=== PATIENT | female | born 2000 | race Caucasian/White ===

== ENCOUNTER → 2018-05-05 | Outpatient (CLI) | payer OTHER ==
[2018-05-05 13:28] LABS: BASO % 0.4 % (0.0-1.0); EOS # 0.1 10^3/uL (0.0-0.50); EOS % 1.1 % (0.0-3.0); HEMATOCRIT 45.1 % (36.0-47.0); IMMATURE GRANULOCYTE % 0.4 % (0-3.0); LYMPH # 2.4 10^3/uL (1.5-6.5); MEAN CORPUSCULAR VOLUME 83.8 fl (80.0-96.0); MONO # 0.6 10^3/uL (0.0-0.8); MONO % 7.5 % (0.0-5.0); NEUTROPHILS # 4.2 10^3/uL (1.8-7.7); NEUTROPHILS % 57.6 % (36.0-66.0); PLATELET COUNT, AUTOMATED 314 10^3/uL (150-450); RED BLOOD COUNT 5.38 10^6/uL (4.00-5.40); RED CELL DISTRIBUTION WIDTH 15.8 % (11.5-14.5); WHITE BLOOD COUNT 7.3 10^3/uL (4.0-10.0)
[2018-05-05 13:43] LABS: INR 1.11; PROTHROMBIN TIME 14.5 SECONDS (12.1-14.4)
[2018-05-05 13:57] LABS: ALBUMIN/GLOBULIN RATIO 0.93 (1.00-1.93); ALKALINE PHOSPHATASE 82 U/L (45-117); ALT/SGPT 136 U/L (12-78); ANION GAP 6 MEQ/L (8-16); AST/SGOT 101 U/L (7-37); BILIRUBIN,TOTAL 0.5 MG/DL (0.2-1.0); BLOOD UREA NITROGEN 6 MG/DL (7-18); CALCIUM LEVEL 9.2 MG/DL (8.5-10.1); CARBON DIOXIDE LEVEL 29 MEQ/L (21-32); CHLORIDE LEVEL 105 MEQ/L (98-107); CHOLESTEROL LEVEL 154 MG/DL (<200); CHOLESTEROL RISK RATIO 3.142 (<5); CREATININE FOR GFR 0.55 MG/DL (0.55-1.30); GLUCOSE, FASTING 88 MG/DL (70-100); HDL CHOLESTEROL 49 MG/DL (>40); LDL CHOLESTEROL 87.6 MG/DL (<100); NON-HDL-C 105 MG/DL; POTASSIUM SERUM 4.4 MEQ/L (3.5-5.1); SODIUM LEVEL 140 MEQ/L (136-145); TOTAL PROTEIN 8.3 GM/DL (6.4-8.2); TRIGLYCERIDES LEVEL 87 MG/DL (<150)
[2018-05-05 14:11] LABS: ESTIMATED AVERAGE GLUCOSE 157 MG/DL (60-110); HEMOGLOBIN A1c 7.1 %
[2018-05-05 16:48] LABS: TOTAL 25(OH) VITAMIN D 20.4 NG/ML (30.0-100.0)
[2018-05-06 10:17] LABS: TESTOSTERONE FREE (DIRECT) 7.6 pg/mL (0.0-4.2)
== END ==
LOC: M LAB 12:41
DX: E28.2 Polycystic ovarian syndrome (principal); Z13.9 Encounter for screening, unspecified
CPT/HCPCS: 84403

== ENCOUNTER → 2018-05-29 | Outpatient (CLI) | payer OTHER ==
[2018-05-29 13:07] LABS: BASO % 0.6 % (0.0-1.0); EOS # 0.1 10^3/uL (0.0-0.50); HEMATOCRIT 42.5 % (36.0-47.0); HEMOGLOBIN 13.5 g/dl (12.0-15.5); IMMATURE GRANULOCYTE % 0.4 % (0-3.0); LYMPH # 2.7 10^3/uL (1.5-6.5); LYMPH % 37.2 % (24.0-44.0); MEAN CORPUSCULAR HEMOGLOBIN 26.4 pg (27.0-33.0); MEAN CORPUSCULAR HGB CONC 31.8 g/dl (32.0-36.5); MEAN CORPUSCULAR VOLUME 83.2 fl (80.0-96.0); MONO # 0.5 10^3/uL (0.0-0.8); MONO % 6.7 % (0.0-5.0); NEUTROPHILS # 3.9 10^3/uL (1.8-7.7); NEUTROPHILS % 54.1 % (36.0-66.0); PLATELET COUNT, AUTOMATED 296 10^3/uL (150-450); RED BLOOD COUNT 5.11 10^6/uL (4.00-5.40); RED CELL DISTRIBUTION WIDTH 15.7 % (11.5-14.5); WHITE BLOOD COUNT 7.2 10^3/uL (4.0-10.0)
[2018-05-29 13:08] LABS: HEMATOCRIT 42.5 % (36.0-47.0)
[2018-05-29 14:01] LABS: TOTAL 25(OH) VITAMIN D 36.7 NG/ML (30.0-100.0)
[2018-05-29 14:03] LABS: THYROID PEROXIDASE ANTIBODY 31.6 U/ML (<60.0)
[2018-05-29 14:05] LABS: VITAMIN B12 LEVEL 603 PG/ML (247-911)
[2018-05-29 14:44] LABS: FREE T4 0.91 NG/DL (0.78-1.33)
[2018-05-29 15:54] LABS: FREE T3 3.2 PG/ML (2.9-4.5); IMMUNOGLOBULIN G 1410 MG/DL (681-1648)
[2018-06-02 16:29] LABS: PRETREATED FOLATE FOR RBCFOL 10.1 NG/ML; RBC FOLATE 499.1 NG/ML (280-791)
[2018-06-04 14:17] LABS: ALUMINUM LEVEL 4 ug/L (0-9)
[2018-06-04 14:17] LABS: ANTI DOUBLE STRAND-DNA AB 14 IU/mL (0-9); ANTINUCLEAR ANTIBODIES DIRECT Positive (Negative); GLUTATHIONE QT 244 ug/mL (176-323); Methylmalonic Acid 122 nmol/L (0-378); RNP ANTIBODIES 0.3 AI (0.0-0.9); SJOGREN'S ANTI SS-A <0.2 AI (0.0-0.9); SJOGREN'S ANTI SS-B <0.2 AI (0.0-0.9); SMITH ANTIBODIES <0.2 AI (0.0-0.9); T3 REVERSE 17.2 ng/dL (9.2-24.1); TISSUE TRANSGLUTAMINASE IgA <2 U/mL (0-3); UNITSIGA FOR GLIADIN IGA 8 units (0-19); UNITSIGG FOR GLIADIN IGG 3 units (0-19)
== END ==
LOC: M LAB 12:02
DX: F60.3 Borderline personality disorder (principal); E11.9 Type 2 diabetes mellitus without complications
CPT/HCPCS: 84443

== ENCOUNTER 2018-06-27 10:35 | Emergency (ER) | payer OTHER ==
[2018-06-27 11:53] LABS: INFLUENZA A AMPLIFICATION NEGATIVE (NEGATIVE); INFLUENZA B AMPLIFICATION NEGATIVE (NEGATIVE); RSV AMPLIFICATION NEGATIVE (NEGATIVE)
== END 2018-06-27 12:27 | disposition home or self-care (01) ==
LOC: M ED 10:35
DX: J06.9 Acute upper respiratory infection, unspecified (principal); E11.9 Type 2 diabetes mellitus without complications; F33.9 Major depressive disorder, recurrent, unspecified; F41.9 Anxiety disorder, unspecified; E28.2 Polycystic ovarian syndrome; Z87.891 Personal history of nicotine dependence; Z88.8 Allergy status to other drugs, medicaments and biological substances; Z88.1 Allergy status to other antibiotic agents; Z88.2 Allergy status to sulfonamides; Z79.899 Other long term (current) drug therapy
CPT/HCPCS: 87631

== ENCOUNTER 2018-07-14 18:42 | Emergency (ER) | payer OTHER ==
[2018-07-14 21:32] LABS: BASO % 0.5 % (0.0-1.0); EOS # 0.1 10^3/uL (0.0-0.50); EOS % 1.2 % (0.0-3.0); HEMATOCRIT 44.3 % (36.0-47.0); IMMATURE GRANULOCYTE % 0.4 % (0-3.0); LYMPH # 3.2 10^3/uL (1.5-6.5); LYMPH % 38.5 % (24.0-44.0); MEAN CORPUSCULAR HEMOGLOBIN 26.6 pg (27.0-33.0); MEAN CORPUSCULAR HGB CONC 31.6 g/dl (32.0-36.5); MEAN CORPUSCULAR VOLUME 84.2 fl (80.0-96.0); MONO # 0.6 10^3/uL (0.0-0.8); MONO % 7.5 % (0.0-5.0); NEUTROPHILS # 4.3 10^3/uL (1.8-7.7); NEUTROPHILS % 51.9 % (36.0-66.0); PLATELET COUNT, AUTOMATED 320 10^3/uL (150-450); RED BLOOD COUNT 5.26 10^6/uL (4.00-5.40); RED CELL DISTRIBUTION WIDTH 14.7 % (11.5-14.5); WHITE BLOOD COUNT 8.3 10^3/uL (4.0-10.0)
== END 2018-07-14 22:15 | disposition home or self-care (01) ==
LOC: M ED 18:42
DX: N93.8 Other specified abnormal uterine and vaginal bleeding (principal); T83.39XA Other mechanical complication of intrauterine contraceptive device, initial encounter; E11.9 Type 2 diabetes mellitus without complications; F33.9 Major depressive disorder, recurrent, unspecified; F41.9 Anxiety disorder, unspecified; F60.9 Personality disorder, unspecified; E28.2 Polycystic ovarian syndrome; Z79.899 Other long term (current) drug therapy; Z88.1 Allergy status to other antibiotic agents; Z88.2 Allergy status to sulfonamides; Z88.8 Allergy status to other drugs, medicaments and biological substances
CPT/HCPCS: 76856

== ENCOUNTER 2018-07-15 14:26 | Emergency (ER) | payer OTHER | END 2018-07-15 18:24 | disposition left against medical advice (07) | LOC: M ED 14:26 | DX: R10.2 Pelvic and perineal pain (principal); N94.6 Dysmenorrhea, unspecified; T83.39XA Other mechanical complication of intrauterine contraceptive device, initial encounter; Y92.9 Unspecified place or not applicable; Y93.9 Activity, unspecified; Z53.21 Procedure and treatment not carried out due to patient leaving prior to being seen by health care provider; Z79.899 Other long term (current) drug therapy; Z88.2 Allergy status to sulfonamides; Z88.8 Allergy status to other drugs, medicaments and biological substances | CPT/HCPCS: 99282 ==

== ENCOUNTER → 2018-08-03 | Outpatient (CLI) | payer OTHER ==
[2018-08-03 14:46] LABS: PROGESTERONE 0.99 NG/ML
[2018-08-03 14:46] LABS: FOLLICLE STIMULATING HORMONE 6.2 mIU/mL; LUTEINIZING HORMONE 5.9 mIU/mL; THYROGLOBULIN ANTIBODY 92.3 U/ML (<60.0); THYROID PEROXIDASE ANTIBODY 34.7 U/ML (<60.0); TOTAL 25(OH) VITAMIN D 26.2 NG/ML (30.0-100.0)
== END ==
LOC: M LAB 10:39
DX: F60.3 Borderline personality disorder (principal)
CPT/HCPCS: 83001

== ENCOUNTER → 2018-09-02 | Outpatient (REF) | payer OTHER ==
[2018-09-02 19:16] LABS: ALBUMIN 4.5 GM/DL (3.2-5.2); ALBUMIN/GLOBULIN RATIO 1.13 (1.00-1.93); ALKALINE PHOSPHATASE 72 U/L (45-117); ALT/SGPT 189 U/L (12-78); ANION GAP 9 MEQ/L (8-16); AST/SGOT 80 U/L (7-37); BILIRUBIN,TOTAL 0.3 MG/DL (0.2-1.0); BLOOD UREA NITROGEN 14 MG/DL (7-18); CALCIUM LEVEL 9.3 MG/DL (8.5-10.1); CARBON DIOXIDE LEVEL 24 MEQ/L (21-32); CHLORIDE LEVEL 107 MEQ/L (98-107); CREATININE FOR GFR 0.56 MG/DL (0.55-1.30); GLUCOSE, FASTING 88 MG/DL (70-100); POTASSIUM SERUM 4.4 MEQ/L (3.5-5.1); SODIUM LEVEL 140 MEQ/L (136-145); TOTAL PROTEIN 8.5 GM/DL (6.4-8.2)
[2018-09-02 19:58] LABS: ESTIMATED AVERAGE GLUCOSE 160 MG/DL (60-110); HEMOGLOBIN A1c 7.2 %
== END ==
LOC: M LAB REF 18:32
DX: K76.0 Fatty (change of) liver, not elsewhere classified (principal); E11.9 Type 2 diabetes mellitus without complications
CPT/HCPCS: 80053

== ENCOUNTER → 2018-12-26 | Outpatient (CLI) | payer MEDICARE ==
[~2018-12-26] MED LIST: ALL10TAB28 PO; PRED20TA PO; STEG5TAB
--- NOTE | 2019-01-01 23:05 | SLEEPCENT ---
DATE OF PROCEDURE: 12/26/2018 REFERRING PROVIDER: CHRIST Alfred INTERPRETATION: Nocturnal polysomnography was performed for the evaluation of sleep apnea syndrome symptoms consisting of excessive daytime sleepiness, snoring, gasping respirations, and morning headaches. She also has diabetes mellitus, type 2. A total of 7 hours and 37 minutes of data was reviewed with 335.5 minutes of sleep identified. Sleep latency was 16.5 minutes. Rapid eye movement (REM) latency was 110.5 minutes. All stages of sleep were identified. Sleep efficiency was decreased at 74.5%. EKG showed normal sinus rhythm with an average heart rate of 80 beats per minute. Speeding and slowing was noted surrounding some respiratory events. There were 109 respiratory events identified of 10 seconds in duration or longer for an apnea-hypopnea index (AHI) of 19.5. The events were predominantly obstructive apneas/hypopneas. Respiratory effort-related arousal (RERA) index was 1.8 giving a total respiratory disturbance index (RDI) of 21.3. Mean oxygen saturation for the study was 92% with a minimum recorded value of 84%. Arousal index was 7.7. Periodic limb movement index was 0. IMPRESSION: 1. Obstructive sleep apnea, moderate. RECOMMENDATIONS: Recommend the patient return to the sleep disorder center for the determination of pressure therapy. Pending that intervention, alcohol and sedative usage should be avoided and care should be taken when operating motor vehicles.
== END ==
LOC: M SLEEP 20:00
PROVIDERS: ATTEND Internal Medicine Pulmonary Disease
DX: G47.30 Sleep apnea, unspecified (principal)

== ENCOUNTER 2019-07-05 16:04 | Inpatient (IN) | payer MEDICARE, MEDICAID ==
[~2019-07-05] VITALS: Ht 170.2 cm; Wt 127.6 kg
[~2019-07-05 16:04] MED LIST changes: -ALL10TAB28 PO; +ALL10TAB29 PO
[2019-07-05] MEDS ORDERED: LANTINJ4 SC ×2 (16:15→23:43)
[2019-07-05] MEDS ORDERED: CLON0.5T8 PO ×2 (16:17→23:43)
[2019-07-05] MEDS ORDERED: NAPR500T6 PO (16:17)
[2019-07-05 17:30] LABS: HEMATOCRIT 43.4 % (36.0-47.0); HEMOGLOBIN 14.1 g/dl (12.0-15.5); MEAN CORPUSCULAR HEMOGLOBIN 27.9 pg (27.0-33.0); MEAN CORPUSCULAR HGB CONC 32.5 g/dl (32.0-36.5); MEAN CORPUSCULAR VOLUME 85.9 fl (80.0-96.0); PLATELET COUNT, AUTOMATED 250 10^3/uL (150-450); RED BLOOD COUNT 5.05 10^6/uL (4.00-5.40); WHITE BLOOD COUNT 6.8 10^3/uL (4.0-10.0)
[2019-07-05 17:41] LABS: HCG, SERUM QUALITATIVE NEGATIVE (NEGATIVE)
[2019-07-05 17:52] LABS: ALBUMIN 3.7 GM/DL (3.2-5.2); ALT/SGPT 172 U/L (12-78); BILIRUBIN,DIRECT 0.1 MG/DL (0.0-0.2); BILIRUBIN,TOTAL 0.2 MG/DL (0.2-1.0); BLOOD UREA NITROGEN 9 MG/DL (7-18); CARBON DIOXIDE LEVEL 26 MEQ/L (21-32); CHLORIDE LEVEL 108 MEQ/L (98-107); CREATININE FOR GFR 0.56 MG/DL (0.55-1.30); ETHYL ALCOHOL (ETHANOL) < 0.003 % (0.000-0.010); GLOMERULAR FILTRATION RATE > 60.0 (>60); GLUCOSE, FASTING 108 MG/DL (70-100); POTASSIUM SERUM 4.3 MEQ/L (3.5-5.1); SALICYLATE LEVEL < 1.7 MG/DL (5.0-30.0); SODIUM LEVEL 142 MEQ/L (136-145); TOTAL PROTEIN 7.9 GM/DL (6.4-8.2)
[2019-07-05 17:53] LABS: ACETAMINOPHEN LEVEL < 2.0 UG/ML (10.0-30.0)
[2019-07-05 21:24] LABS: AMPHETAMINES LEVEL URINE NEGATIVE (NEGATIVE); BARBITURATES URINE NEGATIVE (NEGATIVE); BENZODIAZEPINES URINE NEGATIVE (NEGATIVE); CANNABINOIDS URINE NEGATIVE (NEGATIVE); COCAINE METABOLITE URINE NEGATIVE (NEGATIVE); METHADONE URINE NEGATIVE (NEGATIVE); OPIATES URINE NEGATIVE (NEGATIVE); PHENCYCLIDINE URINE NEGATIVE (NEGATIVE)
[2019-07-05] MEDS ORDERED: NAPR-885 PO (23:43)
[2019-07-06] MEDS ORDERED: LEVEMIR (INSULIN DETEMIR) 1 UNITS/0.01ML SC ONE (00:45)
--- NOTE | 2019-07-06 07:50 | ECGEPIP ---
[facility] - ED Test Date: 2019-07-05 Pat Name: MUKESH RUBIO Department: Room: - Gender: Female Rn Operating Room: BRYCE : 2000 Requested By: ANTWAN Correia Order Number: [id number] Reading MD: Vel Michaud Measurements Intervals [place] Rate: 84 P: 46 LA: 164 QRS: -5 QRSD: 89 T: 5 QT: 361 QTc: 427 Interpretive Statements SINUS RHYTHM BENIGN EARLY REPOLARIZATION NONSPECIFIC T WAVE ABNORMALITIES NO PRIORS FOR COMPARISON Electronically Signed on 07-06-2019 7:49:33 EDT by Vel Michaud
[2019-07-06] MEDS ORDERED: MAALOX 30 ML SUSP *UDC PO PRN (17:00)
[2019-07-06] MEDS ORDERED: ACETAMINOPHEN TAB 650MG DOSE (2X325MG) PO PRN (17:00)
[2019-07-06] MEDS ORDERED: traZODone 50 MG TAB PO PRN (17:00)
[2019-07-06] MEDS ORDERED: MOM 30ML SUSPENSION UDC PO PRN (17:00)
[2019-07-07 06:12] VITALS: BP 135/82
[2019-07-07] MEDS ORDERED: LANTINJ4 SC (09:47)
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
[2019-07-07] MEDS ORDERED: CETIRIZINE (ZyrTEC) 10 MG TAB PO ONE (13:15)
[2019-07-07] MEDS ORDERED: DEXTROSE 50% 50 ML SYRINGE IV PRN (13:15)
[2019-07-07] MEDS ORDERED: CEPACOL LOZENGE PO PRN (13:15)
[2019-07-07] MEDS ORDERED: GLUCAGON FOR INJ 1 MG VIAL (J1610) SC PRN (13:15)
[2019-07-07] MEDS ORDERED: GLUCOSE 4 GM CHEW TABLET PO PRN (13:15)
--- NOTE | 2019-07-07 15:43 | HPE ---
DATE OF ADMISSION: 07/06/2019 DATE OF SERVICE: 07/07/2019 CHIEF COMPLAINT: Depression, runny nose. HISTORY OF PRESENT ILLNESS: This is a 19-year-old female admitted to the inpatient mental health unit due to depression. She complains of sinus congestion, rhinorrhea, sore throat without fevers or chills. No sputum production. The patient has had some sick contacts with her 's family, who have had upper respiratory infection and viral illness. She otherwise denies any muscle aches, joint pain aside from her chronic proximal interphalangeal joint pain that she occasionally has and currently being worked up by energy efficiency finance manager in [place]. The patient says that about 4 months ago she was referred out to energy efficiency finance manager due to abnormal findings of positive JAMAAL times two, increased liver function tests. More blood tests were performed at that time and she is to followup with them on 07/15/2019. The patient states that she also has pain in her back, her knees, her elbows, wrists, and small joints of the hands bilaterally. No swelling, redness or tenderness. Pain occurs for several hours, does not haydee until she takes Naprosyn twice a day with some relief. She otherwise denies any cough, rash, diarrhea. No prior history of psoriatic arthritis. She is being worked up for rheumatoid arthritis. No family history of lupus or thyroid issues. PAST MEDICAL HISTORY: 1. Polycystic ovarian syndrome. 2. Type 2 diabetes. 3. Obstructive sleep apnea. 4. Enlarged tonsils. 5. Being worked up for possible rheumatoid arthritis. PAST SURGICAL HISTORY 1. [place] teeth extraction times four teeth. HOME MEDICATIONS: - Naprosyn - Lantus insulin - insulin sliding scale ALLERGIES: TEGRETOL, SULFA, METFORMIN. SOCIAL HISTORY: Smoked cigarettes 2 years ago, half of a pack when she was home, but has quit since. Occasional alcohol, one drink with a Smirnoff on ice but not every day. She lost her disability. 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 FAMILY HISTORY: Mother and father with unknown medical illnesses. REVIEW OF SYSTEMS: As per history of present illness. 12-point system otherwise negative. PHYSICAL EXAMINATION: VITAL SIGNS: Temperature 97.7, pulse 79, sinus, respiratory rate 16, blood pressure 135/82, 100% on room air. GENERAL: The patient is awake, alert, oriented times three. Anicteric sclerae. No jaundice. No use of respiratory accessory muscles. The patient has significant nasal congestion and sinus tenderness in the maxillary area bilaterally. She has some rhinorrhea. Tympanic membranes are clear. She has enlarged tonsils but not exudates. She does have some cervical lymphadenopathy on the right, none on the right. No thyromegaly. No jugular venous distention (JVD). LUNGS: Clear to auscultation. No wheezing, rales or rhonchi. HEART: S1, S2. Sinus rhythm. ABDOMEN: Soft, nontender, nondistended. Positive bowel sounds. EXTREMITIES: No cyanosis, clubbing or any pitting edema. Distal interphalangeal joint, proximal interphalangeal joint and metacarpophalangeal joints all within normal. There is no bogginess or swelling. No tenderness. Knees and elbows are normal. No swelling or redness noted. Flexion, extension of bilateral upper and lower extremities at the elbow joints and knees are normal. Gait is normal. LABORATORY DATA: 07/05/2019 CBC, metabolic panel, toxicology screen have all been reviewed. Rapid strep is negative. ASSESSMENT AND PLAN: This is a 19-year-old admitted for depression, currently with upper respiratory infection, history of polycystic ovarian syndrome, diabetes, enlarged tonsils, obstructive sleep apnea. IMPRESSION: 1. Upper respiratory infection, most likely viral. Check respiratory panel. Strict handwashing. 2. Possible allergic rhinitis. Trial of Flonase, Zyrtec. 3. Sore throat. Negative rapid strep. No empiric antibiotics for now. Supportive care for possible viral illness. Encourage oral fluid intake. 4. Joint pain, being worked up by energy efficiency finance manager in [place] with abnormal JAMAAL pattern. Currently with no bogginess of any of the small joints of the hands. Consent for x-ray of the hand. Check for anisotropine antibodies. 5. PCOS. The patient does not tolerate metformin. Outpatient followup with her scallop binder. 6. Type 2 diabetes. Check A1/c and resume on home dose of Lantus insulin. While inpatient, change to Levemir insulin as Lantus is unavailable. Continue on consistent carbohydrate diet. 7. Metabolic syndrome with type 2 diabetes and obesity. Check lipid panel. Encourage weight loss. MTDD
[2019-07-07 16:06] VITALS: BP 133/89
--- NOTE | 2019-07-07 16:10 | REP ---
REASON FOR EXAM: Hand pain. No trauma. No priors. FINDINGS: The joint spaces are symmetric and relatively well maintained. There is no evidence of acute fracture or destructive osseous lesion. IMPRESSION: Negative hand. Electronically Signed by Vincent Thayer DO 07/08/2019 10:43 A
[2019-07-07] MEDS: FLUTICASONE PROP 0.05% NASAL SPRAY 16 GM (FLONASE) NARES SCH (17:21)
[2019-07-07] MEDS: HumaLOG INSULIN (NovoLOG) PER UNIT SC SCH (17:21)
[2019-07-07 18:13] LABS: C REACTIVE PROTEIN QUANTITATIV 1.12 MG/DL (0.00-0.30); COMPLEMENT C3 165 MG/DL (90-180); COMPLEMENT C4 16 MG/DL (10-40); RHEUMATOID FACTOR QUANT < 10.0 IU/ML (<15.0)
[2019-07-07] MEDS ORDERED: LEVEMIR (INSULIN DETEMIR) 1 UNITS/0.01ML SC SCH (21:00)
[2019-07-07] MEDS ORDERED: HumaLOG INSULIN (NovoLOG) PER UNIT SC SCH (21:00)
[2019-07-08 06:13] VITALS: BP 136/82
[2019-07-08] MEDS: HumaLOG INSULIN (NovoLOG) PER UNIT SC SCH (07:30)
[2019-07-08] MEDS: FLUTICASONE PROP 0.05% NASAL SPRAY 16 GM (FLONASE) NARES SCH (08:17)
[2019-07-08] MEDS ORDERED: CETIRIZINE (ZyrTEC) 10 MG TAB PO SCH (09:00)
--- NOTE | 2019-07-08 11:44 | MHDSPDOC ---
[facility] Discharge Summary Discharge Summary DATE OF ADMISSION: Jul 06, 2019 at 16:53 DATE OF DISCHARGE: Jul 08, 2019 at 10:45 Date of Service: 07/08/2019 Diagnoses Adjustment disorder with disruption of mood and conduct. History of Present Illness The patient is a 19-year-old woman presents to [facility] reportedly for current suicidal thoughts. She reported that she had had a second session with the new therapist and had revealed her current suicidal thoughts, reporting that she wished to talk about that; however, she reports that her therapist had sent her in to the ER for out of an abundance of caution. The patient reports that she has been unhappy with [facility] and has an appointment with the [facility] with the provider, Mary Parsons, as she reports having a positive experience. She is not interested in trying any medications as she reports talk therapy is her ideal treatment. She requests to leave today and does not appear to demonstrate substantial risk from her baseline chronic risk factors. She is observed and generally amenable, friendly and attends to all parts of her treatment well. She has been in observation and brought in since the 05 of July, more than 48 hours ago where she was observed with no suicidal ideation. Consultants Involved Hospitalist/PCP screening Treatment and Progress On The Unit The patient was admitted to the unit and subsequently observed after 48 hours with no medication changes. She was euthymic. She had been denying suicidal ideation during the majority of her stay. She reported that she felt she had been brought in out of an abundance of caution, she reports that she regularly has passive intermittent suicidal ideation but has no plans, means, or intent to act on them. After observation for 48 hours, the patient was noted to be amenable, attended groups, and was not demonstrating that she was heavily impaired by any mental condition so much so that she would be unable to care for herself. She had been denying any suicidal or homicidal ideation and, at the day of discharge, she requested to go. She did not meet involuntary criteria in my clinical judgment, as she was not demonstrating factors that would indicate that she is an imminent risk to herself, as elaborated above. She additionally was able to engage in her discharge planning and was noted to be future orientated and well-engaged in discharge planning. She declined further voluntary admission and thus was discharged in good jacques. Discharge Assessment 19-year-old woman with a history of adjustment versus MDD that presents after having chronic passive ideation that's revealed to a new therapist, necessitating her being brought in for observation. After observation has lapsed, she no longer meets involuntary criteria and, thus, when she requests to leave, she must be discharged in good jacques. Mental Status Examination General: Well dressed with good hygiene Speech: Spontaneous and fluid Thought processes: Linear and logical MSK: Smooth and coordinated gait, no signs of tremors or involuntary orofacial movements Thought content: Future orientated Abstract reasoning, and computation: Intact Description of associations: Intact Description of abnormal or psychotic thoughts: Denies any suicidal or homicidal ideation. Denies any auditory or visual hallucinations. Does not appear to be responding to internal stimuli. Does not appear to be endorsing any bizarre or paranoid ideation. Judgment: fair Insight: fair Orientation: Alert and orientated 3 Cognition: Grossly normal Recent and remote memory: Intact Attention span and concentration: Intact Fund of knowledge: Adequate Mood: "okay" Affect: Euthymic with a full range Follow Up The social work team worked during the pre-discharge meeting in order to evaluate for further issues of lethality, address them fully before discharge. They worked on safety planning with the patient's family members in order to ensure that the patient will have a safe and effective discharge. Time Spent The amount of time spent in the coordination of care for this patient was approximately 30 minutes. Vital Signs/I&Os Vital Signs Date Time Temp Pulse Resp B/P (MAP) Pulse Ox O2 Delivery O2 Flow Rate FiO2 07/08/19 06:13 97.7 78 18 136/82 (100) 07/07/19 08:07 Room Air 07/06/19 17:21 100 Laboratory Data Labs 24H Laboratory Tests 2 07/07/19 16:54: Bedside Glucose (Misc Panel) 111H 07/07/19 17:24: Erythrocyte Sedimentation Rate 14, C-Reactive Protein, Quantitative 1.12H, Rheumatoid Factor < 10.0, Complement C3 165, Complement C4 16 07/07/19 21:44: Bedside Glucose (Misc Panel) 112H 07/08/19 06:28: Bedside Glucose (Misc Panel) 124H 07/08/19 08:14: Bedside Glucose (Misc Panel) 189H Microbiology Microbiology 07/07/19 Respiratory Virus Panel (PCR) (SUDHA) - Final, Complete Human Rhinovirus/Enterovirus 07/07/19 Group A Streptococcus Screen (SUDHA) - Final, Resulted 07/07/19 Group A Streptococcus Screen (SUDHA), Resulted Pending Medications Scheduled Insulin Glargine,Hum.rec.anlog (Lantus Solostar) 100 Unit/1 Ml Insuln.pen, 10 UNITS SC QHS, (Reported) Scheduled PRN Naproxen (Naproxen) 500 Mg Tablet, 500 MG PO BID PRN for PAIN, (Reported) Allergies Coded Allergies: Sulfa (Sulfonamide Antibiotics) (Verified Allergy, Intermediate, HIVES, 07/05/19) carbamazepine (Verified Allergy, Intermediate, HIVES, 07/05/19) metformin (Verified Adverse Reaction, Mild, GI ISSUES, 07/05/19) SASKIA GARDNER DO Jul 08, 2019 11:44
== END 2019-07-08 10:45 | disposition home or self-care (01) | DRG 882 ==
LOC: M ED 16:04 → M ED INP 07-06 16:53 → M PSY 07-06 17:28
PROVIDERS: ADMIT Psychiatry & Neurology Addiction Medicine; ATTEND Psychiatry & Neurology Addiction Medicine
DX: F43.25 Adjustment disorder with mixed disturbance of emotions and conduct (principal); Z68.41 Body mass index [BMI] 40.0-44.9, adult; Z88.2 Allergy status to sulfonamides; Z88.8 Allergy status to other drugs, medicaments and biological substances; E11.65 Type 2 diabetes mellitus with hyperglycemia; Z79.4 Long term (current) use of insulin; J30.9 Allergic rhinitis, unspecified; J02.9 Acute pharyngitis, unspecified; E28.2 Polycystic ovarian syndrome; G47.33 Obstructive sleep apnea (adult) (pediatric); J35.1 Hypertrophy of tonsils; M06.9 Rheumatoid arthritis, unspecified; Z87.891 Personal history of nicotine dependence; Z59.9 Problem related to housing and economic circumstances, unspecified; E88.81 Metabolic syndrome and other insulin resistance; E66.9 Obesity, unspecified

== ENCOUNTER → 2019-07-13 | Outpatient (CLI) | payer MEDICARE, MEDICAID ==
[~2019-07-13] MED LIST changes: +CLON0.5T8 PO; +LANTINJ4 SC; +NAPR-885 PO; +NAPR500T6 PO
[2019-07-13 10:59] LABS: C REACTIVE PROTEIN QUANTITATIV 0.59 MG/DL (0.00-0.30); FREE T3 3.4 PG/ML (2.2-4.0); FREE T4 1.03 NG/DL (0.76-1.46); PROGESTERONE 0.75 NG/ML; TOTAL 25(OH) VITAMIN D 23.6 NG/ML (30.0-100.0)
[2019-07-14 09:12] LABS: THYROID PEROXIDASE ANTIBODY < 28.0 U/ML (<60.0)
[2019-07-17 00:08] LABS: ESTROGENS TOTAL 222 pg/mL (.); INSULIN LEVEL 19.6 uIU/mL (2.6-24.9); TESTOSTERONE FREE (DIRECT) 4.8 pg/mL (0.0-4.2); THRYOGLOBULIN ANTIBODIES (ATA) < 1.0 IU/mL (0.0-0.9); THYROGLOBULIN QUANTITATIVE 19.4 ng/mL (1.5-38.5)
== END ==
LOC: M LAB 08:55
PROVIDERS: ATTEND Nurse Practitioner Pediatrics
DX: F60.3 Borderline personality disorder (principal); E28.2 Polycystic ovarian syndrome; E11.9 Type 2 diabetes mellitus without complications; E03.9 Hypothyroidism, unspecified

== ENCOUNTER → 2019-07-29 | Outpatient (REF) | payer MEDICARE, MEDICAID ==
[2019-08-05 14:51] LABS: HPV HYBRID CAPTURE II Positive (Negative)
== END ==
LOC: M SFHCWAGY 15:22
PROVIDERS: ATTEND Nurse Practitioner Women's Health
DX: Z12.4 Encounter for screening for malignant neoplasm of cervix (principal); R87.620 Atypical squamous cells of undetermined significance on cytologic smear of vagina (ASC-US); R87.810 Cervical high risk human papillomavirus (HPV) DNA test positive
CPT/HCPCS: 87624; 87661; G0101; G0123

== ENCOUNTER → 2019-07-29 | Outpatient (REF) | payer MEDICARE, MEDICAID ==
[2019-07-29 20:14] LABS: CHLAMYDIA DNA AMPLIFICATION NEGATIVE (NEGATIVE); GC DNA AMPLIFICATION NEGATIVE (NEGATIVE)
== END ==
LOC: M SFHCWAGY 16:52
PROVIDERS: ATTEND Nurse Practitioner Women's Health
DX: Z11.3 Encounter for screening for infections with a predominantly sexual mode of transmission (principal)

== ENCOUNTER → 2019-08-09 | Outpatient (CLI) | payer MEDICARE, SELFPAY ==
[~2019-08-09] MED LIST changes: +CLON0.5T2 PO; -CLON0.5T8 PO
--- NOTE | 2019-08-10 09:12 | REP ---
PELVIC ULTRASOUND: Real-time sonographic evaluation of the pelvis performed utilizing transabdominal and endovaginal technique. Bladder measures 10.0 x 8.2 x 6.7 cm. Uterus measures 7.6 x 2.8 x 3.6 cm. Endometrial thickness is 5 mm with no endometrial fluid collection. Right ovary measures 4.7 x 2.5 x 2.5 cm and left ovary 3.3 x 2.5 x 2.6 cm. Multiple subcentimeter follicles are seen in each ovary. There is no adnexal mass or free fluid. There is no torsion, blood flow is seen in each ovary with duplex Doppler evaluation. IMPRESSION: Negative pelvic ultrasound. Multiple subcentimeter follicles seen in each ovary. Electronically Signed by Chris Muir MD 08/11/2019 10:26 A
== END ==
LOC: M RAD 16:30
PROVIDERS: ATTEND Nurse Practitioner Women's Health
DX: Z01.419 Encounter for gynecological examination (general) (routine) without abnormal findings (principal); E28.2 Polycystic ovarian syndrome; N97.0 Female infertility associated with anovulation

== ENCOUNTER → 2019-10-13 | Outpatient (REF) | payer MEDICARE ==
[2019-10-13 13:54] LABS: BASO % 0.3 % (0.0-1.0); EOS # 0.1 10^3/uL (0.0-0.5); EOS % 1.3 % (0.0-3.0); HEMOGLOBIN 13.6 g/dl (12.0-15.5); LYMPH # 2.4 10^3/uL (1.5-5.0); LYMPH % 38.8 % (24.0-44.0); MEAN CORPUSCULAR HEMOGLOBIN 27.8 pg (27.0-33.0); MEAN CORPUSCULAR HGB CONC 31.6 g/dl (32.0-36.5); MEAN CORPUSCULAR VOLUME 87.9 fl (80.0-96.0); MONO # 0.5 10^3/uL (0.0-0.8); MONO % 7.3 % (0.0-5.0); NEUTROPHILS # 3.3 10^3/uL (1.5-8.5); NEUTROPHILS % 51.8 % (36.0-66.0); PLATELET COUNT, AUTOMATED 267 10^3/uL (150-450); RED BLOOD COUNT 4.89 10^6/uL (4.00-5.40); WHITE BLOOD COUNT 6.3 10^3/uL (4.0-10.0)
[2019-10-13 14:07] LABS: ALBUMIN 3.8 GM/DL (3.2-5.2); ALT/SGPT 112 U/L (12-78); BILIRUBIN,TOTAL 0.5 MG/DL (0.2-1.0); BLOOD UREA NITROGEN 6 MG/DL (7-18); CARBON DIOXIDE LEVEL 27 MEQ/L (21-32); CHLORIDE LEVEL 107 MEQ/L (98-107); CHOLESTEROL LEVEL 161 MG/DL (<200); CHOLESTEROL RISK RATIO 2.981 (<5); CREATININE FOR GFR 0.46 MG/DL (0.55-1.30); FREE T4 0.97 NG/DL (0.76-1.46); GLOMERULAR FILTRATION RATE > 60.0 (>60); GLUCOSE, FASTING 118 MG/DL (70-100); HDL CHOLESTEROL 54 MG/DL (>40); LDL CHOLESTEROL 88 MG/DL (<100); NON-HDL-C 107 MG/DL; POTASSIUM SERUM 4.3 MEQ/L (3.5-5.1); SODIUM LEVEL 139 MEQ/L (136-145); TOTAL PROTEIN 7.6 GM/DL (6.4-8.2); TRIGLYCERIDES LEVEL 95 MG/DL (<150)
[2019-10-13 14:09] LABS: TOTAL 25(OH) VITAMIN D 23.7 NG/ML (30.0-100.0)
[2019-10-13 15:17] LABS: HEMOGLOBIN A1c 7.1 %
== END ==
LOC: M LAB REF 13:38
PROVIDERS: ATTEND Nurse Practitioner Family
DX: R32 Unspecified urinary incontinence (principal); Z13.9 Encounter for screening, unspecified; E11.9 Type 2 diabetes mellitus without complications; E66.01 Morbid (severe) obesity due to excess calories

== ENCOUNTER → 2019-11-24 | Outpatient (CLI) | payer OTHER ==
[2019-11-24 15:35] LABS: BASO % 0.6 % (0.0-1.0); EOS % 0.6 % (0.0-3.0); HEMATOCRIT 42.5 % (36.0-47.0); HEMOGLOBIN 13.7 g/dl (12.0-15.5); LYMPH # 2.5 10^3/uL (1.5-5.0); LYMPH % 39.5 % (24.0-44.0); MEAN CORPUSCULAR HEMOGLOBIN 27.8 pg (27.0-33.0); MEAN CORPUSCULAR HGB CONC 32.2 g/dl (32.0-36.5); MEAN CORPUSCULAR VOLUME 86.4 fl (80.0-96.0); MONO # 0.5 10^3/uL (0.0-0.8); MONO % 8.3 % (0.0-5.0); NEUTROPHILS # 3.3 10^3/uL (1.5-8.5); NEUTROPHILS % 50.8 % (36.0-66.0); PLATELET COUNT, AUTOMATED 267 10^3/uL (150-450); RED BLOOD COUNT 4.92 10^6/uL (4.00-5.40); WHITE BLOOD COUNT 6.4 10^3/uL (4.0-10.0)
[2019-11-24 15:46] LABS: INR 1.13; PROTHROMBIN TIME 14.2 SECONDS (11.8-14.0)
[2019-11-24 16:03] LABS: ALBUMIN 4.1 GM/DL (3.2-5.2); ALT/SGPT 112 U/L (12-78); BILIRUBIN,TOTAL 0.5 MG/DL (0.2-1.0); BLOOD UREA NITROGEN 7 MG/DL (7-18); CALCIUM LEVEL 9.1 MG/DL (8.5-10.1); CARBON DIOXIDE LEVEL 26 MEQ/L (21-32); CHLORIDE LEVEL 107 MEQ/L (98-107); CREATININE FOR GFR 0.46 MG/DL (0.55-1.30); FERRITIN 42 NG/ML (8-252); GLOMERULAR FILTRATION RATE > 60.0 (>60); GLUCOSE, FASTING 90 MG/DL (70-100); POTASSIUM SERUM 4.2 MEQ/L (3.5-5.1); SODIUM LEVEL 139 MEQ/L (136-145); TOTAL PROTEIN 7.7 GM/DL (6.4-8.2)
[2019-11-24 16:22] LABS: HEPATITIS B SURFACE ANTIGEN NEGATIVE (NEGATIVE)
[2019-11-24 16:49] LABS: HEPATITIS B CORE ANTIBODY IGM NEGATIVE (NEGATIVE)
[2019-11-24 16:52] LABS: HEPATITIS A ANTIBODY IGM NEGATIVE (NEGATIVE)
[2019-11-27 08:06] LABS: ANTI DOUBLE STRAND-DNA AB 20 IU/mL (0-9); ANTI-MITOCHONDRIAL ANTIBODY <20.0 Units (0.0-20.0); ANTI-SMOOTH MUSCLE ANTIBODY 6 Units (0-19); ANTINUCLEAR ANTIBODIES DIRECT Positive (Negative); RNP ANTIBODIES 0.2 AI (0.0-0.9); SJOGREN'S ANTI SS-A <0.2 AI (0.0-0.9); SJOGREN'S ANTI SS-B <0.2 AI (0.0-0.9); SMITH ANTIBODIES <0.2 AI (0.0-0.9)
== END ==
LOC: M LAB 14:39
PROVIDERS: ATTEND Physician Assistant Medical
DX: K74.0 Hepatic fibrosis (principal)

== ENCOUNTER → 2019-11-24 | Outpatient (CLI) | payer OTHER ==
[2019-11-24 16:11] LABS: ALBUMIN 4.1 GM/DL (3.2-5.2); BILIRUBIN,DIRECT 0.1 MG/DL (0.0-0.2); BILIRUBIN,TOTAL 0.3 MG/DL (0.2-1.0); FREE T4 0.84 NG/DL (0.76-1.46); PROLACTIN 4.1 NG/ML; THYROID STIMULATING HORMONE 2.48 uIU/ML (0.358-3.740); TOTAL PROTEIN 7.8 GM/DL (6.4-8.2)
[2019-12-01 08:06] LABS: 17 HYDROXY PROGESTERONE 37 ng/dL (.); DEHYDROEPIANDROSTERONE UNCONJ 370 ng/dL (31-701); ESTROGENS TOTAL 200 pg/mL (.); TESTOSTERONE FREE (DIRECT) 6.9 pg/mL (0.0-4.2)
[2019-12-05 07:00] LABS: CHROMKB1 SEE SEPARATE REPORT
== END ==
LOC: M LAB 14:35
PROVIDERS: ATTEND Obstetrics & Gynecology
DX: N91.4 Secondary oligomenorrhea (principal)

== ENCOUNTER → 2019-12-14 | Outpatient (CLI) | payer OTHER | LOC: M SLEEP 20:00 | PROVIDERS: ATTEND Nurse Practitioner Family | DX: G47.33 Obstructive sleep apnea (adult) (pediatric) (principal) ==

== ENCOUNTER → 2020-01-14 | Outpatient (CLI) | payer OTHER ==
[2020-01-14 11:15] LABS: CHOLESTEROL RISK RATIO 2.527 (<5)
[2020-01-14 11:32] LABS: HEMOGLOBIN A1c 6.6 %
== END ==
LOC: M LAB 10:22
PROVIDERS: ATTEND Nurse Practitioner Family
DX: Z13.9 Encounter for screening, unspecified (principal); E11.9 Type 2 diabetes mellitus without complications; E66.01 Morbid (severe) obesity due to excess calories

== ENCOUNTER 2020-02-26 14:49 | Emergency (ER) | payer OTHER ==
[~2020-02-26] VITALS: Ht 172.7 cm; Wt 125.0 kg
[~2020-02-26 14:49] MED LIST changes: -ALL10TAB29 PO; +CETI-24 PO
[2020-02-26] MEDS ORDERED: CETI-24 (15:04)
[2020-02-26] MEDS ORDERED: [UNRECOGNIZED DRUG - CODE] (15:04)
[2020-02-26] MEDS ORDERED: DULO1CAP6 (15:04)
[2020-02-26] MEDS ORDERED: ONDA-83 (15:04)
[2020-02-26 15:58] VITALS: BP 132/88
[2020-02-26 15:59] LABS: HEMATOCRIT 44.8 % (36.0-47.0); HEMOGLOBIN 14.2 g/dl (12.0-15.5); MEAN CORPUSCULAR HEMOGLOBIN 26.9 pg (27.0-33.0); MEAN CORPUSCULAR HGB CONC 31.7 g/dl (32.0-36.5); MEAN CORPUSCULAR VOLUME 84.8 fl (80.0-96.0); PLATELET COUNT, AUTOMATED 220 10^3/uL (150-450); RED BLOOD COUNT 5.28 10^6/uL (4.00-5.40); WHITE BLOOD COUNT 6.4 10^3/uL (4.0-10.0)
[2020-02-26 16:14] LABS: HCG, SERUM QUALITATIVE NEGATIVE (NEGATIVE)
[2020-02-26 16:30] LABS: ACETAMINOPHEN LEVEL < 2.0 UG/ML (10.0-30.0); ALBUMIN 4.1 GM/DL (3.2-5.2); ALT/SGPT 97 U/L (12-78); BILIRUBIN,DIRECT 0.1 MG/DL (0.0-0.2); BILIRUBIN,TOTAL 0.2 MG/DL (0.2-1.0); BLOOD UREA NITROGEN 7 MG/DL (7-18); CALCIUM LEVEL 8.8 MG/DL (8.5-10.1); CARBON DIOXIDE LEVEL 22 MEQ/L (21-32); CHLORIDE LEVEL 109 MEQ/L (98-107); CREATININE FOR GFR 0.53 MG/DL (0.55-1.30); ETHYL ALCOHOL (ETHANOL) 0.005 % (0.000-0.010); GLOMERULAR FILTRATION RATE > 60.0 (>60); GLUCOSE, FASTING 104 MG/DL (70-100); POTASSIUM SERUM 4.2 MEQ/L (3.5-5.1); SALICYLATE LEVEL < 1.7 MG/DL (5.0-30.0); SODIUM LEVEL 141 MEQ/L (136-145); TOTAL PROTEIN 8.1 GM/DL (6.4-8.2)
[2020-02-26 18:30] LABS: AMPHETAMINES LEVEL URINE NEGATIVE (NEGATIVE); BARBITURATES URINE NEGATIVE (NEGATIVE); BENZODIAZEPINES URINE NEGATIVE (NEGATIVE); CANNABINOIDS URINE NEGATIVE (NEGATIVE); COCAINE METABOLITE URINE NEGATIVE (NEGATIVE); METHADONE URINE NEGATIVE (NEGATIVE); OPIATES URINE NEGATIVE (NEGATIVE); PHENCYCLIDINE URINE NEGATIVE (NEGATIVE)
[2020-10-02] MEDS ORDERED: XULA1DIS TOP (10:36)
[2020-10-02] MEDS ORDERED: DULO1CAP6 PO (10:36)
[2020-10-02] MEDS ORDERED: INSUHUMDS SC (10:36)
[2020-10-02] MEDS ORDERED: VENTAER INH (10:36)
[2020-10-02] MEDS ORDERED: BENL200I SC (10:48)
== END 2020-02-26 20:43 | disposition home or self-care (01) ==
LOC: M ED 14:49
DX: F32.9 Major depressive disorder, single episode, unspecified (principal); Z63.0 Problems in relationship with spouse or partner; Z91.5 Personal history of self-harm; E11.9 Type 2 diabetes mellitus without complications; E28.2 Polycystic ovarian syndrome; G47.33 Obstructive sleep apnea (adult) (pediatric); F17.200 Nicotine dependence, unspecified, uncomplicated; Z79.4 Long term (current) use of insulin; Z79.899 Other long term (current) drug therapy; Z88.2 Allergy status to sulfonamides; Z88.8 Allergy status to other drugs, medicaments and biological substances
CPT/HCPCS: 80048; 80076; 80307; 84443; 84703; 85027; 99284; G0480

== ENCOUNTER 2020-08-18 00:50 | Emergency (ER) | payer OTHER ==
[~2020-08-18] VITALS: Ht 172.7 cm; Wt 130.4 kg
[~2020-08-18 00:50] MED LIST changes: +CETI-24; +DULO1CAP6; +ONDA-83; +[UNRECOGNIZED DRUG - CODE]
[2020-08-18] MEDS ORDERED: ABIL1INJ2 IM (01:04)
[2020-08-18] MEDS ORDERED: [UNRECOGNIZED DRUG - OTHER] IV (01:04)
[2020-08-18] MEDS ORDERED: LANTINJ4 SC (01:04)
[2020-08-18] MEDS ORDERED: PLAQ200T4 PO (01:07)
[2020-08-18] MEDS ORDERED: TEST200I14 IM (01:07)
[2020-08-18 02:37] LABS: BLOOD UREA NITROGEN 9 MG/DL (7-18); CALCIUM LEVEL 9.2 MG/DL (8.5-10.1); CARBON DIOXIDE LEVEL 26 MEQ/L (21-32); CHLORIDE LEVEL 105 MEQ/L (98-107); CREATININE FOR GFR 0.85 MG/DL (0.55-1.30); GLOMERULAR FILTRATION RATE > 60.0 (>60); GLUCOSE, FASTING 210 MG/DL (70-100); SODIUM LEVEL 139 MEQ/L (136-145)
[2020-08-18 03:22] VITALS: BP 137/71
== END 2020-08-18 03:23 | disposition home or self-care (01) ==
LOC: M ED 00:50
DX: E11.65 Type 2 diabetes mellitus with hyperglycemia (principal); E66.9 Obesity, unspecified; F31.9 Bipolar disorder, unspecified; E28.2 Polycystic ovarian syndrome; Z79.4 Long term (current) use of insulin; Z79.899 Other long term (current) drug therapy; Z88.2 Allergy status to sulfonamides; Z88.8 Allergy status to other drugs, medicaments and biological substances

== ENCOUNTER → 2020-08-23 | Outpatient (CLI) | payer OTHER ==
[~2020-08-23] MED LIST changes: +ABIL1INJ2 IM; +LIDOCAINE 1% MDV 20ML VIAL As Ordered ONE; +MIDAZOLAM INJ 2MG/2ML VIAL (J2250 PER 1MG) As Ordered ONE; +PLAQ200T4 PO; +TEST200I14 IM; +[UNRECOGNIZED DRUG - OTHER] IV; +ceFAZolin 1GM VIAL (J0690 PER 500MG) As Ordered ONE; +diphenhydrAMINE 50MG/ML VIAL (J1200) As Ordered ONE; +fentaNYL 100 MCG/2 ML INJECTION (J3010) As Ordered ONE
--- NOTE | 2020-08-23 14:57 | IRHP ---
[facility] IR Pre-Procedure H & P General Date of Service: Aug 23, 2020 Procedure: Same Day Surgery Interval History and Physical I have seen the patient and reviewed last H & P performed within 30 days. There is no significant interval change. History of Present Illness Chief Complaint The patient is a 20-year-old female admitted with a reason for visit of Problem W/ Vascular Access For Infusions. PRE-PROCEDURE DIAGNOSIS: lupus HEART: normal rate. LUNGS: normal breathing at rest. ASA Classification ASA Classification: III-Severe systemic dis. Mallampati Score: II NPO: Yes Problems with prior sedation: No Obstructive Sleep Apnea: Yes Allergies Coded Allergies: Sulfa (Sulfonamide Antibiotics) (Verified Allergy, Intermediate, HIVES, 07/05/19) carbamazepine (Verified Allergy, Intermediate, HIVES, 07/05/19) metformin (Verified Adverse Reaction, Mild, GI ISSUES, 07/05/19) Home Medications Scheduled Aripiprazole (Abilify Maintena), 400 MG IM Q4WKS, (Reported) Hydroxychloroquine Sulfate (Plaquenil), 200 MG PO DAILY, (Reported) Insulin Glargine,Hum.rec.anlog (Lantus Solostar), 36 UNIT SC QPM, (Reported) Testosterone Cypionate (Testosterone Cypionate), 50 MG IM 1XWK, (Reported) [benlysta infusion], 400 MG IV Q4WKS, (Reported) Scheduled PRN Naproxen (Naproxen), 500 MG PO BID PRN for PAIN, (Reported) Discontinued Medications Belimumab (Benlysta), (Reported) Discontinued Reason: Pt states not taking Cetirizine HCl (Cetirizine HCl), (Reported) Discontinued Reason: Pt states not taking Duloxetine Hcl (Duloxetine HCl), (Reported) Discontinued Reason: Pt states not taking Insulin Glargine,Hum.rec.anlog (Lantus Solostar), 10 UNITS SC QHS, (Reported) Discontinued Reason: Pt states not taking Ondansetron HCl (Ondansetron HCl), (Reported) Discontinued Reason: Pt states not taking VS, I&O, 24H, Fishbone Vital Signs/I&O Vital Signs Date Time Temp Pulse Resp B/P (MAP) Pulse Ox O2 Delivery O2 Flow Rate FiO2 08/23/20 14:03 97.1 94 18 98 Room Air DANAE DODD MD Aug 23, 2020 14:57
[2020-08-23 18:10] VITALS: BP 140/80
--- NOTE | 2020-08-25 10:43 | POST-OPPD ---
Postoperative Procedure Note Date Of Procedure: Aug 23, 2020 Time Of Procedure: 16:00 IR ultrasound and fluoroscopy guided port placement IR Ultrasound of the neck. IR Moderate sedation. Clinical indication: Lupus. Poor peripheral IV access. Needs long-term access. Physician: Dr. Bacon. Procedure: The patient was advised of the benefits, risks, and alternatives of the procedure and informed consent was obtained. A time-out was performed with verification of the patient's name, MRN, site of procedure and type of procedure to be performed. The patient was positioned in the supine position on the angiographic table. The site was prepped and draped in the usual sterile fashion. Moderate sedation was performed by the physician including the presence of an independent trained RN who assisted and monitored the patient's level of consciousness and physiologic status. Following the administration of fentanyl and Versed , the physician spent 45 minutes of continuous face to face time with the patient. Ultrasound of the neck reveals a patent and compressible right internal jugular vein. A advanced registered nurse radiograph reveals no gross abnormality. The neck and anterior chest wall were anesthetized with lidocaine. The right internal jugular vein was accessed using a microintroducer needle under ultrasound guidance, via a lateral approach. An 018 wire was advanced into the superior vena cava, the needle was removed and a microsheath was placed. An Amplatz wire was then passed into the inferior vena cava. An incision at the internal jugular vein access site and anterior chest wall were made using a scalpel. An incision was made at the anterior chest wall. A small pocket was created using a combination of blunt and sharp dissection. A tunneling device was then used to pass the catheter from the pocket to the neck puncture site. An 8- [place] Angio Azoi Smart power port was then positioned in the pocket. The catheter was then measured and cut. The introducer sheath was exchanged for a peel-away sheath. The catheter was passed through the peel-away sheath into the internal jugular vein and the peel- away sheath was removed. The port tip was positioned at the cavoatrial junction. The port was then accessed with a Braden needle. The port flushes and aspirates well. The puncture site in the neck was closed. The chest wall incision was then closed with 2-0 Vicryl and 4-0 Monocryl. Glue and Steri- Strips were applied. A sterile dressing was then applied. The patient tolerated the procedure well and was returned to the PRU in stable condition. Estimated blood loss: <5 ml. Complications: None. Conclusion: 1. Successful placement of an 8-[place] Angio dynamics Smart power port via the right internal jugular vein. The port is ready for immediate use. 2. Patient to follow up in IR clinic in 2 weeks. Thank you for this referral. DANAE BACON MD Aug 25, 2020 10:42
== END ==
LOC: M IRPRO 13:07
PROVIDERS: ATTEND Radiology Diagnostic Radiology
DX: M32.9 Systemic lupus erythematosus, unspecified (principal); Z88.2 Allergy status to sulfonamides; Z88.8 Allergy status to other drugs, medicaments and biological substances; Z79.4 Long term (current) use of insulin; Z79.899 Other long term (current) drug therapy
CPT/HCPCS: 36561; 99152; 99153; C1769; C1788; C1894; J0690; J1200; J1642; J1644; J2250; J3010

== ENCOUNTER 2020-09-19 20:52 | Emergency (ER) | payer OTHER ==
[~2020-09-19 20:52] MED LIST changes: -LIDOCAINE 1% MDV 20ML VIAL As Ordered ONE; -MIDAZOLAM INJ 2MG/2ML VIAL (J2250 PER 1MG) As Ordered ONE; -ceFAZolin 1GM VIAL (J0690 PER 500MG) As Ordered ONE; -diphenhydrAMINE 50MG/ML VIAL (J1200) As Ordered ONE; -fentaNYL 100 MCG/2 ML INJECTION (J3010) As Ordered ONE
[2020-09-19] MEDS ORDERED: NS 1,000 ML IV ONE (21:15)
[2020-09-19 21:39] LABS: BASO % 0.5 % (0.0-1.0); EOS # 0.1 10^3/uL (0.0-0.5); HEMATOCRIT 38.9 % (36.0-47.0); HEMOGLOBIN 11.4 g/dl (12.0-15.5); LYMPH # 2.8 10^3/uL (1.5-5.0); LYMPH % 34.5 % (24.0-44.0); MEAN CORPUSCULAR HEMOGLOBIN 22.8 pg (27.0-33.0); MEAN CORPUSCULAR HGB CONC 29.3 g/dl (32.0-36.5); MONO # 0.7 10^3/uL (0.0-0.8); MONO % 8.5 % (0.0-5.0); NEUTROPHILS # 4.4 10^3/uL (1.5-8.5); PLATELET COUNT, AUTOMATED 305 10^3/uL (150-450); RED BLOOD COUNT 4.99 10^6/uL (4.00-5.40); VENOUS BASE EXCESS -1.8 (-2.0-2.0); VENOUS HCO3 23.2 MEQ/L (23.0-27.0); VENOUS O2 SATURATION 90.5 % (60.0-80.0); VENOUS PARTIAL PRESSURE CO2 40.6 mmHg (38.0-50.0); VENOUS PARTIAL PRESSURE O2 59.4 mmHg (30.0-50.0); VENOUS PH 7.375 UNITS (7.330-7.430); VENOUS STANDARD HCO3 22.8 MEQ/L; VENOUS TOTAL CO2 24.5 MEQ/L (24.0-28.0)
[2020-09-19] MEDS: SODIUM CHLORIDE 0.9% INJ 10 ML SYR IV SCH ×2 (21:40→22:29)
[2020-09-19 22:01] LABS: HEMOGLOBIN A1c 9.6 %
[2020-09-19 22:12] LABS: ALBUMIN 3.8 GM/DL (3.2-5.2); ALT/SGPT 67 U/L (12-78); BILIRUBIN,DIRECT 0.1 MG/DL (0.0-0.2); BILIRUBIN,TOTAL 0.3 MG/DL (0.2-1.0); BLOOD UREA NITROGEN 8 MG/DL (7-18); CALCIUM LEVEL 9.2 MG/DL (8.5-10.1); CARBON DIOXIDE LEVEL 27 MEQ/L (21-32); CHLORIDE LEVEL 102 MEQ/L (98-107); CREATININE FOR GFR 0.89 MG/DL (0.55-1.30); GLOMERULAR FILTRATION RATE > 60.0 (>60); GLUCOSE, FASTING 315 MG/DL (70-100); LIPASE 109 U/L (73-393); POTASSIUM SERUM 4.2 MEQ/L (3.5-5.1); SODIUM LEVEL 136 MEQ/L (136-145); TOTAL PROTEIN 7.7 GM/DL (6.4-8.2)
[2020-09-19 22:31] VITALS: BP 132/75
--- NOTE | 2020-09-20 07:43 | ECGEPIP ---
[facility] - ED Test Date: 2020-09-19 Pat Name: MUKESH RUBIO Department: Room: - Gender: Female Hvac Manager: demarcus : 2000 Requested By: SHIRAZ BARRIOS Order Number: [id number] Reading MD: Shiraz Handley Measurements Intervals [place] Rate: 92 P: 27 WI: 152 QRS: 2 QRSD: 90 T: 11 QT: 320 QTc: 396 Interpretive Statements SINUS RHYTHM WITH SINUS ARRHYTHMIA Electronically Signed on 09-20-2020 7:42:59 EST by Shiraz Handley
== END 2020-09-19 22:39 | disposition home or self-care (01) ==
LOC: M ED 20:52
DX: E11.65 Type 2 diabetes mellitus with hyperglycemia (principal); M32.9 Systemic lupus erythematosus, unspecified; F60.3 Borderline personality disorder
CPT/HCPCS: 80048; 80076; 81001; 82803; 83036; 83690; 85025; 93005; 96360; 99284; J1642

== ENCOUNTER → 2020-10-04 | Outpatient (CLI) | payer OTHER ==
[~2020-10-04] MED LIST changes: +BENL200I SC; +DULO1CAP6 PO; +INSUHUMDS SC; +VENTAER INH; +XULA1DIS TOP
== END ==
LOC: M LABSMTC 10:18
PROVIDERS: ATTEND Anesthesiology
DX: Z01.812 Encounter for preprocedural laboratory examination (principal); Z20.828 Contact with and (suspected) exposure to other viral communicable diseases

== ENCOUNTER → 2020-12-27 | Outpatient (CLI) | payer OTHER ==
[~2020-12-27] MED LIST changes: +HYDR200T3 PO; +OMEP-221 PO
--- NOTE | 2020-12-27 14:33 | PFTRPT ---
Height: 68.00 Inches Weight: 292.00 Lbs BSA: 2.40 Diagnosis: J45.40 DATE: 12/27/2020 ORDERING PHYSICIAN: LIZA Rao Pre and post bronchodilator studies have excellent technical quality. Forced vital capacity is normal. FEV1 is in proportion. Obstructive index is therefore normal. Expiratory limit of the flow-volume loop is normal. No significant bronchodilator response is identified. Total lung capacity is normal. Residual volume is in proportion. Diffusing capacity is normal. No hemoglobin available for correction. Airway resistance and conductance are normal. IMPRESSION: Normal study. MTDD
== END ==
LOC: M CARPUL 14:00
PROVIDERS: ATTEND Physician Assistant
DX: J45.20 Mild intermittent asthma, uncomplicated (principal)

== ENCOUNTER → 2021-02-27 | Outpatient (REF) ==
[~2021-02-27] MED LIST changes: +ASPI-117; +BENL200I IV; -BENL200I SC; +BUPR1TAB52; +FLUT11IN; +VENL37TA
--- NOTE | 2021-02-27 13:27 | REP ---
INDICATION: DDD COMPARISON: None. TECHNIQUE: AP and lateral views of the lumbosacral spine. FINDINGS: Three views of the lumbosacral spine demonstrate satisfactory alignment and lordosis without acute fracture / compression injury or subluxation. IMPRESSION: 1. No acute fracture / compression injury or subluxation. 2. No degenerative or congenital abnormalities are appreciated. <Electronically signed by Brian Clemons > 02/27/21 [id number]
--- NOTE | 2021-02-27 13:31 | REP ---
INDICATION: DDD COMPARISON: None. TECHNIQUE: AP, lateral, bilateral oblique and sunrise views. FINDINGS: Osseous structures are intact and there is no evidence for acute or healed injury. No evidence for effusion. Very subtle medial joint space narrowing suggested and sunrise view demonstrates increased sclerosis along the posterior patellar margin suggesting the possibility of mild degenerative change. IMPRESSION: Questionable mild degenerative changes should be correlated with physical examination <Electronically signed by Brian Clemons > 02/27/21 [id number]
== END ==
LOC: M RAD 12:10
PROVIDERS: ATTEND Internal Medicine
DX: Z02.71 Encounter for disability determination (principal)

== ENCOUNTER → 2021-04-19 | Outpatient (REF) | payer OTHER ==
[2021-04-19 17:12] LABS: BASO % 0.4 % (0.0-1.0); EOS # 0.1 10^3/uL (0.0-0.5); EOS % 1.1 % (0.0-3.0); HEMATOCRIT 42.7 % (36.0-47.0); HEMOGLOBIN 12.1 g/dl (12.0-15.5); LYMPH # 2.3 10^3/uL (1.5-5.0); MEAN CORPUSCULAR HEMOGLOBIN 19.8 pg (27.0-33.0); MEAN CORPUSCULAR HGB CONC 28.3 g/dl (32.0-36.5); MEAN CORPUSCULAR VOLUME 69.9 fl (80.0-96.0); MONO # 0.5 10^3/uL (0.0-0.8); MONO % 7.1 % (2.0-8.0); NEUTROPHILS # 4.2 10^3/uL (1.5-8.5); NEUTROPHILS % 58.7 % (36.0-66.0); PLATELET COUNT, AUTOMATED 326 10^3/uL (150-450); RED BLOOD COUNT 6.11 10^6/uL (4.00-5.40); WHITE BLOOD COUNT 7.2 10^3/uL (4.0-10.0)
[2021-04-19 17:33] LABS: ALBUMIN 3.8 GM/DL (3.2-5.2); ALT/SGPT 129 U/L (12-78); BILIRUBIN,TOTAL 0.4 MG/DL (0.2-1.0); BLOOD UREA NITROGEN 8 MG/DL (7-18); C REACTIVE PROTEIN QUANTITATIV 0.78 MG/DL (0.00-0.30); CARBON DIOXIDE LEVEL 25 MEQ/L (21-32); CHLORIDE LEVEL 107 MEQ/L (98-107); COMPLEMENT C3 158 MG/DL (90-180); COMPLEMENT C4 20 MG/DL (10-40); CREATININE FOR GFR 0.62 MG/DL (0.55-1.30); GLOMERULAR FILTRATION RATE > 60.0 (>60); GLUCOSE, FASTING 247 MG/DL (70-100); POTASSIUM SERUM 4.1 MEQ/L (3.5-5.1); SODIUM LEVEL 137 MEQ/L (136-145); TOTAL PROTEIN 7.4 GM/DL (6.4-8.2)
[2021-04-19 17:53] LABS: HEPATITIS B SURFACE ANTIGEN NEGATIVE (NEGATIVE)
[2021-04-19 19:21] LABS: ERYTHROCYTE SEDIMENTATION RATE 12 mm/hr (0-20)
[2021-04-19 19:26] LABS: HEPATITIS C VIRUS ABY INDEX 0.8 INDEX (<0.8)
== END ==
LOC: M SFHCRHEU 15:40
PROVIDERS: ATTEND Internal Medicine Rheumatology
DX: M32.19 Other organ or system involvement in systemic lupus erythematosus (principal)

== ENCOUNTER → 2021-05-31 | Outpatient (REF) | payer OTHER ==
[2021-05-31 11:37] LABS: BASO % 0.5 % (0.0-1.0); EOS # 0.1 10^3/uL (0.0-0.5); EOS % 1.1 % (0.0-3.0); HEMATOCRIT 40.4 % (36.0-47.0); HEMOGLOBIN 11.7 g/dl (12.0-15.5); LYMPH # 2.1 10^3/uL (1.5-5.0); LYMPH % 33.8 % (24.0-44.0); MEAN CORPUSCULAR HEMOGLOBIN 19.7 pg (27.0-33.0); MONO # 0.5 10^3/uL (0.0-0.8); MONO % 7.3 % (2.0-8.0); NEUTROPHILS # 3.5 10^3/uL (1.5-8.5); NEUTROPHILS % 56.8 % (36.0-66.0); PLATELET COUNT, AUTOMATED 323 10^3/uL (150-450); RED BLOOD COUNT 5.94 10^6/uL (4.00-5.40); WHITE BLOOD COUNT 6.2 10^3/uL (4.0-10.0)
[2021-05-31 11:43] LABS: ALBUMIN 4.1 GM/DL (3.2-5.2); ALT/SGPT 106 U/L (12-78); BILIRUBIN,TOTAL 0.4 MG/DL (0.2-1.0); BLOOD UREA NITROGEN 8 MG/DL (7-18); C REACTIVE PROTEIN QUANTITATIV 0.65 MG/DL (0.00-0.30); CALCIUM LEVEL 9.4 MG/DL (8.5-10.1); CARBON DIOXIDE LEVEL 24 MEQ/L (21-32); CHLORIDE LEVEL 107 MEQ/L (98-107); COMPLEMENT C3 164 MG/DL (90-180); COMPLEMENT C4 14 MG/DL (10-40); CREATININE FOR GFR 0.66 MG/DL (0.55-1.30); GLOMERULAR FILTRATION RATE > 60.0 (>60); GLUCOSE, FASTING 243 MG/DL (70-100); POTASSIUM SERUM 4.4 MEQ/L (3.5-5.1); SODIUM LEVEL 137 MEQ/L (136-145)
[2021-05-31 12:06] LABS: ERYTHROCYTE SEDIMENTATION RATE 7 mm/hr (0-20)
== END ==
LOC: M SFHCRHEU 09:07
PROVIDERS: ATTEND Internal Medicine Rheumatology
DX: M32.19 Other organ or system involvement in systemic lupus erythematosus (principal)

== ENCOUNTER 2021-06-10 01:50 | Emergency (ER) | payer OTHER ==
[~2021-06-10] VITALS: Ht 175.3 cm; Wt 131.1 kg
[~2021-06-10 01:50] MED LIST changes: +ALBU8.5H; +AZAT50TA2 PO; +BUDE10.22; +INSU100I9; -OMEP-221 PO; +OMEP40CA5 PO; +TEST1.253; +VRAY1.5C PO
[2021-06-10 01:51] VITALS: BP 137/80
[2021-08-01] MEDS ORDERED: SYMB80INH INH (14:35)
[2021-08-02] MEDS ORDERED: TRAZ-252 PO (08:24)
[2021-08-02] MEDS ORDERED: SYMB80INH INH (08:24)
[2021-08-02] MEDS ORDERED: SEMA3TAB PO (08:24)
== END 2021-06-10 02:39 | disposition left against medical advice (07) ==
LOC: M ED 01:50 → MERGE 01:50 → M ED 02:39
DX: Z53.21 Procedure and treatment not carried out due to patient leaving prior to being seen by health care provider (principal)

== ENCOUNTER → 2021-07-25 | Outpatient (REF) | payer OTHER ==
[~2021-07-25] MED LIST changes: +AZAT50TA2; -AZAT50TA2 PO; +OMEP-221 PO; -OMEP40CA5 PO; +VRAY1.5C; -VRAY1.5C PO
[2021-07-25 17:11] LABS: BASO % 0.7 % (0.0-1.0); EOS % 0.7 % (0.0-3.0); HEMATOCRIT 40.6 % (36.0-47.0); HEMOGLOBIN 11.8 g/dl (12.0-15.5); LYMPH # 1.9 10^3/uL (1.5-5.0); LYMPH % 33.7 % (24.0-44.0); MEAN CORPUSCULAR HEMOGLOBIN 20.6 pg (27.0-33.0); MEAN CORPUSCULAR HGB CONC 29.1 g/dl (32.0-36.5); MEAN CORPUSCULAR VOLUME 70.9 fl (80.0-96.0); MONO # 0.4 10^3/uL (0.0-0.8); MONO % 7.6 % (2.0-8.0); NEUTROPHILS # 3.2 10^3/uL (1.5-8.5); NEUTROPHILS % 56.9 % (36.0-66.0); PLATELET COUNT, AUTOMATED 325 10^3/uL (150-450); RED BLOOD COUNT 5.73 10^6/uL (4.00-5.40); WHITE BLOOD COUNT 5.6 10^3/uL (4.0-10.0)
[2021-07-25 17:32] LABS: ALT/SGPT 80 U/L (12-78); BILIRUBIN,TOTAL 0.3 MG/DL (0.2-1.0); BLOOD UREA NITROGEN 9 MG/DL (7-18); C REACTIVE PROTEIN QUANTITATIV 0.69 MG/DL (0.00-0.30); CALCIUM LEVEL 9.5 MG/DL (8.5-10.1); CARBON DIOXIDE LEVEL 28 MEQ/L (21-32); CHLORIDE LEVEL 105 MEQ/L (98-107); COMPLEMENT C3 144 MG/DL (90-180); COMPLEMENT C4 15 MG/DL (10-40); CREATININE FOR GFR 0.65 MG/DL (0.55-1.30); GLOMERULAR FILTRATION RATE > 60.0 (>60); GLUCOSE, FASTING 243 MG/DL (70-100); POTASSIUM SERUM 4.3 MEQ/L (3.5-5.1); SODIUM LEVEL 137 MEQ/L (136-145); TOTAL PROTEIN 7.7 GM/DL (6.4-8.2)
[2021-07-25 17:51] LABS: ERYTHROCYTE SEDIMENTATION RATE 9 mm/hr (0-20)
[2021-07-25 18:20] LABS: APPEARANCE, URINE CLEAR (CLEAR); BACTERIA, URINE AUTO NEGATIVE (NEGATIVE); BILIRUBIN, URINE AUTO NEGATIVE (NEGATIVE); BLOOD, URINE BLOOD NEGATIVE (NEGATIVE); COLOR, URINE YELLOW (YELLOW); GLUCOSE, URINE (UA) AUTO 3+ mg/dL (NEGATIVE); KETONE, URINE AUTO NEGATIVE (NEGATIVE); LEUKOCYTE ESTERASE, URINE AUTO NEGATIVE (NEGATIVE); NITRITE, URINE AUTO NEGATIVE (NEGATIVE); PROTEIN, URINE AUTO NEGATIVE (NEGATIVE); RBC, URINE AUTO 0 /HPF (0-3); SPECIFIC GRAVITY URINE AUTO 1.016 (1.002-1.035); SQUAMOUS EPITHELIAL CELL UR AU 2 /HPF (0-6); UROBILINOGEN, URINE AUTO 0.2 mg/dL (0.0-2.0); WBC, URINE AUTO 0 /HPF (0-3)
[2021-07-25 18:30] LABS: CREATININE,RANDOM URINE 77.3 MG/DL; TOTAL PROTEIN,RANDOM URINE 9.9 MG/DL (0.0-12.0)
== END ==
LOC: M SFHCRHEU 15:00
PROVIDERS: ATTEND Internal Medicine Rheumatology
DX: M32.19 Other organ or system involvement in systemic lupus erythematosus (principal)

== ENCOUNTER → 2021-07-31 | Outpatient (POV) | payer OTHER ==
[~2021-07-31] VITALS: Ht 175.3 cm; Wt 131.4 kg
[~2021-07-31] MED LIST changes: -AZAT50TA2; +AZAT50TA2 PO; +SEMA3TAB PO; +SYMB80INH INH; +TRAZ-252 PO; -VRAY1.5C; +VRAY1.5C PO
[2021-07-31 09:15] VITALS: BP 160/90
--- NOTE | 2021-08-02 12:31 | IRPN ---
[facility] IR Progress Note IR Progress Note DATE: Jul 31, 2021 FOLLOW-UP: Patient with lupus, had right chest port placed by me in August 2020. Patient has completed all therapy. She would like her port removed. ON EXAMINATION: Port site on right chest wall. No cellulitis. IMPRESSION: Patient has completed therapy and would like her port removed. We discussed the risks and benefits of the procedure and patient is willing to proceed. We have scheduled the patient for port removal. Thank you for this referral Allergies Coded Allergies: Sulfa (Sulfonamide Antibiotics) (Verified Allergy, Intermediate, HIVES, 01/08/21) carbamazepine (Verified Allergy, Intermediate, HIVES, 01/08/21) [place] (Verified Allergy, Mild, ITCHING, 01/08/21) citalopram (Verified Allergy, Mild, rash, swelling, 01/08/21) escitalopram (Verified Allergy, Mild, rash, swelling, 01/08/21) latex (Verified Allergy, Mild, ITCHING, 01/08/21) metformin (Verified Adverse Reaction, Mild, GI ISSUES, 01/08/21) VS,Fishbone, I+O VS, Fishbone, I+O Vital Signs Date Time Temp Pulse Resp B/P (MAP) Pulse Ox O2 Delivery O2 Flow Rate FiO2 07/31/21 09:15 96.7 103 18 160/90 (113) 97 Room Air DANAE DODD MD Aug 02, 2021 12:31
== END ==
LOC: M IRPOV 09:12
PROVIDERS: ATTEND Radiology Diagnostic Radiology
DX: M32.9 Systemic lupus erythematosus, unspecified (principal); Z45.2 Encounter for adjustment and management of vascular access device; Z88.2 Allergy status to sulfonamides; Z88.8 Allergy status to other drugs, medicaments and biological substances; Z91.018 Allergy to other foods; Z91.040 Latex allergy status

== ENCOUNTER → 2021-08-02 | Outpatient (CLI) | payer OTHER ==
[~2021-08-02] MED LIST changes: +ISOVUE-300 61% 50ML VIAL As Ordered ONE; +LIDOCAINE 1% MDV 20ML VIAL As Ordered ONE; +MIDAZOLAM INJ 2MG/2ML VIAL (J2250 PER 1MG) As Ordered ONE; +NS 1,000 ML IV SCH; +PROMETHAZINE INJ 25 MG/ML VIAL (J2550) As Ordered ONE; +ceFAZolin 2 GM/D5W 50 ML IV BAG (J0690 PER 500MG) As Ordered ONE; +ceFAZolin SOD 2 GM in IV 1 EA IV ONE; +diphenhydrAMINE 50MG/ML VIAL (J1200) As Ordered ONE; +fentaNYL 100 MCG/2 ML INJECTION (J3010) As Ordered ONE
[2021-08-02 11:45] VITALS: BP 147/86
--- NOTE | 2021-08-02 13:49 | IRPON ---
IR Postoperative Note Date Of Procedure: Aug 02, 2021 Time Of Procedure: 13:48 IR Postoperative Note IR Port Removal / Explant IR Moderate sedation. Clinical Information:Lupus. Infusions complete. Patient would like port removed. Physician: Dr. Bacon Procedure: The patient was advised of the benefits, risks, and alternatives of the procedure and informed consent was obtained. A time out was performed with verification of the patient's name, MRN, site of procedure, and type of procedure to be performed. The patient was positioned in the supine position on the angiographic table. The site was prepped and draped in the usual sterile fashion. Moderate sedation was performed by the physician including the presence of an independent trained RN who assisted in monitoring the patient's level of consciousness and physiological status. Following the administration of fentanyl and Versed the physician spent 30 minutes of continuous [id number] time with the patient. A golf sales associate radiograph reveals a right sided port. The soft tissues overlying the port were anesthetized with lidocaine. An incision was made over the port using a 15 blade scalpel in the location of the prior incision. The catheter was then freed with blunt dissection and extracted. Pressure was applied to obtain hemostasis. The port was then freed with blunt dissection and subsequently removed. There were no signs of infection. After hemostasis was achieved, the incision was closed with interrupted deep 3-0 Vicryl sutures and subcuticular Monocryl suture followed by glue and steri-strips. The site was covered with a sterile dressing. The patient tolerated the procedure well and was returned to the PRU in stable condition. EBL:Less than 5 mL Complications:None. Conclusions: 1. Successful explant of a right-sided port. 2. No signs of infection. Thank you for this referral DANAE BACON MD Aug 02, 2021 13:48
== END ==
LOC: M IRPRO 07:06
PROVIDERS: ATTEND Radiology Diagnostic Radiology
DX: Z45.2 Encounter for adjustment and management of vascular access device (principal); M32.9 Systemic lupus erythematosus, unspecified
CPT/HCPCS: 36590; 99152; 99153; J0690; J1200; J1644; J2250; J3010

== ENCOUNTER 2021-08-12 17:40 | Emergency (ER) | payer OTHER ==
[~2021-08-12] VITALS: Ht 172.7 cm; Wt 128.9 kg
[2021-08-12 17:40] VITALS: BP 173/92
[~2021-08-12 17:40] MED LIST changes: -ISOVUE-300 61% 50ML VIAL As Ordered ONE; -LIDOCAINE 1% MDV 20ML VIAL As Ordered ONE; -MIDAZOLAM INJ 2MG/2ML VIAL (J2250 PER 1MG) As Ordered ONE; -NS 1,000 ML IV SCH; -PROMETHAZINE INJ 25 MG/ML VIAL (J2550) As Ordered ONE; -ceFAZolin 2 GM/D5W 50 ML IV BAG (J0690 PER 500MG) As Ordered ONE; -ceFAZolin SOD 2 GM in IV 1 EA IV ONE; -diphenhydrAMINE 50MG/ML VIAL (J1200) As Ordered ONE; -fentaNYL 100 MCG/2 ML INJECTION (J3010) As Ordered ONE
--- OUTSIDE RECORDS SUMMARY | 2021-08-12 17:45 | CCD | Summary of Care ---
Author Author [facility] Address Unknown Phone Unavailable Care Team Providers Care Auto Tester Name Role Phone Shannan Moreland PCP Reason for Visit * Reason Comments Follow-up Encounter Details Care Team Description Date Type Department Faye Barahona PA [address] [place] [address] Gender dysphoria (Primary Dx) 05/15/2021 Telemedicine [facility] [address] [place] [address] Allergies Comments Active Allergy Reactions Severity Noted Date Bee Sting Anaphylaxis High 12/07/2018 Carbamazepine Hives 12/07/2018 Citalopram Rash Low 12/21/2020 Escitalopram Oxalate Rash Low 1 diarrhea Metformin Diarrhea 12/07/2018 Diarrhea Sitagliptin Diarrhea 12/07/2018 Sulfa Antibiotics Hives High 12/07/2018 documented as of this encounter (statuses as of 05/20/2021) Medications End Date Status Medication Sig Dispensed Refills Start Date Active Alcohol Prep 70 % Use as 100 each 5 01/25/20 2 PadIndications: Type 2 directed. Dx 0 diabetes mellitus without code E11.9. complication, with long-term current use of insulin Active Incontinence Use as 120 each 5 SuppliesIndications: directed. 2XL 0 Incontinence of feces, Briefs. Use unspecified fecal as needed for incontinence type incontinence. Active Albuterol Sulfate HFA 108 INHALE 2 0 05/23 (90 Base) MCG/ACT PUFFS BY 0 Inhalation Aerosol MOUTH EVERY 6 Solution (PROVENTIL HFA) HOURS UNTIL DIRECTED TO STOP TAKE NEEDED Active Insulin Glargine 100 Inject 32 10 pen 2 08/07 UNIT/ML Subcutaneous Units into 0 Solution Pen-injector the skin (LANTUS SOLOSTAR) daily Inject 32 units subcutaneousl y once daily. Dx code: E11.65 Additional Information Patient taking differently: 20 Units Subcutaneous Daily Standard, Inject 20 units subcutaneousl y once daily. Dx code: E11.65, Reported on 01/25/2021 Active FQ Protective Underwear Use as 0 directed. Use 0 as Directed Active Belimumab (BENLYSTA IV) Inject into 0 the vein every 30 (thirty) days Active Pen [place]co 31G X 6 MM Use as 50 each 1 directed. For 0 Lantus injection. Active OneTouch Verio Flex Test 3 times 1 kit 0 09/28 System w/Device daily and as 1 KitIndications: Type 2 needed. Dx diabetes mellitus without code E11.9. complication, with long-term current use of insulin Active OneTouch Delica Lancets Use 3 times 100 each 5 33GIndications: Type 2 daily and as 1 diabetes mellitus without needed. Dx complication, with code E11.9. long-term current use of insulin 09/25/2021 Active OneTouch Verio In Vitro Test 3 times 100 each 5 0 Strip (glucose daily and as 1 blood)Indications: Type 2 needed. Dx diabetes mellitus without code E11.9. complication, with long-term current use of insulin 12/20/2021 Active Aspirin 81 MG Oral Tablet Take 1 tablet 30 tablet 11 Delayed by mouth 1 ReleaseIndications: daily Positive cardiolipin antibodies 01/17/2022 Active Lidocaine-Prilocaine Apply to port 30 g 2 2.5-2.5 % External Cream site 30-60 1 (EMLA) minutes prior to port access. Cover until port access. 01/22/2022 Active Sharps Container Use as 1 each 2 directed. For 1 needle disposal Active Insulin Lispro (1 Unit insulin 0 Dial) 100 UNIT/ML lispro Subcutaneous Solution (U-100) 100 Pen-injector (HUMALOG) unit/mL subcutaneous pen INJECT SUBCUTANEOUSL Y PER SLIDING SCALE INSTRUCTIONS MAX DAILY DOSE 40 UNITS Active Budesonide-Formoterol Inhale 2 0 Fumarate 80-4.5 MCG/ACT puffs into Inhalation Aerosol the lungs Two (SYMBICORT) Times Daily Active Asenapine Maleate 2.5 MG DISSOLVE ONE 0 02/21 Sublingual Tablet TABLET UNDER 1 Sublingual THE TONGUE TWICE DAILY Active Testosterone 20.25 apply ONE 37.5 g 0 02 MG/1.25GM (1.62%) PACKET 1 Transdermal Gel topically (ANDROGEL)Indications: EVERY Gender dysphoria MORNING, MAX DAILY DOSE ONE PACKET Active Glucose Blood In Vitro OneTouch 0 Strip Ultra Blue Test Strip USE DIRECTED TO TEST BLOOD GLUCOSE THREE TIMES DAILY and NEEDED Active Meloxicam 7.5 MG Oral TAKE 1 OR 2 0 03/28/20 2 Tablet (MOBIC) TABLETS BY 1 MOUTH ONCE DAILY Active Cariprazine HCl 3 MG Oral Take 3 mg by 0 Capsule (VRAYLAR) mouth daily documented as of this encounter (statuses as of 05/20/2021) Active Problems Problem Noted Date Chronic post-traumatic stress disorder (PTSD) 2019 Panic disorder 05/08/2020 Generalized anxiety disorder 05/08/2020 Diabetes mellitus 04/21/2020 Fecal incontinence 04/21/2020 Persistent depressive disorder 04/21/2020 Lupus 04/21/2020 FERRARI (nonalcoholic steatohepatitis) 04/21/2020 Gender dysphoria 04/21/2020 documented as of this encounter (statuses as of 05/20/2021) Resolved Problems Problem Noted Date Resolved Date Anxiety 04/21/2020 05/08/2020 documented as of this encounter (statuses as of 05/20/2021) Immunizations Name Administration Dates Next Due Tdap 01/09/2018 documented as of this encounter Social History Date Tobacco Use Types Packs/Day Years Used Quit: 02/25/2017 Former Smoker Cigarettes Smokeless Tobacco: Never Used Comments Alcohol Use Standard Drinks/Week Socially Not Currently 0 (1 standard drink = 0.6 o z pure alcohol) Social Isolation Answer Date Recorded In a typical week, how many times do you talk on More than three times a week 06/16/2020 the phone with family, friends, or neig hbors? How often do you get together with friends or Twice a week 06/16/2020 relatives? How often do you attend gnosticism or temple Never 06/16/2020 services? Do you belong to any clubs or organizations such Yes 06/16/2020 as gnosticism groups, unions, fraternal or athletic groups, or school groups? How often do you attend meetings of the clubs or More than 4 times per year 06/16/2020 organizations you belong to? Are you now , , , , Divorce d 06/16/2020 never or living with a partner? Physical Activity Answer Date Recorded On average, how many days per week do you engage 4 days 06/16/2020 in moderate to strenuous exercise (like walking fast, running, jogging, dancing, swimmi ng, biking, or other activities that cause a light or heavy sweat)? On average, how many minutes do you engage in 40 min 06/16/2020 exercise at this level? Stress Answer Date Recorded Do you feel stress - tense, restless, nervous, or Only a l ittle 06/16/2020 anxious, or unable to sleep at night be cause your mind is troubled all the time - these d ays? Education Answer Date Recorded What is the highest level of school you have 11th grade 06/16/2020 completed or the highest degree you hav e received? Financial Resource Strain Answer Date Recorde d How hard is it for you to pay for the very basics Very qi d 06/16/2020 like food, housing, medical care, and h eating? Intimate Partner Violence Answer Date Recorde d Within the last year, have you been afraid of your Yes 06/16/2020 partner or ex-partner? Within the last year, have you been humiliated or Yes 06/16/2020 emotionally abused in other ways by you r partner or ex-partner? Within the last year, have you been kicked, hit, Yes 06/16/2020 slapped, or otherwise physically hurt b y your partner or ex-partner? Within the last year, have you been raped or Yes 06/16/2020 forced to have any kind of sexual activ ity by your partner or ex-partner? Food Insecurity Answer Date Recorded Within the past 12 months, you worried that your Often tyson e 06/16/2020 food would run out before you got money to buy more. Within the past 12 months, the food you bought Sometimes t rue 06/16/2020 just didn't last and you didn't have mo garry to get more. Transportation Needs Answer Date Recorded In the past 12 months, has lack of transportation Yes 06/16/2020 kept you from medical appointments or f rom getting medications? In the past 12 months, has lack of transportation No 06/16/2020 kept you from meetings, work, or gettin g things needed for daily living? Sex Assigned at Date Recorded Female 12/01/2019 2:39 PM EDT documented as of this encounter Last Filed Vital Signs Not on filedocumented in this encounter Progress Notes * Faye Barahona PA - 05/15/2021 2:00 PM EDT Oj Don (MR# [id number]) ROUTINE FOLLOW-UP EXAM (LGBTQ): TELEMEDICINE This is a tele-medical visit. The patient was informed of the risks including se curity breach, technological failure, inability to perform a comprehensive physi sly exam which could delay or prevent an accurate diagnosis, and potential compl ications from treatment decisions rendered over a telemedical platform. The harper ent understands and consented to the use of tele-health services. The service was provided by means of an audio/video telecommunication via [employer].aditya anaya Chief Complaint Patient presents with Follow-up HPI: Oj is a 21 y.o. adult who is here today for a scheduled follow-up visit . Last seen by me 03/23/21. He was switched from injectable testosterone to gel. Adalgisa bennett likes it better. He has missed only a couple of doses since last visit. He has noticed some whispy hairs on chin and possible some deepening of voice. He has missed only a couple of doses since switching to the gel. Overall he feels that he is doing better. He recently started working at [employer]. He is now on an insulin pump which has been helping him manage his diabetes [facility]. He is thinking about bariatric surgery. He saw AGRONOMY ADVISOR and will be having a cons ult to have evaluation for a possible hysterectomy. Following with GI for elevat ed LFTs thought due to fatty liver disease. SEXUAL HEALTH SCREENING: Current partner(s): one boyfriend New partner(s): no STI symptoms: none Last STI screening: recently screened at PCP PHYSICAL EXAM: There were no vitals filed for this visit. GENERAL: This is a pleasant 21 y.o. year old adult seen sitting comfortably at [facility] via telemedicine. He is alert, oriented, and in no apparent distress. His m ood/affect, behavior, thought content, and judgement are all normal. IMPRESSION/PLAN: 1. General: Oj is a 21 y.o. adult here for follow-up after changing to testos terone gel from the injections. Reports that he likes the gel better, has missed only a couple of days since starting. Feels well at current dose of 20.25 mg per packet. He will be getting labs done for another provider soon at [facility] and will check testosterone level at that time. 2. Follow-Up: Planning routine follow-up in 2 months with me in the office. Smoking Cessation: reports that he quit smoking about 4 years ago. His smoking use included cigare ttes. He has never used smokeless tobacco. documented in this encounter Plan of Treatment Care Team Description Date Type Specialty Faye Barahona PA [address] [id number] 07/16/2021 Office Visit Infectious Diseases Merly Swann MD [address] [place] [address] [phone] 08/09/2021 Office Visit Endocrinology Order Schedule Name Type Priority Associated Diag noses 1 Occurrences starting 05/20/2021 until 11/19/2021 Testosterone total male Lab Routine Gender dysphoria Health Maintenance Due Date Last Done Comments MMR Vaccines (1 of - 1999 Standard series) Varicella Vaccines (1 of 1999 2 - 2-dose childhood series) Pneumococcal Vaccine: 65+ 2004 Years (1 of 2 - PPSV23) Pneumococcal Vaccine: 2004 Pediatrics (0 to 5 Years) and At-Risk Patients (6 to 64 Years) (1 of 2 - PPSV23) HPV Vaccines (1 - 2-dose 2009 series) Chlamydia Screening 2014 Hepatitis B Vaccines (1 2017 of 3 - Risk 3-dose series) DTaP,Tdap,and Td Vaccines 02/06/2018 01/09/2018 (2 - Td or Tdap) Cervical Cancer Screening 2019 3 years Influenza Vaccine 06/22/2021 HIV Screening Completed 12/21/2020 HIB Vaccines Aged Out No longer eligible based on patient's age to complete this topic Hepatitis A Vaccines Aged Out No longer eligibl e based on patient's age to complete this topic IPV Vaccines Aged Out No longer eligible based on patient's age to complete this topic documented as of this encounter Results Not on filedocumented in this encounter Visit Diagnoses Diagnosis Gender dysphoria - Primary Gender identity disorder in children documented in this encounter
--- OUTSIDE RECORDS SUMMARY | 2021-08-12 17:45 | CCD | Continuity of Care Document ---
Author Author Oj AMADOR DO Organization Unknown Address [address] [place] [address] Phone [phone] Care Team Providers Care Lab Director Name Role Phone Tori Smith M.D. AUTM [phone] AUTM Unavailable Angelique Calle M.D. AUTM [phone] Windy Nieves N.P. AUTM [phone] Problems Description No Information Available Social History Type Date Description Comments Sex Female Smokeless Tobacco Never Used Smokeless Tobacco ETOH Use Denies alcohol use Recreational Drug Use Denies Drug Use Tobacco Use Start: 09/22/17 End: 09/22/17 Patient is a forme r smoker hx: 1 cig per day Smoking Status Reviewed: 05/25/21 Patient is a former smoker hx : 1 cig per day Allergies, Adverse Reactions, Alerts Active Allergies Criticality Reaction | Severity Comments Date Sulfa Unable to assess criticality 07/07/2018 Tegretol Unable to assess criticality 07/07/2018 Metformin Unable to assess criticality 07/07/2018 Medications Active Medications SIG Qnty Indications Ordering Provide r Date Omeprazole 40mg Capsules DR once daily - take early childhood teacher assistant on empty stomach - atleast 1/2 hour before breakfast. (taper off after 6 weeks) 30caps R10.11 Bakari Mims M.D. 05/2020 CPAP Device 7cm Lea Briones, N.P. 12/28/2019 Lantus 100Unit/ML Solution 40 u qd Unknown Benlysta 400mg Solution Rec once per month Unknown Testosterone Cypionate 50mg/ml Brigida ution inj wkly Unknown Abilify Injection once a month Unknown Vraylar Unknown Imuran Unknown Basaglar Kwikpen Unknown 00 Aspirin 81mg Chewtabs Unknown Symbicort Unknown Immunizations Description No Information Available Vital Signs Date Vital Result Comment 05/25/2021 9:00am BP Systolic 128 mmHg BP Diastolic 82 mmHg Heart Rate 78 /min Respiratory Rate 14 /min Body Temperature 97.2 F Height 69 inches 5'9" Weight 290.00 lb BMI (Body Mass Index) 42.8 kg/m2 [place] Body Weight 145 lb Weight 131.544 kg BSA (Body Surface Area) 2.42 m2 08/30/2020 12:03pm BP Systolic 118 mmHg BP Diastolic 64 mmHg Height 68 inches 5'8" Weight 288.00 lb BMI (Body Mass Index) 43.8 kg/m2 [place] Body Weight 140 lb Weight 130.637 kg BSA (Body Surface Area) 2.39 m2 Results Description No Information Available Procedures Date Code Description Status 05/25/2021 35287 Office/Outpatient New Moderate M DM 45-59 Minutes Completed Medical Devices Description No Information Available Encounters Type Date Location Provider Dx Diagnosis Office Visit 05/25/2021 9:15a [facility] Plastic Surgery Lauren Amador DO N62 Hypertrophy of breast F64.9 Gender identity disorder, un specified E66.9 Obesity, unspecified Z68.41 Body mass index [BMI] 40.0-4 4.9, adult Assessments Date Code Description Provider 05/25/2021 N62 Hypertrophy of breast Lauren De La Rosa y, DO 05/25/2021 F64.9 Gender identity disorder, unspec ified Lauren Lisa, DO 05/25/2021 E66.9 Obesity, unspecified Lauren Lisa , DO 05/25/2021 Z68.41 Body mass index [BMI] 40.0-44.9, adult Lauren Amador DO Plan of Treatment Future Appointment(s):* 08/27/2021 10:00 am - Lauren Amador DO at [facility] Plastic [facility] Functional Status Functional Condition Comment Date Status Independent with all ADL's Activ e Independent with all IADL's Acti ve Mental Status Mental Condition Comment Date Status Cognitive ability not impaired A ctive Referrals Description No Information Available
--- OUTSIDE RECORDS SUMMARY | 2021-08-12 17:45 | CCD | Continuity of Care Document ---
Author Author Oj AMADOR DO Organization Unknown Address [address] [place] [address] Phone [phone] Care Team Providers Care Process Control Tech Name Role Phone Tori Smith M.D. AUTM [phone] AUTM Unavailable Angelique Calle M.D. AUTM [phone] Windy Nieves N.P. AUTM [phone] Problems Description No Information Available Social History Type Date Description Comments Sex Female Smokeless Tobacco Never Used Smokeless Tobacco ETOH Use Denies alcohol use Recreational Drug Use Denies Drug Use Tobacco Use Start: 09/22/17 End: 09/22/17 Patient is a forme r smoker hx: 1 cig per day Smoking Status Reviewed: 12/10/19 Patient is a former smoker hx : 1 cig per day Allergies, Adverse Reactions, Alerts Active Allergies Criticality Reaction | Severity Comments Date Sulfa Unable to assess criticality 07/07/2018 Tegretol Unable to assess criticality 07/07/2018 Metformin Unable to assess criticality 07/07/2018 Medications Active Medications SIG Qnty Indications Ordering Provide r Date Clenpiq 10-3.5-12mg-GM -GM/160ML S olution follow pre-procedure instructions. start day before procedure. (if not covered by insurance please fill gavilyte script). 320ml Laura Mims M.D. 09/18/2020 Gavilyte-N With Flavor Pack 420gm Solution Rec drink the liquid as per the pre-procedur e instructions. ( fill this script only if clenpiq is not covered by insurance). 4000ml Bakari Mims M.D. 09/18/[address] take 4 tablets together as per bowel preparation instructions. 4tabs Bakari Mims M.D. 09/18/2020 Psyllium Fiber 0.52gm Capsules 1 capsule by mouth 2 to 3 times a day with meals and depending on symptoms adjust after 2 weeks 60caps R10.11 Bakari Mims M.D. [address] once daily - take deicer element winder machine on empty stomach - atleast 1/2 hour before breakfast. (taper off after 6 weeks) 30caps R10.11 Bakari Mims M.D. 05/2020 CPAP Device 7cm Lea Briones, N.Linda 12/28/2019 Lantus 100Unit/ML Solution 40 u qd Unknown Plaquenil 200mg Tablets 1tab po qd Unknown Benlysta 400mg Solution Rec once per month Unknown Testosterone Cypionate 50mg/ml Brigida ution inj wkly Unknown Abilify Injection once a month Unknown Immunizations Description No Information Available Vital Signs Date Vital Result Comment 05/25/2021 9:00am BP Systolic 128 mmHg BP Diastolic 82 mmHg Heart Rate 78 /min Respiratory Rate 14 /min Body Temperature 97.2 F Height 69 inches 5'9" Weight 290.00 lb BMI (Body Mass Index) 42.8 kg/m2 [place] Body Weight 145 lb Weight 131.544 kg BSA (Body Surface Area) 2.42 m2 08/30/2020 12:03pm BP Systolic 118 mmHg BP Diastolic 64 mmHg Height 68 inches 5'8" Weight 288.00 lb BMI (Body Mass Index) 43.8 kg/m2 [place] Body Weight 140 lb Weight 130.637 kg BSA (Body Surface Area) 2.39 m2 Results Description No Information Available Procedures Description No Information Available Medical Devices Description No Information Available Encounters Description No Information Available Assessments Description No Information Available Plan of Treatment 08/30/2020 - Bakari Mims M.D.* R10.11 Right upper quadrant pain * R11.0 Nausea * K58.1 Irritable bowel syndrome with constipation * R15.9 Full incontinence of feces * * New Medication:* Psyllium Fiber 0.52 gm * Omeprazole 40 mg * New Labs:* Liver Profile, Ordered: 08/30/20 * Tissue Transglutaminase Iga, Ordered: 08/30/20 * Iga Subclasses, Ordered: 08/30/20 * BUN & Creatinine ([facility]), Ordered: 08/30/20 * Total Iron Binding Capacit, Ordered: 08/30/20 * New Orders:* Endoscopy, Ordered: 08/30/20 * Comments:* Impression:-- Fecal incontinence -- progressively getting worse -- No back injury or pain, no other neurological deficits. Has diabetic neuropathy. DDx- R/o colon polyps vs ulcer vs mass vs could be related to diabetic autonomic neuropathy as well. In view of incontinence since childhood could also be related to defecatory disorders.-- Nausea, right upper quadrant pain, heartburn and poor appetite Needs further evaluation. * Recommendations:* -- Patient educated on the prior test results in detail and all questions answered. -- will obtain labs for liver panel, celiac disease. -- Start on psyllium fiber supplements for now. -- For dyspepsia symptoms, will give empiric PPI course. -- Patient to continue low gluten and low FODMAP diet. -- Anti reflux measures reinforced; Advised to avoid being overweight/obese; avoid acid reflux inducing food: excessive caffeine, chocolate, alcohol, peppermint and fatty foods; , Avoid large and late meal: eating three or more hours before bedtime. Printed material provided to patient. -- Will schedule for EGD + Colonoscopy for further evaluation. Patient is educated about the procedures, indications, risks, benefits, and all alternatives. Patient verbalized understanding and agreed for the proc edures. -- Return to GI clinic in 3 months. -- Follow up with PMD for routine medical care and other age appropriate health maintenance. Functional Status Functional Condition Comment Date Status Independent with all ADL's Activ e Independent with all IADL's Acti ve Mental Status Mental Condition Comment Date Status Cognitive ability not impaired A ctive Referrals Description No Information Available
--- OUTSIDE RECORDS SUMMARY | 2021-08-12 17:46 | CCD ---
Author Author [facility] Organization [facility] Address Unknown Phone Unavailable Care Team Providers Care Network Controller Name Role Phone Yayo Baca MD Unavailable Unavailable Yayo Baca MD Unavailable Unavailable Yayo Baca MD Unavailable Unavailable Yayo Baca MD Unavailable Unavailable Yayo Baca MD Unavailable Unavailable Yayo Baca MD Unavailable Unavailable Yayo Baca MD Unavailable Unavailable Yayo Baca MD Unavailable Unavailable Yayo Baca MD Unavailable Unavailable Yayo Baca MD Unavailable Unavailable Yayo Baca MD Unavailable Unavailable aYyo Baca MD Unavailable Unavailable Yayo Baca MD Unavailable Unavailable Yayo Baca MD Unavailable Unavailable Yayo Baca MD Unavailable Unavailable Yayo Baca MD Unavailable Unavailable Yayo Baca MD Unavailable Unavailable Yayo Baca MD Unavailable Unavailable Yayo Baca MD Unavailable Unavailable Yayo Baca MD Unavailable Unavailable Yayo Baca MD Unavailable Unavailable Yayo Baca MD Unavailable Unavailable Yayo Baca MD Unavailable Unavailable Yayo Baca MD Unavailable Unavailable Yayo Baca MD Unavailable Unavailable Yayo Baca MD Unavailable Unavailable Yayo Baca MD Unavailable Unavailable Yayo Baca MD Unavailable Unavailable Yayo Baca MD Unavailable Unavailable Yayo Baca MD Unavailable Unavailable Yayo Baca MD Unavailable Unavailable Yayo Baca MD Unavailable Unavailable Yayo Baca MD Unavailable Unavailable Yayo Baca MD Unavailable Unavailable Yayo Baca MD Unavailable Unavailable Yayo Baca MD Unavailable Unavailable Yayo Baca MD Unavailable Unavailable Yayo Baca MD Unavailable Unavailable Yayo Baca MD Unavailable Unavailable Yayo Baca MD Unavailable Unavailable Yayo Baca MD Unavailable Unavailable Yayo Baca MD Unavailable Unavailable Yayo Baca MD Unavailable Unavailable Yayo Baca MD Unavailable Unavailable Yayo Baca MD Unavailable Unavailable Yayo Baca MD Unavailable Unavailable Yayo Baca MD Unavailable Unavailable Yayo Baca MD Unavailable Unavailable Yayo Baca MD Unavailable Unavailable Yayo Baca MD Unavailable Unavailable Yayo Baca MD Unavailable Unavailable Yayo Baca MD Unavailable Unavailable Yayo Baca MD Unavailable Unavailable Yayo Baca MD Unavailable Unavailable Yayo Baca MD Unavailable Unavailable Yayo Baca MD Unavailable Unavailable Yayo Baca MD Unavailable Unavailable Yayo Baca MD Unavailable Unavailable Yayo Baca MD Unavailable Unavailable Catarina MORTON MD Unavailable Unavailable Catarina MORTON MD Unavailable Unavailable Catarina MORTON MD Unavailable Unavailable Catarina MORTON MD Unavailable Unavailable Catarina MORTON MD Unavailable Unavailable Catarina MORTON MD Unavailable Unavailable Catarina MORTON MD Unavailable Unavailable Catarina MORTON MD Unavailable Unavailable Catarina MORTON MD Unavailable Unavailable Catarina MORTON MD Unavailable Unavailable Catarina MORTON MD Unavailable Unavailable Catarina MORTON MD Unavailable Unavailable Catarina MORTON MD Unavailable Unavailable Catarina MORTON MD Unavailable Unavailable Catarina MORTON MD Unavailable Unavailable Catarina MORTON MD Unavailable Unavailable Catarina MORTON MD Unavailable Unavailable Catarina MORTON MD Unavailable Unavailable Catarina MORTON MD Unavailable Unavailable Catarina MORTON MD Unavailable Unavailable Catarina MORTON MD Unavailable Unavailable Catarina MORTON MD Unavailable Unavailable Catarina MORTON MD Unavailable Unavailable Catarina MORTON MD Unavailable Unavailable Catarina MORTON MD Unavailable Unavailable MORTON, Catarina ESTRADA MD Unavailable Unavailable MORTON, Catarina ESTRADA MD Unavailable Unavailable MORTON, Catarina ESTRADA MD Unavailable Unavailable MORTON, Catarina ESTRADA MD Unavailable Unavailable MORTON, L SEAN CROWDER Unavailable Unavailable MORTON, L SEAN CROWDER Unavailable Unavailable MORTON, Catarina ESTRADA MD Unavailable Unavailable MORTON, L SEAN CROWDER Unavailable Unavailable MORTON, L SEAN CROWDER Unavailable Unavailable MORTON, L SEAN CROWDER Unavailable Unavailable MORTON, L SEAN CROWDER Unavailable Unavailable MORTON, L SEAN CROWDER Unavailable Unavailable MORTON, L SEAN CROWDER Unavailable Unavailable MORTON, L SEAN CROWDER Unavailable Unavailable MORTON, L SEAN CROWDER Unavailable Unavailable MORTON, L SEAN CROWDER Unavailable Unavailable MORTON, L SEAN CROWDER Unavailable Unavailable MORTON, L SEAN CROWDER Unavailable Unavailable MORTON, L SEAN CROWDER Unavailable Unavailable MORTON, L SEAN CROWDER Unavailable Unavailable ALAINA, ODETTE SHERIFF MD Unavailable Unavailable ALAINA, ODETTE SHERIFF MD Unavailable Unavailable ALAINA, ODETTE SHERIFF MD Unavailable Unavailable ALAINA, ODETTE SHERIFF MD Unavailable Unavailable ALAINA, ODETTE SHERIFF MD Unavailable Unavailable ALAINA, ODETTE DONALDUTHSINA MD Unavailable Unavailable HART, F LIANA Unavailable Unavailable Pleskach, Windy CHILDREN'S MINISTRIES DIRECTOR Unavailable Unavailable Pleskach, Windy CHILDREN'S MINISTRIES DIRECTOR Unavailable Unavailable Pleskach, Windy CHILDREN'S MINISTRIES DIRECTOR Unavailable Unavailable Pleskach, Windy CHILDREN'S MINISTRIES DIRECTOR Unavailable Unavailable Pleskach, Windy CHILDREN'S MINISTRIES DIRECTOR Unavailable Unavailable Pleskach, Windy CHILDREN'S MINISTRIES DIRECTOR Unavailable Unavailable Pleskach, Windy CHILDREN'S MINISTRIES DIRECTOR Unavailable Unavailable Pleskach, Windy CHILDREN'S MINISTRIES DIRECTOR Unavailable Unavailable Pleskach, Windy CHILDREN'S MINISTRIES DIRECTOR Unavailable Unavailable Pleskach, Windy CHILDREN'S MINISTRIES DIRECTOR Unavailable Unavailable Pleskach, Windy CHILDREN'S MINISTRIES DIRECTOR Unavailable Unavailable Pleskach, Windy CHILDREN'S MINISTRIES DIRECTOR Unavailable Unavailable Pleskach, Windy CHILDREN'S MINISTRIES DIRECTOR Unavailable Unavailable Pleskach, Windy CHILDREN'S MINISTRIES DIRECTOR Unavailable Unavailable Pleskach, Windy CHILDREN'S MINISTRIES DIRECTOR Unavailable Unavailable Pleskach, Windy CHILDREN'S MINISTRIES DIRECTOR Unavailable Unavailable Pleskach, Windy CHILDREN'S MINISTRIES DIRECTOR Unavailable Unavailable Pleskach, Windy CHILDREN'S MINISTRIES DIRECTOR Unavailable Unavailable Pleskach, Windy CHILDREN'S MINISTRIES DIRECTOR Unavailable Unavailable Pleskach, Windy CHILDREN'S MINISTRIES DIRECTOR Unavailable Unavailable Pleskach, Windy CHILDREN'S MINISTRIES DIRECTOR Unavailable Unavailable Pleskach, Windy CHILDREN'S MINISTRIES DIRECTOR Unavailable Unavailable Pleskach, Windy CHILDREN'S MINISTRIES DIRECTOR Unavailable Unavailable Pleskach, Windy CHILDREN'S MINISTRIES DIRECTOR Unavailable Unavailable Pleskach, Windy CHILDREN'S MINISTRIES DIRECTOR Unavailable Unavailable Pleskach, Windy CHILDREN'S MINISTRIES DIRECTOR Unavailable Unavailable Pleskach, Windy CHILDREN'S MINISTRIES DIRECTOR Unavailable Unavailable Pleskach, Windy CHILDREN'S MINISTRIES DIRECTOR Unavailable Unavailable Pleskach, Windy CHILDREN'S MINISTRIES DIRECTOR Unavailable Unavailable Pleskach, Windy CHILDREN'S MINISTRIES DIRECTOR Unavailable Unavailable Pleskach, Windy CHILDREN'S MINISTRIES DIRECTOR Unavailable Unavailable Pleskach, Windy CHILDREN'S MINISTRIES DIRECTOR Unavailable Unavailable Pleskach, Windy CHILDREN'S MINISTRIES DIRECTOR Unavailable Unavailable Pleskach, Windy CHILDREN'S MINISTRIES DIRECTOR Unavailable Unavailable Pleskach, Windy CHILDREN'S MINISTRIES DIRECTOR Unavailable Unavailable Pleskach, Windy CHILDREN'S MINISTRIES DIRECTOR Unavailable Unavailable Pleskach, Windy CHILDREN'S MINISTRIES DIRECTOR Unavailable Unavailable Pleskach, Windy CHILDREN'S MINISTRIES DIRECTOR Unavailable Unavailable Pleskach, Windy CHILDREN'S MINISTRIES DIRECTOR Unavailable Unavailable Pleskach, Windy CHILDREN'S MINISTRIES DIRECTOR Unavailable Unavailable Pleskach, Windy CHILDREN'S MINISTRIES DIRECTOR Unavailable Unavailable Pleskach, Windy CHILDREN'S MINISTRIES DIRECTOR Unavailable Unavailable Pleskach, Windy CHILDREN'S MINISTRIES DIRECTOR Unavailable Unavailable Pleskach, Windy CHILDREN'S MINISTRIES DIRECTOR Unavailable Unavailable Lisandro Mayo Unavailable Unavailable Seymour Coburn Unavailable Seymour Coburn Unavailable Lambert GOODWIN MD Unavailable Unavailable ZYGMONT, Lambert CHARLES MD Unavailable Unavailable ZYGMONT, Lambert CHARLES MD Unavailable Unavailable ZYGMONT, Lambert CHARLES MD Unavailable Unavailable ZYGMONT, Lambert CHARLES MD Unavailable Unavailable ZYGMONT, Lambert CHARLES MD Unavailable Unavailable ZYGMONT, Lambert CHARLES MD Unavailable Unavailable ZYGJOHANNA, Lambert CHARLES MD Unavailable Unavailable ZYGJOHANNA, Lambert CHARLES MD Unavailable Unavailable ZYGJOSEPHINET, Lambert CHARLES MD Unavailable Unavailable ZYGJOSEPHINET, Lambert CHARLES MD Unavailable Unavailable ZYGMONT, Lambert CHARLES MD Unavailable Unavailable ZYGMONT, Lambert CHARLES MD Unavailable Unavailable ZYGMONTLambert MD Unavailable Unavailable ZYGMONTLambert MD Unavailable Unavailable ZYGLambert SPENCER MD Unavailable Unavailable ZYGJOSEPHINET, Lambert CHARLES MD Unavailable Unavailable ZYGMONT, Lambert CHARLES MD Unavailable Unavailable ZYGMONT, Lambert CHARLES MD Unavailable Unavailable ZYGMONT, Lambert CHARLES MD Unavailable Unavailable ZYGMONTLambert MD Unavailable Unavailable ZYGJOSEPHINET, Lambert CHARLES MD Unavailable Unavailable ZYGMONT, Lambert CHARLES MD Unavailable Unavailable ZYGMONT, Lambert CHARLES MD Unavailable Unavailable ZYGMONT, Lambert CHARLES MD Unavailable Unavailable ZYGMONT, Lambert CHARLES MD Unavailable Unavailable ZYGMONT, Lambert CHARLES MD Unavailable Unavailable ZYGMONT, V ARACELI CROWDER Unavailable Unavailable ZYGMONT, V ARACELI CROWDER Unavailable Unavailable ZYGMONT, V ARACELI CROWDER Unavailable Unavailable ZYGMONT, V ARACELI CROWDER Unavailable Unavailable ZYGMONT, Lambert CHARLES MD Unavailable Unavailable ZYGMONT, Lambert CHARLES MD Unavailable Unavailable ZYGMONT, V ARACELI CROWDER Unavailable Unavailable ZYGMONT, V ARACELI CROWDER Unavailable Unavailable ZYGMONT, V ARACELI CROWDER Unavailable Unavailable ZYGMONT, V ARACELI CROWDER Unavailable Unavailable ZYGMONT, V ARACELI CROWDER Unavailable Unavailable ZYGMONT, V ARACELI CROWDER Unavailable Unavailable ZYGMONT, V ARACELI CROWDER Unavailable Unavailable ZYGMONT, V ARACELI CROWDER Unavailable Unavailable ZYGMONT, V ARACELI CROWDER Unavailable Unavailable ZYGMONT, V ARACELI CROWDER Unavailable Unavailable ZYGMONT, V ARACELI CROWDER Unavailable Unavailable ZYGMONT, V ARACELI CROWDER Unavailable Unavailable ZYGMONT, V ARACELI CROWDER Unavailable Unavailable ZYGMONT, V ARACELI CROWDER Unavailable Unavailable ZYGMONT, V ARACELI CROWDER Unavailable Unavailable ZYGMONT, V ARACELI CROWDER Unavailable Unavailable ZYGMONT, V ARACELI CROWDER Unavailable Unavailable ZYGMONT, V ARACELI CROWDER Unavailable Unavailable ZYGMONT, V ARACELI CROWDER Unavailable Unavailable ZYGMONT, V ARACELI CROWDER Unavailable Unavailable ZYGMONT, V ARACELI CROWDER Unavailable Unavailable ZYGMONT, V ARACELI CROWDER Unavailable Unavailable ZYGMONT, V ARACELI CROWDER Unavailable Unavailable ZYGMONT, Lambert CHARLES MD Unavailable Unavailable ZYGMONT, Lambert CHARLES MD Unavailable Unavailable ZYGMONT, Lambert CHARLES MD Unavailable Unavailable ZYGMONT, V ARACELI CROWDER Unavailable Unavailable ZYGMONT, Lambert CHARLES MD Unavailable Unavailable ZYGMONT, Lambert CHARLES MD Unavailable Unavailable ZYGMONT, Lambert CHARLES MD Unavailable Unavailable ZYGMONT, Lambert CHARLES MD Unavailable Unavailable ZYGMONT, Lambert CHARLES MD Unavailable Unavailable ZYGMONT, Lambert CHARLES MD Unavailable Unavailable ZYGMONT, Lambert CHARLES MD Unavailable Unavailable ZYGMONT, Lambert CHARLES MD Unavailable Unavailable ZYGMONT, V ARACELI CROWDER Unavailable Unavailable ZYGMONT, Lambert CHARLES MD Unavailable Unavailable ZYGMONT, Lambert CHARLES MD Unavailable Unavailable ZYGMONT, Lambert CHARLES MD Unavailable Unavailable ZYGMONT, Lambert CHARLES MD Unavailable Unavailable ZYGMONT, Lambert CHARLES MD Unavailable Unavailable ZYGMONT, Lambert CHARLES MD Unavailable Unavailable ZYGMONT, Lambetr CHARLES MD Unavailable Unavailable ZYGMONT, Lambert CHARLES MD Unavailable Unavailable ZYGMONT, Lambert CHARLES MD Unavailable Unavailable ZYGMONT, V ARACELI CROWDER Unavailable Unavailable ZYGMONT, Lambert CHARLES MD Unavailable Unavailable ZYGMONT, Lambert CHARLES MD Unavailable Unavailable ZYGMONT, Lambert CHARLES MD Unavailable Unavailable ZYGMONT, Lambert CHARLES MD Unavailable Unavailable ZYGMONT, Lambert CHARLES MD Unavailable Unavailable ZYGMONT, V ARACELI CROWDER Unavailable Unavailable ZYGMONT, Lambert CHARLES MD Unavailable Unavailable ZYGMONT, V ARACELI CROWDER Unavailable Unavailable ZYGMONT, V ARACELI CROWDER Unavailable Unavailable ZYGMONT, V ARACELI CROWDER Unavailable Unavailable ZYGMONT, V ARACELI CROWDER Unavailable Unavailable ZYGMONT, V ARACELI CROWDER Unavailable Unavailable ZYGMONT, Lambert CHARLES MD Unavailable Unavailable EDWIN BABIN Unavailable Unavailable Ankit, Demi MD Unavailable Unavailable Ankit, Demi MD Unavailable Unavailable Ankit, Demi MD Unavailable Unavailable Ankit, Demi MD Unavailable Unavailable Ankit, Demi MD Unavailable Unavailable Ankit, Demi MD Unavailable Unavailable Ankit, Demi MD Unavailable Unavailable Ankit, Demi MD Unavailable Unavailable Ankit, Demi MD Unavailable Unavailable Ankit, Demi MD Unavailable Unavailable Anikt, Demi MD Unavailable Unavailable Ankit, Demi MD Unavailable Unavailable Ankit, Demi MD Unavailable Unavailable Ankit, Demi MD Unavailable Unavailable Ankit, Demi MD Unavailable Unavailable Ankit, Demi MD Unavailable Unavailable Ankit, Demi MD Unavailable Unavailable Ankit, Demi MD Unavailable Unavailable Ankit, Demi MD Unavailable Unavailable Ankit, Demi MD Unavailable Unavailable Ankit, Demi MD Unavailable Unavailable Ankit, Demi MD Unavailable Unavailable Ankit, Demi MD Unavailable Unavailable Ankit, Demi MD Unavailable Unavailable Ankit, Demi MD Unavailable Unavailable Ankit, Demi MD Unavailable Unavailable Ankit, Demi MD Unavailable Unavailable Ankit, Demi MD Unavailable Unavailable Ankit, Demi MD Unavailable Unavailable Ankit, Demi MD Unavailable Unavailable Ankit, Demi MD Unavailable Unavailable Ankit, Demi MD Unavailable Unavailable Ankit, Demi MD Unavailable Unavailable Ankit, Demi MD Unavailable Unavailable Ankit, Demi MD Unavailable Unavailable Ankit, Demi MD Unavailable Unavailable Ankit, Demi MD Unavailable Unavailable Ankit, Demi MD Unavailable Unavailable Ankit, Demi MD Unavailable Unavailable Ankit, Demi MD Unavailable Unavailable Ankit, Demi MD Unavailable Unavailable Ankit, Demi MD Unavailable Unavailable Demi Pham MD Unavailable Unavailable Demi Pham MD Unavailable Unavailable Demi Pham MD Unavailable Unavailable Scordo, M Shannan PA Unavailable Unavailable Scordo, M Shannan PA Unavailable Unavailable Scordo, M Shannan PA Unavailable Unavailable Scordo, M Shannan PA Unavailable Unavailable Scordo, M Shannan PA Unavailable Unavailable Scordo, M Shannan PA Unavailable Unavailable Scordo, M Shannan PA Unavailable Unavailable Scordo, M Shannan PA Unavailable Unavailable Scordo, M Shannan PA Unavailable Unavailable Scordo, M Shannan PA Unavailable Unavailable Scordo, M Shannan PA Unavailable Unavailable Scordo, M Shannan PA Unavailable Unavailable Scordo, M Shannan PA Unavailable Unavailable Scordo, M Shannan PA Unavailable Unavailable Scordo, M Shannan PA Unavailable Unavailable Scordo, M Shannan PA Unavailable Unavailable Scordo, M Shannan PA Unavailable Unavailable Scordo, M Shannan PA Unavailable Unavailable Scordo, M Shannan PA Unavailable Unavailable Scordo, M Shannan PA Unavailable Unavailable Scordo, M Shannan PA Unavailable Unavailable Scordo, M Shannan PA Unavailable Unavailable Scordo, M Shannan PA Unavailable Unavailable Scordo, M Shannan PA Unavailable Unavailable Scordo, M Shannan PA Unavailable Unavailable Scordo, M Shannan PA Unavailable Unavailable Scordo, M Shannan PA Unavailable Unavailable Scordo, M Shannan PA Unavailable Unavailable Scordo, M Shannan PA Unavailable Unavailable Scordo, M Shannan PA Unavailable Unavailable Scordo, M Shannan PA Unavailable Unavailable Scordo, M Shannan PA Unavailable Unavailable Scordo, M Shannan PA Unavailable Unavailable Scordo, M Shannan PA Unavailable Unavailable Scordo, M Shannan PA Unavailable Unavailable Scordo, M Shannan PA Unavailable Unavailable Scordo, M Shannan PA Unavailable Unavailable Scordo, M Shannan PA Unavailable Unavailable Scordo, M Shannan PA Unavailable Unavailable Scordo, M Shannan PA Unavailable Unavailable Scordo, M Shannan PA Unavailable Unavailable Scordo, M Shannan PA Unavailable Unavailable Scordo, M Shannan PA Unavailable Unavailable Scordo, M Shannan PA Unavailable Unavailable Scordo, M Shannan PA Unavailable Unavailable Scordo, M Shannan PA Unavailable Unavailable Scordo, M Shannan PA Unavailable Unavailable CHANDRALA, K ANGELO MD Unavailable Unavailable Parker BRAUN MD Unavailable Unavailable Parker BRAUN MD Unavailable Unavailable Parker BRAUN MD Unavailable Unavailable Parker BRAUN MD Unavailable Unavailable Parker BRAUN MD Unavailable Unavailable Parker BRAUN MD Unavailable Unavailable Parker BRAUN MD Unavailable Unavailable Parker BRAUN MD Unavailable Unavailable Parker BRAUN MD Unavailable Unavailable Parker BRAUN MD Unavailable Unavailable Parker BRAUN MD Unavailable Unavailable Parker BRAUN MD Unavailable Unavailable Parker BRAUN MD Unavailable Unavailable Parker BRAUN MD Unavailable Unavailable Parker BRAUN MD Unavailable Unavailable Parker BRAUN MD Unavailable Unavailable Parker BRAUN MD Unavailable Unavailable Parker BRAUN MD Unavailable Unavailable Parker BRAUN MD Unavailable Unavailable Parker BRAUN MD Unavailable Unavailable Parker BRAUN MD Unavailable Unavailable Parker BRAUN MD Unavailable Unavailable Parker BRAUN MD Unavailable Unavailable Parker BRAUN MD Unavailable Unavailable Parker BRAUN MD Unavailable Unavailable Parker BRAUN MD Unavailable Unavailable Parker BRAUN MD Unavailable Unavailable Parker BRAUN MD Unavailable Unavailable Parker BRAUN MD Unavailable Unavailable Parker BRAUN MD Unavailable Unavailable Parker BRAUN MD Unavailable Unavailable Parker BRAUN MD Unavailable Unavailable Maring, Vijay PA Unavailable Unavailable Maring, Vijay PA Unavailable Unavailable Maring, Vijay PA Unavailable Unavailable Maring, Vijay PA Unavailable Unavailable Maring, Vijay PA Unavailable Unavailable Maring, Vijay PA Unavailable Unavailable Maring, Vijay PA Unavailable Unavailable Maring, Vijay PA Unavailable Unavailable Maring, Vijay PA Unavailable Unavailable Maring, Vijay PA Unavailable Unavailable Maring, Vijay PA Unavailable Unavailable Maring, Vijay PA Unavailable Unavailable Maring, Vijay PA Unavailable Unavailable Maring, Vijay PA Unavailable Unavailable Maring, Vijay PA Unavailable Unavailable Maring, Vijay PA Unavailable Unavailable FunkJaney PROJECT CONSTRUCTION ASSISTANT MANAGER Unavailable Unavailable Funk, Selina PROJECT CONSTRUCTION ASSISTANT MANAGER Unavailable Unavailable Funk, Janey PROJECT CONSTRUCTION ASSISTANT MANAGER Unavailable Unavailable Funk, Janey PROJECT CONSTRUCTION ASSISTANT MANAGER Unavailable Unavailable Funk, Janey PROJECT CONSTRUCTION ASSISTANT MANAGER Unavailable Unavailable Funk, Janey PROJECT CONSTRUCTION ASSISTANT MANAGER Unavailable Unavailable Funk, Janey PROJECT CONSTRUCTION ASSISTANT MANAGER Unavailable Unavailable Funk, Janey PROJECT CONSTRUCTION ASSISTANT MANAGER Unavailable Unavailable Funk, Janey PROJECT CONSTRUCTION ASSISTANT MANAGER Unavailable Unavailable Funk, Janey PROJECT CONSTRUCTION ASSISTANT MANAGER Unavailable Unavailable Funk, Janey PROJECT CONSTRUCTION ASSISTANT MANAGER Unavailable Unavailable Funk, Janey PROJECT CONSTRUCTION ASSISTANT MANAGER Unavailable Unavailable Funk, Janey PROJECT CONSTRUCTION ASSISTANT MANAGER Unavailable Unavailable KIEL, A YISEL PA Unavailable Unavailable KIEL, A YISEL PA Unavailable Unavailable KIEL, A YISEL PA Unavailable Unavailable KIEL, A YISEL PA Unavailable Unavailable KIEL, A YISEL PA Unavailable Unavailable KIEL, A YISEL PA Unavailable Unavailable IKEL, A YISEL PA Unavailable Unavailable KIEL, A YISEL PA Unavailable Unavailable KIEL, A YISEL PA Unavailable Unavailable KIEL, A YISEL PA Unavailable Unavailable KIEL, A YISEL PA Unavailable Unavailable KIEL, A YISEL PA Unavailable Unavailable KIEL, A YISEL PA Unavailable Unavailable KIEL, A YISEL PA Unavailable Unavailable KIEL, A YISEL PA Unavailable Unavailable KIEL, A YISEL PA Unavailable Unavailable KIEL, A YISEL PA Unavailable Unavailable KIEL, A YISEL PA Unavailable Unavailable KIEL, A YISEL PA Unavailable Unavailable KIEL, A YISEL PA Unavailable Unavailable KIEL, A YISEL PA Unavailable Unavailable KIEL, A YISEL PA Unavailable Unavailable KIEL, A YISEL PA Unavailable Unavailable KIEL, A YISEL PA Unavailable Unavailable KIEL, A YISEL PA Unavailable Unavailable KIEL, A YISEL PA Unavailable Unavailable KIEL, A YISEL PA Unavailable Unavailable KIEL, A YISEL PA Unavailable Unavailable KIEL, A YISEL PA Unavailable Unavailable KIEL, A YISEL PA Unavailable Unavailable KIEL, A YISEL PA Unavailable Unavailable KIEL, A YISEL PA Unavailable Unavailable KIEL, A YISEL PA Unavailable Unavailable KIEL, A YISEL PA Unavailable Unavailable KIEL, A YISEL PA Unavailable Unavailable KIEL, A YISEL PA Unavailable Unavailable KIEL, A YISEL PA Unavailable Unavailable KIEL, A YISEL PA Unavailable Unavailable KIEL, A YISEL PA Unavailable Unavailable KIEL, A YISEL PA Unavailable Unavailable KIEL, A YISEL PA Unavailable Unavailable KIEL, A YISEL PA Unavailable Unavailable KIEL, A YISEL PA Unavailable Unavailable KIEL, A YISEL PA Unavailable Unavailable KIEL, A YISEL PA Unavailable Unavailable KIEL, A YISEL PA Unavailable Unavailable KIEL, A YISEL PA Unavailable Unavailable KIEL, A YISEL PA Unavailable Unavailable KIEL, A YISEL PA Unavailable Unavailable KIEL, A YISEL PA Unavailable Unavailable KIEL, A YISEL PA Unavailable Unavailable KIEL, A YISEL PA Unavailable Unavailable KIEL, A YISEL PA Unavailable Unavailable DAREK, A LENA Unavailable Unavailable RAUDEL, HAIHUI Unavailable Unavailable Park, Eupai Unavailable BALWINDER, ANDRAS Unavailable Unavailable Re-disclosure Warning The records that you are about to access may contain information from federally-assisted alcohol or drug abuse programs. If such information is present, then the following federally mandated warning applies: This information has been disclosed to you from records protected by federal confidentiality rules (42 CFR part 2). The federal rules prohibit you from making any further disclosure of this information unless further disclosure is expressly permitted by the written consent of the person to whom it pertains or as otherwise permitted by 42 CFR part 2. A general authorization for the release of medical or other information is NOT sufficient for this purpose. The Federal rules restrict any use of the information to criminally investigate or prosecute any alcohol or drug abuse patient.The records that you are about to access may contain highly sensitive health information, the redisclosure of which is protected by Article 27-F of the [place] State Public Health law. If you continue you may have access to information: Regarding HIV / AIDS; Provided by facilities licensed or operated by the [facility] Mental [facility]; or Provided by the [facility] for People With Developmental Disabilities. If such information is present, then the following [facility] mandated warning applies: This information has been disclosed to you from confidential records which are protected by state law. State law prohibits you from making any further disclosure of this information without the specific written consent of the person to whom it pertains, or as otherwise permitted by law. Any unauthorized further disclosure in violation of state law may result in a fine or retirement sentence or both. A general authorization for the release of medical or other information is NOT sufficient authorization for further disc losure. Allergies and Adverse Reactions Type Description Substance Reaction Status Data Source(s ) Drug Allergy Drug Allergy [facility] ([facility], [facility] [facility] Family History Family Member Name Family Member Gender Family Member Status Date o f Status Description Data Source(s) Unknown Unknown Problem [facility]ENT ([facility], ) Unknown Male Problem MEDENT (Jillian Mendoza MD) Encounters Encounter Providers Location Date Indications Data Source(s ) Outpatient Attender: Demi Iniguezerrer: Shannan DE JESUS 05/09/2021 12:00:00 AM [facility] Outpatient Attender: Yayo Iniguezerrer: EDWIN HAYES 03/23/2021 12:00:00 AM [facility] Outpatient Attender: DEVON BRITTReferrer: ERASMO STARKS 12/21/2020 12:00:00 AM [facility] Outpatient Attender: DEVON BRITTReferrer: ERASMO STARKS 12/07/2020 12:00:00 AM [facility] Outpatient Attender: Windy Nieves [facility] Main Office 11/28/2020 0 8:45:00 AM EST [facility] ([facility] Outpatient Attender: SHARITA FOLEY MD 11/22/2020 12: 00:00 AM [facility] Brief Individual Psychotherapy - 30 min Attender: [facility] 11/21/2020 12:30:00 PM EST - 11/21/2020 12:30:00 PM EST [facility] ([facility]) Attender: Ellie Drummond 11/21/2020 12:00:00 AM EST [facility] ([facility]) Outpatient Attender: Yayo Newmaner: EDWIN HAYES 11/21/2020 12:00:00 AM [facility] Outpatient Attender: Windy Nieves [facility] Main Office 11/16/2020 1 2:45:00 PM EST MED[facility] ([facility] Outpatient Attender: Windy Nieves [facility] Main Office 11/13/2020 1 2:45:00 PM EST MED[facility] ([facility] Extended Individual Psychotherapy - 45 min Attender: Arturo Coburn [facility] 11/13/2020 10:00:00 AM EST - 11/13/2020 10:00:00 AM EST [facility] ([facility]) Attender: Seymour Coburn 11/13/2020 12:00:00 AM EST [facility] ([facility]) Outpatient Attender: DEVON BRITT 11/09/2020 12:00:00 AM [facility] Outpatient Attender: SHARITA FOLEY MD 11/08/2020 12: 00:00 AM [facility] Outpatient Attender: YISEL DE JESUS 11/06/2020 12: 00:00 AM [facility] Outpatient Attender: ARACELI GOODWIN MD [facility] 10/24/2020 10:00:00 AM EST [facility] ([facility]) Attender: Seymour Coburn 10/19/2020 12:00:00 AM EST [facility] ([facility]) Extended Individual Psychotherapy - 45 min Attender: Arturo Coburn [facility] 10/18/2020 12:00:00 PM EST - 10/18/2020 12:00:00 PM EST [facility] ([facility]) Outpatient Attender: Vijay DE JESUS 10/11/19 08:06:20 AM EST - 10/11/2020 08:11:15 AM EST [facility] ([facility] ) Psychiatric Diagnostic Evaluation (Non-Medical) Attender: Christiano Coburn [facility] 10/06/2020 11:00:00 AM EST - 10/06/2020 11:00:00 AM EST [facility] ([facility]) Attender: Seymour Coburn 10/06/2020 12:00:00 AM EST [facility] ([facility]) Psychiatric Diagnostic Evaluation (Non-Medical) Attender: Christiano lashonedy Coburn [facility] 10/05/2020 08:00:00 AM EST - 10/05/2020 08:00:00 AM EST [facility] ([facility]) Outpatient Attender: DEVON BRITTReferrer: ERASMO STARKS [id number] 10/05/2020 12:00:00 AM EST - 10/05/2020 02:39:23 PM EST Systemic lupus erythematosus, unspecified [facility] Systemic lupus erythematosus, unspecifie d Attender: Seymour Coburn 10/05/2020 12:00:00 AM EST [facility] ([facility]) JEANETTE RaoC: [address] [place] [phone], Ph. Attender: Shannan HERMAN - [facility] 10/02/2020 12:00:00 AM EST ALAN ([facility]) Extended Individual Psychotherapy - 45 min Attender: Annalee Leigh [facility] 09/27/2020 03:00:00 AM EST - 09/27/2020 03:00:00 AM EST [facility] ([facility]) Outpatient Attender: SHARITA FOLEY MD [id number] 09/27/2020 12:00:00 AM EST - 09/27/2020 10:37:17 AM EST Panic disorder (episodic paroxysmal anxiety) [facility] Panic disorder (episodic paroxysmal anxi ety) Attender: Lisandro Mayo 09/27/2020 12:00:[address] [facility] ([facility]) Outpatient Attender: YISEL DE JESUS [id number] 09/25/2020 12:00:00 AM EST - 09/25/2020 10:36:58 AM EST Type 2 diabetes mellitus with hyperglycemia [facility] Type 2 diabetes mellitus with hyperglyce dylan Outpatient Attender: DEVON BRITT [id number] 09/21/2020 12:00:00 AM EST - 09/21/2020 12:58:43 PM EST Abnormal levels of other serum enzymes [facility] Abnormal levels of other serum enzymes Outpatient Attender: SHARITA FOLEY MD [id number] 09/20/2020 12:00:00 AM EST - 09/20/2020 01:54:47 PM EST Dysthymic disorder [facility] Dysthymic disorder Outpatient Attender: ANGELO BRAUN MDReferrer: ASHKAN BRAUN MD 08/31/2020 12:00:00 AM EST - 09/01/2020 12:00:00 AM EST Right upper quadrant pain [facility] Right upper quadrant pain Outpatient Attender: DEVON Nairerrer: ERASMO STARKS [id number] 08/31/2020 12:00:00 AM EST - 09/01/2020 12:00:00 AM EST Systemic lupus erythematosus, unspecified [facility] Systemic lupus erythematosus, unspecifie d Outpatient Attender: LIANA HART 08/31/2020 12:00:00 AM EST - 08/31/2020 02:59:06 PM EST Dysthymic disorder [facility] Dysthymic disorder Outpatient Attender: YISEL DE JESUS [id number] 08/28/2020 12:00:00 AM EST - 08/28/2020 11:48:34 AM EST Type 2 diabetes mellitus with hyperglycemia [facility] Type 2 diabetes mellitus with hyperglyce dylan Outpatient Attender: SHARITA FOLEY MD [id number] 08/21/2020 12:00:00 AM EST - 08/21/2020 10:02:20 AM EST [facility] Outpatient Attender: YISEL DE JESUS [id number] 08/10/2020 12:00:00 AM EST - 08/10/2020 03:29:50 PM EST [facility] Outpatient Attender: DEVON Chaner: ERASMO STARKS [id number] 08/03/2020 12:00:00 AM EST - 08/04/2020 12:00:00 AM EST Other specified health status [facility] Other specified health status Outpatient Attender: LENA OSWALD 07/31/20 12:00:00 AM EST - 07/31/2020 01:43:49 PM [facility] Outpatient Attender: SHARITA FOLEY MD [id number] 07/17/2020 12:00:00 AM EDT - 07/17/2020 10:15:40 AM [facility] Outpatient Attender: Janey Funk NP rKistyn perales 07/14/2020 04:35:00 PM EDT MED[facility] ([facility]) Outpatient Attender: SEAN MORTON MD [facility] 11:15:00 AM EDT [facility] ([facility]) Outpatient Attender: YISEL DE JESUS [id number] 07/10/2020 12:00:00 AM [facility] Outpatient Attender: YISEL DE JESUS 07/10/2020 12: 00:00 AM [facility] Outpatient Attender: YISEL DE JESUS 07/07/2020 12: 00:00 AM [facility] Outpatient Attender: LIANA HART 06/29/2020 12:00:00 AM [facility] Unknown [id number] [facility] [id number] 06/27/2020 12:00:00 AM EDT eC ([facility]) Outpatient Attender: SHARITA FOLEY MD [id number] 06/26/2020 12:00:00 AM EDT - 06/26/2020 11:10:28 AM [facility] Outpatient Attender: DEVON BRITT [id number] 06/21/2020 12:00:00 AM [facility] Outpatient Attender: YISEL DE JESUS [id number] 06/16/2020 12:00:00 AM EDT - 06/19/2020 07:37:45 AM [facility] Outpatient Attender: SHARITA FOLEY MD [id number] 05/31/2020 12:00:00 AM EDT - 05/31/2020 04:26:38 PM [facility] Medications Medication Brand Name Start Date Product Form Dose Route Admi nistrative Instructions Pharmacy Instructions Status Indications Reaction Description Data Source(s) Prednisone 20 MG Oral Tablet Prednisone 11/28/2020 12:00:00 AM EST ORAL active [facility] ([facility] Clobetasol Propionate 0.5 MG/ML Medicated Shampoo Clobetasol Propionate 11/28/2020 12:00:00 AM EST active [facility] ([facility] 12 HR Bupropion Hydrochloride 100 MG Extended Release Oral Tablet [Wellbutrin] Wellbutrin SR 11/16/2020 12:00:00 AM EST ORAL active [facility] ([facility] Fluoxetine 10 MG Oral Capsule Fluoxetine HCL 11/16/2020 12:00:[address] ORAL completed [facility] ([facility] 60 ACTUAT Albuterol 0.09 MG/ACTUAT Metered Dose Inhaler Albu terol Sulfate HFA 11/13/2020 12:00:00 AM EST ORAL active [facility] ([facility] 120 ACTUAT Fluticasone propionate 0.11 MG/ACTUAT Meter ed Dose Inhaler [Flovent] Flovent HFA 11/13/2020 12:00:00 AM EST RESPIRATORY activ e MED[facility] ([facility] Onetouch Verio 10/30/2020 12:00:00 AM EST act grupo MED[facility] ([facility]) BD Pen Needle/Cinthia/Ultra -Fine/32G X 4MM 10/24/2020 12:00:00 AM EST active [facility] ([facility]) diphenhydrAMINE (BENADRYL) 25 mg 10/05/2020 12:45:00 PM ES T 25 mg Intravenous completed 25 mg, Intrav enous, Once, Gloria 10/05/20 at 1245, For 1 dose [facility] Medication administered onsite dexamethasone sodium phosphate (DECADRON ) 10 MG/ML 8 mg in sodium chloride 0.9 % 25 mL IVPB 10/05/2020 12:45:00 PM EST 8 mg Intravenous completed Systemic lupus erythematosus (SLE) in adult 8 mg, Intr avenous, Administer over 15 Minutes, Once, Gloria 10/05/20 at 1245, For 1 dose [facility] Systemic lupus erythematosus (SLE) in ad ult Medication administered onsite Belimumab (BENLYSTA) 1,320 mg in sodium chloride 0.9 % 250 m L infusion 10/05/2020 12:45:00 PM EST 1320 mg Intravenous c ompleted Systemic lupus erythematosus (SLE) in adult 1,320 mg, Intravenous, Ad combination man over 1 Hours, Once, Gloria 10/05/20 at 1245, For 1 dose [facility] Systemic lupus erythematosus (SLE) in ad ult Medication administered onsite BD Syringe Luer-Alyssa 1 ML (Syringe (Disposable)) [id number] 10/03/2020 12:00:00 AM EST active Use as d irected. Use as instructed for testosterone injection [facility] OneTouch Verio In Vitro Strip (glucose blood) 89778-805-80 09/29/2020 12:00:00 AM EST active Type 2 sergio betes mellitus without complication, with long-term current use of insulin Test 3 times daily an d as needed. Dx code E11.9. [facility] Type 2 diabetes mellitus without complic ation, with long-term current use of insulin OneTouch Delica Lancets 33G 84753-887-12 09/29/2020 12:00:00 AM EST active Type 2 diabetes mellitus without complic ation, with long-term current use of insulin Use 3 times daily and as needed. Dx cod e E11.9. [facility] Type 2 diabetes mellitus without complic ation, with long-term current use of insulin OneTouch Verio Flex System w/Device Kit 50343-102-89 09/28/19 12:00:00 AM EST active Type 2 diabete s mellitus without complication, with long-term current use of insulin Test 3 times daily and as needed. Dx code E11.9. [facility] Type 2 diabetes mellitus without complic ation, with long-term current use of insulin duloxetine 60 MG Delayed Release Oral Ca psule DULoxetine HCl 60 MG Oral Capsule Delayed Release Particles (CYMBALTA) DULoxetine HCl 60 MG Oral Capsule Delaye d Release Particles (CYMBALTA) 09/27/2020 12:00:00 AM EST 60 mg Oral active Take 1 capsule by mouth daily [facility] BD Disp [place] 25G X 5/8" (NEEDLE (DISP) 25 G) [id number] 09/14/2020 12:00:00 AM EST active Gender dysphoria Use as directed. Use to inject testosterone as instructed [facility] Gender dysphoria OneTouch Verio In Vitro Strip (glucose blood) 62600-151-59 09/14/2020 12:00:00 AM EST active Type 2 sergio betes mellitus without complication, with long-term current use of insulin Test 3 times daily an d as needed. Dx code E11.9. [facility] Type 2 diabetes mellitus without complic ation, with long-term current use of insulin OneTouch Delica Lancets 33G 06007-194-53 09/14/2020 12:00:00 AM EST active Type 2 diabetes mellitus without complic ation, with long-term current use of insulin Use 3 times daily and as needed. Dx cod e E11.9. [facility] Type 2 diabetes mellitus without complic ation, with long-term current use of insulin BD Disp [place] 20G X 1" (NEEDLE (DISP) 20 G) [id number] 09/14/2020 12:00:00 AM EST active Gender dysphoria Use as directed. Use to draw up testosterone for injection as instructed [facility] Gender dysphoria BD Luer-Alyssa Syringe 25G X 5/8" 3 ML [id number] 09/13/2020 12:00:0 0 AM EST 1 {Application} Subcutaneous active Use as direct ed. [facility] methylPREDNISolone sodium succinate (SOLU-MEDROL) injection 60 mg [id number] 08/31/2020 12:00:00 PM EST 60 mg Intravenous completed 60 mg, Intravenous, Once, Gloria 08/31/20 at 1200, For 1 dose [facility] Medication administered onsite Belimumab (BENLYSTA) 1,320 mg in sodium chloride 0.9 % 250 m L infusion 08/31/2020 11:45:00 AM EST 1320 mg Intravenous c ompleted SLE (systemic lupus erythematosus related syndrome) 1,320 mg, Intrav enous, Administer over 1 Hours, Once, Gloria 08/31/20 at 1145, For 1 dose [facility] SLE (systemic lupus erythematosus relate d syndrome) Medication administered onsite diphenhydrAMINE (BENADRYL) 25 mg in sodium chloride 0.9 % 25 mL IVPB 08/31/2020 11:42:13 AM EST 25 mg Intravenous a ctive SLE (systemic lupus erythematosus related syndrome) 25 mg, Intravenous, Ad combination man over 15 Minutes, Once PRN, Infusion reaction, Starting Gloria 08/31/20 at 1142, For 30 days [facility] SLE (systemic lupus erythematosus relate d syndrome) Medication administered onsite 2 ML aripiprazole 200 MG/ML Prefilled Sy ringe [Abilify] Abilify Maintena 400 MG Intramuscular Prefilled Syringe Abilify Maintena 400 MG Intramuscular Pr efilled Syringe 08/17/2020 12:00:00 AM EST 400 mg Intramuscular act grupo Inject 400 mg into the muscle every 30 (thirty) days [facility] BD Disp [place] 20G X 1" (NEEDLE (DISP) 20 G) [id number] 08/16/2020 12:00:00 AM EST active Gender dysphoria Use as directed. Use to draw up testosterone for injection as instructed [facility] Gender dysphoria BD Disp [place] 25G X 5/8" (NEEDLE (DISP) 25 G) [id number] 08/16/2020 12:00:00 AM EST active Gender dysphoria Use as directed. Use to inject testosterone as instructed [facility] Gender dysphoria Pen [place] 31G X 6 MM [id number] 08/16/2020 12:00:00 AM EST active Use as directed. For Lantus injection. [facility] [employer] [address]-5 08/16/2020 12:00:00 AM EST active Use as directed. For needle disposal [facility] 2 ML aripiprazole 200 MG/ML Prefilled Sy ringe [Abilify] Abilify Maintena 400 MG Intramuscular Prefilled Syringe (ARIPiprazole ER) Abilify Maintena 400 MG Intramuscular Prefilled Syringe (ARIPiprazole ER) 08/07/2020 12:00:00 AM EST 400 mg Intramuscular completed Inject 400 mg into the muscle once for 1 dose [facility] Hydroxychloroquine Sulfate 200 MG Oral T ablet Hydroxychloroquine Sulfate 200 MG Oral Tablet (PLAQUENIL) Hydroxychloroquine Sulfate 200 MG Oral T ablet (PLAQUENIL) 08/07/2020 12:00:00 AM EST 200 mg Oral aborte d Take 1 tablet by mouth Two Times Daily [facility] 3 ML Insulin Glargine 100 UNT/ML Pen Inj heriberto Insulin Glargine 100 UNIT/ML Subcutaneous Solution Pen-injector (LANTUS SOLOSTAR) Insulin Glargine 100 UNIT/ML Subcutaneous Solution Pen-injector (LANTUS SOLOSTAR) 08/07/2020 12:00:00 AM EST 32 U Subcutaneous active Inj ect 32 Units into the skin daily Inject 32 units subcutaneously once daily. Dx code: E11.65 [facility] Acetaminophen 325 MG Oral Tablet acetaminophen (TYLENO L) tablet 650 mg acetaminophen (TYLENOL) tablet 650 mg 08/03/2020 12:15:00 PM EST 65 0 mg Oral completed 650 mg, Oral, O nce, Gloria 08/03/20 at 1215, For 1 dose
Maximum daily dose of acetaminophen is 3,000 mg from all sources in 24 hours.
[facility] Medication administered onsite Belimumab (BENLYSTA) 1,280 mg in sodium chloride 0.9 % 250 m L infusion 08/03/2020 12:15:00 PM EST 1280 mg Intravenous completed 1,280 mg, Intravenous, Administer over 1 Hours, Once, Gloria 08/03/20 at 1215, For 1 dose [facility] Medication administered onsite methylPREDNISolone sodium succinate (CARLOTA U-MEDROL) 60 mg in sodium chloride 0.9 % 25 mL IVPB 08/03/2020 12:15:00 PM EST 60 mg Intravenous completed 60 mg, Intravenous, Once, Gloria 08/03/20 at 1215, For 1 dose [facility] Medication administered onsite diphenhydrAMINE (BENADRYL) 25 mg in sodium chloride 0.9 % 25 mL IVPB 08/03/2020 12:10:36 PM EST 25 mg Intravenous active 25 mg, Intravenous, Administer over 15 Minutes, Once PRN, Infusion reaction, Starting Gloria 08/03/20 at 1210, For 30 days [facility] Medication administered onsite 2 ML aripiprazole 200 MG/ML Prefilled Sy ringe [Abilify] Abilify Maintena 400 MG Intramuscular Prefilled Syringe Abilify Maintena 400 MG Intramuscular Pr efilled Syringe 07/27/2020 12:00:00 AM EST active [facility] FQ Protective Underwear [id number] 07/25/2020 12:00:00 AM EST active Use as directed. Use as Directed [facility] Hydroxychloroquine Sulfate 200 MG Oral Tablet [Plaquenil] Pl aquenil 07/14/2020 12:00:00 AM EDT active M EDENT ([facility]) Naproxen 500 MG Oral Tablet Naproxen 07/14/2020 12:00:00 AM EDT ORAL active MED[facility] ([facility]) Ondansetron 4 MG Disintegrating Oral Tablet Ondansetron 07/14/2020 12:00:00 AM EDT active MED[facility] ([facility]) Benlysta 200 MG/ML Subcutaneous Solution Prefilled Syr alondra (belimumab) 23172-104-64 07/06/2020 12:00:00 AM EDT abort ed INJECT 1 SYRINGE UNDER THE SKIN EVERY 7 DAYS. [facility] [employer] Devices 33561 07/06/2020 12:00:00 AM EDT aborted Use as directed. One Touch Verio Device to be used as directed DX 11.65 [facility] Prazosin 1 MG Oral Capsule Prazosin HCl 1 MG Oral Caps ule (MINIPRESS) Prazosin HCl 1 MG Oral Capsule (MINIPRESS) 06/28/2020 12:00:00 AM EDT 1 mg Oral active Take 1 capsule by mouth nightly Discontinue clonidine [facility] Hydroxychloroquine Sulfate 200 MG Oral T ablet [Plaquenil] Plaquenil 200 MG Oral Tablet Plaquenil 200 MG Oral Tablet 06/21/2020 12:00:00 AM EDT 200 mg Oral active Systemic lupus erythematosus (SLE) in adult Take 1 tablet by mouth Two Times Daily [facility] Systemic lupus erythematosus (SLE) in ad ult 2 ML aripiprazole 200 MG/ML Prefilled Sy ringe [Abilify] Abilify Maintena 400 MG Intramuscular Prefilled Syringe (ARIPiprazole ER) Abilify Maintena 400 MG Intramuscular Prefilled Syringe (ARIPiprazole ER) 06/21/2020 12:00:00 AM EDT 400 mg Intramuscular active Inject 400 mg into the muscle once for 1 dose- continue oral abilify for 14 days, then discontinue [facility] OneTouch Verio In Vitro Strip (glucose blood) [id number] 06/19/2020 12:00:00 AM EDT active Type 2 sergio betes mellitus without complication, with long-term current use of insulin Test 3 times daily an d as needed. Dx code E11.9. [facility] Type 2 diabetes mellitus without complic ation, with long-term current use of insulin Pen [place] 31G X 6 MM [id number] 06/16/2020 12:00:00 AM EDT active Use as directed. For Lantus injection. [facility] [employer] [address]-5 05/08/2020 12:00:00 AM EDT active Use as directed. For needle disposal [facility] Prazosin 1 MG Oral Capsule Prazosin HCl 1 MG Oral Caps ule (MINIPRESS) Prazosin HCl 1 MG Oral Capsule (MINIPRESS) 05/08/2020 12:00:00 AM EDT 1 mg Oral aborted Take 1 capsule by mouth nightly Discontinue clonidine [facility] Glucose Blood In Vitro Strip (OneTouch Verio) 80514 12:00:00 AM EDT aborted Type 2 diabete s mellitus without complication, with long-term current use of insulin Test 3 times daily and as needed. Dx code E11.9. [facility] Type 2 diabetes mellitus without complic ation, with long-term current use of insulin aripiprazole 10 MG Oral Tablet ARIPiprazole 10 MG Oral Tablet (Abilify) ARIPiprazole 10 MG Oral Tablet (Abilify) 04/10/2020 12:00:00 AM EDT aborted Take 1 tablet by mary th daily x 3 days, then increase to 2 tablets daily [facility] Naproxen 500 MG Oral Tablet Naproxen 500 MG Oral Table t (NAPROSYN) Naproxen 500 MG Oral Tablet (NAPROSYN) 02/25/2020 12:00:00 AM EDT 500 mg Oral active Take 1 tablet by mouth Two times daily as needed Take with a meal [facility] Glucose Blood In Vitro Strip (OneTouch Verio) 99071 12:00:00 AM EDT active Type 2 diabete s mellitus without complication, with long-term current use of insulin Test 3 times daily and as needed. Dx code E11.9. [facility] Type 2 diabetes mellitus without complic ation, with long-term current use of insulin Hydroxychloroquine Sulfate 200 MG Oral T ablet hydroxychloroquine 200 mg tablet TAKE ONE TABLET BY MOUTH TWICE DAILY hydroxychloroquine 200 mg tablet TAKE ON E TABLET BY MOUTH TWICE DAILY completed hydroxychloroquine sulfate 200 MG Oral Tablet ALAN ([facility]) Benlysta 200 mg/mL subcutaneous auto-injector [id number] completed 1 ML belimumab 200 MG/ML Auto-Injector [Benlysta] ALAN ([facility]) Prazosin 1 MG Oral Capsule prazosin 1 mg capsule TAKE ONE CAPSULE BY MOUTH EVERY EVENING prazosin 1 mg capsule TAKE ONE CAPSULE BY MOUTH EVERY EVENING completed prazosin 1 MG Oral Capsul e ALAN ([facility]) Ondansetron 4 MG Oral Tablet ondansetron HCl 4 mg tablet TAKE 1 TABLET BY MOUTH EVERY 6 HOURS NEEDED FOR NAUSEA FOR 4 DATS. ondansetron HCl 4 mg tablet TAKE 1 TABLET BY MOUTH EVERY 6 HOURS NEEDED FOR NAUSEA FOR 4 DATS. completed ondansetron 4 MG Oral Tablet [facility] ([facility]) duloxetine 60 MG Delayed Release Oral Ca psule DULoxetine HCl 60 MG Oral Capsule Delayed Release Particles (CYMBALTA) DULoxetine HCl 60 MG Oral Capsule Delaye d Release Particles (CYMBALTA) 60 mg Oral aborted Take 60 mg by mouth daily [facility] Clonidine Hydrochloride 0.1 MG Oral Tabl et clonidine HCl 0.1 mg tablet TAKE 1/2 TO 1 TABLET BY MOUTH TWO TIMES A DAY NEEDED ANXIETY clonidine HCl 0.1 mg tablet TAKE 1/2 TO 1 TABLET BY MOUTH TWO TIMES A DAY NEEDED ANXIETY completed clonidine hydrochloride 0 .1 MG Oral Tablet [facility] ([facility]) duloxetine 20 MG Delayed Release Oral Ca psule duloxetine 20 mg capsule,delayed release TAKE ONE CAPSULE BY MOUTH EVERY DAY duloxetine 20 mg capsule,delayed release TAKE ONE CAPSULE BY MOUTH EVERY DAY completed duloxetine 20 MG Delayed Release Oral Capsule [facility] ([facility]) aripiprazole 10 MG Oral Tablet aripipraz ole 10 mg tablet TAKE 1 TABLET BY MOUTH DAILY FOR 3 DAYS THEN INCREASE TO 2 TABLETS DAILY aripiprazole 10 mg tablet TAKE 1 TABLET BY MOUTH DAILY FOR 3 DAYS THEN INCREASE TO 2 TABLETS DAILY completed aripiprazole 10 MG Oral Tabl et [facility] ([facility]) norethindrone (contraceptive) 0.35 mg ta blet TAKE ONE TABLET BY MOUTH ONCE DAILY [id number] completed norethind ashok (contraceptive) 0.35 mg tablet [place] ([facility]) POLYETHYLENE GLYCOL 3350 142 MG/ML Oral Solution polyethylene glycol 3350 17 gram/dose oral powder USE DIRECTED FOR COLONOSCOPY PREP polyethylene glycol 3350 17 gram/dose oral powder USE DIRECTED FOR COLONOSCOPY PREP completed polyethylene glycol 3350 52235 M G Powder for Oral Solution [place] ([facility]) Bisacodyl 5 MG Delayed Release Oral Tabl et bisacodyl 5 mg tablet,delayed release TAKE 4 TABLETS BY MOUTH PER BOWEL PREPARATION INSTRUCTIONS bisacodyl 5 mg tablet,delayed release TAKE 4 TABLETS BY MOUTH PER BOWEL PREPARATION INSTRUCTIONS completed b isacodyl 5 MG Delayed Release Oral Tablet [place] ([facility]) desloratadine 5 MG Oral Tablet deslorata dine 5 mg tablet TAKE 1 TABLET BY MOUTH DAILY NEEDED desloratadine 5 mg tablet TAKE 1 TABLET BY MOUTH DAILY NEEDED completed desloratadine 5 MG Oral Tablet [place] ([facility]) Prednisone 5 MG Oral Tablet prednisone 5 mg tablet TAKE 1 TABLET BY MOUTH EVERY DAY FOR 5 DAYS prednisone 5 mg tablet TAKE 1 TABLET BY MOUTH EVERY DAY FOR 5 DAYS completed prednisone 5 MG Oral Tablet [place] ([facility]) Oseltamivir 75 MG Oral Capsule oseltamivir 75 mg capsu le oseltamivir 75 mg capsule completed oseltamivir 75 MG Oral Capsule [place] ([facility]) duloxetine 30 MG Delayed Release Oral Ca psule duloxetine 30 mg capsule,delayed release TAKE ONE CAPSULE BY MOUTH EVERY DAY duloxetine 30 mg capsule,delayed release TAKE ONE CAPSULE BY MOUTH EVERY DAY completed duloxetine 30 MG Delayed Release Oral Capsule [place] ([facility]) ipratropium bromide 0.03 % nasal spray I NSTILL TWO SPRAYS IN EACH NOSTRIL THREE TIMES DAILY NEEDED [id number] completed ipratropium bromide 0.021 MG/ACTUAT Metered Dose Nasal [place] ([facility]) cefdinir 300 MG Oral Capsule cefdinir 30 0 mg capsule TAKE 2 CAPSULES BY MOUTH ONCE A DAY cefdinir 300 mg capsule TAKE 2 CAPSULES BY MOUTH ONCE A DAY completed cefdinir 300 MG Oral Caps ule [place] ([facility]) Insurance Providers Payer name Policy type / Coverage type Policy ID Covered alliance party ID Covered alliance party's relationship to bonds Policy Bonds Plan Information [place] [employer] [id number] Self [id number] [place] [employer] [id number] Self [id number] [place] [employer] [id number] Self [id number] Medicaid S [id number] S [id number] Medicare S [id number] S [id number] U09 Managed Care [facility] P [id number] S [id number] Medicaid O [id number] S [id number] Medicare [place] Medicare Primary [id number] Self [id number] UHC UNITED MEDICARE COMPLETE G [id number] Self [id number] Medicare S [id number] S [id number] [id number] Medicare Wrap P [id number] S [id number] [facility] Secure Horizons P [id number] S [id number] Medicaid S [id number] S [id number] MEDICAID M [id number] Self [id number] Managed Care - MVP P [id number] S [id number] MVP I [id number] Self [id number] MVP [employer] 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 [id number] Employee [id number] MEDICAID M [id number] S [id number] [facility] MEDICARE [id number] S [id number] Self Pay P UNAVAILABLE S UNAVAILA BLE Self Pay P [id number] S [id number] Medicaid S [id number] S [id number] Managed Care - MVP P [id number] S [id number] MVP SELECT CARE [id number] S [id number] MEDICAID [id number] S [id number] MEDICARE COMPLETE [id number] SP [id number] [facility] [id number] SP [id number] [facility] [id number] SP [id number] MEDICARE [id number] SP [id number] SELF PAY ONLY [id number] SP [id number] MEDICAID [id number] SP [id number] [facility] [id number] SP [id number] [place] MEDICARE [id number] S [id number] [place] CARE [id number] S [id number] [place] CARE [id number] S [id number] [place] Med[place] Part B [id number] Self [id number] [place] [id number] Self [id number] Medicaid [facility] Part B [id number] Self [id number] [place] [id number] [facility] [id number] Managed Care - [facility] S [id number] S [id number] [facility] Health Maintenance Organization (HMO) [id number] Self [id number] [facility] [id number] SP [id number] [facility] P [id number] S [id number] MEDICARE COMPLETE [id number] SP [id number] [place] [place] [id number] S [id number] SELF PAY ONLY [id number] SP [id number] SELF PAY ONLY [id number] SP [id number] MEDICAID [id number] S [id number] MEDICARE COMPLETE-[facility] O [id number] S [id number] Problems, Conditions, and Diagnoses Code Display Name Description Problem Type Effective Dates Data Source(s) Z79.899 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 ther bed bug exterminator (current) drug therapy Diagnosis 10/05/2020 12:04:53 PM [facility] R74.8 Abnormal levels of other serum enzymes A bnormal levels of other serum enzymes Diagnosis 10/05/2020 12:04:53 PM [facility] M32.9 Systemic lupus erythematosus, unspecifie d Systemic lupus erythematosus, unspecified Diagnosis 10/05/2020 12:04:53 PM [facility] R10.11 Right upper quadrant pain Right upper quadrant pain Di agnosis 08/31/2020 11:51:10 AM [facility] Z78.9 Other specified health status Other specified health s tatus Diagnosis 08/03/2020 10:30:32 AM [facility] F41.9 Anxiety disorder, unspecified Unspecified Anxiety Diso rder Condition 11/21/2020 12:00:00 AM EST [facility] ([facility]) F12.20 Cannabis dependence, uncomplicated Cannabis Use Disorder, Moderate Condition 11/21/2020 12:00:00 AM EST [facility] ([facility]) F32.9 Major depressive disorder, single episod e, unspecified Unspecified depressive Disorder Condition 11/21/2020 12:00:00 AM EST [facility] ([facility]) [id number] Type 2 diabetes mellitus Type 2 diabetes mellitus Prob sanaz 11/16/2020 12:00:00 AM EST [facility] ([facility] [id number] 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 Problem 11/16/2020 12:00:00 AM EST [facility] ([facility] [id number] Systemic lupus erythematosus Systemic lupus erythemato noris Problem 11/16/2020 12:00:00 AM EST [facility] ([facility] [id number] Uncomplicated moderate persistent asthma Uncomplicated moderate persistent asthma Problem 11/16/2020 12:00:00 AM EST [facility] ([facility] [id number] Type 1 diabetes mellitus Type 1 diabetes mellitus Prob sanaz 11/16/2020 12:00:00 AM EST [facility] ([facility] F12.20 Cannabis dependence, uncomplicated Cannabis Use Disorder, Moderate Condition 10/19/2020 12:00:00 AM EST [facility] ([facility]) F41.9 Anxiety disorder, unspecified Unspecified Anxiety Diso rder Condition 10/19/2020 12:00:00 AM EST [facility] ([facility]) F32.9 Major depressive disorder, single episod e, unspecified Unspecified depressive Disorder Condition 10/06/2020 12:00:00 AM EST [facility] ([facility]) F12.20 Cannabis dependence, uncomplicated Cannabis Use Disorder, Moderate Condition 10/06/2020 12:00:00 AM EST [facility] ([facility]) [id number] Acute maxillary sinusitis Acute Maxillary Sinusitis Pr oblem 12/10/2019 12:00:00 AM EDT - 10/02/2020 12:00:00 AM EST [place] ([facility]) 55575393 Streptococcal sore throat Streptococcal Sore Throat Pr oblem 12/10/2019 12:00:00 AM EDT - 10/02/2020 12:00:00 AM GARRISON PHILLIPS ([facility]) [id number] Procedure by method Procedure by Method Problem 0 10/18/2019 12:00:00 AM EST - 10/02/2020 12:00:00 AM EST [facility] ([facility]) [id number] Pharyngeal finding Pharyngeal Finding Problem 12:00:00 AM EDT - 10/02/2020 12:00:00 AM EST [place] ([facility]) [id number] Cough Cough Problem 01/12/2019 12:0 0:00 AM EDT - 10/02/2020 12:00:00 AM GARRISON ALAN ([facility]) [id number] Generalized enlarged lymph nodes Generalized Enl arged Lymph Nodes Problem 01/12/2019 12:00:00 AM EDT - 10/02/2020 12:00:00 AM TRAVIS PHILLIPS ([facility]) [id number] Furuncle of groin Furuncle of Groin Problem 09/07 12:00:00 AM EST - 10/02/2020 12:00:00 AM EST [place] ([facility]) [id number] Clinical finding Clinical Finding Problem 018 12:00:00 AM EDT - 10/02/2020 12:00:00 AM EST [place] ([facility]) Surgeries/Procedures Procedure Description Date Indications Data Source(s) Brief Individual Psychotherapy - 30 min 11/21/2020 12:00:00 AM EST - 11/21/2020 12:00:00 AM EST [facility] ([facility]) Brief Individual Psychotherapy - 30 min 11/21/2020 12: 00:00 AM EST [facility] ([facility]) Brief Emotional/Behav Assessment W/ Scoring Doc Per Standard Inst 11/13/2020 12:00:00 AM EST [facility] ([facility] Extended Individual Psychotherapy - 45 min 11/13/2020 12:00:00 AM EST - 11/13/2020 12:00:00 AM EST [facility] ([facility]) Extended Individual Psychotherapy - 45 min 12:00:00 AM EST [facility] ([facility]) Medical Nutrition Therapy Assmnt Interv Face To Face 15 Min 10/30/2020 12:00:00 AM EST [facility] Extended Individual Psychotherapy - 45 min 10/19/2020 12:00:00 AM EST - 10/19/2020 12:00:00 AM EST [facility] ([facility]) Extended Individual Psychotherapy - 45 min 12:00:00 AM EST [facility] ([facility]) Psychiatric Diagnostic Evaluation (Non-Medical) 10/06/2020 12:00:00 AM EST - 10/06/2020 12:00:00 AM EST [facility] ([facility]) Psychiatric Diagnostic Evaluation (Non-Medical) 2020 12:00:00 AM EST [facility] ([facility]) Psychiatric Diagnostic Evaluation (Non-Medical) 10/05/2020 12:00:00 AM EST - 10/05/2020 12:00:00 AM EST [facility] ([facility]) Psychiatric Diagnostic Evaluation (Non-Medical) 2020 12:00:00 AM EST [facility] ([facility]) Extended Individual Psychotherapy - 45 min 09/27/2020 12:00:00 AM EST - 09/27/2020 12:00:00 AM EST [facility] ([facility]) Extended Individual Psychotherapy - 45 min 12:00:00 AM EST [facility] ([facility]) IRON <td>TOTAL FE BINDING CAPACIT Y</td><td>Routine</td><td>08/31/2020 11:48 AM EST</td><td></td><td> </td> 08/31/2020 11:48:00 AM [facility] CREATININE BLOOD <td>CREATININE WITH GFR</td> <td>Routine</td><td>08/31/2020 11:48 AM EST</td><td></td><td> </td> 08/31/2020 11:48:00 AM [facility] UREA NITROGEN QUANTITATIVE <td>BUN</td><td>Routine</td ><td>08/31/2020 11:48 AM EST</td><td></td><td> </td> 08/31/2020 11:48:00 AM [facility] HEPATIC FUNCTION PANEL <td>HEPATIC FUNCTION PANEL A</td><td>Routine</td><td>08/31/2020 11:48 AM EST</td><td></td><td> </td> 08/31/2020 11:48:00 AM [facility] SEDIMENTATION RATE RBC AUTOMATED <td>SEDIMENTATION RAT E, AUTOMATED</td><td>Routine</td><td>08/31/2020 11:24 AM EST</td><td> SLE (systemic lupus erythematosus related syndrome)</td><td> </td> 08/31/2020 11:24:00 AM EST SLE (systemic lupus erythematosus related syndrome) [facility] SLE (systemic lupus erythematosus relate d syndrome) C-REACTIVE PROTEIN HIGH SENSITIVITY <td>CARDIAC HIGH S ENSITIVE C-REACTIVE PROTEIN (HS-CRP)</td><td>Routine</td><td>08/31/2020 11:24 AM EST</td><td> SLE (systemic lupus erythematosus related syndrome)</td><td> </td> 08/31/2020 11:24:00 AM EST SLE (systemic lupus erythematosus related syndrome) [facility] SLE (systemic lupus erythematosus relate d syndrome) GLUTAMYLTRASE GAMMA <td>GAMMA GT</td><td>Routine </td><td>08/31/2020 11:24 AM EST</td><td> SLE (systemic lupus erythematosus related syndrome)</td><td> </td> 08/31/2020 11:24:00 AM EST SLE (systemic lupus erythematosus related syndrome) [facility] SLE (systemic lupus erythematosus relate d syndrome) COMPREHENSIVE METABOLIC PANEL <td>COMPREHENSIVE METABO LIC PANEL</td><td>Routine</td><td>08/31/2020 11:24 AM EST</td><td> SLE (systemic lupus erythematosus related syndrome)</td><td> </td> 08/31/2020 11:24:00 AM EST SLE (systemic lupus erythematosus related syndrome) [facility] SLE (systemic lupus erythematosus relate d syndrome) HEPATITIS C ANTIBODY <td>HEPATITIS C ANTIBODY</td ><td>Routine</td><td>08/03/2020 11:20 AM EST</td><td> Systemic lupus erythematosus (SLE) in adult</td><td> </td> 08/03/2020 11:20:00 AM EST Systemic lupus erythematosus (SLE) in adult [facility] Systemic lupus erythematosus (SLE) in ad ult HEPATITIS B SURF ANTIBODY HBSAB <td>HEPATITIS B SURFAC E ANTIBODY</td><td>Routine</td><td>08/03/2020 11:20 AM EST</td><td> Systemic lupus erythematosus (SLE) in adult</td><td> </td> 08/03/2020 11:20:00 AM EST Systemic lupus erythematosus (SLE) in adult [facility] Systemic lupus erythematosus (SLE) in ad ult IAAD EIA HEPATITIS B SURFACE ANTIGEN <td>HEPATITIS B S URFACE ANTIGEN</td><td>Routine</td><td>08/03/2020 11:20 AM EST</td><td> Systemic lupus erythematosus (SLE) in adult</td><td> </td> 08/03/2020 11:20:00 AM EST Systemic lupus erythematosus (SLE) in adult [facility] Systemic lupus erythematosus (SLE) in ad ult SEDIMENTATION RATE RBC AUTOMATED <td>SEDIMENTATION RAT E, AUTOMATED</td><td>Routine</td><td>08/03/2020 11:20 AM EST</td><td> Systemic lupus erythematosus (SLE) in adult</td><td> </td> 08/03/2020 11:20:00 AM EST Systemic lupus erythematosus (SLE) in adult [facility] Systemic lupus erythematosus (SLE) in ad ult BLOOD COUNT COMPLETE AUTO&AUTO DIFRNTL WBC COUNT <td>C BC AND DIFFERENTIAL</td><td>Routine</td><td>08/03/2020 11:20 AM EST</td><td> Systemic lupus erythematosus (SLE) in adult</td><td> </td> 08/03/2020 11:20:00 AM EST Systemic lupus erythematosus (SLE) in adult [facility] Systemic lupus erythematosus (SLE) in ad ult COMPLEMENT ANTIGEN EACH COMPONENT <td>C3 COMPLEMENT</td><td>Routine</td><td>08/03/2020 11:20 AM EST</td><td> Systemic lupus erythematosus (SLE) in adult</td><td> </td> 08/03/2020 11:20:00 AM EST Systemic lupus erythematosus (SLE) in adult [facility] Systemic lupus erythematosus (SLE) in ad ult COMPLEMENT ANTIGEN EACH COMPONENT <td>C4 COMPLEMENT</td><td>Routine</td><td>08/03/2020 11:20 AM EST</td><td> Systemic lupus erythematosus (SLE) in adult</td><td> </td> 08/03/2020 11:20:00 AM EST Systemic lupus erythematosus (SLE) in adult [facility] Systemic lupus erythematosus (SLE) in ad ult C-REACTIVE PROTEIN <td>INFLAMMATORY C-REACTIVE PROTEIN (CRP)</td><td>Routine</td><td>08/03/2020 11:20 AM EST</td><td> Systemic lupus erythematosus (SLE) in adult</td><td> </td> 08/03/2020 11:20:00 AM EST Systemic lupus erythematosus (SLE) in adult [facility] Systemic lupus erythematosus (SLE) in ad ult COMPREHENSIVE METABOLIC PANEL <td>COMPREHENSIVE METABO LIC PANEL</td><td>Routine</td><td>08/03/2020 11:20 AM EST</td><td> Systemic lupus erythematosus (SLE) in adult</td><td> </td> 08/03/2020 11:20:00 AM EST Systemic lupus erythematosus (SLE) in adult [facility] Systemic lupus erythematosus (SLE) in ad ult Results ID Date Data Source [id number] 10/24/2020 11:52:00 AM EST [facility] ([facility]) Name Value Range Interpretation Code Description Data Radha rce(s) Supporting Document(s) Thyrotropin [Units/volume] in Serum or Plasma 2.169 mIU/ml 0.350-5.50 0 [facility] ([facility]) [facility] Specimen Received Date: 10/30/20 00:00 [facility] Result Report Date: 10/31/20 08:15 Please add to blood work a c-peptide level and a JARROD-65 antibody NOTE-CCP IgG ordered in error-will call [facility] to ask to credit account Hemoglobin A1c/Hemoglobin.total in Blood 10.4 % 3.6-6.9 Above high normal [facility] ([facility]) <content>Hgb A1c Interpretation:</conten t>
<content><5.8% - Non- diabetic</content>
<content>>6.5% - Diabetic</content>
<content><7.0% - ADA diabetic treatment goal</content>
<content></content> Thyroxine (T4) free [Mass/volume] in Serum or Plasma 1.01 ng/dL 0.89- 1.80 [facility] ([facility]) [facility] Specimen Received Date: 10/30/20 00:00 [facility] Result Report Date: 10/31/20 08:15 Please add to blood work a c-peptide level and a JARROD-65 antibody NOTE-CCP IgG ordered in error-will call [facility] to ask to credit account Glutamate decarboxylase 65 Ab [Units/volume] in Serum Laboratory test result [facility] ([facility]) This test was performed using the GAD65 CHRISTIAN method, which is standardized against the International reference preparation 97/550. C peptide [Moles/volume] in Serum or Plasma 3.5 ng/mL 1.1-4.4 [facility] ([facility]) C-Peptide reference interval is for fast ing patients. Cyclic citrullinated peptide IgG Ab [Units/volume] in Serum or Plasma Laboratory test result [facility] <content>Reference Range</content>
< content>Negative: <20</content>
<content>Weak Positive: 20- 39</content>
<content>Moderate Positive: 40-59</content>
<content> Strong Positive: >59</content>
<content></content> Laboratory comment [Text] in Report Narrative Laboratory test result [facility] ([facility]) The date recorded on the requisition ind icates the sample(s) received were greater than 72 hours old upon arrival in our laboratory. Glucose mean value [Mass/volume] in Blood Estimated fr om glycated hemoglobin 252 mg/dL [facility]) The Estimated Average Glucose is a calcu lation of the average glucose over the last 120 days including non-fasting as well as fasting levels. Venipuncture Laboratory test result [facility] ([facility]) [facility] Specimen Received Date: 10/30/20 00:00 [facility] Result Report Date: 10/31/20 08:15 Please add to blood work a c-peptide level and a JARROD-65 antibody NOTE-CCP IgG ordered in error-will call [facility] to ask to credit account ID Date Data Source [id number] 10/24/2020 11:52:00 AM EST [facility] Name Value Range Interpretation Code Description Data Radha rce(s) Supporting Document(s) Glucose [Mass/volume] in Serum or Plasma 246 mg/dL 74-106 Above high normal [facility] ([facility]) [place] [employer] (ADA) Recommended Range is 65-99 mg/dL Creatinine [Mass/volume] in Serum or Plasma 0.7 mg/dL 0.5-1.3 [facility] ([facility]) Urea nitrogen [Moles/volume] in Serum or Plasma 14 mg/dL 6-20 [facility] ([facility]) Sodium [Moles/volume] in Serum or Plasma 136 mmol/L 136-145 [facility] ([facility]) Potassium [Moles/volume] in Serum or Plasma 4.7 mmol/L 3.5-5.3 [facility] ([facility]) Chloride [Moles/volume] in Serum or Plasma 101 mmol/L 98-107 [facility] ([facility]) Carbon dioxide, total [Moles/volume] in Serum or Plasma 25 meq/L 20 -31 [facility] ([facility]) Anion Gap 10 mmol/L 7-16 [facility]) eGFR-Aa female 127 mL/m/1.73m [facility] ([facility]) <content>Normal Kidney Function or Mild Disease GFR >59 mL/min/1.73m2</content>
<content>Chronic Kidney Disease GFR 15-59 mL/min/1.73m2</content>
<content>Renal Failure GFR <15 mL/min/1.73m2</content>
<content></content> eGFR-female 105 mL/m/1.73m [facility] ([facility]) Aspartate aminotransferase [Enzymatic activity/volume] in Serum or Plasma 135 U/L 8-33 Above high normal [facility] ([facility]) Alanine aminotransferase [Enzymatic activity/volume] in Seru m or Plasma 112 U/L 4-36 Above high normal [facility]) Effective 03/22/2017: [email or web address] has indicated interference with the drugs sulfasalazine and sulfapyridine. They suggest collection should occur prior to drug administration due to falsely depressed results. Alkaline phosphatase [Enzymatic activity/volume] in Serum or Plasma 72 U/L 46-116 [facility] ([facility]) Bilirubin.total [Mass/volume] in Serum or Plasma 0.3 mg/dL 0.3-1.2 [facility] ([facility]) Protein [Mass/volume] in Serum or Plasma 7.4 g/dL 6.4-8.3 [facility] ([facility]) Results may reflect a potential interfer ence in Total Protein results in patients receiving dextran as blood volume expanders. Globulin [Mass/volume] in Serum by calculation 2.5 g/dL 1.9-3.7 [facility] ([facility]) Albumin [Mass/volume] in Serum or Plasma 4.9 g/dL 3.6-5.1 [facility] ([facility]) Albumin/Globulin [Mass Ratio] in Serum or Plasma 2.0 Ratio 1.0-2.0 [facility] ([facility]) Calcium [Mass/volume] in Serum or Plasma 9.8 mg/dL 8.9-10.5 [facility] ([facility]) ID Date Data Source [id number] 10/28/2020 09:46:00 PM EST [facility] Received: 10/25/2020 at 03:27:00 AMD : [employer] [facility] [address], [place], [address], Josh Roberts M.D.,PhD Received: 10/25/2020 at 03:27:00 QPT : [employer], [address], [address] [place], [address], Alon Rincon MD Name Value Range Interpretation Code Description Data Radha rce(s) Supporting Document(s) Glutamate decarboxylase 65 Ab [Units/volume] in Serum by Immunoassay <5 [facility] This test was performed using the GAD65 CHRISTIAN method,which is standardized against the Internationalreference preparation 97/550. ID Date Data Source [id number] 10/28/2020 09:46:00 PM EST [facility] Received: 10/25/2020 at 03:27:00 AMD : [place] [facility], [address] [facility] , [place], [address], Josh Roberts M.D.,PhD Received: 10/25/2020 at 03:27:00 QPT : [facility], [address], [address] [place], [address], Alon Rincon MD Name Value Range Interpretation Code Description Data Radha rce(s) Supporting Document(s) Cyclic citrullinated peptide IgG Ab [Units/volume] in Serum or P lasma Normal (applies to non-numeric results) [facility] Reference RangeNegative: <20W eak Positive: 20-39Moderate Positive: 40-59Strong Positive: >59 ID Date Data Source [id number] 10/09/2020 04:41:18 PM EST [facility] Name Value Range Interpretation Code Description Data Radha rce(s) Supporting Document(s) Progress Note [facility] JINDFd5aLzFCXmOj55/HSIiaMOCqv3YgADknCTk3VOntGTHaE4ZcLCC3gB9hPDI0DBuYIpOxWjPeWGJ9 lbm [file] Wq8Fz0AhpuF2cyWqSEfgKXF1If7WHFEJQ9KDXs== ID Date Data Source [id number] 10/05/2020 03:27:57 PM [facility] Name Value Range Interpretation Code Description Data Radha rce(s) Supporting Document(s) Progress Note [facility] VGTMFh5jUnPNBuOs95/TXQiwJCYor4OlOOinRNr6OTlpZZKwW6ItZDT0kB2wLTC0AMjZPmLwPvEtSIN4 lbm [file] AgICAgICAgICAgICAgICAgICAgICAgICAgICAgICAgICAgICAgICAgICAgICAgICAgICAgICAgICAgIC GwBMUhYIFdNJBmZZKpTDJqKSGeVFKuCQCmYKDkGPCwTW8UTVLrMFFjCNDaRCJlELUrRMGpFMNuUURrQN AgICAgICAgICAgICAgICAgICAgICAgICAgICAgICAg KDFyNSMrZXRlKVBkAZLqAYDrMZFwOPYnYTCqHOKoVWPcJYYjYWQoXTWxOO2RZIOqOSVyNHWjNVZfJKOm ICAgICAgICAgICAgICAgICAgICAgICAgICAgICAgICAgICAgICAgICAgICAgICAgICAgICAgICAgICAg LYMpVAKcCVCkNQHhGWPfNHUiVSOhFMGfKK0LJCGxZA AgICAgICAgICAgICAgICAgICAgICAgICAgICAgICAgICAgICAgICAgICAgICAgICAgICAgICAgICAgIC MqTXVpLHDiLXSqWMRhPJLoNWCmJWFlBGBeWVSkKGCjFJGqRB9AQAFmNOJhXNWvUTPhCAQcUDKhXJDuIL AgICAgICAgICAgICAgICAgICAgICAgICAgICAgICAg AHFhXBJcDMYvHBVzPFKuZYDfTFAjGRLoJABuHPFsITEeYEQeXDVyMQXtNGZiUH5GYXBtFDFzZIKgHNAe ICAgICAgICAgICAgICAgICAgICAgICAgICAgICAgICAgICAgICAgICAgICAgICAgICAgICAgICAgICAg FOGpBATtXAPzWYXyTAGnYLGpSSUvRFQtIOWiTQ4EKJ AgICAgICAgICAgICAgICAgICAgICAgICAgICAgICAgICAgICAgICAgICAgICAgICAgICAgICAgICAgIC FwFRNnLYMrVGKbDMAoXFRgVCMeYGFfKBZjZEVgVCUjJTNyPQLvCB8EWXKwUNSoZYJdIBPxLQYjOGWmJM AgICAgICAgICAgICAgICAgICAgICAgICAgICAgICAg JVEqLWFtAXBnFEGwHUCmBELsASPdJNNnODViYMBbIBKyNHWeVBNiXWZzETMkFOAiSZ7XYEBeKMYlNVWp ICAgICAgICAgICAgICAgICAgICAgICAgICAgICAgICAgICAgICAgICAgICAgICAgICAgICAgICAgICAg ICAgICAgICAgICAgICAgICAgICAgICAgICAgICAgIA 0KICAgICAgICAgICAgICAgICAgICAgICAgICAgICAgICAgICAgICAgICAgICAgICAgICAgICAgICAgIC BaLYVvYKIjLSRgUXBrKWRcHFLuZWQgLVCpBHIiQMKzKDNhBXEmDCQkZQ3NYG34cBAbc4D8JPJaMH4mga c/Zj5QGJdmgqDgjYNyYU5QYwUsXP4ffs4PBlBxKB6d tg2HDExFBkEjS1G3rGStNUQaNKUSJoDhG38wTSggWj04HYbnYYVoNvBpAMq2Lb2IRdDyN6efQSJuYyF8 OPHoUhRwARfvUP2Ur5MhdDBeUCv+Xj3KIZ0bn7CcRVvhTRFaJT4kpw4ROEtOSdXsQ8ZjyvR1SYAbJGWn Xl4EMWTpUMApzXSbLNOqDCFILmLzU9AxlJ66IZMGCd 4+SGregaIvDpjCJmFuSNRiu5PaDXb0MD3PDEZdDSc3fLHeHIXtA8Oub5UkZd45PXPpUsdiPJ0ppqIgXV PhwqxyES4MTLN0OYLdNVTlKhZyXLXjTyymJZOFIZtLWaWqL8Ajq9QdPnQ6VNGtLvWoUVxwZEZmGqC8LH 58yInbUC0AGHSfLTXjQV55VJY7VKGaPk8LJn6LGiCs QC2did8TDlOfGCHiSneDZzu5AUktMR2YaIBkK9McdVBtu2iJXbQmS4MBFRL0NVVbFp9YQAMyAfEzTGVn ERwwVK1zMIWaEPTSoLszjoL2ZF2VYO4qvnZyMM7DEeWvQp9pFl2GCnNuZ4ZfM7KuWCXkEQORVIgqLS0T QOpmHD7sKK1Cl7RTbMZydN5jfh6UKHFxRFNlCovzyx 5PQvimY4F1yAlpMNNhXWeiVVWFPTvcCH2FSQTbDGH9KXTzNWBeQIKYEsNzB33iAE4WI4Hjd99iVmR4RA QtXqYcOItgAU99jWvpexOawMKgfGpiIP3RKx0+DQplbmRvYmoNCnhyZWYNCjAgMjINCjAwMDAwMDAwMD QfLgW6PnEkEc5DYWFeILYqQUBhEyBpWCHfOSYeRYgy MXIeQBX9XEXkMDSkMEEoYV5RNxWhNBGzQFn3LUVzDTBeOVOeqi7OGAAxVIQpMMT0FyOwLOBmYYInQNzs XWEhDZMaZAc5TIHkXCHeOQ6XHeGjLWOoIFEsHLLxWXHnCBCyba4HBORnEMUoNfG9VYRgDEZhXKUnBTfz ZOVnQJFyTyI6RHIvLMZtEF9HQyHpRZHeBLF4QgfaPV GdFODrjc5LYHTiDMCxFIL0LDYvCVPpTFUiEQihVNCsQRL1LKf9OEMxQALqBL8TXoOxMKAdXWN0EbIhRM NqLGMrje4RRWXoXNLtFjGjPMQaLWEyVNSeFVioGHMgRKB1GIC2FEXhVDRvMV8DAyCpSPGtAVR2YRSgPX TlZEUinl6UWOSqNLRpMbh5JFEkCKDhSUGeTVzeHFLa KZY3YHMzVMDuOFMuON8CQgQxCYEnTDm4YWJoGOKsNPWwbw2WOQEyKGJcCAk0AVYfAZJiNZRmWKzuBLTb GSH4OKF1ZGChPOOgLG8DNaBbCCSbIAmvNCZjPWVtDVEzxe8PuFDbdOjeqx4VLIlNWx6FlEsbOFIhJHgp Nd0rzWGoYINgQAMVIw0NnaVuNVXyAQQBRVdwHQUuSJ C4EvByDmDgJKOyAGSpUdTpXaoeICBdTCBlHqGwTBn5AmP7PNlvLHSpGcGhEvZ9WkF3BnPjJ2B7OZO6Tg VyVlB6BbD+JX7dLHu+Hq6Av5FphiM4weInAZfhDELiTH9MNLZDV4JBNe== ID Date Data Source [id number] 10/05/2020 03:27:52 PM [facility] Name Value Range Interpretation Code Description Data Radha rce(s) Supporting Document(s) Progress Note [facility] FBMZLo8cVzVJFfQf70/CGNqySQTae0KbKOcsAQf5AFpgBRQvQ2DvVSL3wS9bHSJ9EZgRUhXcErQsDIX8 lbm [file] AgICAgICAgICAgICAgICAgICAgICAgICAgICAgICAgICAgICAgICAgICAgICAgICAgICAgICAgICAgIC AgICAgICAgICAgICAgICAgICAgICAgICAgICAgDQogICAgICAgICAgICAgICAgICAgICAgICAgICAgIC AgICAgICAgICAgICAgICAgICAgICAgICAgICAgICAg ICAgICAgICAgICAgICAgICAgICAgICAgICAgICAgICAgICAgICAgDQogICAgICAgICAgICAgICAgICAg ICAgICAgICAgICAgICAgICAgICAgICAgICAgICAgICAgICAgICAgICAgICAgICAgICAgICAgICAgICAg ICAgICAgICAgICAgICAgICAgICAgDQogICAgICAgIC AgICAgICAgICAgICAgICAgICAgICAgICAgICAgICAgICAgICAgICAgICAgICAgICAgICAgICAgICAgIC AgICAgICAgICAgICAgICAgICAgICAgICAgICAgICAgDQogICAgICAgICAgICAgICAgICAgICAgICAgIC AgICAgICAgICAgICAgICAgICAgICAgICAgICAgICAg ICAgICAgICAgICAgICAgICAgICAgICAgICAgICAgICAgICAgICAgICAgDQogICAgICAgICAgICAgICAg ICAgICAgICAgICAgICAgICAgICAgICAgICAgICAgICAgICAgICAgICAgICAgICAgICAgICAgICAgICAg ICAgICAgICAgICAgICAgICAgICAgICAgDQogICAgIC AgICAgICAgICAgICAgICAgICAgICAgICAgICAgICAgICAgICAgICAgICAgICAgICAgICAgICAgICAgIC AgICAgICAgICAgICAgICAgICAgICAgICAgICAgICAgICAgDQogICAgICAgICAgICAgICAgICAgICAgIC AgICAgICAgICAgICAgICAgICAgICAgICAgICAgICAg ICAgICAgICAgICAgICAgICAgICAgICAgICAgICAgICAgICAgICAgICAgICAgDQogICAgICAgICAgICAg ICAgICAgICAgICAgICAgICAgICAgICAgICAgICAgICAgICAgICAgICAgICAgICAgICAgICAgICAgICAg ICAgICAgICAgICAgICAgICAgICAgICAgICAgDQogIC AgICAgICAgICAgICAgICAgICAgICAgICAgICAgICAgICAgICAgICAgICAgICAgICAgICAgICAgICAgIC QqDUHgNXTxPLLaKOZpLWDsEVFxVYIpYZKtKSWtDKLjVSAcBIHoTBf0U5xbGIHrXHWmXX5pNCq4Go2+DQ oFWpHjHTK3yfTwsT8GTN2lc0JaNTydCOFjl7YyQPy9 AU0XFZEwXEvbHM5UBFdaem6HFXLsQVHseXHEp8msXzRkETK5JQAtQdflDQ5ZFDYyV4yijkHrSMHlOQKF QLcfSAEPEZtwMMWCZQSaUSAqLmHrVjVtRFTrRMOgTWMPRG4FJzFnF5GmiW70KNRDRx3+DQplbmRvYmoN OuHnHQOjt6HnZAv6HD0ZGOAzRwzug5NtAeOsBNGVSQ nzND9HIWE2PPGhKYWhEf4GMFGqR528gzOjHD4IKp3RAsJjZS1fgn8PGuEwYKSrDycFMko3VAzvPN2WwO PsYHrGvk5iisLsgkVXu2NevbGicGLDYDOjbOOzYAzqkiAGjYMtfvU6LJ4eZR5FOqUbHABzFC5lRF2wBX FiGZZwQnCoQZKOMV0NZVCeJWOimDYgUOLvFRWTNO5U FBseYLP9HJDwsvTpiQQkADreIR0NQFDeggTeNsGaHFJBELx+Zq5RLG1jv0MaDEfaRVZuPN6lwo9WSIdC TfKrC9P6cKWfQ6O1DWwkOp9SVXRpKKErJlIyLNQFHZnlCU0EWN1hsaD1VV0XyPHiHYChOJVziIWuPFa2 N15koQGoWVmjOR2KOYD+Lit+Xe2OBBDvURZyCNMvGh LiQLZGAqFpD3OaX9CBd3CdI8RoYK60yMfhlmCvBHdgPS3AWS4uRAWwZUBGMT2IkXNusZ8rxdWuEoZmBQ CWKvKgH65yzDVrXCVcVNCxTYDzYo2XINLgB0QevnSsbHmxklMpAECxWGCRZR3JYThzzyXahFRdyCqhXM 11kKnlOQ8FCa4USxGoIG8sdg6IdRAoKg7UNYYgCP7T KKPtBGJdTMVlSEL0IKUyWnGhILoaOOUcKLPpFIZ0MJFdGMKdJH2GPpHyOYXfLpQ3AsBrAAXwSXSost6L CUSfYIYbCAD8BJDsKYEzWRAkZNxzHFZkNCTsJPI7XERcSBGyAF7QChYdBPGoOKMzXjzeBWKeJDSaie9T OYMhALHaMZK1GvVoZPEnQJGfXJrtYYQjEZK0VlR0RS SzXJGjPJ4KWaQpIFGvELA6WJokDNDwHJTotm4UMSZmUTZzTKy0DRDeJBZvUKOnHJnfHKUsUDU1WNF5BW WjEXTjGB9WPuElBNPrSRJwNINiIJQhWSOkgg1NTORmOJVuIaL3XRLeDZXxIKLzFEgjWPQlZFR0Rjb4RJ GsWPDiLX1IMaHkADPuNYX6IBImRBRhLTHorj0CANVn FCTxPKq5PjDjCAPvGDWeOVlwPYZyQNVfGMNhXEVmAWNfAV3BFlStBRUwFoCbZLDsKHQvXSSgtf8VWKSt PSWvAGGsKNEcFTLoRBBsTMhgEPFuCSPiMsboKHIoRKGlFN5MQoDeKQPwCuHjANDwSMGlRIYqzn6EBNYd XXEyJjA3EnLgPEBtQBHcVSedFPJwYAJhIoKmZSRhOO GrJP8RJoOaCKGzHtDdIfNkSFFwVEGkpa0QRUUhLFLqUWD9ZbCwNNEeFKRqFQzxYCKuWTN2QvL8RWWrUG QgHJ1RBxYcLNYfHnJ5JXFdOUTcPSAopj8XVVKgHGNvSFOuBVWyIWZtDWRoGGuyMYOyPGY6CRW3OHKnLX SnDJ0UVtLwBYXhNdHeLzDqDLLxUFGexo1ZWDLsIBPl YdDuJPWgGNWtBMDhSTofDGCfNQD8PZN9QHPaLVEjLH8ESaBmQVZnJuocVBemMWRhSFIkxs4VDBYqPZLc ZSI9SUNuQSWhPIImDTniFSGjQUR1WCG6PUHlNNRxAV7CCgTtEIjaMZUKRyw6GPvlS0r8TIInYQ4JJ0Py y6OaOjLwMAXXALgeCE9qssIySLLcCe9NE8pKWbg9MP ZsFBS5OTKvVyDeW3X8IDQxMxTfARRrTmqsRhp7Gz8dRXgmXMJhYlijBcZjNjVwXVe1G4GuDoD9ANL0Pa BvMJWpUzAoXX0USx7LXdP0GOR1sKAuRj8GXck6WzGZOnShVW1SEPh= ID Date Data Source [id number] 10/05/2020 03:39:10 PM [facility] Name Value Range Interpretation Code Description Data Radha rce(s) Supporting Document(s) Erythrocyte sedimentation rate 8 mm/hr <20 [facility] ID Date Data Source [id number] 10/05/2020 03:57:23 PM [facility] Value Range Interpretation Code Description Data Radha rce(s) Supporting Document(s) C reactive protein [Mass/volume] in Serum or Plasma 3.8 mg/L <8.0 [facility] ID Date Data Source [id number] 10/05/2020 03:57:23 PM [facility] Value Range Interpretation Code Description Data Radha rce(s) Supporting Document(s) Albumin [Mass/volume] in Serum or Plasma by Bromocresol green (BCG) dye binding method 4.0 g/[facility] Bil[facility] [Mass/volume] in Serum or Plasma 0.4 mg/dL <1.2 [facility] Calcium [Mass/volume] in Serum or Plasma 8.9 mg/dL 8.6-10.0 [facility] Chloride [Moles/volume] in Serum or Plasma 102 mmol/L 98-107 [facility] Creatinine [Mass/volume] in Serum or Plasma 0.59 mg/dL 0.50-0.90 [facility] Glucose [Mass/volume] in Serum or Plasma 266 mg/dL 70-140 H [facility] Alkaline phosphatase [Enzymatic activity/volume] in Serum or Plasma 68 U/L 35-104 [facility] Potassium [Moles/volume] in Serum or Plasma 3.9 mmol/L 3.4-5.1 [facility] Protein [Mass/volume] in Serum or Plasma 7.2 g/dL 6.4-8.3 [facility] Sodium [Moles/volume] in Serum or Plasma 136 mmol/L 136-145 [facility] Aspartate aminotransferase [Enzymatic activity/volume] in Serum or Plasma 84 U/L <32 H [facility] Urea nitrogen [Mass/volume] in Serum or Plasma 7 mg/dL 6-20 [facility] Osmolality of Serum or Plasma by calculation 290 mosm/kg 275-300 [facility] Creatinine/Urea nitrogen [Mass Ratio] in Serum or Plasma 12 [facility] Bicarbonate [Moles/volume] in Serum 22 mmol/L 22-29 [facility] Alanine aminotransferase [Enzymatic activity/volume] in Seru m or Plasma 122 U/L <33 H [facility] Anion gap 3 in Serum or Plasma 12 mmol/L 8-15 [facility] Glomerular filtration rate/1.73 sq M pre dicted among non-blacks [Volume Rate/Area] in Serum or Plasma by Creatinine-based formula (MDRD) >6 0 [facility] Glomerular filtration rate/1.73 sq M pre dicted among blacks [Volume Rate/Area] in Serum or Plasma by Creatinine-based formula (MDRD) >60 [facility] ID Date Data Source [id number] 10/04/2020 10:00:00 AM EST [facility] Name Value Range Interpretation Code Description Data Radha rce(s) Supporting Document(s) SARS coronavirus 2 RNA Not Detected [facility] [place] This lab was ordered by [facility] and reported by [facility]. ID Date Data Source [id number] 09/27/2020 04:06:40 PM EST [facility] Name Value Range Interpretation Code Description Data Radha rce(s) Supporting Document(s) Progress Note [facility] EMRAMm2sHnMKMnIz03/CHVlyQJFvw5TwXCeiFMo2OLriYYUbR6WlNXQ0sF4mULH9DPkCAaUvEdNjCSP1 lbm CkFajKXzZxORCsOhaQQeGtJXonSrbkaHKbYF4CzJA5AZBlH26oLLQyTMMhE6YcPDSaBfw+Bg0GCMZbbF AuAY8TZfdU5R0ue9vMGT9c5M1OnHRZHEGjKVqcWEWffy3IyL3kswRs6nFRjCwUPHkbHEp/KV8fOX0glV a8coYVpd5X3cU6EWxjnwzypW51O4GV/Qt6kMz5gh4s 8/6Zl2aqjRbS846/oiwgsUgq5lFX5tG8iNuSNONcUF+4ky6LAgvA+44yP9GilT5vMk+mZLVx3asGgEX+ s/c/WWf/nQbxyuOEfiEST2sZQjmJ3oeaBbwajXNwIbIo1kLzOPl0pBAF7YZc5GWOk6KONYZrEh+6bh1B QV1eDj5OmZVj0OTwd1/XKB2BYGCuLtysURvxb1/PCC LG7I+Sh4bMcKvpQnLSLxaqY2SmkhYER/2Uw6/OrA+fIf8uL86IyJuLoxvvwfmpY8UHvD4VcCQbRlHxtC YBxG8uiGyeJx1H9qO22P2XyvGrU+T7eX82u8oACTiu8TTUkXnuXQKNdBrDHzFLiPuw7Hrs3R+S2SFQIJ yiW3QpgJBLZimJz+KvdkGd4loCrVM/JRqU8Hsiigqk o1xgEGS23+hfMSRLQ95Rdfry7WGZ41tu69XjvNlZS5P2pWAJ3/BhxqPDeJqXvA4Ka3azSEq9HM+IouVk sf7mJa8nQtjvBlP+tO/YpUi1JqpJt9by4s6VbLXfuw9Rt1mVoPYgdcdYjHZIZrTyeyenxoyMIbdEKCVw n5CQIdseohTw+N/CXa2vPr+8ag8w3a9AzLxAxJLpBM lrVTWwn57TweIok1sTf497EP4XkBaqGJxo28sbIST9E4+bD/Z+pC31mmNUbIfW0CB1Z4/tXDAjjAOY5o 8iUzEoXd44v6vo/armida+sWqqhGylilBRMXe5Np/K6KnWWvvzRab9Qy+LFxCGBXQsHhYgcxDUAoodQztSD [file] DfmjFpUeEi9cLBTGJr1+BQedeYPueMbgBQGZXhDgKhG6JJsyAWBJQq3M ID Date Data Source [id number] 09/26/2020 11:35:36 AM EST [facility] Name Value Range Interpretation Code Description Data Radha rce(s) Supporting Document(s) Progress Note [facility] FFPHAo6yJmLCKaBs04/DVNagEVXme6SuUBvyWDi2MNzbHLKiE7FdFJY4vL9tQIN4SBcCIuHpBzHgXZK8 lbm [file] ID Date Data Source [id number] 09/21/2020 02:04:11 PM [facility] Name Value Range Interpretation Code Description Data Radha rce(s) Supporting Document(s) Progress Note [facility] GBEGOk0qItDBDeZi91/PSXfrHYBlk9XqRQlkWLc5ENdoZNVsZ5JuCNK8tD8jMQU3AQpDOdTzCkJzYqOb lbm [file] uyaSHohHlaUQAWWsAtOgSiOXxwXCHIVn2N ID Date Data Source [id number] 09/21/2020 02:04:06 PM [facility] Name Value Range Interpretation Code Description Data Radha rce(s) Supporting Document(s) Progress Note [facility] TVLEIw1xYeSNDbUm94/PNLruFFUih2OzOKqhUXa7SOxaZCVqC3ScJQO3jF8lAMK8JPgLRaTyOjGeHlZm lbm [file] ICAgICAgICAgICAgICAgICAgICAgICAgICAgICAgIC AgICAgICAgICAgICAgICAgICAgICAgICAgICAgICAgICAgICAgICANCiAgICAgICAgICAgICAgICAgIC AgICAgICAgICAgICAgICAgICAgICAgICAgICAgICAgICAgICAgICAgICAgICAgICAgICAgICAgICAgIC AgICAgICAgICAgICAgICAgICAgICANCiAgICAgICAg ICAgICAgICAgICAgICAgICAgICAgICAgICAgICAgICAgICAgICAgICAgICAgICAgICAgICAgICAgICAg ICAgICAgICAgICAgICAgICAgICAgICAgICAgICAgICANCiAgICAgICAgICAgICAgICAgICAgICAgICAg ICAgICAgICAgICAgICAgICAgICAgICAgICAgICAgIC AgICAgICAgICAgICAgICAgICAgICAgICAgICAgICAgICAgICAgICAgICANCiAgICAgICAgICAgICAgIC AgICAgICAgICAgICAgICAgICAgICAgICAgICAgICAgICAgICAgICAgICAgICAgICAgICAgICAgICAgIC AgICAgICAgICAgICAgICAgICAgICAgICANCiAgICAg ICAgICAgICAgICAgICAgICAgICAgICAgICAgICAgICAgICAgICAgICAgICAgICAgICAgICAgICAgICAg ICAgICAgICAgICAgICAgICAgICAgICAgICAgICAgICAgICANCiAgICAgICAgICAgICAgICAgICAgICAg ICAgICAgICAgICAgICAgICAgICAgICAgICAgICAgIC AgICAgICAgICAgICAgICAgICAgICAgICAgICAgICAgICAgICAgICAgICAgICANCiAgICAgICAgICAgIC AgICAgICAgICAgICAgICAgICAgICAgICAgICAgICAgICAgICAgICAgICAgICAgICAgICAgICAgICAgIC AgICAgICAgICAgICAgICAgICAgICAgICAgICANCiAg ICAgICAgICAgICAgICAgICAgICAgICAgICAgICAgICAgICAgICAgICAgICAgICAgICAgICAgICAgICAg ICAgICAgICAgICAgICAgICAgICAgICAgICAgICAgICAgICAgICANCiAgICAgICAgICAgICAgICAgICAg ICAgICAgICAgICAgICAgICAgICAgICAgICAgICAgIC AgICAgICAgICAgICAgICAgICAgICAgICAgICAgICAgICAgICAgICAgICAgICAgICANCjw/uTDjB4xmeR XorrQ6S5nqYb9XXr1KWJ3lh5AnVGDlKKgqbnPoXyyKAjZmNIYhHllGKdp0NTlmBI5TeFSsT5DqQ3XmRZ nyVY9COHDnTDAujVKqWULvCMJtElK4CRIxLRflUI1V eTAfTTljUQVxIUNlHzYjANBaDHIkDSDiWNSpFXUSIQRxLGPqKkLcQYFzZLXmSPyrOROGIY6JBdMaA8Qu eE68AEcQHs6+LOjjziUxYkgJBoH3MVNfj1HsBEp0JQ9KPVIlQwujd8WxQsAgWALSFQtiJG4EEPZ3BAJ1 OZJbEi9NHZOfL703xrGhCN3VYj4QPvQeND2uiv9STs XkHPVhIhrOMlt8OThkMR9WcXHqDMuFpp3gsdBitfTFx8NxafIytUWJTEInwDXmRCdbheRZiMJbevY8CO 4dNM0OVtKnOLSbQIKuHzEeRmWbUWXkJYkeXWPWXKuBSyUyT4Ykr7NvHgN5WNMiGvUeDJhcZZPzNeW5GN 40zOntRE0XPNFgIGVdSZ82MHD9QZDvNm5AJg5OUvLe PL9qrg3HJnEiHSSySpwKVoh0AJzuVV6IdMXeC6XanYPdj5pKMqMzD0OVWHZpUVXlQd4CKNOwLcPjZGOr QBbpRY9cAHQsVCFPaWiyhlD5AB4CVE2erzPzJC2QFhShRm5nDw3LIbYlB8YwS8HyEGUdGFFDIIadRS2P XWhvVW8lOH0Ea1PIgQBspD0wev7CRSQwHIItLjjflm 6KMvlrW7H1aWseOYFlTbDbPSNHCGdpPF2BDOCrZRB0MJIjGdZdHKAQCxQfT36gDM9IU0Inh96fRyU7AB OdHqKdYBoaCM67iFvlytCexJRbeLxqUP2NUp8+DQplbmRvYmoNCnhyZWYNCjAgMzcNCjAwMDAwMDAwMD XdCeN3VsIoKq8TDSCgWHCfDAWmPdGhWHJdWTPwSAxn VWQgVBL9EVm2QLZtZLQuPD7ICzGcMCRoGgs5FlPiYZMeEYCjtf8HCMVnWFQqXWC2LzXkJKFqZIKjTSnm ISKsYZB7IDT4WWNtSZDdMU5NTrVgDDCkSHIwHouqSHJpTFXfkb3FICSlJFRiEoyiRLEoIUGyQCZwQNbf RNPnHUF7CZT5NIIqUNJuVP5MNqNnQXCwMAw8EIHdOZ CnORTddo7RWAFzNAQmREGgSkSlDRPgBOHiYCifNNQyMACvWoj2BPQpAVWuJN5PVlTrXDTsWQS7XSFpHE FhPOStuh2KPDRyFGDpZul2HiElHFWuYLYdROscSYQqGCS3LYu9UVLlCOEwBW5BRrQiACZjVnP5QfLdHU FkRFBoxu8AMDSkPCPbFLSkQhJjAVGtIDByNSexQGFn VUCiPcOoGVRfMCBaUM7NNpZjAJByLrJ5GShbARSkRNRxnl6GLDIaMUKjCyK8XEXkDYFdRYLrFCmgLADj FPLoWvr8MMViGGRnUQ3ZVeNeCIUcDjI1BGhzTFCgSTVrsm2SYVTxMSRkWdhqFvOcEMEbGHLnZZfyEUYe LBQ4ONF5KAXiJOGkSI0JWoSkQXLtSfIoUJmpYZZpIF Lnxk3ZTDKuDMOwRYSdAmBdHVEqXYToWSipRMVtNAN9ZWUrYFXuIGBjNR9NUrVdFHOcExMsHvHqGJUjAW Drrd9AMBEvSVLaEbRjDPYhHOFkPFPrVUbsPZGzMMA6WBG5WLIuBURqLI1SBmJyVLFtOpk8LJWyLJTtXU Dbcs4OXMJoAVCiFjS7CYZgVKGeEBWyIXttOGIeDKS8 CDk1EZZnDVEmQF9HDxXnRNBgMezvYYXoAWWsOVBttl2TFCDxRLWkOGf9WfPpBQWcMRFtSLbdFCBwKNO2 JMHtOHIiIYLsQN4XGyThUOFfJDXgWUFdEASkMNAjlb4MeYDpdXxjer7EYWsALp7JyWltBHY8QFajVd6d nEMkKbUjUZKOXn4IuaDiZUImOBZLGXhaSQApXMWvQL PdTZO6ZFJuCzTiUFAlQfY5Tbr7KnYqRfZoISM2GqS7FuX3CaD7YOGcHBLaMWQ5G0Q7GoumDOXlNOW5CW A5MTQ+BJ4vBHn+Rf7Qp4EikdV3ceOvFBp1AHR1Gh3GYFDTF2BEZc== ID Date Data Source [id number] 09/21/2020 02:34:43 PM [facility] Name Value Range Interpretation Code Description Data Radha rce(s) Supporting Document(s) Leukocytes [#/volume] in Blood by Automated count 8.5 10*3/uL 4-10 [facility] Erythrocytes [#/volume] in Blood by Automated count 5.13 10*6/uL 4.1- 5.3 [facility] Hemoglobin [Mass/volume] in Blood 12.1 g/dL 11.5-15.5 [facility] Hematocrit [Volume Fraction] of Blood by Automated count 38.0 % 3 6-45 [facility] Erythrocyte mean corpuscular volume [Entitic volume] by Auto mated count 74.1 fL 80-96 L [facility] Erythrocyte mean corpuscular hemoglobin [Entitic mass] by Automated count 23.6 pg 27-33 L [facility] Erythrocyte mean corpuscular hemoglobin concentration [Mass/volume] by Automated count 31.9 g/dL 32.0-36.0 [facility] distribution width [Ratio] by Automated count 14.7 % 11.5-14.5 H [facility] Platelets [#/volume] in Blood by Automated count 296 10*3/uL 150-400 [facility] Differential cell count method - Blood [facility] Neutrophils/100 leukocytes in Blood by Automated count 64 % [facility] Lymphocytes/100 leukocytes in Blood by Automated count 30 % [facility] Monocytes/100 leukocytes in Blood by Automated count 5 % [facility] Eosinophils/100 leukocytes in Blood by Automated count 1 % [facility] Basophils/100 leukocytes in Blood by Automated count 0 % [facility] Neutrophils [#/volume] in Blood by Automated count 5.50 10*3/uL 1.8-7 .0 [facility] Lymphocytes [#/volume] in Blood by Automated count 2.50 10*3/uL 1.2-4 .0 [facility] Monocytes [#/volume] in Blood by Automated count 0.40 10*3/uL 0-0.8 [facility] Eosinophils [#/volume] in Blood by Automated count 0.10 10*3/uL 0-0.5 [facility] Basophils [#/volume] in Blood by Automated count 0.00 10*3/uL 0-0.2 [facility] ID Date Data Source [id number] 09/21/2020 04:33:35 PM [facility] Value Range Interpretation Code Description Data Radha rce(s) Supporting Document(s) C reactive protein [Mass/volume] in Serum or Plasma 6.1 mg/L <8.0 [facility] ID Date Data Source [id number] 09/21/2020 04:33:35 PM [facility] Value Range Interpretation Code Description Data Radha rce(s) Supporting Document(s) Albumin [Mass/volume] in Serum or Plasma by Bromocresol green (BCG) dye binding method 4.6 g/dL 3.5-5.2 [facility] Bil[facility].total [Mass/volume] in Serum or Plasma 0.3 mg/dL <1.2 [facility] Calcium [Mass/volume] in Serum or Plasma 9.2 mg/dL 8.6-10.0 [facility] Chloride [Moles/volume] in Serum or Plasma 104 mmol/L 98-107 [facility] Creatinine [Mass/volume] in Serum or Plasma 0.65 mg/dL 0.50-0.90 [facility] Glucose [Mass/volume] in Serum or Plasma 226 mg/dL 70-140 H [facility] Alkaline phosphatase [Enzymatic activity/volume] in Serum or Plasma 73 U/L 35-104 [facility] Potassium [Moles/volume] in Serum or Plasma 4.0 mmol/L 3.4-5.1 [facility] Protein [Mass/volume] in Serum or Plasma 8.1 g/dL 6.4-8.3 [facility] Sodium [Moles/volume] in Serum or Plasma 138 mmol/L 136-145 [facility] Aspartate aminotransferase [Enzymatic activity/volume] in Serum or Plasma 36 U/L <32 H [facility] Urea nitrogen [Mass/volume] in Serum or Plasma 7 mg/dL 6-20 [facility] Osmolality of Serum or Plasma by calculation 291 mosm/kg 275-300 [facility] Creatinine/Urea nitrogen [Mass Ratio] in Serum or Plasma 11 [facility] Bicarbonate [Moles/volume] in Serum 24 mmol/L 22-29 [facility] Alanine aminotransferase [Enzymatic activity/volume] in Seru m or Plasma 55 U/L <33 H [facility] Anion gap 3 in Serum or Plasma 10 mmol/L 8-15 [facility] Glomerular filtration rate/1.73 sq M pre dicted among non-blacks [Volume Rate/Area] in Serum or Plasma by Creatinine-based formula (MDRD) >6 0 [facility] Glomerular filtration rate/1.73 sq M pre dicted among blacks [Volume Rate/Area] in Serum or Plasma by Creatinine-based formula (MDRD) >60 [facility] ID Date Data Source [id number] 09/01/2020 01:10:50 PM EST [facility] Name Value Range Interpretation Code Description Data Radha rce(s) Supporting Document(s) Progress Note [facility] TXVNXr6vKvWZZkVk39/CHYykFSRkl0DcHOkyEJm7XMexAKHcG2XcWCJ9qO0nCIT9DRfNEhDxDoXeGdNg lbm [file] YNCg== ID Date Data Source [id number] 08/31/2020 03:47:31 PM [facility] Name Value Range Interpretation Code Description Data Radha rce(s) Supporting Document(s) Progress Note [facility] LBUVAz4yXzDHOtAc09/LWDwoTAAes3FxFFwrONe3DFuzMZIdA4SfTOD1zI0kPNL6TJtBZtOvTmFkMoUt lbm [file] Abby/2OtJ5sC7MJ3ICm+D5bL6zb8PSwllq8Lv5Yb0DKuYPOaIrk/QjfD+WHFCP/JKzIL0Pd4StqPdnCgT Gk7KfFE2DYyu8m0otD+WKklcQ4xXd5rOaM7+N2F12O0g2D3e0ZgjaysBh6RX0Fm6Ad6IETQm+ziW3Hz8 aQMiRFxvhSalmoXJ7mt2kkNnTrzt0Jcv5Wwdt23FF/ jx7rx43dXHwQWcB3hGGbQw4kGYuP1sXwJC/L1UPXUMjR88EMvP5ETeygl/vN7aFbGttzYAwSpLYDswHY Iw9VZ+b6+yTM1i7LP5eyN3fySuh6+Ydwt2iKEp1Zndb8E30Aiaiplq5CW4iIEcaKmd78E915NI1EX/Vr Gizg1dt0VxO7tWUCLSBakYN4JYhgGh5kTgrY5aW42R lq+eNMp5d9g4FibeFPPFPFQi1th23YEv2K+R/KePPFfwaq9Uul7scNmZ/FS1qRnT/Mm++Aix+HW50JEg 2qh0eTxX/T4VJw8noqrKYz7MVs967E6azFcnje8r9WT41GId0PEonPxQCd1KbV5wZORse2xRY8ntsyYo Slgl91STjPsK3LBMVRhZsMZ0EVFiOnx5vqQJbpURKD oqNJDAYAbfQlnRmmsYJFGoh7kseRJOYJ3WfYt0vDmbXCRVugKZB8pFRUlvFpwRY3wWjlPYqu7bzFSbZe snack steward+HDASDQpLRo5GbyRXb0YMcJuMBRmc1bzDoVzfwTvH5/Y16XgeE5WiNdDhAXXzgN2AHR31J89wOsFO [file] BuBSG7MkW+UZ0iGQy+Kl9Uk6ViuqK0dhBvCImjDKK1TO4MZRGYS9GZPf== ID Date Data Source [id number] 08/31/2020 12:24:44 PM [facility] Name Value Range Interpretation Code Description Data Radha rce(s) Supporting Document(s) Progress Note [facility] SGMIYm6jRoEWMuPt96/DNMheRSLnm7JlOTatSAt1SXqjDVOqR6CfPHD6kV2gWKY9OOsIMzSdDwTjZcVx lbm [file] GLSpQWTiAgQ7UHm1OSIrXRXpWyLfGkGkLV6LFr4AUsP8CIV9zEMpZq2NLEY7LfGLHzCrCV7KPYd= ID Date Data Source [id number] 09/01/2020 12:40:17 PM [facility] Name Value Range Interpretation Code Description Data Radha rce(s) Supporting Document(s) Tissue transglutaminase IgA Ab [Units/volume] in Serum <20 .0 [facility] Negative ID Date Data Source [id number] 09/05/2020 07:06:29 AM [facility] Name Value Range Interpretation Code Description Data Radha rce(s) Supporting Document(s) IgG [Mass/volume] in Serum or Plasma 1065 mg/dL [phone] [facility] IgG subclass 1 [Mass/volume] in Serum 568 mg/dL 248-810 [facility] IgG subclass 2 [Mass/volume] in Serum 362 mg/dL 130-555 [facility] IgG subclass 3 [Mass/volume] in Serum 26 mg/dL 15-102 [facility] IgG subclass 4 [Mass/volume] in Serum 27 mg/dL 2-96 [facility] (NOTE)Performed At: [facility] [id number] [place], [place] [id number] Crouch MD Ph:[phone] At: RN [facility] [address] [place], [place] [id number] Carlos MD Ph:[phone] ID Date Data Source [id number] 08/31/2020 01:43:56 PM [facility] Value Range Interpretation Code Description Data Radha rce(s) Supporting Document(s) Urea nitrogen [Mass/volume] in Serum or Plasma 8 mg/dL 6-20 [facility] ID Date Data Source [id number] 08/31/2020 01:43:56 PM [facility] Value Range Interpretation Code Description Data Radha rce(s) Supporting Document(s) Creatinine [Mass/volume] in Serum or Plasma 0.61 mg/dL 0.50-0.90 [facility] Glomerular filtration rate/1.73 sq M pre dicted among non-blacks [Volume Rate/Area] in Serum or Plasma by Creatinine-based formula (MDRD) >6 0 [facility] Glomerular filtration rate/1.73 sq M pre dicted among blacks [Volume Rate/Area] in Serum or Plasma by Creatinine-based formula (MDRD) >60 [facility] ID Date Data Source [id number] 08/31/2020 01:43:56 PM [facility] Value Range Interpretation Code Description Data Radha rce(s) Supporting Document(s) Albumin [Mass/volume] in Serum or Plasma by Bromocresol green (BCG) dye binding method 4.4 g/dL 3.5[facility] Bil[facility] [Mass/volume] in Serum or Plasma 0.2 mg/dL <1.2 [facility] Bilirubin.direct [Mass/volume] in Serum or Plasma <0.3 [facility] Alkaline phosphatase [Enzymatic activity/volume] in Serum or Plasma 81 U/L 35-104 [facility] Aspartate aminotransferase [Enzymatic activity/volume] in Serum or Plasma 52 U/L <32 H [facility] Alanine aminotransferase [Enzymatic activity/volume] in Seru m or Plasma 86 U/L <33 H [facility] Protein [Mass/volume] in Serum or Plasma 7.5 g/dL 6.4-8.3 [facility] ID Date Data Source [id number] 08/31/2020 01:43:56 PM [facility] Value Range Interpretation Code Description Data Radha rce(s) Supporting Document(s) Iron [Mass/volume] in Serum or Plasma 28 ug/dl 37-145 L [facility] Transferrin [Mass/volume] in Serum or Plasma 333 mg/dL 200-360 [facility] Iron binding capacity [Mass/volume] in Serum or Plasma 463 ug/dl 228 -428 H [facility] Iron saturation [Mass Fraction] in Serum or Plasma 6.0 % 20-55 L [facility] ID Date Data Source [id number] 09/02/2020 05:06:13 PM [facility] Name Value Range Interpretation Code Description Data Radha rce(s) Supporting Document(s) Liver kidney microsomal 1 Ab [Units/volume] in Serum 0.0-2 0.0 [facility] (NOTE) Neg ative 0.0 - 20.0 Equivocal 20.1 - 24.9 Positive >24.9LKM type 1 antibodies are detected in patients withautoimmune hepatitis type 2 and in up to 8% ofpatients with chronic HCV infection.Performed At: [facility] [address] [id number] Carlos MD Ph:[phone] ID Date Data Source [id number] 09/05/2020 02:06:22 AM [facility] Name Value Range Interpretation Code Description Data Radha rce(s) Supporting Document(s) Fibrosis score 0.03 0.00-0.21 [facility] Fibrosis stage [facility] (NOTE) F0 - No fibrosis Necroinflammatory activity score 0.44 0.00-0.17 [facility] Necroinflammatory activity grade [facility] (NOTE)RESULT:A1-A2 Orheh-0-Wstcwnxbywofo [Mass/volume] in Serum or Plasma 184 mg/dL 110 -276 [facility] Haptoglobin [Mass/volume] in Serum or Plasma 189 mg/dL 33-278 [facility] Apolipoprotein A-I [Mass/volume] in Serum or Plasma 130 mg/dL 116-20 9 [facility] Bilirubin.total [Mass/volume] in Serum or Plasma 0.0-1.2 [facility] Gamma glutamyl transferase [Enzymatic activity/volume] in Serum or Plasma 48 IU/L 0-60 [facility] Alanine aminotransferase [Enzymatic acti vity/volume] in Serum or Plasma by With P-5'-P 94 IU/L 0-40 [facility] Comment(NOTE)Quantitative results of 6 b iochemical tests are analyzed usinga computational algorithm to provide a quantitative surrogatemarker (0.0-1.0) for liver fibrosis (METAVIR F0-F4) and fornecroinflammatory activity (METAVIR A0- A3).Comment(NOTE) <0.21 = Stage F0 - No fibrosis0.21 - 0.27 = Stage F0 - F10.27 - 0.31 = Stage F1 - Portal fibrosis0.31 - 0.48 = Stage F1 - F20.48 - 0.58 = Stage F2 - Bridging fibrosis with few septa0.58 - 0.72 = Stage F3 - Bridging fibrosis with many septa0.72 - 0.74 = Stage F3 - F4 >0.74 = Stage F4 - Cirrhosis Reference lab test results [facility] (NOTE) <0.17 = Grade A0 - No Activit y0.17 - 0.29 = Grade A0 - A10.29 - 0.36 = Grade A1 - Minimal activity0.36 - 0.52 = Grade A1 - A20.52 - 0.60 = Grade A2 - Moderate activity0.60 - 0.62 = Grade A2 - A3 >0.62 = Grade A3 - Severe activityComment(NOTE)The negative predictive value of a Fibrotest score <0.31 (absence ofclinically significant fibrosis) was 85% when compared to liverbiopsy in 1,270 HCV infected patients with a 38% prevalence ofsignificant liver fibrosis (F2, 3 or 4). The positive predictivevalue of a Fibro-test score >0.48 (F2, 3, 4) was 61% in that samepatient cohort. HCV FibroSURE is not recommended in patients withGilbert Disease, acute hemolysis (e.g. HCV ribavirin therapy mediatedhemolysis) acute hepa-titis of the liver, extra-hepatic cholestasis,transplant patients, and/or renal insufficiency patients. Any of these clinical situations may lead to inaccurate quantitativepredictions of fibrosis and necroinflammatory activity in the liver.Comment(NOTE)This test was developed and its performance characteristicsdetermined by [employer]. It has not been cleared or approved by theFood and Drug Administration. The FDA has determined that suchclearance or approval is not necessary.For questions regarding this report please contact customer serviceat .Performed At: [address] [phone] Crouch MD Ph:[phone] ID Date Data Source [id number] 09/01/2020 01:12:30 PM [facility] Value Range Interpretation Code Description Data Radha rce(s) Supporting Document(s) Mitochondria Ab [Units/volume] in Serum Negative [facility] ID Date Data Source [id number] 09/01/2020 01:12:30 PM [facility] Value Range Interpretation Code Description Data Radha rce(s) Supporting Document(s) Actin smooth muscle IgG Ab [Units/volume] in Serum Negativ e [facility] ID Date Data Source [id number] 08/31/2020 01:42:56 PM [facility] Value Range Interpretation Code Description Data Radha rce(s) Supporting Document(s) C reactive protein [Mass/volume] in Serum or Plasma 4.7 mg/L <3.0 H [facility] (NOTE)CRPHS (mg/L) CVD risk <1.0 low 1.0- 3.0 average >3.0 high ID Date Data Source [id number] 08/31/2020 01:42:56 PM [facility] Value Range Interpretation Code Description Data Radha rce(s) Supporting Document(s) Gamma glutamyl transferase [Enzymatic activity/volume] in Serum or Plasma 45 U/L 5-36 H [facility] ID Date Data Source [id number] 08/31/2020 01:42:56 PM [facility] Value Range Interpretation Code Description Data Radha rce(s) Supporting Document(s) Albumin [Mass/volume] in Serum or Plasma by Bromocresol green (BCG) dye binding method 4.3 g/dL 3.5-5.2 [facility] Bilirubin.total [Mass/volume] in Serum or Plasma 0.2 mg/dL <1.2 [facility] Calcium [Mass/volume] in Serum or Plasma 9.3 mg/dL 8.6-10.0 [facility] Chloride [Moles/volume] in Serum or Plasma 104 mmol/L 98-107 [facility] Creatinine [Mass/volume] in Serum or Plasma 0.59 mg/dL 0.50-0.90 [facility] Glucose [Mass/volume] in Serum or Plasma 283 mg/dL 70-140 H [facility] Alkaline phosphatase [Enzymatic activity/volume] in Serum or Plasma 81 U/L 35-104 [facility] Potassium [Moles/volume] in Serum or Plasma 4.3 mmol/L 3.4-5.1 [facility] Protein [Mass/volume] in Serum or Plasma 7.5 g/dL 6.4-8.3 [facility] Sodium [Moles/volume] in Serum or Plasma 139 mmol/L 136-145 [facility] Aspartate aminotransferase [Enzymatic activity/volume] in Serum or Plasma 52 U/L <32 H [facility] Urea nitrogen [Mass/volume] in Serum or Plasma 8 mg/dL 6-20 [facility] Osmolality of Serum or Plasma by calculation 296 mosm/kg 275-300 [facility] Creatinine/Urea nitrogen [Mass Ratio] in Serum or Plasma 14 [facility] Bicarbonate [Moles/volume] in Serum 24 mmol/L 22-29 [facility] Alanine aminotransferase [Enzymatic activity/volume] in Seru m or Plasma 85 U/L <33 H [facility] Anion gap 3 in Serum or Plasma 11 mmol/L 8-15 [facility] Glomerular filtration rate/1.73 sq M pre dicted among non-blacks [Volume Rate/Area] in Serum or Plasma by Creatinine-based formula (MDRD) >6 0 [facility] Glomerular filtration rate/1.73 sq M pre dicted among blacks [Volume Rate/Area] in Serum or Plasma by Creatinine-based formula (MDRD) >60 [facility] ID Date Data Source [id number] 08/31/2020 02:05:52 PM [facility] Name Value Range Interpretation Code Description Data Radha rce(s) Supporting Document(s) Erythrocyte sedimentation rate 27 mm/hr <20 H [facility] ID Date Data Source [id number] 08/21/2020 05:52:12 PM [facility] Name Value Range Interpretation Code Description Data Radha rce(s) Supporting Document(s) Progress Note [facility] FVUHFi1qJvMXQxBs01/LFMdsIAZfy8KtZAiyKWz0BOzfXUKxX6ImFGB7sN8hGZS1WFpGCyUtUgNhIJRi [facility] [file] EwFDH9RrmoLSB+GD2kNBp+Hw5Eo6NcmnS1dkRwQAglGOQ8WA4IPPPVJ3WMFa== ID Date Data Source [id number] 08/15/2020 09:08:27 AM EST [facility] Name Value Range Interpretation Code Description Data Radha rce(s) Supporting Document(s) Progress Note [facility] BLZHQa4dFgRDYjOu63/ZGGxcLISko5WvDUkvAQd7JKxyWXCuO6NxINP6tA5hFTX2ZJwNTqOmOqOcMNG7 lbm [file] Pc2l6nO/O1iKdG1MhukAtnUOCsUtVzEonK0gDlvXnvFblNXGF3WidXscHsNPltrBlC3uP+jewel diameter gauger+q8tUIyC [file] NbYyIaT1ZaBXXmZlOrSV6EKe7HMqI9MIC5gFJfXn0TVoK8LGLUFiWgMY4CUGt= ID Date Data Source [id number] 08/03/2020 04:43:30 PM [facility] Name Value Range Interpretation Code Description Data Radha rce(s) Supporting Document(s) Progress Note [facility] UOAVTz8rUqPGMvDd79/IYZygVIQrn1NdNVdyEXk2SKtrEXFyP7GuZHA3mZ0nPFS0KJxTTtQlIrWeLRPd lbm [file] ICAgICAgICAgICAgICAgICAgICAgICAgICAgICAgICAgICAgICAgICAgICAgICAgICAgICAgICAgICAg ICAgICAgICAgICAgICAgICAgICAgICAgICAgICAgIC AgICAgICAgDQogICAgICAgICAgICAgICAgICAgICAgICAgICAgICAgICAgICAgICAgICAgICAgICAgIC AgICAgICAgICAgICAgICAgICAgICAgICAgICAgICAgICAgICAgICAgICAgICAgICAgDQogICAgICAgIC AgICAgICAgICAgICAgICAgICAgICAgICAgICAgICAg ICAgICAgICAgICAgICAgICAgICAgICAgICAgICAgICAgICAgICAgICAgICAgICAgICAgICAgICAgICAg DQogICAgICAgICAgICAgICAgICAgICAgICAgICAgICAgICAgICAgICAgICAgICAgICAgICAgICAgICAg ICAgICAgICAgICAgICAgICAgICAgICAgICAgICAgIC AgICAgICAgICAgDQogICAgICAgICAgICAgICAgICAgICAgICAgICAgICAgICAgICAgICAgICAgICAgIC AgICAgICAgICAgICAgICAgICAgICAgICAgICAgICAgICAgICAgICAgICAgICAgICAgICAgDQogICAgIC AgICAgICAgICAgICAgICAgICAgICAgICAgICAgICAg ICAgICAgICAgICAgICAgICAgICAgICAgICAgICAgICAgICAgICAgICAgICAgICAgICAgICAgICAgICAg ICAgDQogICAgICAgICAgICAgICAgICAgICAgICAgICAgICAgICAgICAgICAgICAgICAgICAgICAgICAg ICAgICAgICAgICAgICAgICAgICAgICAgICAgICAgIC AgICAgICAgICAgICAgDQogICAgICAgICAgICAgICAgICAgICAgICAgICAgICAgICAgICAgICAgICAgIC AgICAgICAgICAgICAgICAgICAgICAgICAgICAgICAgICAgICAgICAgICAgICAgICAgICAgICAgDQogIC AgICAgICAgICAgICAgICAgICAgICAgICAgICAgICAg ICAgICAgICAgICAgICAgICAgICAgICAgICAgICAgICAgICAgICAgICAgICAgICAgICAgICAgICAgICAg ICAgICAgDQogICAgICAgICAgICAgICAgICAgICAgICAgICAgICAgICAgICAgICAgICAgICAgICAgICAg ICAgICAgICAgICAgICAgICAgICAgICAgICAgICAgIC NuQAExUAFiHABfWTJqTIBvMZl4B5nkBHHbSEZzNT2iOSw6Ii1+ECuPIoOtTLE6obGutY3JKQ6hg1NrSL uuEVOag8VpOIy4PP3IZPRyUXnqFI1WTScxqo9YHUHoPNJylFYWg5meIlSbCRH2MNZuZogjQK3JGFBlT9 nbbcUqRJLoQWUDDD6CExIqC8OfmX56DCMSIy8+DQpl xoFfEfpWEiS2YITyj0TkSRb0AC6RCPWkNdhwu6DuOzYdUPPYWNveNF7ZHXJ4XYClVMUlWw0KQZBrR908 taPzZF3EZf2DOuXoSX4kke4RFkDwJQSkMnnHHjx4RXtoBP2MvESmXByBto6dxaAcyrBVy9PbmpEchRAI bmRyYXMgUGVybCwgTUQgYXQgMTEvMTIvMjAyMCAxMD oqOZPBNLbPJuKhM8Wco6CrQmU9VQNuXpBwLKvxGWExPxV7RK44vDapHE3IEYZqWAIqXC43EUP0JLGmBx 1JKg8IDaNeND2uyo6WUeHfVIFbDezHBps3WAomSP1RgWWvW1KzgATqy9zXKbJeV2TPOLM1JMMrSa8OOU ZrXcJlGVWoFHouIT0fLXBoXPUKfAhxahK7TT8GLO9d oqGoSG6ULtAbQj5kKn0UMjTeJ3UyH7TgJOJsTTNHILfuNB7FLJizIY0wQQ6Wj3HCkZHznP3opg3BQHAs BNYuTispzq0UKqhrD6Q7zCxkWFWpKXijNXJZDIqeKY7VDSWlCTM2QTKaCUQeJHAKRpCbG30eLK6DD2Zq p94tIhO8AIPyLjXbOGeuNY14bUevypUghJXqrRymGN 0NCj4+XNwwseGxOidBNujfOAXIZzTdLlWEAtHjENEqDPKzXYCkPyG0PfPiOm1HDBFuFPOxMTRpAyYsGM WcMLXkWLcvEUYwSJX5LMe0CGCqLTFqVY1PTxEhXFBgUYc4FMDpUVNmJIQqkx7GLNMkUUIoPCX0UgWpCI ExDYYeKJkxUBRcVQGaCjUhEOZeCDEjWN6DHiKdEWCa UXO0XFAsZYYsWYLjnr8BDUZtCTTdToo7VWOmDEKwFNErINyqMVVaLJT0XYogOKHxLPGyXA3RMrXnHLMd QIMfRFGnVVMeXUOkfm6DOYHlGIDhTTNlUTQaJNArIZElWMxcOCCaMIF2BLIsWUQbPBLjJY8NYdLeZRFw GMZ7GCveRRSiUIYrhx0QVPMpPIGmGji2LhGzHVPrVA XqOOamRUNuYQM2LjB3UPHwNMZvCZ5ZHcGgJRJuHCg0YmqhLYQbLSHeoe8VNKIiWXScUucnSHOeJTPuCN FqVPpqLCQzSJN2WDQ1MQFrHUNhLS3QMcLvCEJsNBihOdQwMTZiVUXfdm7HQDKbMKOhKMvpJvIfNBOsUG DvFDepGDAxKFH0PaleILWoVEVeEY5CUvAsAROaDJu4 EhQwXCYyUSBcyn7RxZYgpOhpcg7PBStSFv5YrVfjXAIcBUssKg9fwHHaVFLwFHKGEg7TqmEfLVUrNGHS ZJitAOFcBUBsM8MkS5P0SdL6O0DxMVS3BLGwIem0CGD3RERaMiDtNwU9RRS3EjS7FbXhCZDhIIJxHqPa QCT5KdJ9UwayVbLuVAT+AS1uIWj+Wr7Im6EzkhX5rbBdCEfnJNY1JF4UBDGPD8RTSw== ID Date Data Source [id number] 08/03/2020 01:47:57 PM [facility] Name Value Range Interpretation Code Description Data Radha rce(s) Supporting Document(s) Progress Note [facility] UCZPAz9hIgHMOfRg17/HZQkdAHZjs1YaFHmnDKq7KHjbUSQwL4DpMJM1dG2qZHC7BRfHOsTpNcZuBWUi lbm [file] IYXcJ3AiEpElTCUxJJG8PAccTzPsIc8bYPGBIt6+MPxxeZHogYtvOPQXSrKxLdR1GNqaBZCFEa5Z ID Date Data Source [id number] 08/03/2020 03:08:38 PM [facility] Name Value Range Interpretation Code Description Data Radha rce(s) Supporting Document(s) Hepatitis C virus Ab [Presence] in Serum or Plasma by Immuno assay Non Reactive [facility] No serological evidence of active infect ion. If recent exposure is suspected, test for HCV RNA. ID Date Data Source [id number] 08/03/2020 03:08:38 PM [facility] Name Value Range Interpretation Code Description Data Radha rce(s) Supporting Document(s) Hepatitis B virus surface Ag [Presence] in Serum or Plasma b y Immunoassay Non Reactive [facility] No active or previous infection. Suscept ible to infection. ID Date Data Source [id number] 08/03/2020 03:50:33 PM [facility] Value Range Interpretation Code Description Data Radha rce(s) Supporting Document(s) Hepatitis B virus surface Ab [Units/volume] in Serum o r Plasma by Immunoassay 4.5 m[IU]/mL >11.4 L [facility] Non ReactiveNo active or previous infect ion. Susceptible to infection. ID Date Data Source [id number] 08/04/2020 11:24:30 AM [facility] Value Range Interpretation Code Description Data Radha rce(s) Supporting Document(s) Cardiolipin IgG Ab [Interpretation] in Serum 38.9 U/mL <20.0 H [facility] (NOTE)The persistent presence of >/=20.0 U/mL antiphospholipid antibody(>99th percentile of the normal range) is a laboratory criterion forthe diagnosis of Antiphospholipid syndrome. Repeat testing at least 12weeks apart is recommended to establish the persistence presence. ID Date Data Source [id number] 08/04/2020 11:24:30 AM [facility] Value Range Interpretation Code Description Data Radha rce(s) Supporting Document(s) Beta 2 glycoprotein 1 IgM Ab [Units/volume] in Serum 1.7 U/mL <20.0 [facility] Negative results do not rule out Antipho spholipid syndrome. Other APL testing should be considered. Beta 2 glycoprotein 1 IgG Ab [Units/volume] in Serum 8.0 U/mL <20.0 [facility] Negative results do not rule out Antipho spholipid syndrome. Other APL testing should be considered. ID Date Data Source [id number] 08/03/2020 12:52:07 PM [facility] Value Range Interpretation Code Description Data Radha rce(s) Supporting Document(s) Leukocytes [#/volume] in Blood by Automated count 6.9 10*3/uL 4-10 [facility] Erythrocytes [#/volume] in Blood by Automated count 5.16 10*6/uL 4.1- 5.3 [facility] Hemoglobin [Mass/volume] in Blood 13.1 g/dL 11.5-15.5 [facility] Hematocrit [Volume Fraction] of Blood by Automated count 40.8 % 3 6-45 [facility] Erythrocyte mean corpuscular volume [Entitic volume] by Auto mated count 79.1 fL 80-96 L [facility] Erythrocyte mean corpuscular hemoglobin [Entitic mass] by Automated count 25.5 pg 27-33 L [facility] Erythrocyte mean corpuscular hemoglobin concentration [Mass/volume] by Automated count 32.2 g/dL 32.0-36.0 [facility] E[facility]th[facility] distribution width [Ratio] by Automated count 14.1 % 11.5-14.5 [facility] Platelets [#/volume] in Blood by Automated count 308 10*3/uL 150-400 [facility] Differential cell count method - Blood [facility] Neutrophils/100 leukocytes in Blood by Automated count 59 % [facility] Lymphocytes/100 leukocytes in Blood by Automated count 32 % [facility] Monocytes/100 leukocytes in Blood by Automated count 7 % [facility] Eosinophils/100 leukocytes in Blood by Automated count 1 % [facility] Basophils/100 leukocytes in Blood by Automated count 1 % [facility] Neutrophils [#/volume] in Blood by Automated count 4.20 10*3/uL 1.8-7 .0 [facility] Lymphocytes [#/volume] in Blood by Automated count 2.20 10*3/uL 1.2-4 .0 [facility] Monocytes [#/volume] in Blood by Automated count 0.50 10*3/uL 0-0.8 [facility] Eosinophils [#/volume] in Blood by Automated count 0.10 10*3/uL 0-0.5 [facility] Basophils [#/volume] in Blood by Automated count 0.00 10*3/uL 0-0.2 [facility] ID Date Data Source [id number] 08/03/2020 02:35:05 PM [facility] Name Value Range Interpretation Code Description Data Radha rce(s) Supporting Document(s) Erythrocyte sedimentation rate 26 mm/hr <20 H [facility] ID Date Data Source [id number] 08/03/2020 03:02:13 PM [facility] Value Range Interpretation Code Description Data Radha rce(s) Supporting Document(s) Complement C3 [Mass/volume] in Serum or Plasma 177 mg/dL 90-180 [facility] ID Date Data Source [id number] 08/03/2020 03:02:13 PM [facility] Value Range Interpretation Code Description Data Radha rce(s) Supporting Document(s) Complement C4 [Mass/volume] in Serum or Plasma 17 mg/dL 10-40 [facility] ID Date Data Source [id number] 08/03/2020 03:02:13 PM [facility] Value Range Interpretation Code Description Data Radha rce(s) Supporting Document(s) C reactive protein [Mass/volume] in Serum or Plasma 6.3 mg/L <8.0 [facility] ID Date Data Source [id number] 08/03/2020 03:02:13 PM [facility] Value Range Interpretation Code Description Data Radha rce(s) Supporting Document(s) Albumin [Mass/volume] in Serum or Plasma by Bromocresol green (BCG) dye binding method 4.7 g/dL 3.5-5.2 [facility] Bilirubin.total [Mass/volume] in Serum or Plasma 0.2 mg/dL <1.2 [facility] Calcium [Mass/volume] in Serum or Plasma 8.9 mg/dL 8.6-10.0 [facility] Chloride [Moles/volume] in Serum or Plasma 100 mmol/L 98-107 [facility] Creatinine [Mass/volume] in Serum or Plasma 0.59 mg/dL 0.50-0.90 [facility] Glucose [Mass/volume] in Serum or Plasma 229 mg/dL 70-140 H [facility] Alkaline phosphatase [Enzymatic activity/volume] in Serum or Plasma 75 U/L 35-104 [facility] Potassium [Moles/volume] in Serum or Plasma 4.0 mmol/L 3.4-5.1 [facility] Protein [Mass/volume] in Serum or Plasma 7.8 g/dL 6.4-8.3 [facility] Sodium [Moles/volume] in Serum or Plasma 137 mmol/L 136-145 [facility] Aspartate aminotransferase [Enzymatic activity/volume] in Serum or Plasma 49 U/L <32 H [facility] Urea nitrogen [Mass/volume] in Serum or Plasma 8 mg/dL 6-20 [facility] Osmolality of Serum or Plasma by calculation 290 mosm/kg 275-300 [facility] Creatinine/Urea nitrogen [Mass Ratio] in Serum or Plasma 14 [facility] Bicarbonate [Moles/volume] in Serum 25 mmol/L 22-29 [facility] Alanine aminotransferase [Enzymatic activity/volume] in Seru m or Plasma 89 U/L <33 H [facility] Anion gap 3 in Serum or Plasma 12 mmol/L 8-15 [facility] Glomerular filtration rate/1.73 sq M pre dicted among non-blacks [Volume Rate/Area] in Serum or Plasma by Creatinine-based formula (MDRD) >6 0 [facility] Glomerular filtration rate/1.73 sq M pre dicted among blacks [Volume Rate/Area] in Serum or Plasma by Creatinine-based formula (MDRD) >60 [facility] ID Date Data Source [id number] 07/17/2020 11:32:14 AM EDT [facility] Name Value Range Interpretation Code Description Data Radha rce(s) Supporting Document(s) Progress Note [facility] FYJNHa3uGrOVCpTv51/GRQnfGOOkf4BeLNxsETa6SAzuIEFkT4QsEQM4eJ5tVKG7TYdVHjTmQpTvESI6 lbm [file] EWqhFk6oEUJOMz9+VVhqrJEzcHzfXDOOXiR4YtbaRUegNXGJZs9L ID Date Data Source [id number] 07/10/2020 10:49:12 AM EDT [facility] Name Value Range Interpretation Code Description Data Radha rce(s) Supporting Document(s) Progress Note [facility] OWJPSm7jLnHEZzXs80/SSUjtXEKsx0QfXJmjBDt6VUpkRLNsB9OuAAT7jW1kBMC3BAeFClTcEeOoKRS7 lbm [file] JvjmUS7iEVNYKu6+GFbdrSWtrZuhVSDIQnH3HEYqIQucGTYAEe8A ID Date Data Source [id number] 06/28/2020 03:23:27 PM EDT [facility] Name Value Range Interpretation Code Description Data Radha rce(s) Supporting Document(s) Progress Note [facility] BYGYId0xUePPVkVu59/CBPruPJYlr9IuJGliNBu4HCsyKFDeT0TcDRD9vB7nQFI2ETjGEmUfUqMkEID7 lbm [file] CLINICAL CARE LEADER+Ph1MDEGsQOb8X9B9QFRiWXg7W4FWX4JINNQkCC ceLPkmZXUrMGl6B7C5EVPgB2FDO1Ouwntwdo8+HH9NS89NBWHpVQt7P8Q4kXCaJ0B1vYxNwOG3VH7IWO 1PpGd6vEOtaE0+LP4ER1ZXGqRxHQo9S4D0xPSiB4D2xKjPwQL1UR0BOT4DaNHjCLSttqJgSg0mD7PYAJ rKZuXKPNW8KI1FzQGbRH9YgMFBV4VoqMDkRo7jSEgc lNGtcB5sJy6pNPntQV8USzMRRVjTADL9XT4PwFKrND0XhEQUJ5ZasAMwTe5mEKaoqOAscc3+AP9NPNYm Yb7EUm7+QDffllWyEkoXQdX9YOCqy0YwAZw5RX9FAA3nxHjsNEO1Xc0YxDF6hPBbT2eHJG6BwRLsB90c cCZaXKQeLg3GSnF2xlXscR9AVQ46oNStc1Z6TDZkF9 ysKQyjy85jGRljWCtKGK4tTCNPIPdqCNmeBAW8XvDsfldjHAIqEo9HIcTyQJz5vE2tuVB5QTA9PaazhJ PqSUtyClNfLmZjVsR8bVsrajx0CQzhWN4fSDxhpyqbVQLpKbm+NWriISTxCVAaAijENPFaqW8nraA4lk ZhVUikiOKgWf1jq1m2EdcyZw6tCo3rJWb3TxOrCxQt DHBuCc5khA25VUltooJdBr4YDrAxLWK5A0HcNpjIVBT+GCohANogsVy3yTVxDMBbDk0VLFDwNODnPIRh ICAgICAgICAgICAgICAgICAgICAgICAgICAgICAgICAgICAgICAgICAgICAgICAgICAgICAgICAgICAg ICAgICAgICAgICAgICAgICAgICAgICAgICAgICAgIA 0KICAgICAgICAgICAgICAgICAgICAgICAgICAgICAgICAgICAgICAgICAgICAgICAgICAgICAgICAgIC FrWPBkIQOoNYOeVANmDGXjKUDbETMaKVGsVCZjDGGzCOCtFMDtGKYtMF0JMXIlEBCqAHSxATQfILJfTC AgICAgICAgICAgICAgICAgICAgICAgICAgICAgICAg KVOfBDKiRDMqLLYnWJGeDJZrFWUcQZMyHRLjAUTbGCPcWEZdAVNsLLWjPKMjTCJiBDDvON1QBTBnIGCm ICAgICAgICAgICAgICAgICAgICAgICAgICAgICAgICAgICAgICAgICAgICAgICAgICAgICAgICAgICAg ICAgICAgICAgICAgICAgICAgICAgICAgICAgICAgIC NgID1WOHRoDBYhHWOnIIZhCPYkKHPwBVIrAMOxPXNxPJCuMFTpUWMfYVRjNYYdHSJsJSBlFMNpRACaIN SxSLItWTYiIANmYMRkLRKzZDNtZJAoNKNiLIXwZZReFKRgUCQaRSCdBUOeFM7YTWZtNKTkJYFvBBCkDC AgICAgICAgICAgICAgICAgICAgICAgICAgICAgICAg KOYsIIEpMBRtXAMjOINxYXAbRPPrJTBaEAEqMPQxUFNeLEOgXWXsNIKwZZUqEDHxIMQhGUClXZ4YMPTg ICAgICAgICAgICAgICAgICAgICAgICAgICAgICAgICAgICAgICAgICAgICAgICAgICAgICAgICAgICAg ICAgICAgICAgICAgICAgICAgICAgICAgICAgICAgIC KbBXQiZX9AHKAyQWFmXIKyLCVfXENjPIIhITEuLBNjEWLkSMGmFMQdNSQsMHOxWPYvYNJvZVQbIBCfDQ MmPHGwVQAbVWLwXGVqYKWsHOZuBHNiXTIsLHUiWDZqCNAdDZKtUFTyNIAoSAFyEW9DMRClUCTdYWHqAN AgICAgICAgICAgICAgICAgICAgICAgICAgICAgICAg NBQeENUyFPRtPNIiOOAdZKGyEOQvOHMvNOOzFSTrYELaYGKiGDBoRYBzDXLpJLSnOVAwXPNlLAMuVZ1T ICAgICAgICAgICAgICAgICAgICAgICAgICAgICAgICAgICAgICAgICAgICAgICAgICAgICAgICAgICAg ICAgICAgICAgICAgICAgICAgICAgICAgICAgICAgIC VfGTKiXLUkKW7KMG25nSYca8B6OWLtAS4mlnl/Wk5GTBechhBoxNUrQR4VWzEhSQ3lcu1IBeCcEK7qwh 0IDWiKOvDdZ8L8mKCbHFRnCVEGJkCiA84bQDkgSa39YDnwWACxOwGoSGu3Gw4TTcCzX4cvKLCbJnQ3TQ MrWnJ4ZXBjAwM2ERJrUwKePGVlNROoAN9XZWUuV606 qaPnYN2BXo7PEmFjMT2vgf2AMkovYTFpPywSEzj0QDtsPR3LiHSogYTnKOVjVCFKUtAwN5ltm1ApPmlu PMSHAUlaPY2Cc2AkhFZwWIa+Lp7QOI1pq3EaFNniEGXlTO2doa3MTOcUJxAvS0RnzDdqMHEfj1laOGQv WS7nnRBtILL9AVNqP6y9WYXTUT1jcDIakLm5HNZWWJ FliCRjHC67MkIzWsYpQBT7UjUvTW4bCJjjHF3HPOK8AImqIJLyBXJlZ8aFRhStRGYsQHYqnTsySH7ZZu RvW3RqsrJxxPMwDPZpFUZDEs7+ZDcuxnAyEzjGSuBoRAGee1XbPWf3SA2ZWMLbEGyiRV0EXRJonV0jHE wcOF9AMxWtYyBkHQVRIeMmC68paBQtWXt3U5UlWpWc ZGVkRmlsZXMgPDwvTmFtZXMgWyBdDQogID4+ID4+VWdoUR0HHMoxjrXeONYtEy5UXKZyHGVeUI5iRNOp TGMmJ9Z8qSnqPPEKKcZkK2nqjusjXY2zUWDhI985gTdhflUkZMO3HJXfHr3IHLBmUJJ1NLLphIFkHwhy ZZDIXPyqON6XuGXcFMS7cQ6wWEyoJEFlZJTcU7pDMu CirJrwOQ98jHincmMxfSJnDJp+Nw7EGL4cl4ImYZa6flTmKAgaQOCpLHuvEHAxDSXrVOHqFTK4JIB4UV BEVfExATYoTDPfBWqzLCByBEAqby1AZKJoVROpQTq4RWSrXQAmAZXbVZovCZErLNYlUXF0URGlXAEnNY 5QUdExKTFdKUMmVCrrBVEyEXAoxv4FWAMrVNYbZVW9 IQVdNZIzFXMmOLklTKRhXZF8CpEuOKVmIGTmGE4KQjGhWKKmQCm5LqGfTHCiSGOuec8VQYIcJBChQgrh GsVjJWKiPNRrWSdaZMCaIZVdVUUvIRUrRRPlMD1MPhEhFSBeAQQcHfkhUIZvMAQakj0PWCPvUCNhZxL1 PiDbGOEmRBZkGCviKWZfOJDxSfu4NZSaLWAmTU6DMp JaPVEuOOSkXRjsYRAoKTAibw2UQJQfPQNyFpB0AJBsOKIrDUOsIBqzEQPfFWMnRaH9OUWlWCSdAZ0FDb DvAXIgCXQ0VXwpODSsSRHtja3DJCJbFFIoTIp5EPEpOJRuMMKeSYslAASoURI5KPx3EPFlNMNrKP1HCd OsZGXaYxI1TEqzLTLjNTRvwj2WPUWaJCEaNjssQoLr FOWwLDIlDDvaMAAfLZZ4ZMSjBLLbCAIsBN9EOfZqNQJuQbzpWYVwHWSjMXVifi2URBUjTUZpDjQdHmSf OSRsWJCgNJfoKVJxGQQ7VxdgULMhFOAqIL2IVtBhOTUaQop1GtnmXYOlVBEfzo5JWQFdEQEjSMz1LcVh SSSgOYZvPEnyWOKfMLL0KTC8SYXsHYUcPW0YAmNbQJ TwJeG1SwShMCLlYALvxo6TWNVgXBBsHYA7BhSuFLYzCMGkDKjuOVGvIZUkULP0PHLyEKWeVK6RPnPyJI ljCAMFHut3AUbrQ6m1IJRnCI9IN5Hzp3VnEuAvDRPDESikOH9edfCxBEVpNj8CC3qHIsm9ECd9ILR6VE M5MpL1UApvPKisGAKvOUP6QvOpIvWvHk5pTUA5IeW0 DNunWNztRWCtA9IiO2JjIbH7UodaHBM6OGDoMgVlYU1UNc0VUqV9JGJ7rGOlMw9EHjEtNHmCAsWzSC2C DQo= ID Date Data Source [id number] 06/21/2020 06:51:44 PM EDT [facility] Name Value Range Interpretation Code Description Data Radha rce(s) Supporting Document(s) Progress Note [facility] LMOVQl2vVpHADxTe97/DKObyIDEmh6DsAXyfIGk5GGfcHAAnX5JrKXZ8uR5oWEK4PZcSFvOoEdEpINVx lbm [file] CLINICAL CARE LEADER+Yu3UXXWiWNz8L5D3XUYpAYi8B1OEB7BKUDIiYUxxCSapWETsLKb8L6T5FZJzQ5ZJG2Ywywzkrh6+ WX9AK07EMBHwZSh5K1N1bWWdY1P8tUnOjZE1BB8WKP 6KbXw8rPUfrD6+RG9LE3XLMfMfWQs3Y2T1pGHqZ1U5xZnBdHO0IH2LFT1JeBBcXUNwgrByMr6gD9IJSD cXPxDLPIX5BU1TpSBnBC2TuRLDP2AsyXGqHv4eLGkvuABiaJ1jYx1sWYeaJD9HDyWUAOrQJIY0EX4ToQ BdIF3TcBESA8MztOQzGc2aTIpjrZDvho0+ZJ3YZJId Rk5FVa3+UAzlpiUbDvmTHzA8SSShj9IfZCu8YH1SUE0reRpfFAK3Li0RgFK3vZNbT8vPEI8NpAPkC83h kAQdQFOsRb9LSgY2klUgsC3ZBK45oGHcl6P1UDHjU6vjSQjos73yTXnsYCmZZK6dOMCZSMdcCVvaMLI8 UbRkwzrtOOJxCi5KFzHmPPw3zI7ivES2CXB7XhfhwW OsZYxrZdIuQkIzAxR5kRvlhrr3XLkpVW0aEUryzbccDMMtDrj+TNckTOVrOUJlOblWSPLrsE8snpD2rl OvUNwvgWLeJx4of8b9HzckKq9xAn6kIQy6NoDoXuPjPUAhMw3inI25GAethrGrAo2GOlCyNMJ0Y8YsFs pSREY+DAtdTVxlxYr5xSVdFTInGd9JEOGqSZKiZPNt ICAgICAgICAgICAgICAgICAgICAgICAgICAgICAgICAgICAgICAgICAgICAgICAgICAgICAgICAgICAg IDQrTFMxESJqAXKzJARyGKCzVGIoZPPnBTYkSRCzJO9QSPKuOBEkQKIoJNUtVODqFIOjFBUsLKTwSJFy ICAgICAgICAgICAgICAgICAgICAgICAgICAgICAgIC DnRGMlLBMhSUDsPZBoGRBmACMuWBCgCOCcVGOiEQEsIYHmZLZwMOBxYT6AGWUeQYFjKLRjUZHpEHTqCR AgICAgICAgICAgICAgICAgICAgICAgICAgICAgICAgICAgICAgICAgICAgICAgICAgICAgICAgICAgIC PzUWFaSAEgCTAmWMCtMQMqRLNxRULpQY6QOVFxBYPu ICAgICAgICAgICAgICAgICAgICAgICAgICAgICAgICAgICAgICAgICAgICAgICAgICAgICAgICAgICAg HYSfCFJfPVHwYEAbYXMaSXBsJLUoYRWsLVDaIXHdXZNbSA3WYCNrCOPpTKRcCYMyNLEjICWqYGAjXCKf ICAgICAgICAgICAgICAgICAgICAgICAgICAgICAgIC KmJQIpLEQbPLYeHELlMVXkVOYzBXGcMDRlZFYaLLJaCYAoUGJyIHYdFIYeVF8ZOTKpXHAjNFKpLHSnJO AgICAgICAgICAgICAgICAgICAgICAgICAgICAgICAgICAgICAgICAgICAgICAgICAgICAgICAgICAgIC TrRBZuWVHyTZIzEGQiDVWzIETrJMStJOOmRG6UBVUe ICAgICAgICAgICAgICAgICAgICAgICAgICAgICAgICAgICAgICAgICAgICAgICAgICAgICAgICAgICAg DUKtMOOnCRXlVMIzNHMmJUAxZBBpUVBlLOZaCAIhKWSxMBWxSV3UVZLcIFEzRPSrTZEdSCUqZKSrFKNa ICAgICAgICAgICAgICAgICAgICAgICAgICAgICAgIC JuVLIeSVBuHUMyCHLpCIEkXDPjVVXjUJDrQHGxTJMxTFMiRASgEOZzBURfLQAcPL5IMZNwDJKfGISgKX AgICAgICAgICAgICAgICAgICAgICAgICAgICAgICAgICAgICAgICAgICAgICAgICAgICAgICAgICAgIC XbKTAeEENcXVTiCUCmQGMjTVJzLABxUQXcCGYfKA9Y ICAgICAgICAgICAgICAgICAgICAgICAgICAgICAgICAgICAgICAgICAgICAgICAgICAgICAgICAgICAg NFJuFSEuANWySMZtDTNqEDXxASEzAGUiEFQlOLHxTDHmHITiTAHmHE5QYF99nPNsu1V5PYPnJE3oceg/ Ht1ARLsuxoQbcBSfUQ7ZWnYkSV4vxx2ECsSlFI5xsb 8XLWjQXpEiF1V0oIReBKBaKJKLZlTbY17nTWtcAh37SQtiLJAsUlDtGQk6Hz8DVlYeT7ypMPIvLrJ5EE LxOxR6GYNnDgX3OBAgQiBoJHRvRSVoML3YHXFjU789aaLxKE8LCo8QYqOyAL0nbq5TIpWqDAJxMaiANg e9MKjqPX8QlRLkzTBlUBPcCRUOReInI0guc0RiXoRd KKHLSHrbCZ4Mo2UeoSMvYPn+Wn8ECA8jy5CmSXgfHBZnDR5ypo6ZGGtYRkEaI7WplYnlKFXou1ohQABy ZF7vaXBmPOE3LZvstw2sFwWyCEMexIKiCOItSCBpFAKMHOE4FDrmFaRaUpPsBSGkQTyjKCOWZXeACcTf Q9Sjq7EfRhX2PXMvQmFsYGbtYSYiCuM5NI02iKjjSL 8JMSEeHGAdYK16RBUuCVVrXw0EMs4PFmMjRV5sky2HLkCoGQUeIsiGYxi2DWmpSF9HlJHmR9QweZEhr7 tFEqAhN6CUTUK1HMSlPd3NEGMzMoTvWDHlJKzgFE5cMMOeUZVZpUomaaX2CE5FCD6dwwUfQI3APdIpWt 3jKi6NCyUqG7JaG1FiFZZrMOUVEJiuOY2RGHkvVM7k FN0Zl1BIbMEqiS9xwn0BSLFaBZYuDaunjs1YOdyyZ7T3jOqzGIZhKvLqMVMQXMfjXZ9HKZGvRYO0HAHr FYKyZKTDKaXeC97eGE1QA6Ecf31zAqS5VJLwOjKyOAtlIO02iQhoqoBpgLGtbSaoVE4XAg7+DQplbmRv WjzQZewnLTDLZdYzAzWRFtLgRZUcGRPxUGSgIfK3Sd YnTf4XVYVqRVBuJDYnQfLtSZPmVDHlEVdvXNQwSTB6GOR2DGZqVOHpUG8IVtQsQSIaXnZkRTRhLPBwOP Aiab4HCCJfIEVrZPE1CyOnQQWtAONiZDhhEQXaOPB8CWW3RODxXPJzBC0ZLkFxNCBtLWLgWEUqTGMgMF Lzmu2SFLNxBKDnMqa0VfLlHZPzYKGhPGygCVUtUIV3 FXC7FPMcJNFwXC0GSlTtWVTfMTY8JPMaUVDuQUPpsp2YXLNxUAUhOtJ4NHWlTPPaLHRuZSbsLMAxCOLr XNJ9TGKjDSLqHW4PNuRxGASdPZZ5YpBgLJVgKWStsl8TTCRkVZGxJWL8GwVsXARjKXGxBRqfAHBnIXX2 UdhpGTIgHUIoKN2VFwXuRIVgUZF8NsJgPRDmQBQtte 4AOLWiWUBsPEbmNuQmZNQyNDCbBIxlPBEjKZN1VQU6WEEbBNWsAP3EZqZtASXoKBDtYKXmQDFaTOTtjl 0RNKAdQIWvZoz6IdUaERGiJAYcNCguKWDjODI2GSE9FKReDGVsDL4TUtRyZMTbJidaJxFjOFYyPIRqwd 0EMPVsZMBqOZTtFtUgRUUxUZOdTCyyRCTzUXK1Ynhs ISIiWOLoPH7BTsQiRTQsIxJ6WyevULXkPILktv5ODNCmRVZoXvi1NIBvNKGnOMCdOJhmQYXcGIE3AAO6 QNOkFOSwEK2WRxUgKHMxLiHvVVcmTRNgVBPdco4ATLUzAHWzOWO1GOVlRSBgBLVjNPqkFSUdXHA4OEWg SFYlBRHvWG2ELyLvCTEqVwUoCWmzSWIbXRGrqf6LCB KhBLYaXmH9EXRdVMCwMNSdPSloUUPrJLP9BJYzVIDbCHTaBP5OVdBwUHpfZENBPud1VRkrE8m3NTZdHl 3LG8Ano5IgSfRoHHCRTOasYX9hcgKnPXSpGh0NX7dNSyksCSzrHlCgSTAmIImrFDVqJpMaMOCaAtHiPo O0TkS4Zf2iEQT9T7XtCgJ0QHM3UVMyZCBaEGN5DMB9 AdDgOaH5LKA1UdWmIS4FAy6XOeT0DBX6aEVxZh4ZItJ8JJeHEqNzGC6PXFw= ID Date Data Source [id number] 06/21/2020 12:03:00 PM EDT [facility] Name Value Range Interpretation Code Description Data Radha rce(s) Supporting Document(s) Progress Note [facility] ARPDTd8gPiQMZgQz53/LJGbgDFHfu0NtAEyjWOc4HCrkHLPxT5LaFYT5rH8iJUH6KHdHRwCiQxEaPHWo lbm [file] EsPjND5IDc1NYhD1IXT1lVXzIu5JOkC5NXdBIsRpAE3CMGr= ID Date Data Source [id number] 06/21/2020 12:02:55 PM EDT [facility] Name Value Range Interpretation Code Description Data Radha rce(s) Supporting Document(s) Progress Note [facility] HWZILc5fJzEVVaKp87/LBVkcOAGsq5YbMMsnIJj7KOgxCLPhC8YdXBN5sC1mWMO1LOwOFeZxAoDyESOy lbm [file] ICAgICAgICAgICAgICAgICAgICAgICAgICAgICAgICAgICAgICAgICAgICAgICAgICAgICAgICAgICAg ICAgICAgICAgICAgICAgICAgICAgICAgICAgICAgICAgDQogICAgICAgICAgICAgICAgICAgICAgICAg ICAgICAgICAgICAgICAgICAgICAgICAgICAgICAgIC AgICAgICAgICAgICAgICAgICAgICAgICAgICAgICAgICAgICAgICAgICAgDQogICAgICAgICAgICAgIC AgICAgICAgICAgICAgICAgICAgICAgICAgICAgICAgICAgICAgICAgICAgICAgICAgICAgICAgICAgIC AgICAgICAgICAgICAgICAgICAgICAgICAgDQogICAg ICAgICAgICAgICAgICAgICAgICAgICAgICAgICAgICAgICAgICAgICAgICAgICAgICAgICAgICAgICAg ICAgICAgICAgICAgICAgICAgICAgICAgICAgICAgICAgICAgDQogICAgICAgICAgICAgICAgICAgICAg ICAgICAgICAgICAgICAgICAgICAgICAgICAgICAgIC AgICAgICAgICAgICAgICAgICAgICAgICAgICAgICAgICAgICAgICAgICAgICAgDQogICAgICAgICAgIC AgICAgICAgICAgICAgICAgICAgICAgICAgICAgICAgICAgICAgICAgICAgICAgICAgICAgICAgICAgIC AgICAgICAgICAgICAgICAgICAgICAgICAgICAgDQog ICAgICAgICAgICAgICAgICAgICAgICAgICAgICAgICAgICAgICAgICAgICAgICAgICAgICAgICAgICAg ICAgICAgICAgICAgICAgICAgICAgICAgICAgICAgICAgICAgICAgDQogICAgICAgICAgICAgICAgICAg ICAgICAgICAgICAgICAgICAgICAgICAgICAgICAgIC AgICAgICAgICAgICAgICAgICAgICAgICAgICAgICAgICAgICAgICAgICAgICAgICAgDQogICAgICAgIC AgICAgICAgICAgICAgICAgICAgICAgICAgICAgICAgICAgICAgICAgICAgICAgICAgICAgICAgICAgIC AgICAgICAgICAgICAgICAgICAgICAgICAgICAgICAg DQogICAgICAgICAgICAgICAgICAgICAgICAgICAgICAgICAgICAgICAgICAgICAgICAgICAgICAgICAg UYMcPFFeBGPoHOZtJXLdDRKmIECiTZLbJWYgJLDaOPUbAMUnRIOyXIMbPDb9B7mfJKWmSSOaCQ6vPMn6 Jz8+QKpIRgLjCMF0vvQisL2VLQ2xl8ItPBkkDNAxt1 MvJJl5WQ0EPSYgDZtxJH7OGWfkvr5BLAIkMKHzlFZGp4cwBlKyBTD3FLPdSjwjND1CYLGqU4apylIeNQ YzIXYUOQhxZQNTKSsxIMTULRNzYCCjSxSiQaHlGHDnPBEkKPUQVG3OXfXrJ7LpzL61LHZWMc8+DQplbm EzAswPLvGfVOVje7FrXXl0NU8YJSVqAxmsc5YeNmYv APCFHGlvYR6TQOL2AXRvYFAvWl6ZAYNqM349ytFvKX2VLk3BDaSeQB1nls6CIiCvPJFzXxnILov2IUvi QD4FbYVhTTdNmi3nzfVbpcJAw8FmtjCnaTTIOZbslPujR9XyHljsANDjSRAbNO1sSC0kZALqABCvEkQi MBOAXP3QSPImLPKdlJOtVTLqWKOWWV2GHOckSSL7NV JelgXywGFxHIxlFN4MCCRbywEiGiHjQFURKHq+Wy5WFD7yi2FvUUaxBVMoPT7nmb3MHPmSViEgM5M4vY OrR0M7KBuwPn6APNSjPDDjNuFfCKNRVTvhFI5HLM1lvwV7JW0AmIRsXGVoXDZomHJjGJr3Z78wrNMmPE zzPY5PJDF+Lit+Gr2KPHLxTZYfXVHhFpAmNNWFCgHk A5SnU8AKx4BtM9OtQX90uEhxwdCaNTtdAN4HJP4ySAXfQGSCAP4DkWKvrI8eqkJvYpAxHALLAcDzP26h pZPlQFAmQUEaVVPkWc5GLKXhK8UwtuVmlHywxyQvPGCaBZAYHU1FOCuqbgLttFUlqEstLG67iZgcMI6Z Kq3SOiBuYK3edu9CcSMbLq4XSXCtTO5ILNVeMJEeGS HnINM9CWLnPyRhENmcEFNhCOHyKEB8SISjQEAgJQ6NCaUwLAFlLOa7SHnwVPOvQPGrwk3WDSOtOGK7IE W7HWXoJYVoKVVrYQdlSFWaHFRdUHV0QPXcQKZiHP1XHcPhYQDgBFRrMikvKYKnQUJqda5JXSGkXCRzMQ C8MwIaPNKrICCbVRwhIRXhXWQ7Plx3GZFpEDBkDF0C PcRmCJNzZDB3WPkdDBRsBBHhbn2MIFRjATYkGYibZeKkIEJkESBxSFqkWJDqFVYxQIF6KKLaMZOoKJ6B QlIxYJRxOCHmVdYfIFPlWWMiet1FDKWyAJYgInI0ZPXcDSWxYOZbWDvoNKGyUQE0QOguJAWvTCAtSP8Z XsUvPFWdWOH5VYYoCHUmNBLlkb6CISIpZRGuOTu6JW ZwWFBiXISgFZssZHMmZVBtKZy3TIOtUSDkYQ8LIbBwKVRpVkQsErAqAEPeYATycn9ZGLNfPCRzDBIxNe NtOJApLRRaSZpqWOItHDZdWIQ3CAFvWIGtBJ0QGdXhFNHeHbX9OtRuWDHeLGXrqk7YIKOxNTYiAlT3Da EqKGTdEHUxWQcdCXMiKALjUNL5BVPlPUTiJS2RVwEz JLIjSDA0VDKaXUNhTXSucj9QVBApSFQ6LgB3VhAdZZWaFVMzYLqsSKUeSVP9ElM5JMKxELEcCG7JHyYz ITZhODcwZtArAPWzPVAwtd2IKGSkRYW8YsY0CwWnCHSeFZAfALraMHEdDYP5DoQcKHDjEPUfLJ4NPaMg PJIoQIm7MAmtJLGbGFUcfl4EUKKgSVC3BYE8TuTmSQ CuKZFsQTuiCLGzIGZ3ZZM0ZEWoZJUuEB8JLnIvODEbLHI6MkAjMHSwDHSzsv4JBJJzPZA4WBJ1MmPiMY UwJGCoJIlgLIWzSHXjGnvbYBYjDBHvHX3VIaAyIOhqGKPFLcf3QHldG3v1UOJgVX1GG6Hkk7NiZwPiAU TOBCmnUD1chxXtUMOqKd0HZ9uDBapdVWa3TRGnMjSv RJC1F8KsUFMtNmU9QyZ6LBB7DfMbTQ2uFXHtWNzcMQFxETXhRcsbNZG5WISwXQPnIWvwCSUpT1NwBaYr YP9YFp3AEkJ1YEF4lQTpZn5JNHPqMpSHLcCkEN4TWFx= ID Date Data Source [id number] 06/16/2020 03:52:52 PM EDT [facility] Name Value Range Interpretation Code Description Data Radha rce(s) Supporting Document(s) Progress Note [facility] LQRQTm5tUxYSTkYs34/PAVdcYVWas1DgWGkqIYe1LFfdLQQaX7JgHDZ9dO2nXCP3VAfSUeIhCnRrPDV8 lbm [file] P7ZWWiNRtbNaKdFIw6SCAiUaP9Gq3gUSXJEk9+CUeyrMFylSxsAQVLStW8HrU1USllNUHESh2I ID Date Data Source [id number] 06/14/2020 10:17:00 AM EDT [facility] Name Value Range Interpretation Code Description Data Radha rce(s) Supporting Document(s) SARS coronavirus 2 RNA [facility] This lab was ordered by [facility] and reported by [facility]. Procedure Social History Code Duration Value Status Description Data Source(s ) Smoking 11/28/2020 12:00:00 AM EST Patient is a former smoker completed Patient is a former smoker [facility] ([facility] Smoking 11/21/2020 12:00:00 AM EST Unknown if ever smoked comp leted Unknown if ever smoked [facility] ([facility]) Smoking 11/13/2020 12:00:00 AM EST Unknown if ever smoked comp leted Unknown if ever smoked [facility] ([facility]) Smoking 10/24/2020 12:00:00 AM EST Patient is a former smoker completed Patient is a former smoker [facility] ([facility]) Smoking 10/19/2020 12:00:00 AM EST Unknown if ever smoked comp leted Unknown if ever smoked [facility] ([facility]) Smoking 10/06/2020 12:00:00 AM EST Unknown if ever smoked comp leted Unknown if ever smoked [facility] ([facility]) Smoking 10/05/2020 12:00:00 AM EST Unknown if ever smoked comp leted Unknown if ever smoked [facility] ([facility]) Smoking 09/27/2020 12:00:00 AM EST Unknown if ever smoked comp leted Unknown if ever smoked [facility] ([facility]) Alcohol intake 08/09/2020 12:00:00 AM EST Ex-drinker (finding) comp leted Ex- drinker (finding) [facility] Tobacco use and exposure 08/09/2020 12:00:00 AM EST Never used co mpleted Never used [facility] Smoking 08/09/2020 12:00:00 AM EST Former smoker completed Former smoker [facility] Smoking 07/14/2020 12:00:00 AM EDT Patient has never smoked co mpleted Patient has never smoked [facility] ([facility]) Smoking 07/10/2020 12:00:00 AM EDT Non-smoker, Non-drink er, Non-drug User completed Non-smoker, Non-drinker, Non-drug User [facility] ([facility] Alcohol intake 06/16/2020 12:00:00 AM EDT Current drinker of al cohol (finding) completed Current drinker of alcohol (finding) [facility] Vital Signs ID Date Data Source UNK Name Value Range Interpretation Code Description Data Source(s) Systolic blood pressure 123 mm[Hg] 123 mm[Hg] M [facility] ([facility] Diastolic blood pressure 85 mm[Hg] 85 mm[Hg] [facility] ([facility] Heart rate 92 /min 92 /min [facility] ([facility] Body temperature 96.4 [degF] 96.4 [degF] [facility] ([facility] Respiratory rate 16 /min 16 /min [facility] ( [facility] Body height 68.0 [in_i] 68.0 [in_i] [facility] ([facility] 5'8" Body weight 294.00 [lb_av] 294.00 [lb_av] MEDEN T ([facility] Oxygen saturation in Arterial blood by Pulse oximetry 98 % 98 % [facility] ([facility] [place] body weight 140 [lb_av] 140 [lb_av] MED[facility] T ([facility] Body mass index (BMI) [Ratio] 44.7 kg/m2 44.7 k g/m2 [facility] ([facility] Systolic blood pressure 128 mm[Hg] 128 mm[Hg] M [facility]ENT ([facility] Body height 68.0 [in_i] 68.0 [in_i] [facility] ([facility] 5'8" Diastolic blood pressure 86 mm[Hg] 86 mm[Hg] [facility] ([facility] Body weight 296.12 [lb_av] 296.12 [lb_av] MEDEN T ([facility] Oxygen saturation in Arterial blood by Pulse oximetry 99 % 99 % [facility] ([facility] [place] body weight 140 [lb_av] 140 [lb_av] MED[facility] T ([facility] Body mass index (BMI) [Ratio] 45.0 kg/m2 45.0 k g/m2 [facility] ([facility] Heart rate 105 /min 105 /min [facility] ([facility] Body temperature 97.6 [degF] 97.6 [degF] [facility] ([facility] Respiratory rate 17 /min 17 /min [facility] ( [facility] Body height 68.0 [in_i] 68.0 [in_i] [facility] ([facility] 5'8" Body weight 293.38 [lb_av] 293.38 [lb_av] MEDEN T ([facility] [place] body weight 140 [lb_av] 140 [lb_av] MED[facility] T ([facility] Body mass index (BMI) [Ratio] 44.6 kg/m2 44.6 k g/m2 [facility] ([facility] Systolic blood pressure 127 mm[Hg] 127 mm[Hg] M EDENT ([facility] Diastolic blood pressure 81 mm[Hg] 81 mm[Hg] [facility] ([facility] Heart rate 87 /min 87 /min [facility] ([facility] Body temperature 96.9 [degF] 96.9 [degF] [facility] ([facility] Respiratory rate 18 /min 18 /min [facility] ( [facility] Heart rate 80 /min 80 /min [facility] ([facility]) Body weight 286.06 [lb_av] 286.06 [lb_av] MEDEN T ([facility]) with shoes Systolic blood pressure 142 mm[Hg] 142 mm[Hg] M EDENT ([facility]) Diastolic blood pressure 80 mm[Hg] 80 mm[Hg] [facility] ([facility]) Body temperature 97.8 [degF] 97.8 [degF] [facility] ([facility]) Body temperature 36.6 Sheila 36.6 Sheila [facility] ( [facility]) Diastolic blood pressure 79 mm[Hg] 79 mm[Hg] ALAN ([facility]) Body height 67 [in_i] 67 [in_i] [place] ([facility]) Body mass index (BMI) [Ratio] 45.3 kg/m2 45.3 k g/m2 ALAN ([facility]) Systolic blood pressure 117 mm[Hg] 117 mm[Hg] A THENA ([facility]) Body weight 4626 [oz_av] 4626 [oz_av] ALAN ([facility]) Systolic blood pressure 122 mm[Hg] 122 mm[Hg] M EDENT ([employer] [facility]) Diastolic blood pressure 68 mm[Hg] 68 mm[Hg] [facility] ([employer] [facility]) Systolic blood pressure 131 mm[Hg] 131 mm[Hg] M EDENT ([facility]) Diastolic blood pressure 94 mm[Hg] 94 mm[Hg] [facility] ([facility]) Heart rate 104 /min 104 /min [facility] ([facility]) Respiratory rate 16 /min 16 /min [facility] ( [facility]) Oxygen saturation in Arterial blood by Pulse oximetry 98 % 98 % [facility] Body temperature 98.3 [degF] 98.3 [degF] [facility] ([facility], [facility]) Body weight 280.00 [lb_av] 280.00 [lb_av] LEONOREN T ([facility], [facility]) Body height 68 [in_i] 68 [in_i] [place] ([facility]) 5'8" Body mass index (BMI) [Ratio] 42.6 kg/m2 42.6 k g/m2 [facility] ([facility], [facility]) ID Date Data Source [id number] 10/06/2020 10:31:27 AM [facility] Value Range Interpretation Code Description Data Source(s) PREFERRED NAME Rhianna Moctezuma [facility] ID Date Data Source [id number] 11/13/2020 11:58:07 AM [facility] Value Range Interpretation Code Description Data Source(s) PREFERRED NAME Rhianna Moctezuma [facility] ID Date Data Source [id number] 12/05/2020 02:20:47 PM EDT [facility] Value Range Interpretation Code Description Data Source(s) PREFERRED NAME MarleneChandra Moctezuma [facility] ID Date Data Source [id number] 11/16/2020 02:03:34 PM [facility] Value Range Interpretation Code Description Data Source(s) PREFERRED NAME Rhianna Mocetzuma [facility] ID Date Data Source [id number] 11/22/2020 09:43:04 AM [facility] Name Value Range Interpretation Code Description Data Source(s) PREFERRED NAME Rhianna Moctezuma [facility] PREFERRED NAME Rhianna Moctezuma [facility] ID Date Data Source [id number] 11/01/2020 04:21:45 PM [facility] Name Value Range Interpretation Code Description Data Source(s) PREFERRED NAME Rhianna Moctezuma [facility] ID Date Data Source [id number] 10/05/2020 02:39:21 PM [facility] Name Value Range Interpretation Code Description Data Source(s) PREFERRED NAME AChandra A.Stuart [facility] ID Date Data Source [id number] 11/08/2020 09:27:13 AM [facility] Name Value Range Interpretation Code Description Data Source(s) PREFERRED NAME A.Stuart A.J [facility] PREFERRED NAME AChandra A.J [facility] ID Date Data Source [id number] 09/25/2020 10:36:49 AM [facility] Name Value Range Interpretation Code Description Data Source(s) PREFERRED NAME AChandra A.Stuart [facility] ID Date Data Source [id number] 10/05/2020 03:57:33 PM [facility] Name Value Range Interpretation Code Description Data Source(s) WEIGHT RECORDED 289.8 lb 289.8 lb [facility] Body height Measured 67.99 in 67.99 in [facility] PREFERRED NAME A.J A.J [facility] PREFERRED NAME AChandra A.J [facility] ID Date Data Source [id number] 09/27/2020 04:06:36 PM [facility] Name Value Range Interpretation Code Description Data Source(s) PREFERRED NAME A.Stuart A.J [facility] PREFERRED NAME AChandra A.J [facility] ID Date Data Source [id number] 11/13/2020 08:54:18 AM [facility] Name Value Range Interpretation Code Description Data Source(s) PREFERRED NAME A.J A.J [facility] PREFERRED NAME AMyrtleJ A.J [facility] ID Date Data Source [id number] 09/21/2020 04:33:42 PM [facility] Name Value Range Interpretation Code Description Data Source(s) WEIGHT RECORDED 292.8 lb 292.8 lb [facility] Body height Measured 67.99 in 67.99 in [facility] PREFERRED NAME A.J A.J [facility] PREFERRED NAME A.Stuart A.J [facility] ID Date Data Source [id number] 10/09/2020 04:41:18 PM [facility] Name Value Range Interpretation Code Description Data Source(s) PREFERRED NAME Rhianna Moctezuma [facility] PREFERRED NAME Rhianna Moctezuma [facility] ID Date Data Source [id number] 09/05/2020 07:06:36 AM [facility] Name Value Range Interpretation Code Description Data Source(s) PREFERRED NAME Rhianna Moctezuma [facility] ID Date Data Source [id number] 09/05/2020 02:06:28 AM [facility] Name Value Range Interpretation Code Description Data Source(s) WEIGHT RECORDED 292 lb 292 lb [facility] Body height Measured 67.99 in 67.99 in [facility] PREFERRED NAME Rhianna Moctezuma [facility] ID Date Data Source [id number] 08/31/2020 02:59:12 PM [facility] Name Value Range Interpretation Code Description Data Source(s) PREFERRED NAME Rhianna Moctezuma [facility] ID Date Data Source [id number] 09/12/2020 12:53:35 PM [facility] Name Value Range Interpretation Code Description Data Source(s) PREFERRED NAME Rhianna Moctezuma [facility] PREFERRED NAME Rhianna Moctezuma [facility] ID Date Data Source [id number] 08/21/2020 05:52:12 PM [facility] Name Value Range Interpretation Code Description Data Source(s) PREFERRED NAME Rhianna Moctezuma [facility] ID Date Data Source [id number] 08/04/2020 11:24:38 AM [facility] Name Value Range Interpretation Code Description Data Source(s) WEIGHT RECORDED 288.4 lb 288.4 lb [facility] Body height Measured 67.99 in 67.99 in [facility] Patient Treatment Plan of Care Planned Activity Planned Date Details Description Data Source (s) BD Syringe Luer-Alyssa 1 ML (Syringe (Disposable)) 10/03/2020 12:00:00 AM [facility] Verio In Vitro Strip (glucose blood) 09/29/2020 12:00:00 A M [facility] Delica Lancets 33G 09/29/2020 12:00:00 AM [facility] Flex System w/Device Kit 09/28/2020 12:00:00 AM [facility] duloxetine 60 MG Delayed Release Oral Capsule 09/27/2020 12:00:00 A [facility] BD Disp [place] 20G X 1" (NEEDLE (DISP) 20 G) 09/14/2020 12:00:00 A [facility] BD Disp [place] 25G X 5/8" (NEEDLE (DISP) 25 G) 09/14/2020 [facility]:00[facility] Vitro [facility] (glucose blood) 09/14/2020 12:00:00 A [facility] Donavanica Lancets 33G 09/14/2020 12:00:00 AM [facility] BD Luer-Alyssa Syringe 25G X 5/8" 3 ML 09/13/2020 12:00:00 AM [facility] 2 ML aripiprazole 200 MG/ML Prefilled Syringe [Abilify ] 08/17/2020 12:00:[address] [facility] Pen [place] 31G X 6 MM 08/16/2020 12:00:00 AM [facility] [employer] 08/16/2020 12:00:00 AM [facility] BD Disp [place] 20G X 1" (NEEDLE (DISP) 20 G) 08/16/2020 12:00:00 A [facility] BD Disp [place] 25G X 5/8" (NEEDLE (DISP) 25 G) 08/16/2020 12:00:00 AM [facility] 3 ML Insulin Glargine 100 UNT/ML Pen Injector 08/07/2020 12:00:00 A [facility] Hydroxychloroquine Sulfate 200 MG Oral Tablet 08/07/2020 12:00:00 A [facility] 2 ML aripiprazole 200 MG/ML Prefilled Syringe [Abilify ] 08/07/2020 12:00:[address] [facility] 2 ML aripiprazole 200 MG/ML Prefilled Syringe [Abilify ] 07/27/2020 12:00:[address] [facility] FQ Protective Underwear 07/25/2020 12:00:00 AM [facility] Lanc[employer] 07/06/2020 12:00:00 AM [facility] Benlysta 200 MG/ML Subcutaneous Solution Prefilled Syr alondra (belimumab) 07/06/2020 12:00:00 AM [facility] Prazosin 1 MG Oral Capsule 06/28/2020 12:00:00 AM [facility] Hydroxychloroquine Sulfate 200 MG Oral Tablet [Plaquen il] 06/21/2020 12:00:00 AM [facility] 2 ML aripiprazole 200 MG/ML Prefilled Syringe [Abilify ] 06/21/2020 12:00:00 AM [facility] OneTouch Verio In Vitro Strip (glucose blood) 06/19/2020 12:00:00 A M [facility] Pen [place] 31G X 6 MM 06/16/2020 12:00:00 AM [facility] [employer] 05/08/2020 12:00:00 AM [facility] Prazosin 1 MG Oral Capsule 05/08/2020 12:00:00 AM [facility] Glucose Blood In Vitro Strip (OneTouch Verio) 04/11/2020 12:00:00 A M [facility] aripiprazole 10 MG Oral Tablet 04/10/2020 12:00:00 AM [facility] Naproxen 500 MG Oral Tablet 02/25/2020 12:00:00 AM [facility] Glucose Blood In Vitro Strip (OneTouch Verio) 01/25/2020 12:00:00 A M [facility] Prednisone 5 MG Oral Tablet [facility] ([facility]) Prazosin 1 MG Oral Capsule A THENA ([facility]) POLYETHYLENE GLYCOL 3350 142 MG/ML Oral Solution ALAN ([facility]) Oseltamivir 75 MG Oral Capsule ALAN ([facility]) Ondansetron 4 MG Oral Tablet ALAN ([facility]) norethindrone (contraceptive) 0.35 mg ta blet TAKE ONE TABLET BY MOUTH ONCE DAILY ALAN ([facility]) ipratropium bromide 0.03 % nasal spray I NSTILL TWO SPRAYS IN EACH NOSTRIL THREE TIMES DAILY NEEDED ALAN ([facility]) Hydroxychloroquine Sulfate 200 MG Oral Tablet ALAN ([facility]) duloxetine 30 MG Delayed Release Oral Capsule ALAN ([facility]) duloxetine 20 MG Delayed Release Oral Capsule ALAN ([facility]) desloratadine 5 MG Oral Tablet ALAN ([facility]) Clonidine Hydrochloride 0.1 MG Oral Tablet ALAN ([facility]) cefdinir 300 MG Oral Capsule ALAN ([facility]) Bisacodyl 5 MG Delayed Release Oral Tablet ALAN ([facility]) Benlysta 200 mg/mL subcutaneous auto-injector ALAN ([facility]) aripiprazole 10 MG Oral Tablet ALAN ([facility]) duloxetine 60 MG Delayed Release Oral Capsule [facility]
[2021-08-12] MEDS ORDERED: BASA100I (17:55)
[2021-08-12] MEDS ORDERED: INSU100V2 (17:55)
[2021-08-12] MEDS ORDERED: MELO15TA28 (17:55)
--- OUTSIDE RECORDS SUMMARY | 2021-08-12 23:55 | CCD ---
Author Author [facility] Organization [facility] Address Unknown Phone Unavailable Care Team Providers Care Manager Of Global Name Role Phone Catarina MORTON MD Unavailable Unavailable Catarina MORTON [...] Unavailable MORTON, L SEAN CROWDER Unavailable Unavailable ODETTE FOLEY MD Unavailable Unavailable ODETTE FOLEY MD Unavailable Unavailable ODETTE FOLEY MD Unavailable Unavailable ODETTE FOLEY MD Unavailable Unavailable ODETTE FOLEY MD Unavailable Unavailable ODETTE FOLEY MD Unavailable Unavailable HART, F LIANA Unavailable Unavailable Pleskach, Windy FACILITIES CUSTODIAN Unavailable Unavailable Pleskach, Windy FACILITIES CUSTODIAN Unavailable Unavailable Pleskach, Windy FACILITIES CUSTODIAN Unavailable Unavailable Pleskach, Windy FACILITIES CUSTODIAN Unavailable Unavailable Pleskach, Windy FACILITIES CUSTODIAN Unavailable Unavailable Pleskach, Windy FACILITIES CUSTODIAN Unavailable Unavailable Pleskach, Windy FACILITIES CUSTODIAN Unavailable Unavailable Pleskach, Windy FACILITIES CUSTODIAN Unavailable Unavailable Pleskach, Windy FACILITIES CUSTODIAN Unavailable Unavailable Pleskach, Windy FACILITIES CUSTODIAN Unavailable Unavailable Pleskach, Windy FACILITIES CUSTODIAN Unavailable Unavailable Pleskach, Windy FACILITIES CUSTODIAN Unavailable Unavailable Pleskach, Windy FACILITIES CUSTODIAN Unavailable Unavailable Pleskach, Windy FACILITIES CUSTODIAN Unavailable Unavailable Pleskach, Windy FACILITIES CUSTODIAN Unavailable Unavailable Pleskach, Windy FACILITIES CUSTODIAN Unavailable Unavailable Pleskach, Windy FACILITIES CUSTODIAN Unavailable Unavailable Pleskach, Windy FACILITIES CUSTODIAN Unavailable Unavailable Pleskach, Windy FACILITIES CUSTODIAN Unavailable Unavailable Pleskach, Windy FACILITIES CUSTODIAN Unavailable Unavailable Pleskach, Windy FACILITIES CUSTODIAN Unavailable Unavailable Pleskach, Windy FACILITIES CUSTODIAN Unavailable Unavailable Pleskach, Windy FACILITIES CUSTODIAN Unavailable Unavailable Pleskach, Windy FACILITIES CUSTODIAN Unavailable Unavailable Pleskach, Windy FACILITIES CUSTODIAN Unavailable Unavailable Pleskach, Windy FACILITIES CUSTODIAN Unavailable Unavailable Pleskach, Windy FACILITIES CUSTODIAN Unavailable Unavailable Pleskach, Windy FACILITIES CUSTODIAN Unavailable Unavailable Pleskach, Windy FACILITIES CUSTODIAN Unavailable Unavailable Pleskach, Windy FACILITIES CUSTODIAN Unavailable Unavailable Pleskach, Windy FACILITIES CUSTODIAN Unavailable Unavailable Pleskach, Windy FACILITIES CUSTODIAN Unavailable Unavailable Pleskach, Windy FACILITIES CUSTODIAN Unavailable Unavailable Pleskach, Windy FACILITIES CUSTODIAN Unavailable Unavailable Pleskach, Windy FACILITIES CUSTODIAN Unavailable Unavailable Pleskach, Windy FACILITIES CUSTODIAN Unavailable Unavailable Pleskach, Windy FACILITIES CUSTODIAN Unavailable Unavailable Pleskach, Windy FACILITIES CUSTODIAN Unavailable Unavailable Pleskach, Windy FACILITIES CUSTODIAN Unavailable Unavailable Pleskach, Windy FACILITIES CUSTODIAN Unavailable Unavailable Pleskach, Windy FACILITIES CUSTODIAN Unavailable Unavailable Pleskach, Windy FACILITIES CUSTODIAN Unavailable Unavailable Pleskach, Windy FACILITIES CUSTODIAN Unavailable Unavailable Pleskach, Windy FACILITIES CUSTODIAN Unavailable Unavailable Lisandro Mayo Unavailable Unavailable Seymour Coburn Unavailable Seymour Coburn Unavailable Lambert GOODWIN MD Unavailable Unavailable Lambert GOODWIN MD Unavailable Unavailable Lambert GOODWIN MD Unavailable Unavailable ZYGLambert SPENCER MD Unavailable Unavailable ZYGLambert SPENCER MD Unavailable Unavailable Lambert GOODWIN MD Unavailable Unavailable Lambert GOODWIN MD Unavailable Unavailable Lambert GOODWIN MD Unavailable Unavailable Lambert GOODWIN MD Unavailable Unavailable Lambert GOODWIN MD Unavailable Unavailable Lambert GOODWIN MD Unavailable Unavailable ZYGLambert SPENCER MD Unavailable Unavailable Lambert GOODWIN MD Unavailable Unavailable Lambert GOODWIN MD Unavailable Unavailable ZYGLambert SPENCER MD Unavailable Unavailable ZYGLambert SPENCER MD Unavailable Unavailable ZYGLambert SPENCER MD Unavailable Unavailable ZYGMONT, Lambert CHARLES MD [...] Unavailable ZYGMONT, V ARACELI CROWDER Unavailable Unavailable Yayo Baca MD Unavailable Unavailable [...] Unavailable Unavailable Yayo Baca MD Unavailable Unavailable Keven, Yayo MD Unavailable Unavailable Yayo Baca MD Unavailable Unavailable Yayo Baca MD Unavailable Unavailable Aden Bacaio MD Unavailable Unavailable Aden Bacaio MD Unavailable Unavailable Aden Bacaio MD Unavailable Unavailable Yayo Baca MD Unavailable Unavailable Yayo Baca MD Unavailable Unavailable Keven Yayo MD Unavailable Unavailable Keven Yayo MD Unavailable Unavailable Keven Yayo MD Unavailable Unavailable Keven Yayo MD Unavailable Unavailable Keven Yayo MD Unavailable Unavailable Keven Yayo MD Unavailable Unavailable Keven Yayo MD Unavailable Unavailable Aden Bacaio MD Unavailable Unavailable Yayo Baca MD Unavailable Unavailable Yayo Baca MD Unavailable Unavailable Aden Bacaio MD Unavailable Unavailable Yayo Baca MD Unavailable Unavailable Yayo Baca MD Unavailable Unavailable Yayo Baca MD Unavailable Unavailable Yayo Baca MD Unavailable Unavailable Yayo Baca MD Unavailable Unavailable EDWIN BABIN Unavailable Unavailable Ankit, Demi MD Unavailable Unavailable Ankit, Demi MD Unavailable Unavailable Ankit, Demi MD Unavailable Unavailable Ankti, Demi MD Unavailable Unavailable Ankit, Demi MD [...] Unavailable Maring, Vijay PA Unavailable Unavailable FunkJaney EXTRACTION OPERATOR Unavailable Unavailable Funk, Selina EXTRACTION OPERATOR Unavailable Unavailable Funk, Janey EXTRACTION OPERATOR Unavailable Unavailable Funk, Janey EXTRACTION OPERATOR Unavailable Unavailable Funk, Janey EXTRACTION OPERATOR Unavailable Unavailable Funk, Janey EXTRACTION OPERATOR Unavailable Unavailable Funk, Janey EXTRACTION OPERATOR Unavailable Unavailable Funk, Janey EXTRACTION OPERATOR Unavailable Unavailable Funk, Janey EXTRACTION OPERATOR Unavailable Unavailable Funk, Janey EXTRACTION OPERATOR Unavailable Unavailable Funk, Janey EXTRACTION OPERATOR Unavailable Unavailable Funk, Janey EXTRACTION OPERATOR Unavailable Unavailable Funk, Janey EXTRACTION OPERATOR Unavailable Unavailable KIEL, A YISEL PA Unavailable [...] A YISEL PA Unavailable Unavailable KIEL, A IYSEL PA Unavailable Unavailable KIEL, A YISEL PA [...] Unavailable Unavailable RAUDEL, HAIHUI Unavailable Unavailable Park, Eusdi Unavailable BALWINDER, ANDRAS Unavailable Unavailable Re-disclosure Warning [...] is protected by Article 27-F of the [place] State Public Health law. If you continue you may have access to information: Regarding HIV / AIDS; Provided by facilities licensed or operated by the [facility] Office of Mental Health; or Provided by the [facility] Office for People With Developmental Disabilities. If such information is present, then the following [facility] mandated warning applies: This information has been [...] law may result in a fine or residential sentence or both. A general authorization for the release of medical or other information is NOT sufficient authorization for further disc losure. Allergies and Adverse Reactions Type Description Substance Reaction Status Data Source(s ) Drug Allergy Drug Allergy NKDA MED[facility] ([facility], [facility]) Family History Family Member Name Family Member Gender Family Member Status Date o f Status Description Data Source(s) Unknown Unknown Problem [facility] ([facility], ) Unknown Male Problem MEDENT (Jillian Mendoza MD) Encounters Encounter Providers Location Date Indications Data Source(s ) Outpatient Attender: Demi Iniguezerrer: Shannan DE JESUS 05/09/2021 12:00:00 AM [facility] Outpatient Attender: Yayo Iniguezerrer: EDWIN HAYES 03/23/2021 12:00:00 AM [facility] Outpatient Attender: DEVON BRITTReferrer: ERASMO STARKS 12/21/2020 12:00:00 AM [facility] Outpatient Attender: DEVON BRITTReferrer: ERASMO STARKS 12/07/2020 12:00:00 AM [facility] Outpatient Attender: Windy Nieves [facility] Main Office 11/28/2020 0 8:45:00 AM EST [facility] ([facility] Outpatient Attender: SHARITA FOLEY MD 11/22/2020 12: 00:00 AM [facility] Brief Individual Psychotherapy - 30 min [facility] 11/21/2020 12:30:00 PM EST - 11/21/2020 12:30:00 PM EST [facility] ([facility]) Attender: Ellie Drummond 11/21/2020 12:00:00 AM EST [facility] ([facility]) Outpatient Attender: Yayo Newmaner: EDWIN HAYES 11/21/2020 12:00:00 AM [facility] Outpatient Attender: Windy Nieves [facility] Main Office 11/16/2020 1 2:45:00 PM EST [facility] ([facility] Outpatient Attender: Windy Nieves [facility] Main Office 11/13/2020 1 2:45:00 PM EST [facility] ([facility] Extended Individual Psychotherapy - 45 min Attender: Arturo Coburn [facility] 11/13/2020 10:00:00 AM EST - 11/13/2020 10:00:00 AM EST [facility] ([facility]) Attender: Seymour Coburn 11/13/2020 12:00:00 AM EST [facility] ([facility]) Outpatient Attender: DEVON BRITT 11/09/2020 12:00:00 AM [facility] Outpatient Attender: SHARITA FOLEY MD 11/08/2020 12: 00:00 AM [facility] Outpatient Attender: YISEL DE JESUS 11/06/2020 12: 00:00 AM [facility] Outpatient Attender: ARACELI GOODWIN MD [facility] [place] 10/24/2020 10:00:00 AM EST [facility] ([facility]) Attender: Seymour Coburn 10/19/2020 12:00:00 AM EST [facility] ([facility]) Extended Individual Psychotherapy - 45 min Attender: Arturo Coburn [facility] 10/18/2020 12:00:00 PM EST - 10/18/2020 12:00:00 PM EST [facility] ([facility]) Outpatient Attender: Vijay DE JESUS 10/11/19 08:06:20 AM EST - 10/11/2020 08:11:15 AM EST [facility] ([facility] ) Psychiatric Diagnostic Evaluation (Non-Medical) Attender: Christiano Coburn [facility] 10/06/2020 11:00:00 AM EST - 10/06/2020 11:00:00 AM EST [facility] ([facility]) Attender: Seymour Coburn 10/06/2020 12:00:00 AM EST [facility] ([facility]) Psychiatric Diagnostic Evaluation (Non-Medical) Attender: Christiano lashonedy Coburn [facility] 10/05/2020 08:00:00 AM EST - 10/05/2020 08:00:00 AM EST [facility] ([facility]) Outpatient Attender: DEVON BRITTReferrer: ERASMO STARKS [id number] 10/05/2020 12:00:00 AM EST - 10/05/2020 02:39:23 PM EST Systemic lupus erythematosus, unspecified [facility] Systemic lupus erythematosus, unspecifie d Attender: Seymour Coburn 10/05/2020 12:00:00 AM EST [facility] ([facility]) JEANETTE RaoC: [address] [place] [id number], Ph. Attender: Shannan HERMAN - [facility] Medical 10/02/2020 12:00:00 AM EST [facility] ([facility]) Extended Individual Psychotherapy - 45 min Attender: Annalee Leigh [facility] 09/27/2020 03:00:00 AM EST - 09/27/2020 03:00:00 AM EST [facility] ([facility]) Outpatient Attender: SHARITA FOLEY MD [id number] 09/27/2020 12:00:00 AM EST - 09/27/2020 10:37:17 AM EST Panic disorder (episodic paroxysmal anxiety) [facility] Panic disorder (episodic paroxysmal anxi ety) Attender: Lisandro Mayo 09/27/2020 12:00:[address] [facility] ([facility]) Outpatient Attender: YISEL DE JESUS [id number] 09/25/2020 12:00:00 AM EST - 09/25/2020 10:36:58 AM EST Type 2 diabetes mellitus with hyperglycemia [facility] Type 2 diabetes mellitus with hyperglyce dylan Outpatient Attender: DEVON BRITT [id number] 09/21/2020 12:00:00 AM EST - 09/21/2020 12:58:43 PM EST Abnormal levels of other serum enzymes [facility] Abnormal levels of other serum enzymes Outpatient Attender: SHARITA FOLEY MD [id number] 09/20/2020 12:00:00 AM EST - 09/20/2020 01:54:47 PM EST Dysthymic disorder [facility] Dysthymic disorder Outpatient Attender: ANGELO BRAUN MDReferrer: ASHKAN BRAUN MD 08/31/2020 12:00:00 AM EST - 09/01/2020 12:00:00 AM EST Right upper quadrant pain [facility] Right upper quadrant pain Outpatient Attender: DEVON Nairerrer: ERASMO STARKS [id number] 08/31/2020 12:00:00 AM EST - 09/01/2020 12:00:00 AM EST Systemic lupus erythematosus, unspecified [facility] Systemic lupus erythematosus, unspecifie d Outpatient Attender: LIANA HART 08/31/2020 12:00:00 AM EST - 08/31/2020 02:59:06 PM EST Dysthymic disorder [facility] Dysthymic disorder Outpatient Attender: YISEL DE JESUS [id number] 08/28/2020 12:00:00 AM EST - 08/28/2020 11:48:34 AM EST Type 2 diabetes mellitus with hyperglycemia [facility] Type 2 diabetes mellitus with hyperglyce dylan Outpatient Attender: SHARITA FOLEY MD [id number] 08/21/2020 12:00:00 AM EST - 08/21/2020 10:02:20 AM EST [facility] Outpatient Attender: YISEL DE JESUS [id number] 08/10/2020 12:00:00 AM EST - 08/10/2020 03:29:50 PM EST [facility] Outpatient Attender: DEVON Chaner: ERASMO STARKS [id number] 08/03/2020 12:00:00 AM EST - 08/04/2020 12:00:00 AM EST Other specified health status [facility] Other specified health status Outpatient Attender: LENA OSWALD 07/31/20 12:00:00 AM EST - 07/31/2020 01:43:49 PM [facility] Outpatient Attender: SHARITA FOLEY MD [id number] 07/17/2020 12:00:00 AM EDT - 07/17/2020 10:15:40 AM [facility] spital Outpatient Attender: Janey Funk NP Kristyn perales 07/14/2020 04:35:00 PM EDT [facility] ([facility], [facility]) Outpatient Attender: SEAN MORTON MD [facility] [employer]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 11:15:00 AM EDT [facility] ([facility]) Outpatient Attender: YISEL DE JESUS [id number] 07/10/2020 12:00:00 AM [facility] Outpatient Attender: YISEL DE JESUS 07/10/2020 12: 00:00 AM [facility] Outpatient Attender: YISEL DE JESUS 07/07/2020 12: 00:00 AM [facility] Outpatient Attender: LIANA HART 06/29/2020 12:00:00 AM [facility] Unknown [address] [facility] [phone] 06/27/2020 12:00:00 AM EDT eC ([facility]) Outpatient Attender: SHARITA FOLEY MD [id number] 06/26/2020 12:00:00 AM EDT - 06/26/2020 11:10:28 AM [facility] spital Outpatient Attender: DEVON BRITT [id number] 06/21/2020 12:00:00 AM [facility] Outpatient Attender: YISEL DE JESUS [id number] 06/16/2020 12:00:00 AM EDT - 06/19/2020 07:37:45 AM [facility] spital Outpatient Attender: SHARITA FOLEY MD [id number] 05/31/2020 12:00:00 AM EDT - 05/31/2020 04:26:38 PM [facility] spital Medications Medication Brand Name Start Date [...] 10/30/2020 12:00:00 AM EST act grupo MEDENT ([facility]) BD Pen Needle/Cinthia/Ultra -Fine/32G X 4MM 10/24/2020 12:00:00 AM EST active [facility] ([facility]) diphenhydrAMINE (BENADRYL) 25 mg 10/05/2020 12:45:00 PM ES T 25 mg Intravenous completed 25 mg, Intrav enous, Once, Gloria 10/05/20 at 1245, For 1 dose [facility] Medication administered onsite dexamethasone sodium phosphate (DECADRON ) 10 MG/ML 8 mg in sodium chloride 0.9 % 25 mL IVPB 10/05/2020 12:45:00 PM EST 8 mg Intravenous completed Systemic lupus erythematosus (SLE) in adult 8 mg, Intr avenous, Administer over 15 Minutes, Once, Gloria 10/05/20 at 1245, For 1 dose [facility] Systemic lupus erythematosus (SLE) in ad ult Medication administered onsite Belimumab (BENLYSTA) 1,320 mg in sodium chloride 0.9 % 250 m L infusion 10/05/2020 12:45:00 PM EST 1320 mg Intravenous c ompleted Systemic lupus erythematosus (SLE) in adult 1,320 mg, Intravenous, Ad landscaper helper over 1 Hours, Once, Gloria 10/05/20 at 1245, For 1 dose [facility] Systemic lupus erythematosus (SLE) in ad ult Medication administered onsite BD Syringe Luer-Alyssa 1 ML (Syringe (Disposable)) [id number] 10/03/2020 12:00:00 AM EST active Use as d irected. Use as instructed for testosterone injection [facility] OneTouch Verio In Vitro Strip (glucose blood) 69064-859-66 09/29/2020 12:00:00 AM EST active Type 2 sergio betes mellitus without complication, with long-term current use of insulin Test 3 times daily an d as needed. Dx code E11.9. [facility] Type 2 diabetes mellitus without complic ation, with long-term current use of insulin OneTouch Delica Lancets 33G 98258-952-16 09/29/2020 12:00:00 AM EST active Type 2 diabetes mellitus without complic ation, with long-term current use of insulin Use 3 times daily and as needed. Dx cod e E11.9. [facility] Type 2 diabetes mellitus without complic ation, with long-term current use of insulin OneTouch Verio Flex System w/Device Kit 20065-310-05 09/28/19 12:00:00 AM EST active Type 2 diabete s mellitus without complication, with long-term current use of insulin Test 3 times daily and as needed. Dx code E11.9. [facility] Type 2 diabetes mellitus without complic ation, with long-term current use of insulin duloxetine 60 MG Delayed Release Oral Ca psule DULoxetine HCl 60 MG Oral Capsule Delayed Release Particles (CYMBALTA) DULoxetine HCl 60 MG Oral Capsule Delaye d Release Particles (CYMBALTA) 09/27/2020 12:00:00 AM EST 60 mg Oral active Take 1 capsule by mouth daily [facility] BD Disp Laurel 25G X 5/8" (NEEDLE (DISP) 25 G) [id number] 09/14/2020 12:00:00 AM EST active Gender dysphoria Use as directed. Use to inject testosterone as instructed [facility] Gender dysphoria OneTouch Verio In Vitro Strip (glucose blood) 35581-635-09 09/14/2020 12:00:00 AM EST active Type 2 sergio betes mellitus without complication, with long-term current use of insulin Test 3 times daily an d as needed. Dx code E11.9. [facility] Type 2 diabetes mellitus without complic ation, with long-term current use of insulin OneTouch Delica Lancets 33G 06165-183-76 09/14/2020 12:00:00 AM EST active Type 2 diabetes mellitus without complic ation, with long-term current use of insulin Use 3 times daily and as needed. Dx cod e E11.9. [facility] Type 2 diabetes mellitus without complic ation, with long-term current use of insulin BD Disp Laurel 20G X 1" (NEEDLE (DISP) 20 G) [id number] 09/14/2020 12:00:00 AM EST active Gender dysphoria Use as directed. Use to draw up testosterone for injection as instructed [facility] Gender dysphoria BD Luer-Alyssa Syringe 25G X 5/8" 3 ML [id number] 09/13/2020 12:00:0 0 AM EST 1 {Application} Subcutaneous active Use as direct ed. [facility] methylPREDNISolone sodium succinate (SOLU-MEDROL) injection 60 mg [id number] 08/31/2020 12:00:00 PM EST 60 mg Intravenous completed 60 mg, Intravenous, Once, Gloria 08/31/20 at 1200, For 1 dose [facility] Medication administered onsite Belimumab (BENLYSTA) 1,320 mg in sodium chloride 0.9 % 250 m L infusion 08/31/2020 11:45:00 AM EST 1320 mg Intravenous c ompleted SLE (systemic lupus erythematosus related syndrome) 1,320 mg, Intrav enous, Administer over 1 Hours, Once, Gloria 08/31/20 at 1145, For 1 dose [facility] SLE (systemic lupus erythematosus relate d syndrome) Medication administered onsite diphenhydrAMINE (BENADRYL) 25 mg in sodium chloride 0.9 % 25 mL IVPB 08/31/2020 11:42:13 AM EST 25 mg Intravenous a ctive SLE (systemic lupus erythematosus related syndrome) 25 mg, Intravenous, Ad landscaper helper over 15 Minutes, Once PRN, Infusion reaction, Starting Gloria 08/31/20 at 1142, For 30 days [facility] SLE (systemic lupus erythematosus relate d syndrome) Medication administered onsite 2 ML aripiprazole 200 MG/ML Prefilled Sy ringe [Abilify] Abilify Maintena 400 MG Intramuscular Prefilled Syringe Abilify Maintena 400 MG Intramuscular Pr efilled Syringe 08/17/2020 12:00:00 AM EST 400 mg Intramuscular act grupo Inject 400 mg into the muscle every 30 (thirty) days [facility] BD Disp Laurel 20G X 1" (NEEDLE (DISP) 20 G) [id number] 08/16/2020 12:00:00 AM EST active Gender dysphoria Use as directed. Use to draw up testosterone for injection as instructed [facility] Gender dysphoria BD Disp Laurel 25G X 5/8" (NEEDLE (DISP) 25 G) [id number] 08/16/2020 12:00:00 AM EST active Gender dysphoria Use as directed. Use to inject testosterone as instructed [facility] Gender dysphoria Pen Laurel 31G X 6 MM [id number] 08/16/2020 12:00:00 AM EST active Use as directed. For Lantus injection. [facility] [employer] [id number] 08/16/2020 12:00:00 AM EST active Use as directed. For needle disposal [facility] 2 ML aripiprazole 200 MG/ML Prefilled Sy ringe [Abilify] Abilify Maintena 400 MG Intramuscular Prefilled Syringe (ARIPiprazole ER) Abilify Maintena 400 MG Intramuscular Prefilled Syringe (ARIPiprazole ER) 08/07/2020 12:00:00 AM EST 400 mg Intramuscular completed Inject 400 mg into the muscle once for 1 dose [facility] Hydroxychloroquine Sulfate 200 MG Oral T ablet Hydroxychloroquine Sulfate 200 MG Oral Tablet (PLAQUENIL) Hydroxychloroquine Sulfate 200 MG Oral T ablet (PLAQUENIL) 08/07/2020 12:00:00 AM EST 200 mg Oral aborte d Take 1 tablet by mouth Two Times Daily [facility] 3 ML Insulin Glargine 100 UNT/ML Pen Inj heriberto Insulin Glargine 100 UNIT/ML Subcutaneous Solution Pen-injector (LANTUS SOLOSTAR) Insulin Glargine 100 UNIT/ML Subcutaneous Solution Pen-injector (LANTUS SOLOSTAR) 08/07/2020 12:00:00 AM EST 32 U Subcutaneous active Inj ect 32 Units into the skin daily Inject 32 units subcutaneously once daily. Dx code: E11.65 [facility] Acetaminophen 325 MG Oral Tablet acetaminophen (TYLENO L) tablet 650 mg acetaminophen (TYLENOL) tablet 650 mg 08/03/2020 12:15:00 PM EST 65 0 mg Oral completed 650 mg, Oral, O nce, Gloria 08/03/20 at 1215, For 1 dose
Maximum daily dose of acetaminophen is 3,000 mg from all sources in 24 hours.
[facility] Medication administered onsite Belimumab (BENLYSTA) 1,280 mg in sodium chloride 0.9 % 250 m L infusion 08/03/2020 12:15:00 PM EST 1280 mg Intravenous completed 1,280 mg, Intravenous, Administer over 1 Hours, Once, Gloria 08/03/20 at 1215, For 1 dose [facility] Medication administered onsite methylPREDNISolone sodium succinate (CARLOTA U-MEDROL) 60 mg in sodium chloride 0.9 % 25 mL IVPB 08/03/2020 12:15:00 PM EST 60 mg Intravenous completed 60 mg, Intravenous, Once, Gloria 08/03/20 at 1215, For 1 dose [facility] Medication administered onsite diphenhydrAMINE (BENADRYL) 25 mg in sodium chloride 0.9 % 25 mL IVPB 08/03/2020 12:10:36 PM EST 25 mg Intravenous active 25 mg, Intravenous, Administer over 15 Minutes, Once PRN, Infusion reaction, Starting Gloria 08/03/20 at 1210, For 30 days [facility] Medication administered onsite 2 ML aripiprazole 200 MG/ML Prefilled Sy ringe [Abilify] Abilify Maintena 400 MG Intramuscular Prefilled Syringe Abilify Maintena 400 MG Intramuscular Pr efilled Syringe 07/27/2020 12:00:00 AM EST active [facility] [facility] Protective Underwear [id number] 07/25/2020 12:00:00 AM EST active Use as directed. Use as Directed [facility] Hydroxychloroquine Sulfate 200 MG Oral Tablet [Plaquenil] Pl aquenil 07/14/2020 12:00:00 AM EDT active M EDENT ([facility]) Naproxen 500 MG Oral Tablet Naproxen 07/14/2020 12:00:00 AM EDT ORAL active MED[facility] ([facility]) Ondansetron 4 MG Disintegrating Oral Tablet Ondansetron 07/14/2020 12:00:00 AM EDT active [facility] ([facility]) Benlysta 200 MG/ML Subcutaneous Solution Prefilled Syr alondra (belimumab) 37386-673-15 07/06/2020 12:00:00 AM EDT abort ed INJECT 1 SYRINGE UNDER THE SKIN EVERY 7 DAYS. [facility] [employer] [id number] 07/06/2020 12:00:00 AM EDT aborted Use as directed. One Touch Verio Device to be used as directed DX 11.65 [facility] Prazosin 1 MG Oral Capsule Prazosin HCl 1 MG Oral Caps ule (MINIPRESS) Prazosin HCl 1 MG Oral Capsule (MINIPRESS) 06/28/2020 12:00:00 AM EDT 1 mg Oral active Take 1 capsule by mouth nightly Discontinue clonidine [facility] Hydroxychloroquine Sulfate 200 MG Oral T ablet [Plaquenil] Plaquenil 200 MG Oral Tablet Plaquenil 200 MG Oral Tablet 06/21/2020 12:00:00 AM EDT 200 mg Oral active Systemic lupus erythematosus (SLE) in adult Take 1 tablet by mouth Two Times Daily [facility] Systemic lupus erythematosus (SLE) in ad ult 2 ML aripiprazole 200 MG/ML Prefilled Sy ringe [Abilify] Abilify Maintena 400 MG Intramuscular Prefilled Syringe (ARIPiprazole ER) Abilify Maintena 400 MG Intramuscular Prefilled Syringe (ARIPiprazole ER) 06/21/2020 12:00:00 AM EDT 400 mg Intramuscular active Inject 400 mg into the muscle once for 1 dose- continue oral abilify for 14 days, then discontinue [facility] OneTouch Verio In Vitro Strip (glucose blood) [id number] 06/19/2020 12:00:00 AM EDT active Type 2 sergio betes mellitus without complication, with long-term current use of insulin Test 3 times daily an d as needed. Dx code E11.9. [facility] Type 2 diabetes mellitus without complic ation, with long-term current use of insulin [place] 31G X 6 [place] [id number] 06/16/2020 12:00:00 AM EDT active Use as directed. For Lantus injection. [facility] [employer] [address]-6 05/08/2020 12:00:00 AM EDT active Use as directed. For needle disposal [facility] Prazosin 1 MG Oral Capsule Prazosin HCl 1 MG Oral Caps ule (MINIPRESS) Prazosin HCl 1 MG Oral Capsule (MINIPRESS) 05/08/2020 12:00:00 AM EDT 1 mg Oral aborted Take 1 capsule by mouth nightly Discontinue clonidine [facility] Glucose Blood In Vitro Strip (OneTouch Verio) 79645 12:00:00 AM EDT aborted Type 2 diabete s mellitus without complication, with long-term current use of insulin Test 3 times daily and as needed. Dx code E11.9. [facility] Type 2 diabetes mellitus without complic ation, with long-term current use of insulin aripiprazole 10 MG Oral Tablet ARIPiprazole 10 MG Oral Tablet (Abilify) ARIPiprazole 10 MG Oral Tablet (Abilify) 04/10/2020 12:00:00 AM EDT aborted Take 1 tablet by mary th daily x 3 days, then increase to 2 tablets daily [facility] Naproxen 500 MG Oral Tablet Naproxen 500 MG Oral Table t (NAPROSYN) Naproxen 500 MG Oral Tablet (NAPROSYN) 02/25/2020 12:00:00 AM EDT 500 mg Oral active Take 1 tablet by mouth Two times daily as needed Take with a meal [facility] Glucose Blood In Vitro Strip (OneTouch Verio) 75673 12:00:00 AM EDT active Type 2 diabete s mellitus without complication, with long-term current use of insulin Test 3 times daily and as needed. Dx code E11.9. [facility] Type 2 diabetes mellitus without complic ation, with long-term current use of insulin Hydroxychloroquine Sulfate 200 MG Oral T ablet hydroxychloroquine 200 mg tablet TAKE ONE TABLET BY MOUTH TWICE DAILY hydroxychloroquine 200 mg tablet TAKE ON E TABLET BY MOUTH TWICE DAILY completed hydroxychloroquine sulfate 200 MG Oral Tablet ALAN ([facility]) Benlysta 200 mg/mL subcutaneous auto-injector [id number] completed 1 ML belimumab 200 MG/ML Auto-Injector [Benlysta] [facility] ([facility]) Prazosin 1 MG Oral Capsule prazosin 1 mg capsule TAKE ONE CAPSULE BY MOUTH EVERY EVENING prazosin 1 mg capsule TAKE ONE CAPSULE BY MOUTH EVERY EVENING completed prazosin 1 MG Oral Capsul e ALAN ([facility]) Ondansetron 4 MG Oral Tablet ondansetron HCl 4 mg tablet TAKE 1 TABLET BY MOUTH EVERY 6 HOURS NEEDED FOR NAUSEA FOR 4 DATS. ondansetron HCl 4 mg tablet TAKE 1 TABLET BY MOUTH EVERY 6 HOURS NEEDED FOR NAUSEA FOR 4 DATS. completed ondansetron 4 MG Oral Tablet ATH EVER ([facility]) duloxetine 60 MG Delayed Release Oral Ca psule DULoxetine HCl 60 MG Oral Capsule Delayed Release Particles (CYMBALTA) DULoxetine HCl 60 MG Oral Capsule Delaye d Release Particles (CYMBALTA) 60 mg Oral aborted Take 60 mg by mouth daily [facility] Clonidine Hydrochloride 0.1 MG Oral Tabl et clonidine HCl 0.1 mg tablet TAKE 1/2 TO 1 TABLET BY MOUTH TWO TIMES A DAY NEEDED ANXIETY clonidine HCl 0.1 mg tablet TAKE 1/2 TO 1 TABLET BY MOUTH TWO TIMES A DAY NEEDED ANXIETY completed clonidine hydrochloride 0 .1 MG Oral Tablet ALAN ([facility]) duloxetine 20 MG Delayed Release Oral Ca psule duloxetine 20 mg capsule,delayed release TAKE ONE CAPSULE BY MOUTH EVERY DAY duloxetine 20 mg capsule,delayed release TAKE ONE CAPSULE BY MOUTH EVERY DAY completed duloxetine 20 MG Delayed Release Oral Capsule ALAN ([facility]) aripiprazole 10 MG Oral Tablet aripipraz ole 10 mg tablet TAKE 1 TABLET BY MOUTH DAILY FOR 3 DAYS THEN INCREASE TO 2 TABLETS DAILY aripiprazole 10 mg tablet TAKE 1 TABLET BY MOUTH DAILY FOR 3 DAYS THEN INCREASE TO 2 TABLETS DAILY completed aripiprazole 10 MG Oral Tabl et ALAN ([facility]) norethindrone (contraceptive) 0.35 mg ta blet TAKE ONE TABLET BY MOUTH ONCE DAILY [id number] completed norethind ashok (contraceptive) 0.35 mg tablet [facility] ([facility]) POLYETHYLENE GLYCOL 3350 142 MG/ML Oral Solution polyethylene glycol 3350 17 gram/dose oral powder USE DIRECTED FOR COLONOSCOPY PREP polyethylene glycol 3350 17 gram/dose oral powder USE DIRECTED FOR COLONOSCOPY PREP completed polyethylene glycol 3350 09842 M G Powder for Oral Solution [facility] ([facility]) Bisacodyl 5 MG Delayed Release Oral Tabl et bisacodyl 5 mg tablet,delayed release TAKE 4 TABLETS BY MOUTH PER BOWEL PREPARATION INSTRUCTIONS bisacodyl 5 mg tablet,delayed release TAKE 4 TABLETS BY MOUTH PER BOWEL PREPARATION INSTRUCTIONS completed b isacodyl 5 MG Delayed Release Oral Tablet [facility] ([facility]) desloratadine 5 MG Oral Tablet deslorata dine 5 mg tablet TAKE 1 TABLET BY MOUTH DAILY NEEDED desloratadine 5 mg tablet TAKE 1 TABLET BY MOUTH DAILY NEEDED completed desloratadine 5 MG Oral Tablet [facility] ([facility]) Prednisone 5 MG Oral Tablet prednisone 5 mg tablet TAKE 1 TABLET BY MOUTH EVERY DAY FOR 5 DAYS prednisone 5 mg tablet TAKE 1 TABLET BY MOUTH EVERY DAY FOR 5 DAYS completed prednisone 5 MG Oral Tablet [facility] ([facility]) Oseltamivir 75 MG Oral Capsule oseltamivir 75 mg capsu le oseltamivir 75 mg capsule completed oseltamivir 75 MG Oral Capsule [facility] ([facility]) duloxetine 30 MG Delayed Release Oral Ca psule duloxetine 30 mg capsule,delayed release TAKE ONE CAPSULE BY MOUTH EVERY DAY duloxetine 30 mg capsule,delayed release TAKE ONE CAPSULE BY MOUTH EVERY DAY completed duloxetine 30 MG Delayed Release Oral Capsule [facility] ([facility]) ipratropium bromide 0.03 % nasal spray I NSTILL TWO SPRAYS IN EACH NOSTRIL THREE TIMES DAILY NEEDED [id number] completed ipratropium bromide 0.021 MG/ACTUAT Metered Dose Nasal [place] [facility] ([facility]) cefdinir 300 MG Oral Capsule cefdinir 30 0 mg capsule TAKE 2 CAPSULES BY MOUTH ONCE A DAY cefdinir 300 mg capsule TAKE 2 CAPSULES BY MOUTH ONCE A DAY completed cefdinir 300 MG Oral Caps ule [facility] ([facility]) Insurance Providers Payer name Policy type / Coverage type Policy ID Covered green party ID Covered green party's relationship to bonds Policy Bonds Plan Information [employer] [id number] Self [id number] [employer] [id number] Self [id number] [employer] [id number] Self [id number] Medicaid S [id number] S [id number] Medicare S [id number] S [id number] Managed Care [facility] P [id number] S [id number] Medicaid O [id number] S [id number] Medicare [facility] Medicare Primary [id number] Self [id number] UHC UNITED MEDICARE COMPLETE G [id number] Self [id number] Medicare S [id number] S [id number] [id number] Medicare Wrap P [id number] S [id number] [facility] Secure Horizons P [id number] S [id number] Medicaid S [id number] S [id number] MEDICAID M [id number] Self [id number] Managed Care - MVP P [id number] S [id number] MVP I [id number] Self [id number] MVP [employer] [id number] Self [id number] Managed Care - MVP P [id number] S [id number] [employer] emp [id number] Employee [id number] MEDICAID M [id number] S [id number] [facility] [id number] S [id number] Self Pay P UNAVAILABLE S UNAVAILA BLE Self Pay P [id number] S [id number] Medicaid S [id number] Managed Care - MVP P [id number] S [id number] MVP SELECT CARE [id number] S [id number] MEDICAID [id number] S [id number] MEDICARE COMPLETE [id number] SP [id number] [facility] [id number] SP [id number] [facility] [id number] SP [id number] MEDICARE [id number] SP [id number] SELF PAY ONLY [id number] SP [id number] MEDICAID [id number] SP [id number] [facility] [id number] SP [id number] [place] MEDICARE [id number] S [id number] [facility] [id number] S [id number] [facility] CARE [id number] S [id number] Medicaid [place] Medigap Part B [id number] Self [id number] Medicaid [place] Mediflushing Part B [id number] Self [id number] Medicaid [facility] Part B [id number] Self [id number] [place] [id number] [facility] [id number] Managed Care - [facility] S [id number] S [id number] [facility] Health Maintenance Organization (HMO) [id number] Self [id number] [facility] [id number] SP [id number] [facility] P [id number] S [id number] MEDICARE COMPLETE [id number] SP [id number] [facility]INE [id number] S [id number] SELF PAY ONLY [id number] SP [id number] SELF PAY ONLY [id number] SP [id number] MEDICAID [id number] S [id number] MEDICARE COMPLETE-[facility] O [id number] S [id number] Problems, Conditions, and Diagnoses Code Display Name Description Problem Type Effective Dates Data Source(s) Z79.899 Other evaporator (current) drug therapy O ther evaporator (current) drug therapy Diagnosis 10/05/2020 12:04:53 PM [facility] R74.8 Abnormal levels of other serum enzymes A bnormal levels of other serum enzymes Diagnosis 10/05/2020 12:04:53 PM [facility] M32.9 Systemic lupus erythematosus, unspecifie d Systemic lupus erythematosus, unspecified Diagnosis 10/05/2020 12:04:53 PM [facility] R10.11 Right upper quadrant pain Right upper quadrant pain Di agnosis 08/31/2020 11:51:10 AM [facility] Z78.9 Other specified health status Other specified health s tatus Diagnosis 08/03/2020 10:30:32 AM [facility] F41.9 Anxiety disorder, unspecified Unspecified Anxiety Diso rder Condition 11/21/2020 12:00:00 AM EST [facility] ([facility]) F12.20 Cannabis dependence, uncomplicated Cannabis Use Disorder, Moderate Condition 11/21/2020 12:00:00 AM EST [facility] ([facility]) F32.9 Major depressive disorder, single episod e, unspecified Unspecified depressive Disorder Condition 11/21/2020 12:00:00 AM EST [facility] ([facility]) [id number] Type 2 diabetes mellitus Type 2 diabetes mellitus Prob sanaz 11/16/2020 12:00:00 AM EST [facility] ([facility] [id number] 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 Problem 11/16/2020 12:00:00 AM EST [facility] ([facility] [id number] Systemic lupus erythematosus Systemic lupus erythemato noris Problem 11/16/2020 12:00:00 AM EST [facility] ([facility] [id number] Uncomplicated moderate persistent asthma Uncomplicated moderate persistent asthma Problem 11/16/2020 12:00:00 AM EST [facility] ([facility] [id number] Type 1 diabetes mellitus Type 1 diabetes mellitus Prob sanaz 11/16/2020 12:00:00 AM EST [facility] ([facility] F12.20 Cannabis dependence, uncomplicated Cannabis Use Disorder, Moderate Condition 10/19/2020 12:00:00 AM EST [facility] ([facility]) F41.9 Anxiety disorder, unspecified Unspecified Anxiety Diso rder Condition 10/19/2020 12:00:00 AM EST [facility] ([facility]) F32.9 Major depressive disorder, single episod e, unspecified Unspecified depressive Disorder Condition 10/06/2020 12:00:00 AM EST [facility] ([facility]) F12.20 Cannabis dependence, uncomplicated Cannabis Use Disorder, Moderate Condition 10/06/2020 12:00:00 AM EST [facility] ([facility]) [id number] Acute maxillary sinusitis Acute Maxillary Sinusitis Pr oblem 12/10/2019 12:00:00 AM EDT - 10/02/2020 12:00:00 AM EST ALAN ([facility]) 99091164 Streptococcal sore throat Streptococcal Sore Throat Pr oblem 12/10/2019 12:00:00 AM EDT - 10/02/2020 12:00:00 AM GARRISON PHILLIPS ([facility]) [id number] Procedure by method Procedure by Method Problem 0 10/18/2019 12:00:00 AM EST - 10/02/2020 12:00:00 AM EST [facility] ([facility]) [id number] Pharyngeal finding Pharyngeal Finding Problem 12:00:00 AM EDT - 10/02/2020 12:00:00 AM EST [facility]AN ([facility]) [id number] Cough Cough Problem 01/12/2019 12:0 0:00 AM EDT - 10/02/2020 12:00:00 AM GARRISON ALAN ([facility]) [id number] Generalized enlarged lymph nodes Generalized Enl arged Lymph Nodes Problem 01/12/2019 12:00:00 AM EDT - 10/02/2020 12:00:00 AM TRAVIS PHILLIPS ([facility]) [id number] Furuncle of groin Furuncle of Groin Problem 09/07 12:00:00 AM EST - 10/02/2020 12:00:00 AM EST ALAN ([facility]) [id number] Clinical finding Clinical Finding Problem 018 12:00:00 AM EDT - 10/02/2020 12:00:00 AM EST ALAN ([facility]) Surgeries/Procedures Procedure Description Date Indications Data Source(s) Brief Individual Psychotherapy - 30 min 11/21/2020 12:00:00 AM EST - 11/21/2020 12:00:00 AM EST [facility] ([facility]) Brief Individual Psychotherapy - 30 min 11/21/2020 12: 00:00 AM EST [facility] ([facility]) Brief Emotional/Behav Assessment W/ Scoring Doc Per Standard Inst 11/13/2020 12:00:00 AM EST [facility] ([facility] Extended Individual Psychotherapy - 45 min 11/13/2020 12:00:00 AM EST - 11/13/2020 12:00:00 AM EST [facility] ([facility]) Extended Individual Psychotherapy - 45 min 12:00:00 AM EST [facility] ([facility]) Medical Nutrition Therapy Assmnt Interv Face To Face 15 Min 10/30/2020 12:00:00 AM EST [facility] ([facility]) Extended Individual Psychotherapy - 45 min 10/19/2020 12:00:00 AM EST - 10/19/2020 12:00:00 AM EST [facility] ([facility]) Extended Individual Psychotherapy - 45 min 12:00:00 AM EST [facility] ([facility]) Psychiatric Diagnostic Evaluation (Non-Medical) 10/06/2020 12:00:00 AM EST - 10/06/2020 12:00:00 AM EST [facility] ([facility]) Psychiatric Diagnostic Evaluation (Non-Medical) 2020 12:00:00 AM EST [facility] ([facility]) Psychiatric Diagnostic Evaluation (Non-Medical) 10/05/2020 12:00:00 AM EST - 10/05/2020 12:00:00 AM EST [facility] ([facility]) Psychiatric Diagnostic Evaluation (Non-Medical) 2020 12:00:00 AM EST [facility] ([facility]) Extended Individual Psychotherapy - 45 min 09/27/2020 12:00:00 AM EST - 09/27/2020 12:00:00 AM EST [facility] ([facility]) Extended Individual Psychotherapy - 45 min 12:00:00 AM EST [facility] ([facility]) IRON <td>TOTAL FE BINDING CAPACIT Y</td><td>Routine</td><td>08/31/2020 11:48 AM EST</td><td></td><td> </td> 08/31/2020 11:48:00 AM [facility] CREATININE BLOOD <td>CREATININE WITH GFR</td> <td>Routine</td><td>08/31/2020 11:48 AM EST</td><td></td><td> </td> 08/31/2020 11:48:00 AM [facility] UREA NITROGEN QUANTITATIVE <td>BUN</td><td>Routine</td ><td>08/31/2020 11:48 AM EST</td><td></td><td> </td> 08/31/2020 11:48:00 AM [facility] HEPATIC FUNCTION PANEL <td>HEPATIC FUNCTION PANEL A</td><td>Routine</td><td>08/31/2020 11:48 AM EST</td><td></td><td> </td> 08/31/2020 11:48:00 AM [facility] SEDIMENTATION RATE RBC AUTOMATED <td>SEDIMENTATION RAT E, AUTOMATED</td><td>Routine</td><td>08/31/2020 11:24 AM EST</td><td> SLE (systemic lupus erythematosus related syndrome)</td><td> </td> 08/31/2020 11:24:00 AM EST SLE (systemic lupus erythematosus related syndrome) [facility] SLE (systemic lupus erythematosus relate d syndrome) C-REACTIVE PROTEIN HIGH SENSITIVITY <td>CARDIAC HIGH S ENSITIVE C-REACTIVE PROTEIN (HS-CRP)</td><td>Routine</td><td>08/31/2020 11:24 AM EST</td><td> SLE (systemic lupus erythematosus related syndrome)</td><td> </td> 08/31/2020 11:24:00 AM EST SLE (systemic lupus erythematosus related syndrome) [facility] SLE (systemic lupus erythematosus relate d syndrome) GLUTAMYLTRASE GAMMA <td>GAMMA GT</td><td>Routine </td><td>08/31/2020 11:24 AM EST</td><td> SLE (systemic lupus erythematosus related syndrome)</td><td> </td> 08/31/2020 11:24:00 AM EST SLE (systemic lupus erythematosus related syndrome) [facility] SLE (systemic lupus erythematosus relate d syndrome) COMPREHENSIVE METABOLIC PANEL <td>COMPREHENSIVE METABO LIC PANEL</td><td>Routine</td><td>08/31/2020 11:24 AM EST</td><td> SLE (systemic lupus erythematosus related syndrome)</td><td> </td> 08/31/2020 11:24:00 AM EST SLE (systemic lupus erythematosus related syndrome) [facility] SLE (systemic lupus erythematosus relate d syndrome) HEPATITIS C ANTIBODY <td>HEPATITIS C ANTIBODY</td ><td>Routine</td><td>08/03/2020 11:20 AM EST</td><td> Systemic lupus erythematosus (SLE) in adult</td><td> </td> 08/03/2020 11:20:00 AM EST Systemic lupus erythematosus (SLE) in adult [facility] Systemic lupus erythematosus (SLE) in ad ult HEPATITIS B SURF ANTIBODY HBSAB <td>HEPATITIS B SURFAC E ANTIBODY</td><td>Routine</td><td>08/03/2020 11:20 AM EST</td><td> Systemic lupus erythematosus (SLE) in adult</td><td> </td> 08/03/2020 11:20:00 AM EST Systemic lupus erythematosus (SLE) in adult [facility] Systemic lupus erythematosus (SLE) in ad ult [facility]IA HEPATITIS B SURFACE ANTIGEN <td>HEPATITIS B S URFACE ANTIGEN</td><td>Routine</td><td>08/03/2020 11:20 AM EST</td><td> Systemic lupus erythematosus (SLE) in adult</td><td> </td> 08/03/2020 11:20:00 AM EST Systemic lupus erythematosus (SLE) in adult [facility] Systemic lupus erythematosus (SLE) in ad ult SEDIMENTATION RATE RBC AUTOMATED <td>SEDIMENTATION RAT E, AUTOMATED</td><td>Routine</td><td>08/03/2020 11:20 AM EST</td><td> Systemic lupus erythematosus (SLE) in adult</td><td> </td> 08/03/2020 11:20:00 AM EST Systemic lupus erythematosus (SLE) in adult [facility] Systemic lupus erythematosus (SLE) in ad ult BLOOD COUNT COMPLETE AUTO&AUTO DIFRNTL WBC COUNT <td>C BC AND DIFFERENTIAL</td><td>Routine</td><td>08/03/2020 11:20 AM EST</td><td> Systemic lupus erythematosus (SLE) in adult</td><td> </td> 08/03/2020 11:20:00 AM EST Systemic lupus erythematosus (SLE) in adult [facility] Systemic lupus erythematosus (SLE) in ad ult COMPLEMENT ANTIGEN EACH COMPONENT <td>C3 COMPLEMENT</td><td>Routine</td><td>08/03/2020 11:20 AM EST</td><td> Systemic lupus erythematosus (SLE) in adult</td><td> </td> 08/03/2020 11:20:00 AM EST Systemic lupus erythematosus (SLE) in adult [facility] Systemic lupus erythematosus (SLE) in ad ult COMPLEMENT ANTIGEN EACH COMPONENT <td>C4 COMPLEMENT</td><td>Routine</td><td>08/03/2020 11:20 AM EST</td><td> Systemic lupus erythematosus (SLE) in adult</td><td> </td> 08/03/2020 11:20:00 AM EST Systemic lupus erythematosus (SLE) in adult [facility] Systemic lupus erythematosus (SLE) in ad ult C-REACTIVE PROTEIN <td>INFLAMMATORY C-REACTIVE PROTEIN (CRP)</td><td>Routine</td><td>08/03/2020 11:20 AM EST</td><td> Systemic lupus erythematosus (SLE) in adult</td><td> </td> 08/03/2020 11:20:00 AM EST Systemic lupus erythematosus (SLE) in adult [facility] Systemic lupus erythematosus (SLE) in ad ult COMPREHENSIVE METABOLIC PANEL <td>COMPREHENSIVE METABO LIC PANEL</td><td>Routine</td><td>08/03/2020 11:20 AM EST</td><td> Systemic lupus erythematosus (SLE) in adult</td><td> </td> 08/03/2020 11:20:00 AM EST Systemic lupus erythematosus (SLE) in adult [facility] Systemic lupus erythematosus (SLE) in ad ult Results ID Date Data Source [id number] 10/24/2020 11:52:00 AM EST [facility] ([facility]) Name Value Range Interpretation Code Description Data Radha rce(s) Supporting Document(s) Thyrotropin [Units/volume] in Serum or Plasma 2.169 mIU/ml 0.350-5.50 0 [facility] ([facility]) [facility] Specimen Received Date: 10/30/20 00:00 [facility] Result Report Date: 10/31/20 08:15 Please add to blood work a c-peptide level and a JARROD-65 antibody NOTE-CCP IgG ordered in error-will call [facility] to ask to credit account Hemoglobin A1c/Hemoglobin.total in Blood 10.4 % 3.6-6.9 Above high normal [facility] ([facility]) <content>Hgb A1c Interpretation:</conten t>
<content><5.8% - Non- diabetic</content>
<content>>6.5% - Diabetic</content>
<content><7.0% - ADA diabetic treatment goal</content>
<content></content> Thyroxine (T4) free [Mass/volume] in Serum or Plasma 1.01 ng/dL 0.89- 1.80 [facility] ([facility]) [facility] Specimen Received Date: 10/30/20 00:00 [facility] Result Report Date: 10/31/20 08:15 Please add to blood work a c-peptide level and a JARROD-65 antibody NOTE-CCP IgG ordered in error-will call [facility] to ask to credit account Glutamate decarboxylase 65 Ab [Units/volume] in Serum Laboratory test result [facility] ([facility]) This test was performed using the GAD65 CHRISTIAN method, which is standardized against the International reference preparation 97/550. C peptide [Moles/volume] in Serum or Plasma 3.5 ng/mL 1.1-4.4 [facility] ([facility]) C-Peptide reference interval is for fast ing patients. Cyclic citrullinated peptide IgG Ab [Units/volume] in Serum or Plasma Laboratory test result [facility] <content>Reference Range</content>
< content>Negative: <20</content>
<content>Weak Positive: 20- 39</content>
<content>Moderate Positive: 40-59</content>
<content> Strong Positive: >59</content>
<content></content> Laboratory comment [Text] in Report Narrative Laboratory test result [facility] ([facility]) The date recorded on the requisition ind icates the sample(s) received were greater than 72 hours old upon arrival in our laboratory. Glucose mean value [Mass/volume] in Blood Estimated fr om glycated hemoglobin 252 mg/dL [facility] ([facility]) The Estimated Average Glucose is a calcu lation of the average glucose over the last 120 days including non-fasting as well as fasting levels. Venipuncture Laboratory test result [facility] ([facility]) [facility] Specimen Received Date: 10/30/20 00:00 [facility] Result Report Date: 10/31/20 08:15 Please add to blood work a c-peptide level and a JARROD-65 antibody NOTE-CCP IgG ordered in error-will call [facility] to ask to credit account ID Date Data Source [id number] 10/24/2020 11:52:00 AM EST [facility] Name Value Range Interpretation Code Description Data Radha rce(s) Supporting Document(s) Glucose [Mass/volume] in Serum or Plasma 246 mg/dL 74-106 Above high normal [facility] ([facility]) [place] [employer] (ADA) Recommended Range is 65-99 mg/dL Creatinine [Mass/volume] in Serum or Plasma 0.7 mg/dL 0.5-1.3 [facility] ([facility]) Urea nitrogen [Moles/volume] in Serum or Plasma 14 mg/dL 6-20 [facility] ([facility]) Sodium [Moles/volume] in Serum or Plasma 136 mmol/L 136-145 [facility] ([facility]) Potassium [Moles/volume] in Serum or Plasma 4.7 mmol/L 3.5-5.3 [facility] ([facility]) Chloride [Moles/volume] in Serum or Plasma 101 mmol/L 98-107 [facility] ([facility]) Carbon dioxide, total [Moles/volume] in Serum or Plasma 25 meq/L 20 -31 [facility] ([facility]) Anion Gap 10 mmol/L 7-16 [facility] ([facility]) eGFR-Aa female 127 mL/m/1.73m [facility] ([facility]) <content>Normal Kidney Function or Mild Disease GFR >59 mL/min/1.73m2</content>
<content>Chronic Kidney Disease GFR 15-59 mL/min/1.73m2</content>
<content>Renal Failure GFR <15 mL/min/1.73m2</content>
<content></content> eGFR-female 105 mL/m/1.73m [facility] ([facility]) Aspartate aminotransferase [Enzymatic activity/volume] in Serum or Plasma 135 U/L 8-33 Above high normal [facility] ([facility]) Alanine aminotransferase [Enzymatic activity/volume] in Seru m or Plasma 112 U/L 4-36 Above high normal [facility] ([facility]) Effective 03/22/2017: [facility] has indicated interference with the drugs sulfasalazine and sulfapyridine. They suggest collection should occur prior to drug administration due to falsely depressed results. Alkaline phosphatase [Enzymatic activity/volume] in Serum or Plasma 72 U/L 46-116 [facility] ([facility]) Bilirubin.total [Mass/volume] in Serum or Plasma 0.3 mg/dL 0.3-1.2 [facility] ([facility]) Protein [Mass/volume] in Serum or Plasma 7.4 g/dL 6.4-8.3 [facility] ([facility]) Results may reflect a potential interfer ence in Total Protein results in patients receiving dextran as blood volume expanders. Globulin [Mass/volume] in Serum by calculation 2.5 g/dL 1.9-3.7 [facility] ([facility]) Albumin [Mass/volume] in Serum or Plasma 4.9 g/dL 3.6-5.1 [facility] ([facility]) Albumin/Globulin [Mass Ratio] in Serum or Plasma 2.0 Ratio 1.0-2.0 [facility] ([facility]) Calcium [Mass/volume] in Serum or Plasma 9.8 mg/dL 8.9-10.5 [facility] ([facility]) ID Date Data Source [id number] 10/28/2020 09:46:00 PM EST [facility] Received: 10/25/2020 at 03:27:00 AMD : [facility], [address], [place], [address], Josh Roberts M.D.,PhD Received: 10/25/2020 at 03:27:00 QPT : [facility], [address], [address] [place], [address], Alon Rincon MD Name Value Range Interpretation Code Description Data Radha rce(s) Supporting Document(s) Glutamate decarboxylase 65 Ab [Units/volume] in Serum by Immunoassay <5 [facility] This test was performed using the GAD65 CHRISTIAN method,which is standardized against the Internationalreference preparation 97/550. ID Date Data Source [id number] 10/28/2020 09:46:00 PM EST [facility] Received: 10/25/2020 at 03:27:00 AMD : [employer], [address] , [place], [address], Josh Roberts M.D.,PhD Received: 10/25/2020 at 03:27:00 QPT : [facility], [address], [address] [place], [address], Alon Rincon MD Name Value Range Interpretation Code Description Data Radha rce(s) Supporting Document(s) Cyclic citrullinated peptide IgG Ab [Units/volume] in Serum or P lasma Normal (applies to non-numeric results) [facility] Reference RangeNegative: <20W eak Positive: 20-39Moderate Positive: 40-59Strong Positive: >59 ID Date Data Source [id number] 10/09/2020 04:41:18 PM EST [facility] Name Value Range Interpretation Code Description Data Radha rce(s) Supporting Document(s) Progress Note [facility] YELCUv9xQzGXSrXr60/RPDqhDWKyb0YcFBifJGa1RXcdXGRqJ8UpBER3aW3kJYX3TAiPTdGmRtBnTGC8 lbm [file] Vo6Zx1UedaI0voTpUKwrCSR2Ts9DPUTCL0HQLw== ID Date Data Source [id number] 10/05/2020 03:27:57 PM [facility] Name Value Range Interpretation Code Description Data Radha rce(s) Supporting Document(s) Progress Note [facility] QOYJGb3fXtPELqXa77/RDYdqJNDpo4TlRUypQQd6CIjpVTZeM8DvMND3cI9qHBW5MHpJGbZvEtFpJNU4 lbm [file] AgICAgICAgICAgICAgICAgICAgICAgICAgICAgICAgICAgICAgICAgICAgICAgICAgICAgICAgICAgIC MpNCZmMLJaUCPdJTCpLGCgWAUcRWJnMQAlXSQtKZFcLP8FCOIiBFLfJPQlECMpAAWtFJReDVHoWTCsDR AgICAgICAgICAgICAgICAgICAgICAgICAgICAgICAg TFZhWAUpYTLhYMPvHJNpURHuSLLvJCKxNOSrKVNuUJMxTLJnKUQuEHYtGD3BWIJdNZSeXUMeMQJzXXLq ICAgICAgICAgICAgICAgICAgICAgICAgICAgICAgICAgICAgICAgICAgICAgICAgICAgICAgICAgICAg NUQmDQKfOAYgXUIyMPRjIVJuBHKcFLEjYY0EGARuZO AgICAgICAgICAgICAgICAgICAgICAgICAgICAgICAgICAgICAgICAgICAgICAgICAgICAgICAgICAgIC TwIFHiLSWcIIJmFQJeGHGrOKUbZYSdKTElJBVoXTEtVJCqBW7YTOZzDEPvVPNzKZOyGWLxQXIqSVNgPY AgICAgICAgICAgICAgICAgICAgICAgICAgICAgICAg LTUxAAOzQODjQAHzIKMeNGAgDAZvKLCeMJCyLYCrUCDsKMSzRZFdOPUfUMTgTS1MDGNpMSXkZIKjJQHc ICAgICAgICAgICAgICAgICAgICAgICAgICAgICAgICAgICAgICAgICAgICAgICAgICAgICAgICAgICAg KGIxNNRcWZWpIMVtSNFyNZVuFNOfIYFuSJFtDT6TZU AgICAgICAgICAgICAgICAgICAgICAgICAgICAgICAgICAgICAgICAgICAgICAgICAgICAgICAgICAgIC OnXDFhSBWwIFXhYJOaFKAcSGSlMGKdGIJlAIUaONNvOSFmBVIsST1JZSXuHCZaOJEqVWUhHQCgDUVjVJ AgICAgICAgICAgICAgICAgICAgICAgICAgICAgICAg WHOhGSUkVNCjVIDsHNCnSSMzHZAoTZAcGTLcYVJsIWTjQXJhZRKjESHoWBErDLXkKC4MAITmJNCkDHRt ICAgICAgICAgICAgICAgICAgICAgICAgICAgICAgICAgICAgICAgICAgICAgICAgICAgICAgICAgICAg ICAgICAgICAgICAgICAgICAgICAgICAgICAgICAgIA 0KICAgICAgICAgICAgICAgICAgICAgICAgICAgICAgICAgICAgICAgICAgICAgICAgICAgICAgICAgIC HqJEUdFVGiLKQgYYZrPRTrPSTyHZDoTMUcONWnIRRtBKZoZPWfQUSlLR3VLZ32bIMxg3I4OAKoHW7siq c/Un1ENAcepwPkvQKnQI3ZAfTmKH8cml5YGxOyRD2f bc7ALOcWEpJpU9R4cYDyYRMjYXFEGvTbO92uQKgdWa52QLzoRWCkEiHhEJx2Fj6WTzPpI0clUTDmYwN2 JNFcXtFsJQkrJT7Eh5EziYYqVPy+Gv7XZH4zt6HxQMxwMECnOU5xca2HXTsTFzBsY3LcquN4ZPVmLESd Wd0VAKWuMBOilQHjGHCsZXKATrYkU8DcaM25NPDRBp 4+WRtcvfOrDcbONdUyDRHbp3ApFCn7TR9YYCQyFFi9rTOaSGRjR3Oym5VgYk72UMXaDnbyGC2xujZqVG PzvdutJC9QRXO8WUSsVFExAaJnWKMeMdbuVUKNTBkNNbCnF7Tmf7MpSpH0URMfEuRcUSisNDIdVrM9XF 14uSqcWP7WQWBoCHQcPK97AFP6STQaVr7JQx0QAoFr NT0ter3ARwAeWTRqEnyQJew1ITvuJS7IvTAsA3JrfGQtl3nGHeEhY5HVLCX6XUQnEn7WZOTtRnEjYFIs EOquLD5xTNThHZXFcUxykoI5SQ3NKI0dixBpTO7BPwNtPb1tXq8JMzOkP6MtV6BwBWTwXRUVPSatON1D WYwiZF1wEV9Oo1HQrWNytX8onm1ACAUqLDGkCcsciz 7BOcvqE5D9cBkzFNDqLHekPVXCRGasLG9NFEBsSBE2RVAcKLHrQLKDVaHsM23wRL8KG5Ahu96qXgM5AZ XiQbHnIOmvBN97oJujbmHlaSUnfTuqAW0QFa7+DQplbmRvYmoNCnhyZWYNCjAgMjINCjAwMDAwMDAwMD ItAqN8YgXcPp5EKEPwYSFhYIIuZrLwVHEcJTWfZRrr GGQsVIG6LHVoSSYmAGRcPO7FVjErZGJjCDf7TWCjJPQxIGXcfs2RWEQdRDOsUJL5TsZgXJMvHVJrAQmj EEEbDKAqMYr6XCKwBPLrNJ1CExSsTOSdMYWjTVVtZZZxVXWdeq4SEEAwYDCsVeC0VFMdBZMxMQTsBFcl KYHrIBGkBeH4ZCTkAMZgWI7CHjHsGLQgWVN7TuypOM MmRBWnsq7FHCOwVXEfADI2OKOyVWOxSPPiEJffTDHrANQ9VOr5IGUjGODwMX7YSeLuWTSeMDU0DwVcXH InJJPkie4KUVNvVHVhRhNhEHGaHJUxVLFkPDfmOTMyBMG8YTK0PKTeNJQrKP7RFaAvDUYbOBU7UUWwTC StNGMpbp8QSGXvGQZaUgl0ROBcJNIjOPSqHMmoMKFl HVE5YHJmQCRwDUMwCD4RJoFxEJInLQm0CMMiVXBbYONvoa2TQZDlWGSoRZk5XKCpZQCvEITuERloSSIq RLJ5NPK7JLGgHIWdPK7VTbGuDVPxTCpwBRLbUWLeNVDcwc7UsYOilKsmnt8QQDfCOg6LvDgjDBTjIQcv Nh5qyCCjUSDwJUOVDw9YtoZuDYHxXWTYFTwdAYNeXW R1RmPjTjRbBCLlPJGrIwHpFoayEGImUPAtQaIiUYx3OkY4LEjvUTBeZkCqEbT1SiO9LpXyU3M4PRG7Lg DdCkT9WwG+EP8tIEz+Xa8Nb6ZdpoD4avZkOFhoEKMrQS0RBYMCH2YIOg== ID Date Data Source [id number] 10/05/2020 03:27:52 PM [facility] Name Value Range Interpretation Code Description Data Radha rce(s) Supporting Document(s) Progress Note [facility] MHRWCq4yXgEWUlIh93/JRQdfXKMut6ThDRipJIz2VFfxLHZdB9QyXZT0mQ6sHWB7UEvFKaSgPhSpPJM7 lbm [file] AgICAgICAgICAgICAgICAgICAgICAgICAgICAgICAgICAgICAgICAgICAgICAgICAgICAgICAgICAgIC AgICAgICAgICAgICAgICAgICAgICAgICAgICAgDQogICAgICAgICAgICAgICAgICAgICAgICAgICAgIC AgICAgICAgICAgICAgICAgICAgICAgICAgICAgICAg ICAgICAgICAgICAgICAgICAgICAgICAgICAgICAgICAgICAgICAgDQogICAgICAgICAgICAgICAgICAg ICAgICAgICAgICAgICAgICAgICAgICAgICAgICAgICAgICAgICAgICAgICAgICAgICAgICAgICAgICAg ICAgICAgICAgICAgICAgICAgICAgDQogICAgICAgIC AgICAgICAgICAgICAgICAgICAgICAgICAgICAgICAgICAgICAgICAgICAgICAgICAgICAgICAgICAgIC AgICAgICAgICAgICAgICAgICAgICAgICAgICAgICAgDQogICAgICAgICAgICAgICAgICAgICAgICAgIC AgICAgICAgICAgICAgICAgICAgICAgICAgICAgICAg ICAgICAgICAgICAgICAgICAgICAgICAgICAgICAgICAgICAgICAgICAgDQogICAgICAgICAgICAgICAg ICAgICAgICAgICAgICAgICAgICAgICAgICAgICAgICAgICAgICAgICAgICAgICAgICAgICAgICAgICAg ICAgICAgICAgICAgICAgICAgICAgICAgDQogICAgIC AgICAgICAgICAgICAgICAgICAgICAgICAgICAgICAgICAgICAgICAgICAgICAgICAgICAgICAgICAgIC AgICAgICAgICAgICAgICAgICAgICAgICAgICAgICAgICAgDQogICAgICAgICAgICAgICAgICAgICAgIC AgICAgICAgICAgICAgICAgICAgICAgICAgICAgICAg ICAgICAgICAgICAgICAgICAgICAgICAgICAgICAgICAgICAgICAgICAgICAgDQogICAgICAgICAgICAg ICAgICAgICAgICAgICAgICAgICAgICAgICAgICAgICAgICAgICAgICAgICAgICAgICAgICAgICAgICAg ICAgICAgICAgICAgICAgICAgICAgICAgICAgDQogIC AgICAgICAgICAgICAgICAgICAgICAgICAgICAgICAgICAgICAgICAgICAgICAgICAgICAgICAgICAgIC LtHUAkGTGnWJLeMVLdWIBgBOIkZPVjBRRpAUFeISOxAJEtNVYtPLq2W0zqWSIpZTZoRL8uPVf9Pk6+DQ kIDeDrCAI3jkHzaN1ELF7mb1ArQGbyZRHtl6TqYMw8 HF0VRNHwZSpkPE0LXIsjgb0AXSVvKINllAXIz7kdFeQmJBX6YITnHnonFW9RQLPnK0ppyyWuXBPhGRLB CLilHODLZQubAFZNPGXlBLStTfNrAuKrJKScEENjHINRTZ6ZNzKjW6QjuW08SOYIPl8+DQplbmRvYmoN CdCmYEIpm7QsWQk9LB2EQBLpKjwpi5NaOxWdOWTBRM dtMF6KODN0WETeLHFkHp3RLSLtD864odWnCM8QBm6ODxSwWP8ltl9TOoLsAQTtYriQIcb7YRsvWM1XzM KjSEwYnu8rweGqiiZWp4OioiGbbHHKJPFfoLEkFYgqatFOvNAorcX2RE7rQU4KUlIxOUViVE2iQH1jSG UaSCJxXiAoBFACZS0BIJKzPDBkyXYdPJWjOBCTRF2F NDcfGOV9OMXzcrGdtNTdLErfPV6QNWYyquDhQfLgNMGXZBm+Yy7UEA3xg7LiTAilUJPrNS4ili8KVZoT HsDbV4Q3kKDmN8L7LAsfEs8VVQNiJPYxDsLpGSDUXZtiQV8PKW2traB9TM1XgXQmIRZsOARzsKCiZBh0 I16ftKSeXHaxRR5VCCR+Lit+Wx2AQEItPXUqQJBfWf TiZEKGPiMvT5XiU3WLz0GiY6ZlDS97rEsgpdDwMRuhKT8XGR5hDOZmELNJOA8CsZLrzE6rorKmKdVcVT XBAyDaP69ojNZjLYSwDINwFTRrVi8MFEUyW1BjcdVceOanjnBwYUSjBWLPIW7JZQncodYdsLVvtClwVS 18iNovZJ3VYn8VYgLnVY9yfd2NgQYbXn6PFSJfLO1Z AEOgPZVyPCLkGLR1MCFoBrIrTMwcAYNnFWAvRQN5MNLdTAQoKX8QTeDeTRDpBzO8FoXcQOLkDILoir7D IFVxENYdSAJ5ONYnQXTeOXItVOciNVYaKZJbKLL2BTUgKCBqQR6DFaIdISYbLSAjBhygCGFxOSNymm1T BFLcIXKaSYQ0VbIwWAErHEGnLPrrZJXdOOZ1CmV7TO JlIZCxEM9DEdWzHTWbYZE0ODkcAVXdAXJbik8XIFZdYVJjGLq1LNYkSOJpRCLjQGlsBBKjHRE5BAA1WA MkPRZaMO8MMoOvLXXnIRYzKTKzOAIqBZMuwa0FOYQbIPSbFfB9ISBkSKDwUBEuGAeyJAKxKPM3Wkv3JY SmMKMvZX4IXyIwZSKbMEI5LLJoTQPoYQHzrc3DKECp XNBkDRt0TsSrTHMjQGGlJZufNAMeLRYeOYYuCFEqSLNcRA3NQzZcGHKaOrIeFACaWQCwEOWzes1RTPNz FNOrAKEqXCDvLHUjMLJeNUugUIAqRFSsQkqpFUBiJUGfYG9HYmWoYWSrTuAbQIOlNHJqNLTaos1CMQYk ZMLlPeG7UnLiFYNfGHEpNXtxEVLeBSZjAvByTUMqAW ThXN1ESoDdBTGxXoRcXtQjRBEePQJdqz3UFQNpFJXfEOA1KsOrVARcNUXhOTibYSTrTUT6GoQ3AFBvJI EpZN5SCiDaZWZrTvC6TDZhLSSbZOAqcu1EUYDfGSOwOQWfFPYeBDVdHSYhUDyoWQAdVLB0LHL7YXYkRC JbYP7ITbTdLENqXcBiTaMoUOXfMMUjpr3VHEJcZFPe VqYzVCXeCFXyWVDiDLvbIRYdMIQ8FAT5QPBvQVLbJF3FCoLjBRKuTsknQBukJPObLWEzob9XWGBpMEQh TRN5BCTnJNGrTEBvFBfwRBIcIKT4HSL9QSThGFViCM1ZMqKvATmpXKJKHnf6YYwdR0j6WAQmRX2TG8Mg o7BuVsJrVKDTYOvzWF6fljGyKQPiMt8DS3hKRhz4RD LwBMQ4IJJrRwThW7F6FREvElPcBQHjOsomTlq2Ie6qEXboKIDeIofrDzWpLpCfTPx4X6NkIzX8VHH2Rc FdWKTaEgMgZY1ZJq8CQcP5IVI2xSChKp7IChx0ZcMAAtZcPU4YYQu= ID Date Data Source [id number] 10/05/2020 03:39:10 PM [facility] Name Value Range Interpretation Code Description Data Radha rce(s) Supporting Document(s) Erythrocyte sedimentation rate 8 mm/hr <20 [facility] ID Date Data Source [id number] 10/05/2020 03:57:23 PM [facility] Value Range Interpretation Code Description Data Radha rce(s) Supporting Document(s) C reactive protein [Mass/volume] in Serum or Plasma 3.8 mg/L <8.0 [facility] ID Date Data Source [id number] 10/05/2020 03:57:23 PM [facility] Value Range Interpretation Code Description Data Radha rce(s) Supporting Document(s) Albumin [Mass/volume] in Serum or Plasma by Bromocresol green (BCG) dye binding method 4[facility]0 [facility] Bil[facility].total [Mass/volume] in Serum or Plasma 0.4 mg/dL <1.2 [facility] Calcium [Mass/volume] in Serum or Plasma 8.9 mg/dL 8.6-10.0 [facility] Chloride [Moles/volume] in Serum or Plasma 102 mmol/L 98-107 [facility] Creatinine [Mass/volume] in Serum or Plasma 0.59 mg/dL 0.50-0.90 [facility] Glucose [Mass/volume] in Serum or Plasma 266 mg/dL 70-140 [facility] Alkaline phosphatase [Enzymatic activity/volume] in Serum or Plasma 68 U/L 35-104 [facility] Potassium [Moles/volume] in Serum or Plasma 3.9 mmol/L 3.4-5.1 [facility] Protein [Mass/volume] in Serum or Plasma 7.2 g/dL 6.4-8.3 [facility] Sodium [Moles/volume] in Serum or Plasma 136 mmol/L 136-145 [facility] Aspartate aminotransferase [Enzymatic activity/volume] in Serum or Plasma 84 U/L <32 [facility] Urea nitrogen [Mass/volume] in Serum or Plasma 7 mg/dL 6-20 [facility] Osmolality of Serum or Plasma by calculation 290 mosm/kg 275-300 [facility] Creatinine/Urea nitrogen [Mass Ratio] in Serum or Plasma 12 [facility] Bicarbonate [Moles/volume] in Serum 22 mmol/L 22-29 [facility] Alanine aminotransferase [Enzymatic activity/volume] in Seru m or Plasma 122 U/L <33 [facility] Anion gap 3 in Serum or Plasma 12 mmol/L 8-15 [facility] Glomerular filtration rate/1.73 sq M pre dicted among non-blacks [Volume Rate/Area] in Serum or Plasma by Creatinine-based formula (MDRD) >6 0 [facility] Glomerular filtration rate/1.73 sq M pre dicted among blacks [Volume Rate/Area] in Serum or Plasma by Creatinine-based formula (MDRD) >60 [facility] ID Date Data Source [id number] 10/04/2020 10:00:00 AM EST [facility] Name Value Range Interpretation Code Description Data Radha rce(s) Supporting Document(s) SARS coronavirus 2 RNA Not Detected [facility] [place] This lab was ordered by [facility] and reported by [facility]. ID Date Data Source [id number] 09/27/2020 04:06:40 PM EST [facility] Name Value Range Interpretation Code Description Data Radha rce(s) Supporting Document(s) Progress Note [facility] VLMYYv4hTrVKMcWi78/DCZalXBSgk3MeEIdqSRd7XZppCWWtQ5McINP1sK0cJWP0VDgSZlRiSoEiEXW6 lbm UoJlvIOxPhJYXjVlhEVaNpWAkhJjkkdGKoBL5LpIO8KRFuA31bQKFgBKTaI6FsQKCkQct+Ug4MAHMhmK OmYL2OEbwK4V9ye8uWNF5c3B3BmKZZHYAcIEtcRROoaj7UuO4qjjGf6lGVnCnHVLvpFQe/BR3sEF4pyD d7emPEam3M3kD9ZHwfqitnrR93P0NA/Nr5tRc4zw9y 8/2Ub7nobYgA871/zhpsyTrr3pZK7kX6mEqPIRDvFB+5fq3ZBfhS+07vA4UljP1lLb+pZVIz2lcWeSW+ s/c/WWf/qQrcfjRLstSWP5xVVfaT6dvrPwxprERzMjIi5hHpGYj4eSMT3YXa2FXNo5IGQHIkMn+6bh1B GK0xMk1NoOWw6AEbi2/HLD1UYPLpJwdyKKlyk8/PCC LG7I+Za5aKiLvoDbPJUiigY4GudfZUG/2Uw6/OrA+dBt7lN86HoIfYjdeocuuaC3HXaV9IwEDlQlIfmQ CTaA7zfYfhPs8Q2zJ78P8GmvHrD+O5zU19r4cQCFou6EBJpUdpIRYOsRmWIaTFgDwu8Ytw7F+K6HNRJZ tyJ5OvnVRNIxjHj+HzktWd6ekMiZP/WNnH4Dbkqxwq t2slOYL94+kjKFBOV30Xnnqv7LVP59ho11XaxFuYF0J3iHNJ3/GtcdXRyVqXvZ1Ag5udEUf7AI+IouVk jd1yXk9jRlwyIuO+tO/MoGw4XopEa5bc1d6DcAZemy4Hg5xAgGLbpfeQwGKPYsIovfemhchVSicZEGPr v5LRUfzxmkZf+N/GLb7rEn+7pe3m4y3YmMbHgBZjBD ftXTZzr37RyyHid4iIm562RZ7YnSqlTKqs99urRLA6G4+bD/Z+eV36myNXwUeL2FX4Z9/nJVHxpBOP0w 7rAdDsPi13d2jv/armida+cRzhjHnqylPMKAp8Gi/B6EnFQhtwAuq7Xa+LFxCGBXQsHhYgcxDUAoodQztSD [file] XbzdNeVzFa6wUCBNQi7+DKtgzVAdoCovQCIVVkVwDqA1VEfxIOOMKi9K ID Date Data Source [id number] 09/26/2020 11:35:36 AM EST [facility] Name Value Range Interpretation Code Description Data Radha rce(s) Supporting Document(s) Progress Note [facility] JDEIIz7nIiDVVnPx51/JIIhxTPIwx5QgBUntKQx8TWcyKBCaA3YbLPO9kW3eFMU1SMnTMtPgSvBxRSS4 lbm [file] ID Date Data Source [id number] 09/21/2020 02:04:11 PM [facility] Name Value Range Interpretation Code Description Data Radha rce(s) Supporting Document(s) Progress Note [facility] PEQVIf1iTwUROeQa76/ZMCkoZTQsu6RcLVfoXQi1GEayXNGfC2YlDQP8qQ8jYLY5FVyZYjEvQhEgBvVu lbm [file] jmrTMvoLizPEMBIwDsEmRsAVshLSIDIb2T ID Date Data Source [id number] 09/21/2020 02:04:06 PM [facility] Name Value Range Interpretation Code Description Data Radha rce(s) Supporting Document(s) Progress Note [facility] XIFXRk0zFmVZAsKb65/WRPbkZTYkk9McCImfUXt2LCwjLWLdQ5XuVWK0jX5fNFO1CHkRZcPyKsZjOrTo lbm [file] ICAgICAgICAgICAgICAgICAgICAgICAgICAgICAgIC AgICAgICAgICAgICAgICAgICAgICAgICAgICAgICAgICAgICAgICANCiAgICAgICAgICAgICAgICAgIC AgICAgICAgICAgICAgICAgICAgICAgICAgICAgICAgICAgICAgICAgICAgICAgICAgICAgICAgICAgIC AgICAgICAgICAgICAgICAgICAgICANCiAgICAgICAg ICAgICAgICAgICAgICAgICAgICAgICAgICAgICAgICAgICAgICAgICAgICAgICAgICAgICAgICAgICAg ICAgICAgICAgICAgICAgICAgICAgICAgICAgICAgICANCiAgICAgICAgICAgICAgICAgICAgICAgICAg ICAgICAgICAgICAgICAgICAgICAgICAgICAgICAgIC AgICAgICAgICAgICAgICAgICAgICAgICAgICAgICAgICAgICAgICAgICANCiAgICAgICAgICAgICAgIC AgICAgICAgICAgICAgICAgICAgICAgICAgICAgICAgICAgICAgICAgICAgICAgICAgICAgICAgICAgIC AgICAgICAgICAgICAgICAgICAgICAgICANCiAgICAg ICAgICAgICAgICAgICAgICAgICAgICAgICAgICAgICAgICAgICAgICAgICAgICAgICAgICAgICAgICAg ICAgICAgICAgICAgICAgICAgICAgICAgICAgICAgICAgICANCiAgICAgICAgICAgICAgICAgICAgICAg ICAgICAgICAgICAgICAgICAgICAgICAgICAgICAgIC AgICAgICAgICAgICAgICAgICAgICAgICAgICAgICAgICAgICAgICAgICAgICANCiAgICAgICAgICAgIC AgICAgICAgICAgICAgICAgICAgICAgICAgICAgICAgICAgICAgICAgICAgICAgICAgICAgICAgICAgIC AgICAgICAgICAgICAgICAgICAgICAgICAgICANCiAg ICAgICAgICAgICAgICAgICAgICAgICAgICAgICAgICAgICAgICAgICAgICAgICAgICAgICAgICAgICAg ICAgICAgICAgICAgICAgICAgICAgICAgICAgICAgICAgICAgICANCiAgICAgICAgICAgICAgICAgICAg ICAgICAgICAgICAgICAgICAgICAgICAgICAgICAgIC AgICAgICAgICAgICAgICAgICAgICAgICAgICAgICAgICAgICAgICAgICAgICAgICANCjw/jEDwU7lxnR RlbbR5P1jqCy0ZNl8XUO4gn5EpYYAhZNqrcqZrCvkTLgRkEMKbHouBIga2HPvwSI7GqYVpH4OrN6RfAF upCC4QUZZnUFMruSYbWJFmBGWwTsS9YVNbHNvjVZ6C bUZlKLhxELGlTRBoBiBnYTQfDPLyUYEiEZKdNQXENTYgODNuVxFvXQRwHGQmXYjaKKWBBU1WYsWdU6Vh eZ51LMuVCx4+RPhrtoYyUqxOZkV1VJHad1OiTNa5RF8HXDPbTusba0FfXbJlNNUSJSqoRF8OWRW1WGE1 HJKqJo3VEAWfU888nnQeRG5PWf8JShBeZZ1mbs2FAq OeYETjCyoPCwe9SWgjDP0LnDVhQTbIre1hqtNxutCKt0IdffOomLGIECYuqXRwUOhvwkSElXBuwiP0FF 5wRI5DAgSnAQSiHCZaVhJwRoBgIRDtEPgyXCUFTPdRKxPzN7Igq8PxTsO1WDZwJjIwICpmCORnFiG8NS 34cTasMD7IWDJeOINoYT43WGQ9UWGcYx3BNi1ZJtPu OV3teb7GOaIqRSUlMjlDSqm3OYbgTK5WsTMkH1DhpRRwm4iTChCjL9RXICJvHAKzKl3QYWPkUkPcDVVq RRdhZX0mUXZoOXNRyOjitzE6OT3WIN0nuxUlJZ3VOmYqKf3yTv7ZWjOcS6VdV2FtGRFwWVFSPMorME0G XNvrYW3pSW1Vf4VUsWPgaP7fpz7NDJUiESNlUqeixc 5JAmxmJ1T4cEjgINIyLhYkGXWYFVfhEO5OROPpZYK1ZCCfIdLiIVJJBgZvB13mUY0NV9Tzc88uUmH8NF BlLqRmHTuzTM43sUfyevYylQNycRmbXW7IVs0+DQplbmRvYmoNCnhyZWYNCjAgMzcNCjAwMDAwMDAwMD FzHjI5VzGqBo2PUOGsDAMtXGBsNiMxTFTzLENtERks STJhRDJ2DPx5QVOfHOJxXT2DQlIiRFFvCds1OhXtLKJjZYTtgx5MRVFjKYHwKGJ2JjCfQVRxMAQeSAcx YLHoIFP4XBD2UBTuRYQjDW8ZPqRhUGDjGNZmIeskCMZfEGPjfn5JEBUtPVDuEteaOBApFBSvHSIlPFzy UNDuXBI8JRZ7QJRiOUAdKL4NKjGfDDSmGTc6YSWbZK XtIGIsmf3AUKQiBCPvEJXmBqFzDANuPUPmMFstILXgMKDbOrs3CYYkMZCeMM2ROoNyFLKcIXT6EXAjNT DwMGJsgi6VNOEhWGOsMqo0WfLmYNXkHDKjLVqlVDGfGFK8SYu1ZFIkBIKzFB5TIzJlQBLwXzI0FtEsTV IoQXMtlh4QOHUuFTKbRYYfKzHiPWJeIJGzBNyjHIKd NRTfPgJnLSMfWBDhAJ4SCiTqHZJzGxL6PBwzUGQgRDUfkk7SBSNbPPZjEeB7QIJqNFCfTALeSYriBIEw XGFcGle1TGWrUSOzJM1CUgVhEJNlSdL9TZchYJRqGZWoso8IRLIqXTCtQlszYrAoFJJgCPApTNdbPJXa KTQ6OBO9MWJyIRUcPE5PXeReYZLqJyZwHRhzJJPcXX Nxwi1HCWYxYBKfRVRhDrSkVSBnDSWkZAgiHMToUMO8PLKfLDOyARVoTI4AYsWkDOCvUgBlOnWiSDPyAF Wqjo4XYEXfPNUgAcRxAUPgTLUxSMXySAguWPFpBPR2HSM2PBZrJNAzMF0VTvIoOGJtKso7RPVbXLNgFV Zieu9MCZLtEWYnKuE4OOAiMKPwIEAvVDjlFMHlXZQ4 AOl5CUQyHFByJC7NNtQcWHXjOslvQWRuBDQyOPYtjl1GGUXaIWWiMNt1KnDjUAAuXCHaEVirCTSsFOR8 KMHuLNKrZGOdBP4TVzYhSLFsJFSrVXFjPWRnIZIkev6TjNShdNpihl8LGRbBIy7VyIhtWMX4MDqsTb4w iCDaLcQlUBATSu8HczPpLOPeEIRDWHxpVXBmOZTcJH RoGND7TYWtFaZpCEDrYeZ4Fmr1WoRdFaHuHVP6HjS4OlD9IkB1LKTwFYGkHPD9X6U9NluhZKGkRTT4IG A5MTQ+AW6eEJm+[id number]== ID Date Data Source [id number] 09/21/2020 02:34:43 PM [facility] Name Value Range Interpretation Code Description Data Radha rce(s) Supporting Document(s) Leukocytes [#/volume] in Blood by Automated count 8.5 10*3/uL 4-10 [facility] Erythrocytes [#/volume] in Blood by Automated count 5.13 10*6/uL 4.1- 5.3 [facility] Hemoglobin [Mass/volume] in Blood 12.1 g/dL 11.5-15.5 [facility] Hematocrit [Volume Fraction] of Blood by Automated count 38.0 % 3 6-45 [facility] Erythrocyte mean corpuscular volume [Entitic volume] by Auto mated count 74.1 fL 80-96 L [facility] Erythrocyte mean corpuscular hemoglobin [Entitic mass] by Automated count 23.6 pg 27-33 L [facility] Erythrocyte mean corpuscular hemoglobin concentration [Mass/volume] by Automated count 31.9 g/dL 32.0-[facility].0 [facility] distribution width [Ratio] by Automated count 14.7 % 11.5-14.5 H [facility] Platelets [#/volume] in Blood by Automated count 296 10*3/uL 150-400 [facility] Differential cell count method - Blood [facility] Neutrophils/100 leukocytes in Blood by Automated count 64 % [facility] Lymphocytes/100 leukocytes in Blood by Automated count 30 % [facility] Monocytes/100 leukocytes in Blood by Automated count 5 % [facility] Eosinophils/100 leukocytes in Blood by Automated count 1 % [facility] Basophils/100 leukocytes in Blood by Automated count 0 % [facility] Neutrophils [#/volume] in Blood by Automated count 5.50 10*3/uL 1.8-7 .0 [facility] Lymphocytes [#/volume] in Blood by Automated count 2.50 10*3/uL 1.2-4 .0 [facility] Monocytes [#/volume] in Blood by Automated count 0.40 10*3/uL 0-0.8 [facility] Eosinophils [#/volume] in Blood by Automated count 0.10 10*3/uL 0-0.5 [facility] Basophils [#/volume] in Blood by Automated count 0.00 10*3/uL 0-0.2 [facility] ID Date Data Source [id number] 09/21/2020 04:33:35 PM [facility] Value Range Interpretation Code Description Data Radha rce(s) Supporting Document(s) C reactive protein [Mass/volume] in Serum or Plasma 6.1 mg/L <8.0 [facility] ID Date Data Source [id number] 09/21/2020 04:33:35 PM [facility] Value Range Interpretation Code Description Data Radha rce(s) Supporting Document(s) Albumin [Mass/volume] in Serum or Plasma by Bromocresol green (BCG) dye binding method 4.6 g/dL 3.5-5.2 [facility] Bilirubin.total [Mass/volume] in Serum or Plasma 0.3 mg/dL <1.2 [facility] Calcium [Mass/volume] in Serum or Plasma 9.2 mg/dL 8.6-10.0 [facility] Chloride [Moles/volume] in Serum or Plasma 104 mmol/L 98-107 [facility] Creatinine [Mass/volume] in Serum or Plasma 0.65 mg/dL 0.50-0.90 [facility] Glucose [Mass/volume] in Serum or Plasma 226 mg/dL 70-140 H [facility] Alkaline phosphatase [Enzymatic activity/volume] in Serum or Plasma 73 U/L 35-104 [facility] Potassium [Moles/volume] in Serum or Plasma 4.0 mmol/L 3.4-5.1 [facility] Protein [Mass/volume] in Serum or Plasma 8.1 g/dL 6.4-8.3 [facility] Sodium [Moles/volume] in Serum or Plasma 138 mmol/L 136-145 [facility] Aspartate aminotransferase [Enzymatic activity/volume] in Serum or Plasma 36 U/L <32 H [facility] Urea nitrogen [Mass/volume] in Serum or Plasma 7 mg/dL 6-20 [facility] Osmolality of Serum or Plasma by calculation 291 mosm/kg 275-300 [facility] Creatinine/Urea nitrogen [Mass Ratio] in Serum or Plasma 11 [facility] Bicarbonate [Moles/volume] in Serum 24 mmol/L 22-29 [facility] Alanine aminotransferase [Enzymatic activity/volume] in Seru m or Plasma 55 U/L <33 H [facility] Anion gap 3 in Serum or Plasma 10 mmol/L 8-15 [facility] Glomerular filtration rate/1.73 sq M pre dicted among non-blacks [Volume Rate/Area] in Serum or Plasma by Creatinine-based formula (MDRD) >6 0 [facility] Glomerular filtration rate/1.73 sq M pre dicted among blacks [Volume Rate/Area] in Serum or Plasma by Creatinine-based formula (MDRD) >60 [facility] ID Date Data Source [id number] 09/01/2020 01:10:50 PM EST [facility] Name Value Range Interpretation Code Description Data Radha rce(s) Supporting Document(s) Progress Note [facility] WHVZAt5qXcYCDyPv35/JVUniNKXfd4DoDJsjZAe1ZUzxUHNdO3FrATQ0lW0bDSN2FIbQOiZrVrGhFdKx lbm [file] YNCg== ID Date Data Source [id number] 08/31/2020 03:47:31 PM [facility] Name Value Range Interpretation Code Description Data Radha rce(s) Supporting Document(s) Progress Note [facility] PAFUTb9uZzWCPdFu53/DGMybIDDfv9UaJJpsUCr1YDzzXPEzY4SpSZC5pM3kTKB4WSxYXdUhPmOrRsLc lbm [file] Abby/9YnO6fM7BU0HFn+T5hR8el1XCspga3Ra7Kf2PElFPXwBdb/QjfD+WHFCP/LYzFG0Um1XrbHydDuN Ce3WqOJ8YNga5o8nuL+UVtmqZ3eKh6cEyY0+H7I72W8i2M1t3PewkotQp7GF0Ah3Sl2PFIQb+uwL9Zu6 gTCaJJjhmRgowiRE7nr7tdBaYqoa1Msg4Znja25KC/ zx1ij01gFFfIDuZ0aOOtYi2aUPcG2tCvGW/X4RUFPOmU04CWgC2UBfkyg/bY3dEeLtxfHYrPpNQLlzVC Iw9VZ+b6+bDK6t0BE2dpS2wnRer8+Ktuy4wIEf7Pwyz4R92Pyaxalm6DO6aQSdkDac85I361HA9PC/Vr Cell3li8AtQ4uTGSNSVhfWE0WLfvVw6iZiuR0nF45N lq+zMAf5r2u9HqnjMTBMWUHf6iu31GCj0Z+R/OwSUOujgb8Hzx0scBwC/LH2qCyO/Mm++Aix+OW67COh 8ex7kZxN/M7KNl4catqDIj9LAq597H8ehIbque1k0SG85MHy7XXrxSvLCa8HzQ6vJEVri2lTN7yiouFf Kels17IEbGgI6ZDJYBvPqNL6ZRKsXwd5ozSBsrKMYV pdJLMPOIowFnlFuveMSBIcs5zunWIYWQ9NqNk8sSnyIJOUakWSB5xNZKqjOyaGA9kBuhZUkf4kmENcVz dispatch associate+MKVGTUzJIj1MuuQPy7VSrVbWZFgc2xnHyQkujMzP7/K58EacV0FuAeSwCLKpwG4JRU66T49hNjBB [file] QeQJK3ClR+PE8yWFn+Oj7Zz2AtpwY3lfLuKJgfELX8FV0AYALQC3WKVe== ID Date Data Source [id number] 08/31/2020 12:24:44 PM [facility] Name Value Range Interpretation Code Description Data Radha rce(s) Supporting Document(s) Progress Note [facility] GUTUSl7dYsFUWuAa01/UEHhiDKBvv1QzEYhoCZc9RMdyMSHlV8YhGTP0oQ5qXGJ4YJjLTzOaWnVgHxKi lbm [file] JTMoTMBdTvA2ICf5HLNbKJLoDiYxCsKpZR6UGv0EDjQ1QVQ1uDGpQq0LBND4JsZCWuRrJC3YOZo= ID Date Data Source [id number] 09/01/2020 12:40:17 PM [facility] Name Value Range Interpretation Code Description Data Radha rce(s) Supporting Document(s) Tissue transglutaminase IgA Ab [Units/volume] in Serum <20 .0 [facility] Negative ID Date Data Source [id number] 09/05/2020 07:06:29 AM [facility] Name Value Range Interpretation Code Description Data Radha rce(s) Supporting Document(s) IgG [Mass/volume] in Serum or Plasma 1065 mg/dL 586-1602 [facility] IgG subclass 1 [Mass/volume] in Serum 568 mg/dL 248-810 [facility] IgG subclass 2 [Mass/volume] in Serum 362 mg/dL 130-555 [facility] IgG subclass 3 [Mass/volume] in Serum 26 mg/dL 15-102 [facility] IgG subclass 4 [Mass/volume] in Serum 27 mg/dL 2-96 [facility] (NOTE)Performed At: [facility] [address] [place], [place] [id number] Crouch MD Ph:[phone] At: RN [facility] [address] [place], [place] [id number] Carlos MD Ph:[phone] ID Date Data Source [id number] 08/31/2020 01:43:56 PM [facility] Value Range Interpretation Code Description Data Radha rce(s) Supporting Document(s) Urea nitrogen [Mass/volume] in Serum or Plasma 8 mg/dL 6-20 [facility] ID Date Data Source [id number] 08/31/2020 01:43:56 PM [facility] Value Range Interpretation Code Description Data Radha rce(s) Supporting Document(s) Creatinine [Mass/volume] in Serum or Plasma 0.61 mg/dL 0.50-0.90 [facility] Glomerular filtration rate/1.73 sq M pre dicted among non-blacks [Volume Rate/Area] in Serum or Plasma by Creatinine-based formula (MDRD) >6 0 [facility] Glomerular filtration rate/1.73 sq M pre dicted among blacks [Volume Rate/Area] in Serum or Plasma by Creatinine-based formula (MDRD) >60 [facility] ID Date Data Source [id number] 08/31/2020 01:43:56 PM [facility] Value Range Interpretation Code Description Data Radha rce(s) Supporting Document(s) Albumin [Mass/volume] in Serum or Plasma by Bromocresol green (BCG) dye binding method 4.4 g[facility].5[facility] Bil[facility].total [Mass/volume] in Serum or Plasma 0.2 mg/dL <1.2 [facility] Bilirubin.direct [Mass/volume] in Serum or Plasma <0.3 [facility] Alkaline phosphatase [Enzymatic activity/volume] in Serum or Plasma 81 U/L 35-104 [facility] Aspartate aminotransferase [Enzymatic activity/volume] in Serum or Plasma 52 U/L <32 H [facility] Alanine aminotransferase [Enzymatic activity/volume] in Seru m or Plasma 86 U/L <33 H [facility] Protein [Mass/volume] in Serum or Plasma 7.5 g/dL 6.4-8.3 [facility] ID Date Data Source [id number] 08/31/2020 01:43:56 PM [facility] Value Range Interpretation Code Description Data Radha rce(s) Supporting Document(s) Iron [Mass/volume] in Serum or Plasma 28 ug/dl 37-145 L [facility] Transferrin [Mass/volume] in Serum or Plasma 333 mg/dL 200-360 [facility] Iron binding capacity [Mass/volume] in Serum or Plasma 463 ug/dl 228 -428 H [facility] Iron saturation [Mass Fraction] in Serum or Plasma 6.0 % 20-55 L [facility] ID Date Data Source [id number] 09/02/2020 05:06:13 PM [facility] Name Value Range Interpretation Code Description Data Radha rce(s) Supporting Document(s) Liver kidney microsomal 1 Ab [Units/volume] in Serum 0.0-2 0.0 [facility] (NOTE) Neg ative 0.0 - 20.0 Equivocal 20.1 - 24.9 Positive >24.9LKM type 1 antibodies are detected in patients withautoimmune hepatitis type 2 and in up to 8% ofpatients with chronic HCV infection.Performed At: [facility] [address] [id number] Carlos MD Ph:[phone] ID Date Data Source [id number] 09/05/2020 02:06:22 AM [facility] Name Value Range Interpretation Code Description Data Radha rce(s) Supporting Document(s) Fibrosis score 0.03 0.00-0.21 [facility] Fibrosis stage [facility] (NOTE) F0 - No fibrosis Necroinflammatory activity score 0.44 0.00-0.17 [facility] Necroinflammatory activity grade [facility] (NOTE)RESULT:A1-A2 Dkqzu-4-Gvkpjkcyddqkz [Mass/volume] in Serum or Plasma 184 mg/dL 110 -276 [facility] Haptoglobin [Mass/volume] in Serum or Plasma 189 mg/dL 33-278 [facility] Apolipoprotein A-I [Mass/volume] in Serum or Plasma 130 mg/dL 116-20 9 [facility] Bilirubin.total [Mass/volume] in Serum or Plasma 0.0-1.2 [facility] Gamma glutamyl transferase [Enzymatic activity/volume] in Serum or Plasma 48 IU/L 0-60 [facility] Alanine aminotransferase [Enzymatic acti vity/volume] in Serum or Plasma by With P-5'-P 94 IU/L 0-40 [facility]Quantitative results of 6 b iochemical [...] F4 - Cirrhosis Reference lab test results [facility] (NOTE) <0.17 = Grade A0 - [...] was developed and its performance characteristicsdetermined by [employer]. It has not been cleared or approved by theFood and Drug Administration. The FDA has determined that suchclearance or approval is not necessary.For questions regarding this report please contact customer serviceat .Performed At: [address] [id number] Crouch MD Ph:[phone] ID Date Data Source [id number] 09/01/2020 01:12:30 PM [facility] Value Range Interpretation Code Description Data Radha rce(s) Supporting Document(s) Mitochondria Ab [Units/volume] in Serum Negative [facility] ID Date Data Source [id number] 09/01/2020 01:12:30 PM [facility] Value Range Interpretation Code Description Data Radha rce(s) Supporting Document(s) Actin smooth muscle IgG Ab [Units/volume] in Serum Negativ e [facility] ID Date Data Source [id number] 08/31/2020 01:42:56 PM [facility] Value Range Interpretation Code Description Data Radha rce(s) Supporting Document(s) C reactive protein [Mass/volume] in Serum or Plasma 4.7 mg/L <3.0 H [facility] (NOTE)CRPHS (mg/L) CVD risk <1.0 low 1.0- 3.0 average >3.0 high ID Date Data Source [id number] 08/31/2020 01:42:56 PM [facility] Value Range Interpretation Code Description Data Radha rce(s) Supporting Document(s) Gamma glutamyl transferase [Enzymatic activity/volume] in Serum or Plasma 45 U/L 5-36 H [facility] ID Date Data Source [id number] 08/31/2020 01:42:56 PM [facility] Value Range Interpretation Code Description Data Radha rce(s) Supporting Document(s) Albumin [Mass/volume] in Serum or Plasma by Bromocresol green (BCG) dye binding method 4.3 g/dL 3.5-5.2 [facility] Bilirubin.total [Mass/volume] in Serum or Plasma 0.2 mg/dL <1.2 [facility] Calcium [Mass/volume] in Serum or Plasma 9.3 mg/dL 8.6-10.0 [facility] Chloride [Moles/volume] in Serum or Plasma 104 mmol/L 98-107 [facility] Creatinine [Mass/volume] in Serum or Plasma 0.59 mg/dL 0.50-0.90 [facility] Glucose [Mass/volume] in Serum or Plasma 283 mg/dL 70-140 H [facility] Alkaline phosphatase [Enzymatic activity/volume] in Serum or Plasma 81 U/L 35-104 [facility] Potassium [Moles/volume] in Serum or Plasma 4.3 mmol/L 3.4-5.1 [facility] Protein [Mass/volume] in Serum or Plasma 7.5 g/dL 6.4-8.3 [facility] Sodium [Moles/volume] in Serum or Plasma 139 mmol/L 136-145 [facility] Aspartate aminotransferase [Enzymatic activity/volume] in Serum or Plasma 52 U/L <32 H [facility] Urea nitrogen [Mass/volume] in Serum or Plasma 8 mg/dL 6-20 [facility] Osmolality of Serum or Plasma by calculation 296 mosm/kg 275-300 [facility] Creatinine/Urea nitrogen [Mass Ratio] in Serum or Plasma 14 [facility] Bicarbonate [Moles/volume] in Serum 24 mmol/L 22-29 [facility] Alanine aminotransferase [Enzymatic activity/volume] in Seru m or Plasma 85 U/L <33 H [facility] Anion gap 3 in Serum or Plasma 11 mmol/L 8-15 [facility] Glomerular filtration rate/1.73 sq M pre dicted among non-blacks [Volume Rate/Area] in Serum or Plasma by Creatinine-based formula (MDRD) >6 0 [facility] Glomerular filtration rate/1.73 sq M pre dicted among blacks [Volume Rate/Area] in Serum or Plasma by Creatinine-based formula (MDRD) >60 [facility] ID Date Data Source [id number] 08/31/2020 02:05:52 PM [facility] Name Value Range Interpretation Code Description Data Radha rce(s) Supporting Document(s) Erythrocyte sedimentation rate 27 mm/hr <20 H [facility] ID Date Data Source [id number] 08/21/2020 05:52:12 PM [facility] Name Value Range Interpretation Code Description Data Radha rce(s) Supporting Document(s) Progress Note [facility] CVDZXn9oIxNZUvIb25/TPVulXAFca7DjBRefWJu0GPnkOJLhD7IoIUJ8vT7iGCJ2JWhXClPbUqWuNHJr [facility] [file] AeYVQ7AhqyXUE+BV6kMIs+Ym9Ka4MwegS3plBkENkoYCX9CF4WHJICQ9HVNv== ID Date Data Source [id number] 08/15/2020 09:08:27 AM EST [facility] Name Value Range Interpretation Code Description Data Radha rce(s) Supporting Document(s) Progress Note [facility] BEFRMc7zNaLTWbSb19/VIIipTVBdz5NgNNhgXUg0MOrkNHBhO2IsTZH3bM1rHXO0BTaRAeWjMzBdQNU0 lbm [file] It6a4mB/U7wFkK5TpmnBtdZAKoMnApLyhC0vCokFkkFitBFER4NisWqiTdQOoxuYuG0gE+social welfare clerk+o5pXUwW [file] AgICAgICAgICAgICAgICAgICAgICAgICAgICAgICAg ICAgICAgICAgICAgICAgICAgICAgICAgICAgICAgICAgICAgICAgICAgICAgICAgICAgICAgICAgICAg DQogICAgICAgICAgICAgICAgICAgICAgICAgICAgICAgICAgICAgICAgICAgICAgICAgICAgICAgICAg ICAgICAgICAgICAgICAgICAgICAgICAgICAgICAgIC AgICAgICAgICAgDQogICAgICAgICAgICAgICAgICAgICAgICAgICAgICAgICAgICAgICAgICAgICAgIC AgICAgICAgICAgICAgICAgICAgICAgICAgICAgICAgICAgICAgICAgICAgICAgICAgICAgDQogICAgIC AgICAgICAgICAgICAgICAgICAgICAgICAgICAgICAg ICAgICAgICAgICAgICAgICAgICAgICAgICAgICAgICAgICAgICAgICAgICAgICAgICAgICAgICAgICAg ICAgDQogICAgICAgICAgICAgICAgICAgICAgICAgICAgICAgICAgICAgICAgICAgICAgICAgICAgICAg ICAgICAgICAgICAgICAgICAgICAgICAgICAgICAgIC AgICAgICAgICAgICAgDQogICAgICAgICAgICAgICAgICAgICAgICAgICAgICAgICAgICAgICAgICAgIC AgICAgICAgICAgICAgICAgICAgICAgICAgICAgICAgICAgICAgICAgICAgICAgICAgICAgICAgDQogIC AgICAgICAgICAgICAgICAgICAgICAgICAgICAgICAg ICAgICAgICAgICAgICAgICAgICAgICAgICAgICAgICAgICAgICAgICAgICAgICAgICAgICAgICAgICAg ICAgICAgDQogICAgICAgICAgICAgICAgICAgICAgICAgICAgICAgICAgICAgICAgICAgICAgICAgICAg ICAgICAgICAgICAgICAgICAgICAgICAgICAgICAgIC AgICAgICAgICAgICAgICAgDQogICAgICAgICAgICAgICAgICAgICAgICAgICAgICAgICAgICAgICAgIC AgICAgICAgICAgICAgICAgICAgICAgICAgICAgICAgICAgICAgICAgICAgICAgICAgICAgICAgICAgDQ ogICAgICAgICAgICAgICAgICAgICAgICAgICAgICAg ICAgICAgICAgICAgICAgICAgICAgICAgICAgICAgICAgICAgICAgICAgICAgICAgICAgICAgICAgICAg ZFHaIXAoSOWbYRx5X9pjOCJgIHFxWP3wDIg0Xe3+BSnDPaXcXWO0hgDgpD1SCK1yf5TcNLbyTXBmw2Ij BSh1NZ9SDWChMCagRS6PVOpciv2ZGENjBOXcaYAHw9 ioFrHdYSK9UJMgNsqxFI2ZPUVxA0hvxdYqIVWvJVFVXIlzVEXPSEpgKCKWBIFuSPDwJvIvVExkRA0Zh7 RpuJA0ZAg+Am4GBR2qv6XcRAfxRLZaCM7ahl3TBOpKOmEwS5PvjkD9FOTvBMTwWu6IUTRaMMRalNGfHW ZaHSKGBvCaK9TxnL90VEMUOw0+DQplbmRvYmoNCjMx JYZla0RrSKj0QN6GLMQdLLb3vCOuMMOgT6Srs5CiJj01QKCiQmjaCuJvkvmnGXIfL8WmiC7kP0mcxhzf NQLgIDPoGATeMJgwJeQiVICpTUazDHQNCAoTUlDqD1Ctn9HmTmN1QCGhThBeFHaoVJSdXrJ9PF92bDiy GQ6BARFzIRQkJM42ILDsGFUkZk8WRz4LApOpYF5jmv 9GGmUhQBOrLxnTHmv7HUksRP7JlGSoF0HszUDpz9mKVxRmP8JBUVX8ZRSpCf7OPZFzRmVfOPAkVRnnEO 7kTWStBSHYlHuxcfR7XG1CXN0swzPqJU9EXzUjKo6mPp2IEvHhO0LxE4FnKWKmCOSOCRpdES7EELjdOH 5oIF7Vw6ATuVXtzL2gyn7CMOYnOKHpAitfwa5VZygx M6C1gRxnZKQtGvCvZMGMDRszNG3IULKsPOI0HTHjSHBsHOEOMlSqP52lMX7UJ5Koq54vZoQ2UMLoZdKq JNugQW99aHhxggQhpHEmuEogWC2YKz6+DQplbmRvYmoNCnhyZWYNCjAgMzMNCjAwMDAwMDAwMDAgNjU1 WxVkVz1DXLSiBWAfUOFgNzAvXPEwRVJeOGfmIIBqQV H6WRZbNZQaAFMhNJ1FPvKvCAYbUzG8SayzYTUiBNInvi1MDMSgHNUsLMK2FnPlSDXlFFGqZQpoKRUnVO UtZkmyTSWfFHCqBH9WDgCsNTAsRCS2JUTvNWDoMYYvgq6GTWLaJIKfEnYmBLMmVOVuUYIgBWtsLITgLZ S5CWI2YAMqRZZjKA1DRfCdRVToERI4MQytPPYlDEKm pq4NOUEfKDYqTLenJdWmHGLdVGHrLSrsMOStZJVvSHdeMAVdLQNfCA7YHjSvLMNmSVQaAZipUCViPLAd hf5UDSNdELWzRTE3GOAwMRZxGWYhKLulEYVbLUI7TCH2DTPfEZFoCA8WFtVmWBNoOJS3IgfzEBHjVKOs yj9FYVFnJQLiWUV5KONpNKQdYFWzVDpcAUNqHBV7Fk vsGEBmQATcFD1JQsHgZEUoSXE4AlqoDVUoKMDkdv7YJGMoCKPtHhSqLFCdYKGuYCYvMMkoTTMeFPO8Vx DtCDXeBUIvXL6EBgXmZWKuNzo8AHZmAVLuKZBbgc7FWWScCHErAAS4HyMmGFRwDFCoVGsiHNFyWZD9Ex J0ZTGlFUMqKD7ANvUxMJBoAfLhFVErTVKiDJHudg4X ZPOsNKPeGeBoDUUgRCDlCOVgANqsEAQbGXYaQfIbDNLmNMRwZX5KJlYyMMNbFwF3KkRdULCfTVRnos7K PUSbYGYdEDQvPQMlUOTgAJJiJUebVBKhKHG1PJJ4EOMqUGHzUE8TDuPiVVVzSzL8EAHfGHTkTOQqed8Z LVWeXIRxDnL1GCHmPBKhLZOmCKzeLIXlVUW1QrGsZM CgIRSmRV2KFwAuTRxrXOXBPck9PQijC8t2VREvHk7HJ0Tuj1SbPtYtGVENCWutKI6einVwREYrQu2QF8 pPXib4KyMqCoYeSpZ7X8ZlDEBvWMR1YeH7WKPzUgojPvIqWP4cBRBiYtIqNfQoAuv4RYM6R0GdCat0Dt EzFfXsD6XzJDCkBeGyYQ6TEr4CTeO3MFC2oMOiXk8NKuD9ZEHADxEoOO7DKNn= ID Date Data Source [id number] 08/03/2020 04:43:30 PM [facility] Name Value Range Interpretation Code Description Data Radha rce(s) Supporting Document(s) Progress Note [facility] HTPAXh3yVwWDIoOw46/QEJphMGJnp8UmVLmmGJr1GAvaQIHeD9PoNPP9fR1oFXR3DHxQLoEoOhHiNSMp lbm [file] NHX4SyL5DliaQeFiIRX+SM1dSQa+Iv5Tc1SazyL2fcWnSWnwDGY2SJ0GXPKCN8OLMh== ID Date Data Source [id number] 08/03/2020 01:47:57 PM [facility] Name Value Range Interpretation Code Description Data Radha rce(s) Supporting Document(s) Progress Note [facility] DTWZTa7sPzPHCpKz87/FZHuxXDZmv0SaGEfxZNz5CDotICWtZ4QySRX6cR4rGVL3GBzAPqGsReXwSIPc lbm [file] ZUUpD8IiNhAtMXPlIKK7CXylEkHfPe1aCJCMCw9+ZOuboBEryUudHMULSnVmBoW7ZPzvEOLYTw6L ID Date Data Source [id number] 08/03/2020 03:08:38 PM [facility] Name Value Range Interpretation Code Description Data Radha rce(s) Supporting Document(s) Hepatitis C virus Ab [Presence] in Serum or Plasma by Immuno assay Non Reactive [facility] No serological evidence of active infect ion. If recent exposure is suspected, test for HCV RNA. ID Date Data Source [id number] 08/03/2020 03:08:38 PM [facility] Name Value Range Interpretation Code Description Data Radha rce(s) Supporting Document(s) Hepatitis B virus surface Ag [Presence] in Serum or Plasma b y Immunoassay Non Reactive [facility] No active or previous infection. Suscept ible to infection. ID Date Data Source [id number] 08/03/2020 03:50:33 PM [facility] Value Range Interpretation Code Description Data Radha rce(s) Supporting Document(s) Hepatitis B virus surface Ab [Units/volume] in Serum o r Plasma by Immunoassay 4.5 m[IU]/mL >11.4 L [facility] Non ReactiveNo active or previous infect ion. Susceptible to infection. ID Date Data Source [id number] 08/04/2020 11:24:30 AM [facility] Value Range Interpretation Code Description Data Radha rce(s) Supporting Document(s) Cardiolipin IgG Ab [Interpretation] in Serum 38.9 U/mL <20.0 H [facility] (NOTE)The persistent presence of >/=20.0 U/mL antiphospholipid antibody(>99th percentile of the normal range) is a laboratory criterion forthe diagnosis of Antiphospholipid syndrome. Repeat testing at least 12weeks apart is recommended to establish the persistence presence. ID Date Data Source [id number] 08/04/2020 11:24:30 AM [facility] Value Range Interpretation Code Description Data Radha rce(s) Supporting Document(s) Beta 2 glycoprotein 1 IgM Ab [Units/volume] in Serum 1.7 U/mL <20.0 [facility] Negative results do not rule out Antipho spholipid syndrome. Other APL testing should be considered. Beta 2 glycoprotein 1 IgG Ab [Units/volume] in Serum 8.0 U/mL <20.0 [facility] Negative results do not rule out Antipho spholipid syndrome. Other APL testing should be considered. ID Date Data Source [id number] 08/03/2020 12:52:07 PM [facility] Value Range Interpretation Code Description Data Radha rce(s) Supporting Document(s) Leukocytes [#/volume] in Blood by Automated count 6.9 10*3/uL 4-10 [facility] Erythrocytes [#/volume] in Blood by Automated count 5.16 10*6/uL 4.1- 5.3 [facility] Hemoglobin [Mass/volume] in Blood 13.1 g/dL 11.5-15.5 [facility] Hematocrit [Volume Fraction] of Blood by Automated count 40.8 % 3 6-45 [facility] Erythrocyte mean corpuscular volume [Entitic volume] by Auto mated count 79.1 fL 80-96 L [facility] Erythrocyte mean corpuscular hemoglobin [Entitic mass] by Automated count 25.5 pg 27-33 L [facility] Erythrocyte mean corpuscular hemoglobin concentration [Mass/volume] by Automated count 32.2 g/dL 32.0-36.0 [facility] E[facility] distribution width [Ratio] by Automated count 14.1 % 11.5-14.5 [facility] Platelets [#/volume] in Blood by Automated count 308 10*3/uL 150-400 [facility] Differential cell count method - Blood [facility] Neutrophils/100 leukocytes in Blood by Automated count 59 % [facility] Lymphocytes/100 leukocytes in Blood by Automated count 32 % [facility] Monocytes/100 leukocytes in Blood by Automated count 7 % [facility] Eosinophils/100 leukocytes in Blood by Automated count 1 % [facility] Basophils/100 leukocytes in Blood by Automated count 1 % [facility] Neutrophils [#/volume] in Blood by Automated count 4.20 10*3/uL 1.8-7 .0 [facility] Lymphocytes [#/volume] in Blood by Automated count 2.20 10*3/uL 1.2-4 .0 [facility] Monocytes [#/volume] in Blood by Automated count 0.50 10*3/uL 0-0.8 [facility] Eosinophils [#/volume] in Blood by Automated count 0.10 10*3/uL 0-0.5 [facility] Basophils [#/volume] in Blood by Automated count 0.00 10*3/uL 0-0.2 [facility] ID Date Data Source [id number] 08/03/2020 02:35:05 PM [facility] Name Value Range Interpretation Code Description Data Radha rce(s) Supporting Document(s) Erythrocyte sedimentation rate 26 mm/hr <20 H [facility] ID Date Data Source [id number] 08/03/2020 03:02:13 PM [facility] Value Range Interpretation Code Description Data Radha rce(s) Supporting Document(s) Complement C3 [Mass/volume] in Serum or Plasma 177 mg/dL 90-180 [facility] ID Date Data Source [id number] 08/03/2020 03:02:13 PM [facility] Value Range Interpretation Code Description Data Radha rce(s) Supporting Document(s) Complement C4 [Mass/volume] in Serum or Plasma 17 mg/dL 10-40 [facility] ID Date Data Source [id number] 08/03/2020 03:02:13 PM [facility] Value Range Interpretation Code Description Data Radha rce(s) Supporting Document(s) C reactive protein [Mass/volume] in Serum or Plasma 6.3 mg/L <8.0 [facility] ID Date Data Source [id number] 08/03/2020 03:02:13 PM [facility] Value Range Interpretation Code Description Data Radha rce(s) Supporting Document(s) Albumin [Mass/volume] in Serum or Plasma by Bromocresol green (BCG) dye binding method 4.7 g/dL 3.5-5.2 [facility] Bilirubin.total [Mass/volume] in Serum or Plasma 0.2 mg/dL <1.2 [facility] Calcium [Mass/volume] in Serum or Plasma 8.9 mg/dL 8.6-10.0 [facility] Chloride [Moles/volume] in Serum or Plasma 100 mmol/L 98-107 [facility] Creatinine [Mass/volume] in Serum or Plasma 0.59 mg/dL 0.50-0.90 [facility] Glucose [Mass/volume] in Serum or Plasma 229 mg/dL 70-140 H [facility] Alkaline phosphatase [Enzymatic activity/volume] in Serum or Plasma 75 U/L 35-104 [facility] Potassium [Moles/volume] in Serum or Plasma 4.0 mmol/L 3.4-5.1 [facility] Protein [Mass/volume] in Serum or Plasma 7.8 g/dL 6.4-8.3 [facility] Sodium [Moles/volume] in Serum or Plasma 137 mmol/L 136-145 [facility] Aspartate aminotransferase [Enzymatic activity/volume] in Serum or Plasma 49 U/L <32 [facility] [facility] Urea nitrogen [Mass/volume] in Serum or Plasma 8 mg/dL 6-20 [facility] Osmolality of Serum or Plasma by calculation 290 mosm/kg 275-300 [facility] Creatinine/Urea nitrogen [Mass Ratio] in Serum or Plasma 14 [facility] Bicarbonate [Moles/volume] in Serum 25 mmol/L 22-29 [facility] Alanine aminotransferase [Enzymatic activity/volume] in Seru m or Plasma 89 U/L <33 [facility] Anion gap 3 in Serum or Plasma 12 mmol/L 8-15 [facility] Glomerular filtration rate/1.73 sq M pre dicted among non-blacks [Volume Rate/Area] in Serum or Plasma by Creatinine-based formula (MDRD) >6 0 [facility] Glomerular filtration rate/1.73 sq M pre dicted among blacks [Volume Rate/Area] in Serum or Plasma by Creatinine-based formula (MDRD) >60 [facility] ID Date Data Source [id number] 07/17/2020 11:32:14 AM EDT [facility] Name Value Range Interpretation Code Description Data Radha rce(s) Supporting Document(s) Progress Note [facility] MRELRb4rYdGDUoXg98/QZUeqNIFjm3VoDZaqVWa7CKijAVJpV1KsKBM0bZ8cYOW2OWdUBtFmHaNaNFD6 lbm [file] JLedEp6oBIKKNo0+SWsxlZHduMdqTXRRPiB1HjviIReiRMJXEx1W ID Date Data Source [id number] 07/10/2020 10:49:12 AM EDT [facility] Name Value Range Interpretation Code Description Data Radha rce(s) Supporting Document(s) Progress Note [facility] FYFEFk7bUiRUOcNn06/RHQceDFEar1OnYIdiMYa5KLqrBTJhN5SdAQO0yL7yBWO5RXuQPdJlWlAfAVO0 lbm [file] ElnwMU7sDGKHDd1+ATramFFirDleOXPQNhW8PYWzRFpjRPHFNt0Y ID Date Data Source [id number] 06/28/2020 03:23:27 PM EDT [facility] Name Value Range Interpretation Code Description Data Radha rce(s) Supporting Document(s) Progress Note [facility] TBBYBr9zKbSNOjDd77/BLGuzLERzn0EaKUmbKSt5KObnTCSlN6HnHSH6lK4yDAM5YPxFJeKtUwApVZZ7 lbm [file] [employer]ATCH [employer]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 CLERK+Bz4GMSSfLKh6B9Y2FGBvHWo4O7BNU8PGELMiQS ijGUtdVMSoZJh0S9N7EMVjM6EYK2Nzjiyieg0+NO0PA13JMJCuRYd8A3C6uGDdX2R3oFiXqVF8NH2KYC 0TxTv8fCAefQ3+VC3ZZ9HLGwVpEAw2R2H7mUMhI4E8gEcFlPR5UH5MPO1UlUKgMVYzcrTjVv6qH3QHOM pAAsOOQXW1UQ7FqWIiZN1VlXURE5IqxSLiLl8cCWov uPGghD1uXg2xEKqzPX8HKqVYTPeQBSG0WT0TbIHzTU3LbLJID8VuoDTpTe3eEXrasRQgpa8+KW4ZMAJz Vk5HYs4+VMbjckMyOmtMKmN3EDSdb4LfGLs0QQ8BAK6tdGhhPPX9Ee2ZwVU4vXGkF6iLOH7SsWWhW73t zIJuDPUzVo1HLrL2ukPriT7ZIA35sAPyp0F5NEWrP0 dqQJkqj05oZWnaKUqUFM0nJXWUMRsrHGqbUWA7UfHbdmelTYCwHs2RNbZxKEu9wZ9fiSX7NOE7VcpgrP VwEFzfIxKjDqQvOeT4lTherkw2CGwcKK8tBRpuyaseUOFqPgt+NJhkUKLuGLObLivFVSXbnE0cecC1rz NuUAhugIGmWy8uy1c0RvaeTn4rUq7uJFf3AqFhLwIs JULnYy5xzE10GJbzwoRvXn0MJhQkJRF0N7UnHtiPRYM+WYmjHEmiiJp8wCTeWXKqFu6MYHJbKQLpVNDs ICAgICAgICAgICAgICAgICAgICAgICAgICAgICAgICAgICAgICAgICAgICAgICAgICAgICAgICAgICAg ICAgICAgICAgICAgICAgICAgICAgICAgICAgICAgIA 0KICAgICAgICAgICAgICAgICAgICAgICAgICAgICAgICAgICAgICAgICAgICAgICAgICAgICAgICAgIC FtSYNnOLFqXDByXBSfCXCpRXVzJGLpGNOoMOMvLTLrIBIlTBTsXVUyTA0KYSPoGLPlXYKrZRJxWIPwIT AgICAgICAgICAgICAgICAgICAgICAgICAgICAgICAg ZGPyDCYvGWCcKIFmPRTjEEUjMVVnGOXfGORjCDDeUHJiTHDqJTAvUUHaSLVxZVFeWJXfWG4CNMMtQPIw ICAgICAgICAgICAgICAgICAgICAgICAgICAgICAgICAgICAgICAgICAgICAgICAgICAgICAgICAgICAg ICAgICAgICAgICAgICAgICAgICAgICAgICAgICAgIC OzVY4YTDUnGVZtGJMrVGDcIWPrZJHbZEOgRTAwGUQjPLJlXCBgHAIfWHCmSBPfFMJuPUWaJUWyBWVuMQ SbJPLiMMVmOMXcYYXsWQLrLRElYAJlTOCxOEKmVQMcAUHtIVUkJCEfSGUkMS6MYCHsCHLzVNPeEKVdCH AgICAgICAgICAgICAgICAgICAgICAgICAgICAgICAg OUEgBMFyBXUuVPErVFEaPLSoBWNuQJViIPPbXXUkCFLsYMJdZDOeRKAmKMSdIPIyWICtPDUzME5RWZTa ICAgICAgICAgICAgICAgICAgICAgICAgICAgICAgICAgICAgICAgICAgICAgICAgICAgICAgICAgICAg ICAgICAgICAgICAgICAgICAgICAgICAgICAgICAgIC BmGGIgCI0MYGGlZMBeFEOmZZBkEZRzXYZqIVZfKUHbGLHvWUAwBQVvWAOqBKIaOCMpULEuCIKaUPJkBB TmNHFeKBKtNQQgOXMrZSGmWXXdSAMaEXCeJAXxHXNmEXAnPQNmSPYjJWHmEHSjFA7NFCMiYLWbJJCbFF AgICAgICAgICAgICAgICAgICAgICAgICAgICAgICAg ZFQoPIOrXRWwIXZbBPDtBCHsHDGeYKCbAOIzASFrVUQsVFYxBFCiCIKwBAYeYPUwYYWzIAKsDIMfFX4Z ICAgICAgICAgICAgICAgICAgICAgICAgICAgICAgICAgICAgICAgICAgICAgICAgICAgICAgICAgICAg ICAgICAgICAgICAgICAgICAgICAgICAgICAgICAgIC QmRFMmONIlWQ6QVP21mCJzp2U1SPRvLH3qcrq/Db9MKDcixjMokPFhXC6OGrRyIW4bzl4PRuMwAQ9ipu 5KXBrNSsNdO1J3nFZvVOBvJISDOrLfU65aBDyfQz79HGzaJJAnBpTfXYv3Mn8QLdEwX9eaZTXbEgJ0QI WiObA2NCZaQlF6XITeGwTcMVTpGACxIO4ZSJWbC626 cpKuYO8WNa9OWkFnLM7ish4AMzswVVYbXduLUez5IPnyCP1NkIEwaZHfVIAbEISAGxMkR5lxl1NlRpbv INPPENsjMM2Tr9DrzXBdEUw+Za6OWR9jc1TmLSavBFXgEF4eht7KOMqEJpWiD8XbsPgoAJTwb2qgUIZl HC2olRXrZKX6GNDhG5y9LNAYPS9qoRRdsDf7SMRWJZ XcxYBdXV51WaAoPuCrRYX3DkIhHV9lMFnzVF5EGQO3KNesXWHvANTsG3dUCwUwGKJrMPOnhAsfVU1NPh ItF1BttpOxdRBpZIEhWQOJKy2+QFqhcnBhRncUUgNuDVKao3GiNYm4HO1SADTcWYtsPV7LFVSxkB0tUP nfUT9BSwYyBnFaBOJJEmWxI45nzZHiGKc8L1SzNeVn ZGVkRmlsZXMgPDwvTmFtZXMgWyBdDQogID4+ID4+UXrbLE8NDMurtyZxTPYrRu8BGGKzNBHkCJ6hMVLa BQPuQ9G5hIryDEYPAqUjT7ppzrazZP5dURIuV345jMsfxjPnNPY6TWKaZx1XHBHnUTY8FYSiuOUbPfqn CDWGDPdcMO6VaGSzBCC4mY8sIAjkQZYiTDCkW7uKZn MzqTtxTI61pIkpihYetTVqQVv+Pf5CWV2pj9PeYEf5yvVwFDjgTTBnIWngFASxQATzFMXcMNU7YBG7GI UEKcBqJPLaSTFjZIarEJWlBDWswc7YEUUxMCFoXNw9JRNxMDYiKRQiKNaiQNGmNMQyLLM3RHGeDCMbHE 9SDbUkZPRqAFIpHYfaXCWwGGVkuw2NSGZtZYNiUDW1 BLUfRXKbTQQxGBfnOLLkTLV4GvZvSSGgCWKsSK9GHoCtLGIbXBa4LmRlVSNbJCRcwa9RFJCbXLSnDkoe DjPsOZTbNRJwHKazAAAfHLAkTFLuKHUkMHMeUH6YAjBzTNLtTXLcCvqgZHAuANKuqi4PHMVpSIAgOcF9 GjBuTEVwQGHiWWdaVFIhQMFrSxv7CWDpYJSkPD1XNd WeRJBlDZDnGRriAJQaEFYdsg3QBYVyCPIkRnP0CELyAPHrXFHyDQjwOLWcHDMhKbU6IJMvICQdTK0KBm DqXCVuNQO1FIsrQHNoOUIfhg4TFDDiBYDyZAo5NPEjCBWfHPIySStpOJRnXDT4MXd6UDVnGWCuKX2BSd QkQFFhExB2CFakPJQcRXUrow4LJRWuGGAfDorlMoEg XAUoOBWeRWehRLNkICN9EVCoPKUaFUBqBE4QRjQvXRTjFxaeIUUoFOTaUYPmld0UOHRlHJPdUxTmSmGg EDEzEAYbLWepPRZePHW3GxjqCLNkBSMnSK3MFvBwQFElRnz2TxnmRWThBEWeac9JANVuPRHlETh0BgEg GZHpSDKtOEaaGPYtYLW7BJR0NYHpJUKlGJ8BNkMlOB UjIpH2QyUdOWSaVXPxiy2KZDEyKWJqLOV7DwIaTMBfKPHwNQwrBYKySWNuYCK7WBGwOQBaTW4GCkIhWA nkOVDRUge0PUksL4v1MPEfCF2RR5Tjh7CbAwJzACRKADgiGH4fzfUnKIRjVj5PR4dHSyd4GIv6QOW8DV D9OwH5FDggLJyoNBMsGOZ1ReJgHqJhIt6xVWS3KvQ9 TUnrXYimSYHhH7IeI1XkAwD9ToajZXS1FFFsOjArVC7LUz5GViT6LUI8oEUgZe9YLzLsNVlXDlCrKB2A DQo= ID Date Data Source [id number] 06/21/2020 06:51:[address] [facility] Name Value Range Interpretation Code Description Data Radha rce(s) Supporting Document(s) Progress Note [facility] MTVTYw7iXsXFBjWw67/ECQcnRLZys1RjVSeqKUu2PVluKNXcY5GcWCX8xT3nDLH9RXxYDdUnPoLiTEIk lbm [file] WATCH AND CLOCK REPAIR CLERK+Gc1FSPZlAGm2G0D3FLMpQRp1V9JOD9MXIJGiYUgxONjlYTXnWLa9T6M8QCVuZ2IBE2Zdhkuapz8+ JR2AT65RLNCsOVb9L5L9vQFdO6S6yQqOqAA8FN3FBJ 7KmWl5zWSboL8+SD8NN6DVDjAeQDt3W4K0oHJuS5Z1uBvCmKV7FC7JZB2JhLBzIRDbsqUiLb6fJ4MFVK kTGjUTBVX3CN2TdETiYG3FpZKLW4FjyAYcWo8kEQhoxPVdwC2iSc7eBMyfXA4BSrZEREmKXLN5WU1MkM GxWL0EkKZHT5GfjBCnCr8kOKksxTAzfn3+LI5NFORu Io7TMq9+SSnmskNhVvaWLhQ0HHMzd2UfCEv5KW8VPR6mtYjbGNL5Dl5CxNY8hGZjN6dMJJ3GlXDjC47n qNVzNLMeRb2LMrJ8qnWadS7ZIL07vKYgk2F0UJLjJ0nmWBnod30aVSyrDNsLDZ9zOZUETCohTFbgPMV0 ZeXsybdzJMCzMu4EHrZwRQe2aX8ahST9RYK6TzoqwA NjEMevVhWbWeWzZvZ0zZwvszu9VWmfVA1aSTpmftfdQAMdLiw+LFccULLpGOOjTigSJXAexG3yolR1je SxLEfixCHhJw3jx7g7NphbFh5jLi8rRUc7JvRgNeNxWUFdBf1vwI06VJxbfeLkYb6DStYjRHC0V3FqPo pSREY+SBkaTRavlOc8eTIvOZEcNz2ZYRYoAJYkMWZy ICAgICAgICAgICAgICAgICAgICAgICAgICAgICAgICAgICAgICAgICAgICAgICAgICAgICAgICAgICAg XRJpXEKkDYGlPIYvKDSmXVJpVXGvTAKiIDTbHUMsER4FADOsWXZtBWLrPTFuMBSzFMWtPQPkCCMhLVHs ICAgICAgICAgICAgICAgICAgICAgICAgICAgICAgIC LyPOWcGSQuOCWrRIMoMEIxDGGmYTVfSKXiZAXfOQRjVSWbOXBiCBElTD7VIQBsWCBpGBXcZZAtJXLgWN AgICAgICAgICAgICAgICAgICAgICAgICAgICAgICAgICAgICAgICAgICAgICAgICAgICAgICAgICAgIC HfGCFfIAWjOMFmVRMhFQNfZLLrJHKtHM8GUQBoZIYk ICAgICAgICAgICAgICAgICAgICAgICAgICAgICAgICAgICAgICAgICAgICAgICAgICAgICAgICAgICAg MDQgGDBgHQLaEBEfXVKnMTAdTZScDGSmFGOyWOKwCGOcBW7FTCBhZOKdDJWoWXQqVNUgJAMeYZLzCHMb ICAgICAgICAgICAgICAgICAgICAgICAgICAgICAgIC HjCZYkFYThUXThGADzZMFbRFCsRUIhPMEqFNWzBGAaZBCiKGMmRONeMHKwFU5TTYWjDILwVEXyDSJuQW AgICAgICAgICAgICAgICAgICAgICAgICAgICAgICAgICAgICAgICAgICAgICAgICAgICAgICAgICAgIC LoHAAvZJTeYZChYQPsXALnBQRaIIUnSAXeII0EZJVe ICAgICAgICAgICAgICAgICAgICAgICAgICAgICAgICAgICAgICAgICAgICAgICAgICAgICAgICAgICAg ZSNdIUVjSXPuVSRhVYIfESWnXXVnQPSmDZDiUTJgPKHxRDQbOJ2ZMXHxCMAsYUHvHKYxSLYpAYTmFZYp ICAgICAgICAgICAgICAgICAgICAgICAgICAgICAgIC JyGGKxMBThPINxAHArZZIoIHHgOXGnCRDmQNUkFIHrTNQnLMNgDFRzQETiXNJwIE5XACUkYRXyVBArXO AgICAgICAgICAgICAgICAgICAgICAgICAgICAgICAgICAgICAgICAgICAgICAgICAgICAgICAgICAgIC IxGVNzZEYsJDUsTSRhFGJaMCGhXLMyAZNuWNHgXY1G ICAgICAgICAgICAgICAgICAgICAgICAgICAgICAgICAgICAgICAgICAgICAgICAgICAgICAgICAgICAg OLJmPPRsVSSuWIEgWCOjERQjAXVlRSDkKUYrTSJnMVNsEMSkKJXfRR5HSA15wMEgs8A6JKNtZG5yiea/ Im4SYQebzdUojCUaAU2ZEyTmFD5hod8MRaGkKI5pjj 2HTNrQBwNjX2U4xYPyKITxFAMGKfYaH48zLPqwFl41WZruIYLvHmSwNUa7Xk1KCpDsG5vyHMRtYkT0EB UmWyX5EHWhKsJ2IJAyRbAtLMWsBHPxNM5USBKtG525omPkZR7HWt8ARcFbOW2hue2TWrXvFDCeYmuCZn k2FXpdLB4ZcQCmsJLpMNIfGMPTCxOeY9xrp1VfWxMb BMTZCCkmKT2Qs9WyvFWgMJi+Ff0VZL3vo2GnRJjoESBgVS7wnb9JDRlDEyDkH1DxxYzhHMQen8rgXVXs SY0vhAKpARA2JRjnkm1yFqQhCXSfjICsWAWzQJYxPCYIVDW1FLpcXaNaKvScZWWpJUpuTDPOOWnZKoTa N1Qya9RbOeH7DBDmZqXqOFqwZFUjOyH9VQ54vBtxMZ 7IASDaICAcND60WDLxMACjXu2IRw7AJtDuAV2fsi5GNjUoSDZkNwvGWrs8UEmtSO3NyTIyF8PtgUBhf9 kFHjNzA9XDFDC6DDSjGc0LZCKaWeJvYDOoZRqxZU1dYROmTNZLwObemhZ9VF8JTQ4fbkCwCW2FCwBpYs 6uTs2CZwUiB3GzP3GtETCgJJHQQOonPE2HRMogOD8e UV7Nn6CWnYEnyS9naw6GQNWaECYaTpcrah7QHprtB8P1gUkpSXVgOiGlKJDDAAudGN3WKZCqWOT9TZTr HWPuXPOFNyBoD97bXU2WF1Oql27gAoQ0FKSzMbHbBEknCX32xRipiiBcxNLllXzgCB6MDj3+DQplbmRv CerKLzrySLMULmDbPnUKAbZjBNKaISNsVNQoNiC7Ot PvDs6RFOXaMBViHQWjWmApDTOhBVEyNJbaYOGePMD8MAC4KPUfQAXcIA0SHlAeIPQlHpQvKGYkTTKtRO Shar9RMLUwIAAdNCR5FbGxCQKrZUZzOGqjXESlROI9KRY7DNDlGFBeMO1UTuMnIVAhGUVlREBcFJWxQM Xzfk6DRRCsCHWvAkg6XoIkGNCgSEWfZHkaEHKzQEA1 FKW0UPHqTAHkAT7IQkPiWHTgOQT1GEYzAJVqSLVdel7ILOCpHVIhVlD6JREaOUFeCLIdQEstMFIyBSXg QTL4JBKzWXUzBU6TKbRpLNNlOVX0RbLmABUtGGWtyr4QHQFnPJIwSJW3JsIfCHWnHGRoQZqxQKEdYFI8 WpvqFZLrHIKmRE8XIxOeHHXcMGF6XxObBXUmJVTzts 6YLFBjITJcFIesVmCyMHNtFWUtYIumSTQoSGV8MQF6OZNiALVdOC9MBfOeNLBxXGBlCXZpLFRdLILuub 1SVWTwYZYhZta1XqScAAMzBMOpCThqLNPdKZH9PYB3RSZbZFKeNC6NZoNvFWXuOopiXpQcCIEtKUDlwr 7GBOLdPIWsYEDeDbIlBMHzBEAiHSwdLEVbABI5Nstp BKNzUFPyIL8OZsEzDUVqDxC9GedcIUYkFOHtsg5YENTyMYJxVbr6AQWmYLNkLBWgQBmrXKEkTWG8VEO9 ECSwDLTnXC9OZtAoFASmXyXuUZkeRLDxLRFmkp8WVWEgKVLpAXB7DKPfBKYrNNCrIIgtSKMpRTS1LAKh VZGzRUPyMD2LMyIoJBYpUjFqCWasRFByDVDspx5ZHU ReNOLoRvU7NSRbVOAsXNVxQFsgGSRcOLH3GVIvDDIsVGOoLI2SVeErJFilQGDMCqm4ROwxB7y5NJKzLf 7GG3Khd4OuGzCrHTWAKUweCQ6lkvGzHSKhJl4VP2kLPengDTrkFyAhHVRkLUnzJNNgRzCwDUCkVqWjXk N1QaS7Rv1lISY8W2IeEwK4NFG1OTBjJPLrGZW3IDF2 OgQfEsQ1RGG0UgIpOR8SLu0SAsN7YCO5eMRgUn0GEyO1RTiWOiSdBN3FGBa= ID Date Data Source [id number] 06/21/2020 12:03:00 PM EDT [facility] Name Value Range Interpretation Code Description Data Radha rce(s) Supporting Document(s) Progress Note [facility] ZVIQVm0sBiFDWyAj20/ONIorWVIru4DvILapFWp9REewYEUiW6QbSFS7jR7gGOR3VSlOOyPxNqUeTQYn lbm [file] wN738w3qDgnogucT03p86fhQ26qm5NvC/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 [file] AgICAgICAgICAgICAgICAgICAgICAgICAgICAgICAg ICAgICAgICAgICAgICAgICAgICAgICAgICANCiAgICAgICAgICAgICAgICAgICAgICAgICAgICAgICAg ICAgICAgICAgICAgICAgICAgICAgICAgICAgICAgICAgICAgICAgICAgICAgICAgICAgICAgICAgICAg ICAgICAgICANCiAgICAgICAgICAgICAgICAgICAgIC AgICAgICAgICAgICAgICAgICAgICAgICAgICAgICAgICAgICAgICAgICAgICAgICAgICAgICAgICAgIC AgICAgICAgICAgICAgICAgICANCiAgICAgICAgICAgICAgICAgICAgICAgICAgICAgICAgICAgICAgIC AgICAgICAgICAgICAgICAgICAgICAgICAgICAgICAg ICAgICAgICAgICAgICAgICAgICAgICAgICAgICANCiAgICAgICAgICAgICAgICAgICAgICAgICAgICAg ICAgICAgICAgICAgICAgICAgICAgICAgICAgICAgICAgICAgICAgICAgICAgICAgICAgICAgICAgICAg ICAgICAgICAgICANCiAgICAgICAgICAgICAgICAgIC AgICAgICAgICAgICAgICAgICAgICAgICAgICAgICAgICAgICAgICAgICAgICAgICAgICAgICAgICAgIC AgICAgICAgICAgICAgICAgICAgICANCiAgICAgICAgICAgICAgICAgICAgICAgICAgICAgICAgICAgIC AgICAgICAgICAgICAgICAgICAgICAgICAgICAgICAg ICAgICAgICAgICAgICAgICAgICAgICAgICAgICAgICANCiAgICAgICAgICAgICAgICAgICAgICAgICAg ICAgICAgICAgICAgICAgICAgICAgICAgICAgICAgICAgICAgICAgICAgICAgICAgICAgICAgICAgICAg ICAgICAgICAgICAgICANCiAgICAgICAgICAgICAgIC AgICAgICAgICAgICAgICAgICAgICAgICAgICAgICAgICAgICAgICAgICAgICAgICAgICAgICAgICAgIC AgICAgICAgICAgICAgICAgICAgICAgICANCiAgICAgICAgICAgICAgICAgICAgICAgICAgICAgICAgIC AgICAgICAgICAgICAgICAgICAgICAgICAgICAgICAg ICAgICAgICAgICAgICAgICAgICAgICAgICAgICAgICAgICANCjw/aHLnW8gffAUangD0U2xwBe4WJv7H MO8hs7NuXJSnGXsylhHwKzcUNyGiLQSrZsqUBoq8NRsvLL0UuADuL6OcF9TdVCpuAF4GHTFvINWqaXCg XPEvJFEgCfR5LSShJHbiQK8LsLWbTZhhIGAzXRLyRH 8OZHQdA250bsDiNB2OHc4NGdMeBR8nqx3SCwAsJPDcUepMGnw6CCqsLI0ZnAAwjHBfUaTbLHCUZmIvW8 xun2BzQcUzEKBKSTfmDG4Sl4KnhTGcKQk+Et6WJM5zy9CqBCohSzPcGK6nmw3DECzYVaIzJ3KirVwsZD Iuy6lqEMHmQD4mkLAxWNZ7UQJgGKXacdLIVIPrUNPC EOFjfHY0SuZaWwEdGzCcREA5TABvBU1tWOkxQM7NQPX6RWzsULNjMISpZ4mLZbBwQHObSIMcxAgdCC9S RcGhA8VkwlTajAQoQpBaMQJVQe2+DVakanDnTtiYBoH6SNVzp2WbPTa9XK6JDFNvALzjLT2LJVXyuC5r FEgcRL2ZKjEhIRAnMEHFJzOxN16pgZAwNIg0C0EkCi VkZGVkRmlsZXMgPDwvTmFtZXMgWyBdDQogID4+ID4+RCvgTP9TDApkpdTvBZAqSi4TQIYvXFLeDT7eHH ErGKEcE6L4uNgcCVDFBoFjM8jyqoxqXR7tQMUeP822aMihvlAtITKbRKAoMg0AULAfPDS2PDTfiCXzTw TiVUTTXOqzIZ7HjOElAXM3aG9kEDtnZERdMWPdR3hT ZiNmkIanXU38jQsbmpWejTOhYTk+Ss7NLV8bd9HvOMr8ybCqJHvyGDS3DQwoBTJoUUWnZLHaQME1IBK0 UNTTRfGaXPPiKKSuCIrhJVKyZJYmst8BRCTlOEHfFQH2ZWZsGSKdHHXsKPvqWZZxGPCgEuo5CPDdXNXb PJ7SYcZuKNErMLWsYWazHKYvWZGhan7FWBCdXYNqHk Y3DUVcVCKqZAStCBanYXEzCQAzGhr0KLUlOAKdQJ5VEpSnXPUuDUTwUGxoYGQiJQKksf3LJMJnBCFtRA I6ELKhMIRzDOXfXGnqLNUyQAV5UoT6SKMhJRElSG5QQeSrAIVdGKJ8VKLyHXWtENOrgi7TGCHkJHCpHY d9ZPNzKLPqYHDuWDvcBQHnPYW1NYhxQQYoXZLiXH7J OjKqRIZnBHsvYwEnVZKjKMCges4RJXNoVUJrRcV4McIzKKCaGRKgTGmqJKZlTKM5HTZbVMCnUKOwHU1Q HaAwMESpSQbeLHSkVAOpQRPeek0IVNQaWEBjEHNqJcUvDTUmBDLmKBmbFCDkPVR8KIpvTEMiDYQsMP3A NoPlSDVqCMadAmAiYCGqTOOznx1OHWWnJXTcSNDwLg YwEKUkYJMzADsnNGIzGXV9ZVS6NWYiQGUwAD9NXgAwKBLxVhNlUZorOVEtKGFpdg0DBDLcAQMiFVW7BU NySJDtKBYqIKgnDCSiZHGhSzA1WRJgQSJkXA2ERzQmRXysXVKPEgp9SGeqX7v6SRSuHI6FE0Dmn4GhDz QhEWMZLVkmIG4rcqVzCCQhNh0LD7uZJydsJzfsSrNs JDBdCWzoYOHfOzL2P5I3D1RpWjWtUKJ9TC9mALW7VSCvNAT2ORF8FZQtWkB6PrViIYWpVQLpSjScPUAz VhCwNC4VFa0CDvY3QUD6oGKfBi6KYxV7KLmNCnGuHS8UTLb= ID Date Data Source [id number] 06/21/2020 12:02:[address] [facility] Name Value Range Interpretation Code Description Data Radha rce(s) Supporting Document(s) Progress Note [facility] UKENBn7dLnGZAcQl69/YAYjcFLGtf5SzYHldALb7FAdoYPDeZ5IzKRF4rU9gUYN4MEvKXbAoTyHhSDZt lbm [file] AC4MIt1KZoX4YFE2uPMfAm9KCCMrLaFYRtLxIS4VBGz= ID Date Data Source [id number] 06/16/2020 03:52:[address] [facility] Name Value Range Interpretation Code Description Data Radha rce(s) Supporting Document(s) Progress Note [facility] SLSAVa2pRwPZHdGq88/ONAhsZAUtr0NvAOzkEIo0HKrmOOBzR4ZyKAM1aQ3dXYK9OKdANmSqZuPfRQV1 lbm [file] 3Iwm+[id number]+UPPER SORBIAN [file] [id number] ID Date Data Source [id number] 06/14/2020 10:17:00 AM EDT [facility] Name Value Range Interpretation Code Description Data Radha rce(s) Supporting Document(s) SARS coronavirus 2 RNA [facility] This lab was ordered by [facility] and reported by [facility]. Procedure Social History Code Duration Value Status Description Data Source(s ) Smoking 11/28/2020 12:00:00 AM EST Patient is a former smoker completed Patient is a former smoker [facility] ([facility] Smoking 11/21/2020 12:00:00 AM EST Unknown if ever smoked comp leted Unknown if ever smoked [facility] ([facility]) Smoking 11/13/2020 12:00:00 AM EST Unknown if ever smoked comp leted Unknown if ever smoked [facility] ([facility]) Smoking 10/24/2020 12:00:00 AM EST Patient is a former smoker completed Patient is a former smoker [facility] ([facility]) Smoking 10/19/2020 12:00:00 AM EST Unknown if ever smoked comp leted Unknown if ever smoked [facility] ([facility]) Smoking 10/06/2020 12:00:00 AM EST Unknown if ever smoked comp leted Unknown if ever smoked [facility] ([facility]) Smoking 10/05/2020 12:00:00 AM EST Unknown if ever smoked comp leted Unknown if ever smoked [facility] ([facility]) Smoking 09/27/2020 12:00:00 AM EST Unknown if ever smoked comp leted Unknown if ever smoked [facility] ([facility]) Alcohol intake 08/09/2020 12:00:00 AM EST Ex-drinker (finding) comp leted Ex- drinker (finding) [facility] Tobacco use and exposure 08/09/2020 12:00:00 AM EST Never used co mpleted Never used [facility] Smoking 08/09/2020 12:00:00 AM EST Former smoker completed Former smoker [facility] Smoking 07/14/2020 12:00:00 AM EDT Patient has never smoked co mpleted Patient has never smoked [facility] ([facility]) Smoking 07/10/2020 12:00:00 AM EDT Non-smoker, Non-drink er, Non-drug User completed Non-smoker, Non-drinker, Non-drug User [facility] ([facility] [employer] [facility]) Alcohol intake 06/16/2020 12:00:00 AM EDT Current drinker of al cohol (finding) completed Current drinker of alcohol (finding) [facility] Vital Signs ID Date Data Source UNK [...] 98 % [facility] ([facility] [place] body weight 140 [lb_av] 140 [lb_av] MEDEN T ([facility] Body mass index (BMI) [Ratio] 44.7 kg/m2 44.7 k g/m2 [facility] ([facility] Body height 68.0 [in_i] 68.0 [in_i] [facility] ([facility] 5'8" Body weight 296.12 [lb_av] 296.12 [lb_av] MEDEN T ([facility] Oxygen saturation in Arterial blood by Pulse oximetry 99 % 99 % [facility] ([facility] [place] body weight 140 [lb_av] 140 [lb_av] MEDEN T ([facility] Body mass index (BMI) [Ratio] 45.0 kg/m2 45.0 k g/m2 [facility] ([facility] Systolic blood pressure 128 mm[Hg] 128 mm[Hg] M EDENT ([facility] Diastolic blood pressure 86 mm[Hg] 86 mm[Hg] [facility] ([facility] Heart [...] [lb_av] MEDEN T ([facility] [place] body weight 140 [lb_av] 140 [lb_av] MEDEN [...] MEDENT ( [facility] Body weight 286.06 [lb_av] 286.06 [lb_av] MEDEN T ([facility]) with shoes Heart rate 80 /min 80 /min MED[facility] ([facility]) Systolic blood pressure 142 mm[Hg] 142 mm[Hg] M EDENT ([facility]) Diastolic blood pressure 80 mm[Hg] 80 mm[Hg] MED[facility] ([facility]) Body temperature 97.8 [degF] 97.8 [degF] MEDENT ([facility]) Body temperature 36.6 Sheila 36.6 Sheila MEDENT ( [facility]) Diastolic blood pressure 79 mm[Hg] 79 mm[Hg] ALAN ([facility]) Body height 67 [in_i] 67 [in_i] BRILLION ([facility]) Body mass index (BMI) [Ratio] 45.3 kg/m2 45.3 k g/m2 ALAN ([facility]) Systolic blood pressure 117 mm[Hg] 117 mm[Hg] A THENA ([facility]) Body weight 4626 [oz_av] 4626 [oz_av] ALAN ([facility]) Systolic blood pressure 122 mm[Hg] 122 mm[Hg] M EDENT ([facility] [employer]) Diastolic blood pressure 68 mm[Hg] 68 mm[Hg] MED[facility] ([facility]) Systolic blood pressure 131 mm[Hg] 131 mm[Hg] M EDENT ([facility]) Diastolic blood pressure 94 mm[Hg] 94 mm[Hg] MEDENT ([facility]) Heart rate 104 /min 104 /min [facility] ([facility]) Respiratory rate 16 /min 16 /min MED[facility] ( [facility]) Oxygen saturation in Arterial blood by [facility]ulse oximetry 98 % 98 % [facility]) Body temperature 98.3 [degF] 98.3 [degF] MEDENT ([facility]) Body weight 280.00 [lb_av] 280.00 [lb_av] LEONOREN T ([facility], [facility]) Body height 68 [in_i] 68 [in_i] MEDSILVANO ([facility]) 5'8" Body mass index (BMI) [Ratio] 42.6 kg/m2 42.6 k g/m2 [facility] ([facility], [facility]) ID Date Data Source [id number] 10/06/2020 10:31:27 AM [facility] Value Range Interpretation Code Description Data Source(s) PREFERRED NAME Rhianna Moctezuma [facility] ID Date Data Source [id number] 11/13/2020 11:58:07 AM [facility] Value Range Interpretation Code Description Data Source(s) PREFERRED NAME Rihanna [facility]ct[facility]uma [facility] ID Date Data Source [id number] 12/05/2020 02:20:47 PM EDT [facility] Value Range Interpretation Code Description Data Source(s) PREFERRED NAME MarleneChandra Moctezuma [facility] ID Date Data Source [id number] 11/16/2020 02:03:34 PM [facility] Value Range Interpretation Code Description Data Source(s) PREFERRED NAME Rhianna Moctezuma [facility] ID Date Data Source [id number] 11/22/2020 09:43:04 AM [facility] Name Value Range Interpretation Code Description Data Source(s) PREFERRED NAME Rhianna Moctezuma [facility] PREFERRED NAME Rhianna Moctezuma [facility] ID Date Data Source [id number] 11/01/2020 04:21:45 PM [facility] Name Value Range Interpretation Code Description Data Source(s) PREFERRED NAME Rhianna Moctezuma [facility] ID Date Data Source [id number] 10/05/2020 02:39:21 PM [facility] Name Value Range Interpretation Code Description Data Source(s) PREFERRED NAME AChandra A.Stuart [facility] ID Date Data Source [id number] 11/08/2020 09:27:13 AM [facility] Name Value Range Interpretation Code Description Data Source(s) PREFERRED NAME A.Stuart A.J [facility] PREFERRED NAME AChandra A.J [facility] ID Date Data Source [id number] 09/25/2020 10:36:49 AM [facility] Name Value Range Interpretation Code Description Data Source(s) PREFERRED NAME AChandra A.Stuart [facility] ID Date Data Source [id number] 10/05/2020 03:57:33 PM [facility] Name Value Range Interpretation Code Description Data Source(s) WEIGHT RECORDED 289.8 lb 289.8 lb [facility] Body height Measured 67.99 in 67.99 in [facility] PREFERRED NAME A.J A.J [facility] PREFERRED NAME AChandra A.J [facility] ID Date Data Source [id number] 09/27/2020 04:06:36 PM [facility] Name Value Range Interpretation Code Description Data Source(s) PREFERRED NAME A.Stuart A.J [facility] PREFERRED NAME AChandra A.J [facility] ID Date Data Source [id number] 11/13/2020 08:54:18 AM [facility] Name Value Range Interpretation Code Description Data Source(s) PREFERRED NAME A.J A.J [facility] PREFERRED NAME AMyrtleJ A.J [facility] ID Date Data Source [id number] 09/21/2020 04:33:42 PM [facility] Name Value Range Interpretation Code Description Data Source(s) WEIGHT RECORDED 292.8 lb 292.8 lb [facility] Body height Measured 67.99 in 67.99 in [facility] PREFERRED NAME A.J A.J [facility] PREFERRED NAME A.Stuart A.J [facility] ID Date Data Source [id number] 10/09/2020 04:41:18 PM [facility] Name Value Range Interpretation Code Description Data Source(s) PREFERRED NAME Rhianna Moctezuma [facility] PREFERRED NAME Rhianna Moctezuma [facility] ID Date Data Source [id number] 09/05/2020 07:06:36 AM [facility] Name Value Range Interpretation Code Description Data Source(s) PREFERRED NAME Rhianna Moctezuma [facility] ID Date Data Source [id number] 09/05/2020 02:06:28 AM [facility] Name Value Range Interpretation Code Description Data Source(s) WEIGHT RECORDED 292 lb 292 lb [facility] Body height Measured 67.99 in 67.99 in [facility] PREFERRED NAME Rhianna Moctezuma [facility] ID Date Data Source [id number] 08/31/2020 02:59:12 PM [facility] Name Value Range Interpretation Code Description Data Source(s) PREFERRED NAME Rhianna Moctezuma [facility] ID Date Data Source [id number] 09/12/2020 12:53:35 PM [facility] Name Value Range Interpretation Code Description Data Source(s) PREFERRED NAME Rhianna [facility] PREFERRED NAME Rhianna [facility] ID Date Data Source [id number] 08/21/2020 05:52:12 PM [facility] Name Value Range Interpretation Code Description Data Source(s) PREFERRED NAME Rhianna [facility] ID Date Data Source [id number] 08/04/2020 11:24:38 AM [facility] Name Value Range Interpretation Code Description Data Source(s) WEIGHT RECORDED 288.4 lb 288.4 lb [facility] Body height Measured 67.99 in 67.99 in [facility] Patient Treatment Plan of Care Planned Activity Planned Date Details Description Data Source (s) BD Syringe Luer-Alyssa 1 ML (Syringe (Disposable)) 10/03/2020 12:00:00 AM [facility] Verio In Vitro Strip (glucose blood) 09/29/2020 12:00:00 A M [facility] Delica Lancets 33G 09/29/2020 12:00:00 AM [facility] w[facility]Device Kit 09/28/2020 12:00:00 AM [facility] duloxetine 60 MG Delayed Release Oral Capsule 09/27/2020 12:00:00 A [facility] BD Disp Laurel 20G X 1" (NEEDLE (DISP) 20 G) 09/14/2020 12:00:00 A [facility] BD Disp Laurel 25G X 5/8" (NEEDLE (DISP) 25 G) 09/14/2020 12:00:00 [facility] In Vitro Strip (glucose blood) 09/14/2020 12:00:00 A [facility] Donavanica Lancets 33G 09/14/2020 12:00:00 AM [facility] BD Luer-Alyssa Syringe 25G X 5/8" 3 ML 09/13/2020 12:00:00 AM [facility] 2 ML aripiprazole 200 MG/ML Prefilled Syringe [Abilify ] 08/17/2020 12:00:00 AM [facility] ospital Pen Laurel 31G X 6 MM 08/16/2020 12:00:00 AM [facility] Sharps Container 08/16/2020 12:00:00 AM [facility] BD Disp Laurel 20G X 1" (NEEDLE (DISP) 20 G) 08/16/2020 12:00:00 A [facility] BD Disp Laurel 25G X 5/8" (NEEDLE (DISP) 25 G) 08/16/2020 12:00:00 AM [facility] 3 ML Insulin Glargine 100 UNT/ML Pen Injector 08/07/2020 12:00:00 A [facility] Hydroxychloroquine Sulfate 200 MG Oral Tablet 08/07/2020 12:00:00 A [facility] 2 ML aripiprazole 200 MG/ML Prefilled Syringe [Abilify ] 08/07/2020 12:00:00 AM [facility] ospital 2 ML aripiprazole 200 MG/ML Prefilled Syringe [Abilify ] 07/27/2020 12:00:00 AM [facility] ospital FQ Protective Underwear 07/25/2020 12:00:00 AM [facility] Lancet Devices 07/06/2020 12:00:00 AM [facility] Benlysta 200 MG/ML Subcutaneous Solution Prefilled Syr alondra (belimumab) 07/06/2020 12:00:[address] [facility] Prazosin 1 MG Oral Capsule 06/28/2020 12:00:00 AM [facility] Hydroxychloroquine Sulfate 200 MG Oral Tablet [[place]] 06/21/2020 12:00:00 AM [facility] ospital 2 ML aripiprazole 200 MG/ML Prefilled Syringe [Abilify ] 06/21/2020 12:00:00 AM [facility]spital OneTouch Verio In Vitro Strip (glucose blood) 06/19/2020 12:00:00 A M [facility] Pen Laurel 31G X 6 MM 06/16/2020 12:00:00 AM [facility] Sharps Container 05/08/2020 12:00:00 AM [facility] Prazosin 1 MG Oral Capsule 05/08/2020 12:00:00 AM [facility] Glucose Blood In Vitro Strip (OneTouch Verio) 04/11/2020 12:00:00 A M [facility] aripiprazole 10 MG Oral Tablet 04/10/2020 12:00:00 AM [facility] Naproxen 500 MG Oral Tablet 02/25/2020 12:00:00 AM [facility] Glucose Blood In Vitro Strip (OneTouch Verio) 01/25/2020 12:00:00 A M [facility] Prednisone 5 MG Oral Tablet [facility] Prazosin 1 MG Oral Capsule A [facility] ([facility]) POLYETHYLENE GLYCOL 3350 142 MG/ML Oral Solution [facility] ([facility]) Oseltamivir 75 MG Oral Capsule [facility] ([facility]) Ondansetron 4 MG Oral Tablet [facility] ([facility]) norethindrone (contraceptive) 0.35 mg ta blet TAKE ONE TABLET BY MOUTH ONCE DAILY [facility] ([facility]) ipratropium bromide 0.03 % nasal spray I NSTILL TWO SPRAYS IN EACH NOSTRIL THREE TIMES DAILY NEEDED [facility] ([facility]) Hydroxychloroquine Sulfate 200 MG Oral Tablet [facility] ([facility]) duloxetine 30 MG Delayed Release Oral Capsule [facility] ([facility]) duloxetine 20 MG Delayed Release Oral Capsule [facility] ([facility]) desloratadine 5 MG Oral Tablet [facility] ([facility]) Clonidine Hydrochloride 0.1 MG Oral Tablet [facility] ([facility]) cefdinir 300 MG Oral Capsule [facility] ([facility]) Bisacodyl 5 MG Delayed Release Oral Tablet [facility] ([facility] Benlysta 200 mg/mL subcutaneous auto-injector [facility] ([facility]) aripiprazole 10 MG Oral Tablet [facility] ([facility]) duloxetine 60 MG Delayed Release Oral Capsule [facility]
== END 2021-08-12 23:50 | disposition left against medical advice (07) ==
LOC: M ED 17:40
DX: Z53.21 Procedure and treatment not carried out due to patient leaving prior to being seen by health care provider (principal)